=== PATIENT | female | born 1975 | race Caucasian/White ===

== ENCOUNTER 2017-04-15 20:09 | Emergency (ER) | payer BC, MEDICAID ==
--- NOTE | 2017-04-15 20:46 | ER Document Report ---
ED Medical Screen (RME) - General Chief Complaint: Leg Swelling Stated Complaint: POSSIBLE BLOOD CLOT Time Seen by Provider: 04/15/17 20:39 Mode of Arrival: Ambulatory Information source: Patient Notes: Pt is a 41 year old female who presents to the ER today for left lower leg pain and swelling. She has no hx of blood clots. Is on no blood thinners. TRAVEL OUTSIDE OF THE [place] IN LAST 30 DAYS: No - Related Data Allergies/Adverse Reactions: brompheniramine maleate [From Dimetapp] Allergy (Severe, Verified 01/12/12 11:23 ) Swelling of Throat dextromethorphan HBr [From Dimetapp] Allergy (Severe, Verified 01/12/12 11:23) Swelling of Throat phenylpropanolamine HCl [From Dimetapp] Allergy (Severe, Verified 01/12/12 11:23 ) Swelling of Throat pseudoephedrine HCl [From Dimetapp] Allergy (Severe, Verified 01/12/12 11:23) Swelling of Throat Past Medical History - General Information source: Patient - Past Medical History Cardiac Medical History: Reports: Hx Hypertension Neurological Medical History: Reports: Hx Migraine Renal/ Medical History: Denies: Hx Peritoneal Dialysis Past Surgical History: Reports: Hx Hysterectomy - Immunizations Hx Diphtheria, Pertussis, Tetanus Vaccination: Yes Review of Systems - Review of Systems Musculoskeletal: See HPI Skin: See HPI Physical Exam - Vital signs Vitals: Temp Pulse Resp BP Pulse Ox 98.2 F 111 H 16 131/69 H 98 04/15/17 20:37 04/15/17 20:37 04/15/17 20:37 04/15/17 20:37 04/15/17 20:37 - Notes Notes: PHYSICAL EXAMINATION: GENERAL: Well-appearing and in no acute distress. LUNGS: CTAB and equal. No wheezes rales or rhonchi. HEART: Regular rate and rhythm without murmurs EXTREMITIES: tender to left calf, Benito's sign positive, Normal range of motion , no pitting edema. No cyanosis. Course - Vital Signs Vital signs: Temp Pulse Resp BP Pulse Ox 98.2 F 111 H 16 131/69 H 98 04/15/17 20:37 04/15/17 20:37 04/15/17 20:37 04/15/17 20:37 04/15/17 20:37
[2017-04-15 21:26] LABS: HEMATOCRIT 41.5 % (36.0-47.0); HEMOGLOBIN 13.8 g/dL (12.0-15.5); HGB HCT DIFFERENCE -0.1; MEAN CORPUSCULAR HEMOGLOBIN 30.6 pg (27.0-33.4); MEAN CORPUSCULAR HGB CONC 33.3 g/dL (32.0-36.0); MEAN CORPUSCULAR VOLUME 92 fl (80-97); RED BLOOD COUNT 4.51 10^6/uL (3.72-5.28); RED CELL DISTRIBUTION WIDTH 14.4 % (11.5-14.0)
[2017-04-15 21:28] LABS: PARTIAL THROMBOPLASTIN TIME 27.2 SEC (23.5-35.8); PROTHROMBIN TIME 11.6 SEC (11.4-15.4)
[2017-04-15 21:31] LABS: APPEARANCE,URINE CLEAR; BILIRUBIN,URINE NEGATIVE (NEGATIVE); GLUCOSE, URINE NEGATIVE (NEGATIVE); KETONES,URINE NEGATIVE (NEGATIVE); LEUKOCYTE ESTERASE,URINE TRACE (NEGATIVE); NITRITE,URINE NEGATIVE (NEGATIVE); PROTEIN,URINE NEGATIVE (NEGATIVE); URINE SPECIFIC GRAVITY 1.006; UROBILINOGEN,URINE NEGATIVE mg/dL (<2.0)
[2017-04-15 21:40] LABS: ALANINE AMINOTRANSFERASE 109 U/L (9-52); ALBUMIN 4.1 g/dL (3.5-5.0); ALKALINE PHOSPHATASE 148 U/L (38-126); ANION GAP 11 (5-19); ASPARTATE AMINO TRANSFERASE 77 U/L (14-36); BILIRUBIN,DIRECT 0.5 mg/dL (0.0-0.4); BILIRUBIN,TOTAL 0.5 mg/dL (0.2-1.3); BLOOD UREA NITROGEN 14 mg/dL (7-20); CALCIUM 10.4 mg/dL (8.4-10.2); CARBON DIOXIDE 26 mmol/L (22-30); CHLORIDE 99 mmol/L (98-107); CREATININE RESULT 0.97 mg/dL (0.52-1.25); GLUCOSE 93 mg/dL (75-110); POTASSIUM 5.2 mmol/L (3.6-5.0); TOTAL PROTEIN 8.2 g/dL (6.3-8.2)
[2017-04-15 21:43] LABS: BASOPHILS % (MANUAL) 1 % (0-2); EOSINOPHILS % (MANUAL) 8 % (0-6); LYMPHOCYTES % (MANUAL) 43 % (13-45); TOTAL CELLS COUNTED 100
[2017-04-15 21:46] LABS: RBC MORPHOLOGY COMMENT NORMO-CYTIC/CHROMIC
[2017-04-15 21:50] LABS: WHITE BLOOD COUNT 35.3 10^3/uL (4.0-10.5)
--- NOTE | 2017-04-15 23:08 | ER Document Report ---
ED Extremity Problem, Lower - General Mode of Arrival: Ambulatory Information source: Patient TRAVEL OUTSIDE OF THE [place] IN LAST 30 DAYS: No - HPI Patient complains to provider of: Pain, Swelling Location: Leg Occurred: Other - Refer to HPI notes Onset/Duration: Gradual Quality of pain: Fullness, Pressure <ROSALIND ABURTO - Last Filed: 04/16/17 02:26> <DIRK MCCLURE - Last Filed: 04/16/17 02:42> - General Chief Complaint: Leg Swelling Stated Complaint: POSSIBLE BLOOD CLOT Time Seen by Provider: 04/15/17 20:39 Notes: Patient is a 41-year-old female presenting to the emergency department for left lower leg pain and swelling. Patient has had these symptoms for 3 days. Patient states that she is concerned for possible DVT. Patient has not been taking any steroids recently. Patient denies any known injury to this leg. Patient has history of rheumatoid arthritis and a splenectomy. Patient states she typically has an abnormally high white blood count due to her RA and splenectomy. Patient denies any fevers, vomiting, diarrhea, weakness, or tingling. (ROSALIND ABURTO) - Related Data Allergies/Adverse Reactions: brompheniramine maleate [From Dimetapp] Allergy (Severe, Verified 01/12/12 11:23 ) Swelling of Throat dextromethorphan HBr [From Dimetapp] Allergy (Severe, Verified 01/12/12 11:23) Swelling of Throat phenylpropanolamine HCl [From Dimetapp] Allergy (Severe, Verified 01/12/12 11:23 ) Swelling of Throat pseudoephedrine HCl [From Dimetapp] Allergy (Severe, Verified 01/12/12 11:23) Swelling of Throat Past Medical History - General Information source: Patient - Social History Smoking Status: Current Every Day Smoker Cigarette use (# per day): Yes Chew tobacco use (# tins/day): Yes Frequency of alcohol use: None Drug Abuse: None Family History: None Patient has suicidal ideation: No Patient has homicidal ideation: No - Past Medical History Cardiac Medical History: Reports: Hx Hypertension Neurological Medical History: Reports: Hx Migraine Musculoskeltal Medical History: Reports Hx Arthritis - RA Past Surgical History: Reports: Hx Abdominal Surgery - Splenectomy, Hx Hysterectomy - Immunizations Hx Diphtheria, Pertussis, Tetanus Vaccination: Yes <ROSALIND ABURTO - Last Filed: 04/16/17 02:26> Review of Systems - Review of Systems Constitutional: No symptoms reported EENT: No symptoms reported Cardiovascular: No symptoms reported Respiratory: No symptoms reported Gastrointestinal: No symptoms reported Genitourinary: No symptoms reported Female Genitourinary: No symptoms reported Musculoskeletal: See HPI Skin: See HPI Hematologic/Lymphatic: No symptoms reported Neurological/Psychological: No symptoms reported -: Yes All other systems reviewed and negative <LAVONNE ABURTOINE - Last Filed: 04/16/17 02:26> Physical Exam <LAVONNE ABURTOINE - Last Filed: 04/16/17 02:26> <DIRK MCCLURE - Last Filed: 04/16/17 02:42> - Vital signs Vitals: Temp Pulse Resp BP Pulse Ox 98.2 F 111 H 16 131/69 H 98 04/15/17 20:37 04/15/17 20:37 04/15/17 20:37 04/15/17 20:37 04/15/17 20:37 - Notes Notes: GENERAL: Alert, interacts well. No acute distress. HEAD: Normocephalic, atraumatic. EYES: Pupils equal, round, and reactive to light. Extraocular movements intact. ENT: Oral mucosa moist, tongue midline. NECK: Full range of motion. Supple. Trachea midline. LUNGS: Clear to auscultation bilaterally, no wheezes, rales, or rhonchi. No respiratory distress. HEART: Mild tachycardia. Regular rhythm. No murmurs, gallops, or rubs. ABDOMEN: Soft, non-tender. Non-distended. Bowel sounds present in all 4 quadrants. EXTREMITIES: Moves all 4 extremities spontaneously. 1+ pitting edema below the left knee, erythema circumferential around the mid calf. No cyanosis. NEUROLOGICAL: Alert and oriented x3. Normal speech. PSYCH: Normal affect, normal mood. SKIN: Warm, dry. (YODITLAVONNE BARBERINE) Course - Laboratory Result Diagrams: 04/15/17 21:03 04/15/17 21:03 <YODITLAVONNE BARBERINE - Last Filed: 04/16/17 02:26> - Laboratory Result Diagrams: 04/15/17 21:03 04/15/17 21:03 <DIRK MCCLURE - Last Filed: 04/16/17 02:42> - Re-evaluation Re-evalutation: 04/16/17 23:[address] Lin who states there is no sign of DVT but, there is a soft tissue mass posteriorly to the left leg in the popliteal fossa. This could be a hematoma and is not vascular throughout. Upon reexamination the calf is swollen and tender to palpation with no specific mass and no sign of compartment syndrome. (ROSALIND ABURTO) 04/16/17 02:40 04/16/17 02:41 35.3 WBC is consitent with patient's past numbers per patient. No evidence of sepsis. Appears consistent with cellulitis, treat with Keflex, no evidence of DVT on doppler US. Discussed mass with pt, who will have it reimaged in 1 week if no improvement. Patient also complains of increasing difficulty moving hands consistent with her usual rheumatoid arthritis flares, we'll start low- dose steroid taper. (DIRK MCCLURE) - Vital Signs Vital signs: Temp Pulse Resp BP Pulse Ox 97.9 F 108 H 18 136/70 H 96 04/15/17 23:36 04/15/17 23:36 04/15/17 23:36 04/15/17 23:36 04/15/17 23:36 - Laboratory Laboratory results interpreted by me: 04/15/17 04/15/17 04/15/17 21:03 21:03 21:03 WBC 35.3 H* RDW 14.4 H Plt Count 665 H Seg Neuts % (Manual) 39 L Monocytes % (Manual) 0 L Eosinophils % (Manual) 8 H Abs Neuts (Manual) 13.8 H Abs Lymphs (Manual) 18.4 H Abs Monocytes (Manual) 0.0 L Absolute Eos (Manual) 2.8 H Abs Basophils (Manual) 0.4 H Sodium 136.0 L Potassium 5.2 H Calcium 10.4 H Direct Bilirubin 0.5 H AST 77 H ALT 109 H Alkaline Phosphatase 148 H Ur Leukocyte Esterase TRACE H Discharge <ROSALIND ABURTO - Last Filed: 04/16/17 02:26> <DIRK MCCLURE - Last Filed: 04/16/17 02:42> - Discharge Clinical Impression: Cellulitis of left lower extremity without foot, Rheumatoid arthritis flare, leftpopliteal fossa mass, Left leg swelling Condition: Stable Disposition: HOME, SELF-CARE Additional Instructions: If the swelling has not decreased in one week she will need to have her ultrasound repeated. Today's ultrasound did not show any blood clot in her leg. It did show a mass in the back of her leg behind her knee. This could be a large bruise in the muscle. She will want to have this followed up because if it gets bigger or does not go away and may represent cancer and will need to be rechecked. Prescriptions: Cephalexin Monohydrate [Keflex 500 mg Capsule] 500 mg PO QID 7 Days Prednisone 1 mg PO ASDIR PRN #120 tablet PRN Reason: Scribe Attestation: 04/16/17 02:42 I personally performed the services described in the documentation, reviewed and edited the documentation which was dictated to the scribe in my presence, and it accurately records my words and actions. (DIRK MCCLURE) Scribe Documentation - Scribe Written by Kimberly:: Kimberly Howard, 04/16/17 1:35 acting as scribe for :: Forrest <ROSALIND ABURTO - Last Filed: 04/16/17 02:26>
--- NOTE | 2017-04-15 23:18 | XCELERA REPORT ---
[address] [address] Lower Extremity Venous Evaluation Name: KIRTI MANN Age: 41 yrs Gender: Female : 1975 Patient Status: Preadmit Patient Location: ER Study Date: 04/15/2017 09:20 PM Procedure: Color flow and duplex imaging of the veins of the left lower extremity as well as the right Common Femoral vein. Reason For Study: left lower leg with pain and swelling Ordering Physician: GLEN ARMSTRONG PA-C Performed By: Venessa Cueto Right Sided Venous Evaluation The right common femoral vein is fully compressible. Spontaneous and phasic flow is present in the right common femoral vein. Left Sided Venous Evaluation Non vascular, complex mass 4 x 3 x1.2 in the Popliteal fossa, also along the upper to mid calf. Normal vessel filling wall to wall, compression and augmentation as well as Colour flow down to the infrageniculate veins. Critical Findings Called in and discussed with Dr Tam at about 2230. and again at about 2310. Interpretation Summary No duplex evidence of DVT or obstruction in the left lower extremity nor in the right Common Femoral vein. Soft tissue masses as noted. : GLEN ARMSTRONG PA-C > Guicho Lin
[2017-04-15 23:39] VITALS: BP 136/70
[2017-04-16 20:00] LABS: PATH REVIEW PATHOLOGIST REVIEWED
== END 2017-04-15 23:36 | disposition home or self-care (01) ==
LOC: ER 20:09
DX: L03.116 Cellulitis of left lower limb (principal); R22.42 Localized swelling, mass and lump, left lower limb; M06.9 Rheumatoid arthritis, unspecified; F17.210 Nicotine dependence, cigarettes, uncomplicated; I10 Essential (primary) hypertension; Z90.710 Acquired absence of both cervix and uterus; Z90.81 Acquired absence of spleen
CPT/HCPCS: 36415; 80053; 81001; 85025; 85610; 85730; 93971; 99284

== ENCOUNTER 2017-05-20 11:30 | Emergency (ER) | payer MEDICAID ==
--- NOTE | 2017-05-20 14:05 | ER Document Report ---
HPI - HPI Patient complains to provider of: left knee pain Onset: Other - over a month Quality of pain: Achy Severity: Severe Pain Level: 4 Context: Patient presents to the emergency department with complaints of left knee pain. Reports that she has a mass behind her left knee was evaluated here in the emergency department in April. She reports she did not follow up with anybody. She just obtained her Medicaid. She also reports she had to go to her son's graduation. She reports that she is unable to bend the knee now. 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 Associated Symptoms: None Exacerbated by: Walking Relieved by: Denies Similar symptoms previously: Yes Recently seen / treated by doctor: Yes - REPRODUCTIVE Reproductive: DENIES: : - DERM Skin Color: Normal Past Medical History - General Information source: Patient Last Menstrual Period: hyst - Social History Smoking Status: Current Every Day Smoker Cigarette use (# per day): Yes Frequency of alcohol use: None Drug Abuse: None Family History: None Patient has suicidal ideation: No Patient has homicidal ideation: No - Past Medical History Cardiac Medical History: Reports: Hx Hypertension Neurological Medical History: Reports: Hx Migraine Renal/ Medical History: Denies: Hx Peritoneal Dialysis Musculoskeltal Medical History: Reports Hx Arthritis - RA Past Surgical History: Reports: Hx Abdominal Surgery - Splenectomy, Hx Hysterectomy - Immunizations Hx Diphtheria, Pertussis, Tetanus Vaccination: Yes Vertical Provider Document - CONSTITUTIONAL Agree With Documented VS: Yes Exam Limitations: No Limitations General Appearance: WD/WN, No Apparent Distress - INFECTION CONTROL TRAVEL OUTSIDE OF THE [place] IN LAST 30 DAYS: No - HEENT HEENT: Atraumatic, Normocephalic - NECK Neck: Supple - RESPIRATORY Respiratory: Breath Sounds Normal, No Respiratory Distress O2 Sat by Pulse Oximetry: 96 - MUSCULOSKELETAL/EXTREMETIES Musculoskeletal/Extremeties: Tender - left knee slightly swollen, no erythema no warmth, reports she is unable to flex the knee.brisk cap refill, +pedal pulse - NEURO Level of Consciousness: Awake, Alert, Appropriate - DERM Integumentary: Warm, Dry Adult Front & Back Diagram: 1 - reports swelling, unable to flex knee Course - Re-evaluation Re-evalutation: 05/20/17 14:04 Patient instructed on plan of CT. 05/20/17 15:10 Dr. garcia consulted per [facility] guidelines - Vital Signs Vital signs: Temp Pulse Resp BP Pulse Ox 97.9 F 102 H 16 135/71 H 96 05/20/17 11:34 05/20/17 11:34 05/20/17 11:34 05/20/17 11:34 05/20/17 11:34 - Diagnostic Test Radiology reviewed: Image reviewed, Reports reviewed - Joint effusion with popliteal cyst with fluid collection extending into the calf consistent with a rupture of the cyst Procedures - Immobilization Left Knee Pre-Proc Neuro Vasc Exam: Normal Immobilizer type: Rubin wrap Performed by: PCT Post-Proc Neuro Vasc Exam: Unchanged from pre-exam Alignment checked and good: Yes Notes: 05/20/17 pt declined crutches Discharge - Discharge Clinical Impression: Rupture of popliteal cyst Left knee pain Qualifiers: Chronicity: unspecified Qualified Code(s): M25.562 - Pain in left knee Condition: Stable Disposition: HOME, SELF-CARE Instructions: Use of Crutches ([facility]), Ice & Elevation ([facility]), Oral Narcotic Medication ([facility]) Additional Instructions: *You have been evaluated for left knee pain, ruptured popliteal cyst *Maintain the rubin wrap for comfort *Trigger for signs of infection such as redness increased swelling warmth increased pain *Rest/Ice/Elevate *Follow up with orthopedics within one week *Her primary care provider for referral and recheck *Take medication as prescribed *Return to ED for worsening condition, changes, needs Monitor your blood pressure. Your blood pressure was elevated today. This may be because you were anxious, in pain or because you need medication. It is important to follow up with your primary care provider for full evaluation. Prescriptions: Oxycodone HCl/Acetaminophen [Percocet 5-325 mg Tablet] 1 - 2 tab PO ASDIR PRN # 15 tablet PRN Reason: Forms: Elevated Blood Pressure Referrals: ASHLEE MENDES DO [Primary Care Provider] - Follow up in 3-5 days [facility] [Provider Group] - Follow up as needed [facility] [Provider Group] - Follow up as needed
--- NOTE | 2017-05-20 14:51 | RADIOLOGY REPORT (SQ) ---
EXAM DESCRIPTION: CT LT LOWER EXTREMITY WITHOUT COMPLETED DATE/TIME: 05/20/2017 2:40 pm REASON FOR STUDY: MASS behind knee, larger COMPARISON: None. TECHNIQUE: Axial imaging performed through the left knee with reformatted coronal and sagittal imagi ng windowed for bone and soft tissues. Images saved to PACS. All CT scanners at this facility use dose modulation, iterative reconstruction, and/or weight based d osing when appropriate to reduce radiation dose to as low as reasonably achievable (ALARA). [facility]: Dose Right [facility]: CareDose [facility]: Dose Right [facility]: Teradose 4D [facility]: [employer] LIMITATIONS: None. RADIATION DOSE: Up-to-date CT equipment and radiation dose reduction techniques were employed. CTDIv ol: 4.1 mGy. DLP: 152 mGy-cm. mGy. FINDINGS: SOFT TISSUES: Moderately large joint effusion. Popliteal cyst with transverse measurement s of 2 x 3 cm. Just inferior to the cyst and contiguous with the cyst is a large fluid collection ex tending adjacent to the medial gastrocnemius muscle into the calf. Maximum transverse measurements a re 2.5 x 7 cm and length measures 5.5. Overall length of involvement measures 13 cm. No solid soft tissue mass visualized. BONES: No acute fracture. No dislocation. MINERALIZATION: Normal. OTHER: No other significant finding. IMPRESSION: JOINT EFFUSION WITH POPLITEAL CYST. LARGE FLUID COLLECTION EXTENDING INFERIORLY INTO TH E CALF CONSISTENT WITH RUPTURE OF THE CYST AND DISSECTION OF FLUID INTO THE SOFT TISSUES. NO SOLID M ASS IDENTIFIED. TECHNICAL DOCUMENTATION: JOB ID: [id number] Quality ID # [id number]: Final reports with documentation of one or more dose reduction techniques (e.g., Au tomated exposure control, adjustment of the mA and/or kV according to patient size, use of iterative reconstruction technique) 2010 [employer]- All Rights Reserved
[2017-05-20 15:55] VITALS: BP 131/80
== END 2017-05-20 15:55 | disposition home or self-care (01) ==
LOC: ER 11:30
DX: M66.0 Rupture of popliteal cyst (principal); M25.562 Pain in left knee; F17.210 Nicotine dependence, cigarettes, uncomplicated; I10 Essential (primary) hypertension; Z90.710 Acquired absence of both cervix and uterus
CPT/HCPCS: 99283

== ENCOUNTER 2018-06-29 10:16 | Emergency (ER) | payer MEDICAID ==
--- NOTE | 2018-06-29 10:36 | ER Document Report ---
ED Medical Screen (RME) - General Chief Complaint: Abdominal Pain Stated Complaint: ABDOMINAL PAIN Time Seen by Provider: 06/29/18 10:23 Mode of Arrival: Ambulatory Information source: Patient Notes: This is a 42-year-old female with a history of hypertension, migraines, leukocytosis (~30K), rheumatoid arthritis (prednisone 5 mg twice daily) with a history of hysterectomy, splenectomy and abdominal mesh. The patient was usual state of health and awoke at 2:30 AM with nausea and vomiting. Patient started having upper abdominal pain (over the mesh) after the vomiting. Patient denies fever or dysuria. Patient denies vaginal discharge. TRAVEL OUTSIDE OF THE [place] IN LAST 30 DAYS: No - Related Data Allergies/Adverse Reactions: brompheniramine maleate [From Dimetapp] Allergy (Severe, Verified 06/29/18 10:18 ) Swelling of Throat dextromethorphan HBr [From Dimetapp] Allergy (Severe, Verified 06/29/18 10:18) Swelling of Throat phenylpropanolamine HCl [From Dimetapp] Allergy (Severe, Verified 06/29/18 10:18 ) Swelling of Throat pseudoephedrine HCl [From Dimetapp] Allergy (Severe, Verified 06/29/18 10:18) Swelling of Throat Past Medical History - Social History Chew tobacco use (# tins/day): No Frequency of alcohol use: None Drug Abuse: None - Past Medical History Cardiac Medical History: Reports: Hx Hypertension Neurological Medical History: Reports: Hx Migraine Renal/ Medical History: Denies: Hx Peritoneal Dialysis Musculoskeltal Medical History: Reports Hx Arthritis - RA Past Surgical History: Reports: Hx Abdominal Surgery - Splenectomy, Hx Hysterectomy - Immunizations Hx Diphtheria, Pertussis, Tetanus Vaccination: Yes Physical Exam - Vital signs Vitals: Temp Pulse Resp BP Pulse Ox 98.3 F 99 18 148/103 H 97 06/29/18 10:25 06/29/18 10:25 06/29/18 10:25 06/29/18 10:25 06/29/18 10:25 Course - Vital Signs Vital signs: Temp Pulse Resp BP Pulse Ox 98.3 F 99 18 148/103 H 97 06/29/18 10:25 06/29/18 10:25 06/29/18 10:25 06/29/18 10:25 06/29/18 10:25 Doctor's Discharge - Discharge Referrals: ASHLEE MENDES DO [Primary Care Provider] - Follow up as needed
[2018-06-29] MEDS ORDERED: ONDANSETRON 4 MG TAB.RAPDIS PO ONE (10:37)
[2018-06-29] MEDS ORDERED: NORMAL SALINE 1000 ML 1,000 ML IV ONE (10:37)
[2018-06-29 11:06] LABS: HEMATOCRIT 43.9 % (36.0-47.0); HEMOGLOBIN 14.8 g/dL (12.0-15.5); MEAN CORPUSCULAR HEMOGLOBIN 30.8 pg (27.0-33.4); MEAN CORPUSCULAR HGB CONC 33.7 g/dL (32.0-36.0); MEAN CORPUSCULAR VOLUME 91 fl (80-97); PLATELET COUNT 745 10^3/uL (150-450); RED BLOOD COUNT 4.81 10^6/uL (3.72-5.28); RED CELL DISTRIBUTION WIDTH 14.7 % (11.5-14.0); WHITE BLOOD COUNT 27.7 10^3/uL (4.0-10.5)
[2018-06-29 11:09] LABS: AMORPHOUS SEDIMENT,URINE TRACE /HPF; APPEARANCE,URINE SLIGHTLY-CLOUDY; BILIRUBIN,URINE NEGATIVE (NEGATIVE); COLOR,URINE AMBER; GLUCOSE, URINE NEGATIVE (NEGATIVE); KETONES,URINE NEGATIVE (NEGATIVE); LEUKOCYTE ESTERASE,URINE TRACE (NEGATIVE); NITRITE,URINE NEGATIVE (NEGATIVE); PROTEIN,URINE 30 mg/dL (NEGATIVE)
--- NOTE | 2018-06-29 11:18 | ER Document Report ---
ED General - General Chief Complaint: Abdominal Pain Stated Complaint: ABDOMINAL PAIN Time Seen by Provider: 06/29/18 10:23 Mode of Arrival: Ambulatory TRAVEL OUTSIDE OF THE [place] IN LAST 30 DAYS: No - HPI Notes: Patient is a 42-year-old female with a history of hypertension, migraines, leukocytosis (approx 30k), rheumatoid arthritis (on prednisone 5 mg twice daily) , surgical history of hysterectomy, splenectomy, hernia with abdominal mesh repair presents to the ED complaining of middle to upper abdominal bloating, cramping, pain, nausea/vomiting that began at 0230 this morning. Patient states that she did have a slight bowel movement this morning, but has not passed any gas since then. Patient states that the pain woke her from sleep and she has vomited about 15 times with the last episode of emesis about 1.5 hours ago. Patient states that the pain has subsided, but is still lingering. Patient states that she has not been ill recently. She is urinating normally. She has not had any vaginal discharge, odor, or bleeding. Denies any headache, fever, URI, sore throat, chest pain, palpitations, syncope, cough, shortness of breath, wheeze, dyspnea, diarrhea, urinary retention, dysuria, hematuria, back pain, loss of control of bowel or bladder, numbness/tingling, saddle anesthesia , muscle paralysis/weakness, or rash. - Related Data Allergies/Adverse Reactions: brompheniramine maleate [From Dimetapp] Allergy (Severe, Verified 06/29/18 10:18 ) Swelling of Throat dextromethorphan HBr [From Dimetapp] Allergy (Severe, Verified 06/29/18 10:18) Swelling of Throat phenylpropanolamine HCl [From Dimetapp] Allergy (Severe, Verified 06/29/18 10:18 ) Swelling of Throat pseudoephedrine HCl [From Dimetapp] Allergy (Severe, Verified 06/29/18 10:18) Swelling of Throat Past Medical History - General Information source: Patient - Social History Smoking Status: Current Every Day Smoker Chew tobacco use (# tins/day): No Frequency of alcohol use: None Drug Abuse: None Family History: None Patient has suicidal ideation: No Patient has homicidal ideation: No - Past Medical History Cardiac Medical History: Reports: Hx Hypertension Neurological Medical History: Reports: Hx Migraine Renal/ Medical History: Denies: Hx Peritoneal Dialysis Musculoskeletal Medical History: Reports Hx Arthritis - RA Past Surgical History: Reports: Hx Abdominal Surgery - Splenectomy, Hx Hysterectomy - Immunizations Hx Diphtheria, Pertussis, Tetanus Vaccination: Yes Review of Systems - Review of Systems -: Yes All other systems reviewed and negative Physical Exam - Vital signs Vitals: Temp Pulse Resp BP Pulse Ox 98.3 F 99 18 148/103 H 97 06/29/18 10:25 06/29/18 10:25 06/29/18 10:25 06/29/18 10:06/29/18 10:25 - Notes Notes: PHYSICAL EXAMINATION: GENERAL: Well-appearing, well-nourished and in no acute distress. HEAD: Atraumatic, normocephalic. EYES: Pupils equal round and reactive to light, extraocular movements intact, sclera anicteric, conjunctiva are normal. ENT: Nares patent and without discharge. oropharynx clear without exudates. No tonsilar hypertrophy or erythema. Moist mucous membranes. NECK: Normal range of motion, supple without lymphadenopathy LUNGS: Breath sounds clear to auscultation bilaterally and equal. No wheezes rales or rhonchi. HEART: Regular rate and rhythm without murmurs, rubs, gallops. ABDOMEN: Soft, + mild distention. No guarding, no rebound. No masses appreciated. bowel sounds present. No CVA tenderness bilaterally. + tenderness to the abd, generalized upper. Musculoskeletal: FROM to passive/active. Strength 5+/5. Extremities: No cyanosis, clubbing, or edema b/l. Peripheral pulses 2+. Capillary refill less than 3 seconds. NEUROLOGICAL: Normal speech, normal gait. PSYCH: Normal mood, normal affect. SKIN: Warm, Dry, normal turgor, no rashes or lesions noted. Course - Re-evaluation Re-evalutation: 06/29/18 14:15 Patient is an afebrile, well-hydrated, 42-year-old female who presents to the ED with nausea, vomiting, abdominal pain unspecified. Patient's symptoms have since completely resolved. Vitals are acceptable without any significant tachycardia, tachypnea, or hypoxia. PE is otherwise unremarkable. Patient's abdomen is now soft and nontender throughout. Patient states that when she started drinking the oral contrast that it made her want to have a bowel movement and states that she had "a ton of poop came out." Patient states that she no longer feels distended and no longer has any pain. She has not had any emesis since presenting to the emergency department. Patient states that she is hungry and has tolerated p.o. without difficulties. She is nontoxic- appearing. I did thoroughly reevaluate the patient and confirm that she is no longer tender in her abdomen. I did review with patient that she needs to monitor symptoms closely and return immediately if symptoms worsen or come back. Patient has an extensive surgical history to her abdomen and my initial concern was of a possible obstruction based on her history and presentation at that time. Patient is declining the CT scan which I am okay with at this time. With patient being asymptomatic with baseline CBC and unremarkable CMP/lipase/ urinalysis I have a low suspicion for acute appendicitis, acute bowel obstruction, acute cholecystitis, acute cholangitis, perforated diverticulitis, incarcerated hernia, pancreatitis, perforated ulcer, peritonitis, sepsis, pelvic inflammatory disease, ectopic , tubo-ovarian abscess, ovarian torsion, or other systemic emergent condition at this time. Patient is aware that her condition can change from initial presentation and she needs to monitor symptoms closely and seek medical attention if any acute changes. Rx for zofran. Conservative measures otherwise for symptoms. Recheck with your PCM in 1-2 days. Consider consult with a nurse licensed practical. Return to the ED with any worsening/concerning symptoms otherwise as reviewed in discharge. Patient is in agreement. - Vital Signs Vital signs: Temp Pulse Resp BP Pulse Ox 98.3 F 99 18 148/103 H 97 06/29/18 10:25 06/29/18 10:25 06/29/18 10:25 06/29/18 10:25 06/29/18 10:25 - Laboratory Result Diagrams: 06/29/18 10:52 06/29/18 10:52 Laboratory results interpreted by me: 06/29/18 06/29/18 06/29/18 10:52 10:52 10:52 WBC 27.7 H RDW 14.7 H Plt Count 745 H Seg Neuts % (Manual) 82 H Abs Neuts (Manual) 22.7 H Glucose 121 H Calcium 10.5 H Total Protein 8.3 H Urine Protein 30 H Urine Urobilinogen 4.0 H Ur Leukocyte Esterase TRACE H Discharge - Discharge Clinical Impression: Abdominal pain Qualifiers: Abdominal location: upper abdomen, unspecified Qualified Code(s): R10.10 - Upper abdominal pain, unspecified Nausea & vomiting Qualifiers: Vomiting type: unspecified Vomiting Intractability: non-intractable Qualified Code(s): R11.2 - Nausea with vomiting, unspecified Condition: Stable Disposition: HOME, SELF-CARE Instructions: Abdominal Pain ([facility]), Vomiting ([facility]), Antinausea Medication ([facility]) Additional Instructions: Maintain adequate fluid and food intake [place] diet ([employer] Bananas, rice, apples, toast, etc Zofran as needed tylenol if needed Monitor for any worsening symptoms Make sure you are staying hydrated enough to urinate and have normal BM's Recheck with your PCM in 1-2 days Consider consult with Gastroenterology for ongoing/worsening symptoms Return to the ED with any worsening symptoms and/or development of fever, headache, chest pain, palpitations, syncope, shortness of breath, trouble breathing, abdominal pain, n/v/d, blood in stool/urine, weakness, or other worsening symptoms that are concerning to you. Prescriptions: Ondansetron [Zofran Odt 4 mg Tablet] 1 - 2 tab PO Q4H PRN #15 tab.rapdis PRN Reason: For Nausea/Vomiting Polyethylene Glycol 3350 [Miralax] 1 cap PO DAILY #527 powder Forms: Elevated Blood Pressure, Smoking Cessation Education Referrals: ASHLEE MENDES DO [Primary Care Provider] - 07/01/18 CURTIS MCCORMICK MD [ACTIVE STAFF] - Follow up as needed
[2018-06-29 11:22] LABS: ALANINE AMINOTRANSFERASE 33 U/L (9-52); ALBUMIN 4.2 g/dL (3.5-5.0); ALKALINE PHOSPHATASE 126 U/L (38-126); ANION GAP 15 (5-19); ASPARTATE AMINO TRANSFERASE 32 U/L (14-36); BILIRUBIN,DIRECT 0.3 mg/dL (0.0-0.4); BILIRUBIN,TOTAL 0.4 mg/dL (0.2-1.3); BLOOD UREA NITROGEN 13 mg/dL (7-20); CALCIUM 10.5 mg/dL (8.4-10.2); CARBON DIOXIDE 27 mmol/L (22-30); CHLORIDE 102 mmol/L (98-107); GLUCOSE 121 mg/dL (75-110); LIPASE 67.6 U/L (23-300); POTASSIUM 4.6 mmol/L (3.6-5.0); TOTAL PROTEIN 8.3 g/dL (6.3-8.2)
[2018-06-29 11:33] LABS: ABSOLUTE LYMPHOCYTES# (MANUAL) 3.6 10^3/uL (0.5-4.7); ABSOLUTE MONOCYTES # (MANUAL) 1.4 10^3/uL (0.1-1.4); ABSOLUTE NEUTROPHILS# (MANUAL) 22.7 10^3/uL (1.7-8.2); BASOPHILS % (MANUAL) 0 % (0-2); EOSINOPHILS % (MANUAL) 0 % (0-6); LYMPHOCYTES % (MANUAL) 13 % (13-45); MONOCYTES % (MANUAL) 5 % (3-13); SEGMENTED NEUTROPHILS % (MAN) 82 % (42-78); TOTAL CELLS COUNTED 100
[2018-06-29 11:34] LABS: ANISOCYTOSIS SLIGHT; TOXIC GRANULATION 1+; TOXIC VACUOLATION PRESENT
[2018-06-29 11:35] LABS: PLATELET CLUMPS PRESENT; PLATELET COMMENT INCREASED
[2018-06-29 14:33] VITALS: BP 131/87
== END 2018-06-29 14:39 | disposition home or self-care (01) ==
LOC: ER 10:16
DX: R10.10 Upper abdominal pain, unspecified (principal); R11.2 Nausea with vomiting, unspecified; R14.0 Abdominal distension (gaseous); I10 Essential (primary) hypertension; F17.200 Nicotine dependence, unspecified, uncomplicated; M06.9 Rheumatoid arthritis, unspecified; Z79.52 Long term (current) use of systemic steroids; Z98.890 Other specified postprocedural states; Z90.710 Acquired absence of both cervix and uterus; Z90.81 Acquired absence of spleen; Z88.8 Allergy status to other drugs, medicaments and biological substances
CPT/HCPCS: 99284; 36415; 83690; 85025; 80053; 81001; S0119

== ENCOUNTER 2019-03-19 18:55 | Inpatient (IN) | payer MEDICAID ==
[2019-03-19] MEDS ORDERED: ONDANSETRON 4 MG TAB.RAPDIS PO ONE (19:48)
--- NOTE | 2019-03-19 19:51 | ER Document Report ---
ED Medical Screen (RME) - General Chief Complaint: Abdominal Pain Stated Complaint: ABDOMINAL PAIN Time Seen by Provider: 03/19/19 19:47 Primary Care Provider: ASHLEE MENDES DO [Primary Care Provider] - Follow up as needed Mode of Arrival: Ambulatory Information source: Patient Notes: 42-year-old female presented to ED for complaint of severe abdominal pain since noon to the right upper quadrant. She states she has been nauseated and had one emesis. She states she has not had any diarrhea. She denies any fever. She has very few hypoactive bowel sounds in the right upper quadrant otherwise I do not hear bowel sounds. Lungs are clear to auscultation. Patient does have a history of high blood pressure cholesterol. 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 I have greeted and performed a rapid initial assessment of this patient. A comprehensive ED assessment and evaluation of the patient, analysis of test results and completion of medical decision making process will be conducted by an additional ED providers. TRAVEL OUTSIDE OF THE [place] IN LAST 30 DAYS: No - Related Data Allergies/Adverse Reactions: brompheniramine maleate [From Dimetapp] Allergy (Severe, Verified 06/29/18 10:18) Swelling of Throat dextromethorphan HBr [From Dimetapp] Allergy (Severe, Verified 06/29/18 10:18) Swelling of Throat phenylpropanolamine HCl [From Dimetapp] Allergy (Severe, Verified 06/29/18 10:18) Swelling of Throat pseudoephedrine HCl [From Dimetapp] Allergy (Severe, Verified 06/29/18 10:18) Swelling of Throat Past Medical History - Social History Chew tobacco use (# tins/day): No Frequency of alcohol use: None Drug Abuse: None - Past Medical History Cardiac Medical History: Reports: Hx Hypertension Neurological Medical History: Reports: Hx Migraine Renal/ Medical History: Denies: Hx Peritoneal Dialysis Musculoskeltal Medical History: Reports Hx Arthritis - RA Past Surgical History: Reports: Hx Abdominal Surgery - Splenectomy, Hx Hysterectomy - Immunizations Hx Diphtheria, Pertussis, Tetanus Vaccination: Yes Physical Exam - Vital signs Vitals: Temp Pulse Resp BP Pulse Ox 97.3 F 75 22 H 196/107 H 95 03/19/19 19:33 03/19/19 19:33 03/19/19 19:33 03/19/19 19:33 03/19/19 19:33 Course - Vital Signs Vital signs: Temp Pulse Resp BP Pulse Ox 97.3 F 75 22 H 196/107 H 95 03/19/19 19:33 03/19/19 19:33 03/19/19 19:33 03/19/19 19:33 03/19/19 19:33 Doctor's Discharge - Discharge Referrals: ASHLEE MENDES DO [Primary Care Provider] - Follow up as needed
--- NOTE | 2019-03-19 21:00 | RADIOLOGY REPORT (SQ) ---
EXAM DESCRIPTION: XR ABDOMEN SUPINE AND ERECT WITH CHEST (ABD ACUTE SERIES) COMPLETED DATE/TME: 03/19/2019 19:48 CLINICAL HISTORY: 43 years, Female, Severe abdominal pain right upper quadrant EXAM DESCRIPTION: CLINICAL HISTORY: Severe abdominal pain right upper quadrant COMPARISON: None FINDINGS: Frontal view of the chest and supine and upright images of the abdomen were submitted. Numerous metallic rings are identified throughout the abdomen. Cardiac silhouette is within normal limits. There is no focal parenchymal or pleural disease. There is no free air in the abdomen. There is no evidence of bowel obstruction. IMPRESSION: No acute abnormalities.
[2019-03-19] MEDS ORDERED: METOCLOPRAMIDE HCL INJ/PF 10 MG/2 ML SDV IV ONE (21:08)
[2019-03-19 21:31] LABS: HEMATOCRIT 43.2 % (36.0-47.0); HEMOGLOBIN 14.5 g/dL (12.0-15.5); MEAN CORPUSCULAR HEMOGLOBIN 31.3 pg (27.0-33.4); MEAN CORPUSCULAR HGB CONC 33.5 g/dL (32.0-36.0); MEAN CORPUSCULAR VOLUME 94 fl (80-97); PLATELET COUNT 667 10^3/uL (150-450); RED BLOOD COUNT 4.63 10^6/uL (3.72-5.28); RED CELL DISTRIBUTION WIDTH 14.1 % (11.5-14.0)
--- NOTE | 2019-03-19 21:51 | RADIOLOGY REPORT (SQ) ---
EXAM DESCRIPTION: [facility]: US ABDOMEN LIMITED CLINICAL HISTORY: 43 years Female; Severe abdominal pain right upper quadrant TECHNIQUE: Right upper quadrant ultrasound was performed. COMPARISON: None. FINDINGS: Pancreas: Cannot be visualized Liver: 22.2 cm long. Mild ductal distention. Portal venous flow is hepatopedal, normal. Gallbladder: Multiple small shadowing calculi. Wall is 3 mm. Positive sonographic Hurt's sign. Common bile duct: Patient refused to complete the exam. Common bile duct could not be measured. Right kidney: 11.1 cm long. No hydronephrosis. IMPRESSION: 1. Cholelithiasis with mild wall thickening and positive Hurt's sign, suggesting acute cholecystitis. 2. Hepatomegaly 3. Common bile duct could not be measured, although there is at least mild intrahepatic ductal distention.
[2019-03-19 21:52] LABS: ALANINE AMINOTRANSFERASE 35 U/L (9-52); ALKALINE PHOSPHATASE 135 U/L (38-126); ANION GAP 10 (5-19); ASPARTATE AMINO TRANSFERASE 35 U/L (14-36); BILIRUBIN,DIRECT 0.4 mg/dL (0.0-0.4); BILIRUBIN,TOTAL 0.4 mg/dL (0.2-1.3); BLOOD UREA NITROGEN 21 mg/dL (7-20); CALCIUM 9.6 mg/dL (8.4-10.2); CARBON DIOXIDE 26 mmol/L (22-30); CHLORIDE 103 mmol/L (98-107); GLUCOSE 125 mg/dL (75-110); LIPASE 189.1 U/L (23-300); POTASSIUM 3.7 mmol/L (3.6-5.0); SODIUM 139.4 mmol/L (137-145); TOTAL PROTEIN 7.2 g/dL (6.3-8.2)
[2019-03-19 21:53] LABS: ABSOLUTE LYMPHOCYTES# (MANUAL) 11.3 10^3/uL (0.5-4.7); ABSOLUTE MONOCYTES # (MANUAL) 3.1 10^3/uL (0.1-1.4); ABSOLUTE NEUTROPHILS# (MANUAL) 18.8 10^3/uL (1.7-8.2); BASOPHILS % (MANUAL) 2 % (0-2); EOSINOPHILS % (MANUAL) 1 % (0-6); LYMPHOCYTES % (MANUAL) 29 % (13-45); MONOCYTES % (MANUAL) 9 % (3-13); SEGMENTED NEUTROPHILS % (MAN) 55 % (42-78); TOTAL CELLS COUNTED 100
[2019-03-19 21:54] LABS: ANISOCYTOSIS SLIGHT; PLATELET COMMENT INCREASED; TOXIC GRANULATION SLIGHT; TOXIC VACUOLATION PRESENT
[2019-03-19 21:55] LABS: WHITE BLOOD COUNT 34.2 10^3/uL (4.0-10.5)
[2019-03-19] MEDS ORDERED: HYDROMORPHONE HCL INJ/PF 2 MG/ML AMPULE IV PRN (22:23)
[2019-03-19] MEDS ORDERED: PIPERACILLIN/TAZOBACTAM 3.375 GM VIAL IV ONE (22:23)
[2019-03-19] MEDS ORDERED: NORMAL SALINE 1000 ML 1,000 ML IV ONE (23:24)
[2019-03-19] MEDS ORDERED: KETOROLAC TROMETHAMINE INJ/PF 30 MG/1 ML SDV IV ONE (23:26)
--- NOTE | 2019-03-19 23:27 | ER Document Report ---
ED General - General Chief Complaint: Abdominal Pain Stated Complaint: ABDOMINAL PAIN Time Seen by Provider: 03/19/19 19:47 Mode of Arrival: Ambulatory Notes: Patient is a 43-year-old female with a past medical history of hypertension, presents complaining of epigastric and right upper quadrant abdominal pain that started earlier today after eating barbecue pork in the morning. States that she had a relatively abrupt onset of severe, cramping, throbbing pain to the upper abdomen that has been constant since that time. She states that she is had associated nausea and vomiting. Nothing seems to improve or worsen the pain. Has not tried to eat or drink anything since that time for fear of making the pain worse. She states that she is intermittently had some mild similar pains over the last several weeks but nothing to this degree of severity. She has not had fever. Has not seen her primary care physician regarding today's concerns. TRAVEL OUTSIDE OF THE [place] IN LAST 30 DAYS: No - Related Data Allergies/Adverse Reactions: brompheniramine maleate [From Dimetapp] Allergy (Severe, Verified 06/29/18 10:18) Swelling of Throat dextromethorphan HBr [From Dimetapp] Allergy (Severe, Verified 06/29/18 10:18) Swelling of Throat phenylpropanolamine HCl [From Dimetapp] Allergy (Severe, Verified 06/29/18 10:18) Swelling of Throat pseudoephedrine HCl [From Dimetapp] Allergy (Severe, Verified 06/29/18 10:18) Swelling of Throat Past Medical History - General Information source: Patient - Social History Smoking Status: Current Every Day Smoker Chew tobacco use (# tins/day): No Frequency of alcohol use: None Drug Abuse: None Lives with: Family Family History: Reviewed & Not Pertinent Patient has suicidal ideation: No Patient has homicidal ideation: No - Past Medical History Cardiac Medical History: Reports: Hx Hypertension Neurological Medical History: Reports: Hx Migraine Renal/ Medical History: Denies: Hx Peritoneal Dialysis Musculoskeletal Medical History: Reports Hx Arthritis - RA Past Surgical History: Reports: Hx Abdominal Surgery - Splenectomy, Hx Hysterectomy - Immunizations Hx Diphtheria, Pertussis, Tetanus Vaccination: Yes Review of Systems - Review of Systems Notes: Constitutional: Negative for fever. HENT: Negative for sore throat. Eyes: Negative for visual changes. Cardiovascular: Negative for chest pain. Respiratory: Negative for shortness of breath. Gastrointestinal: Positive for upper abdominal pain and vomiting Genitourinary: Negative for dysuria. Musculoskeletal: Negative for back pain. Skin: Negative for rash. Neurological: Negative for headaches, weakness or numbness. 10 point ROS negative except as marked above and in HPI. Physical Exam - Vital signs Vitals: Temp Pulse Resp BP Pulse Ox 97.3 F 75 22 H 196/107 H 95 03/19/19 19:33 03/19/19 19:33 03/19/19 19:33 03/19/19 19:33 03/19/19 19:33 Interpretation: Hypertensive Notes: PHYSICAL EXAMINATION: GENERAL: Appears to be in pain, uncomfortable HEAD: Atraumatic, normocephalic. EYES: Pupils equal round and reactive to light, extraocular movements intact, sclera anicteric, conjunctiva are normal. ENT: nares patent, oropharynx clear without exudates. Moist mucous membranes. NECK: Normal range of motion, supple without lymphadenopathy LUNGS: Breath sounds clear to auscultation bilaterally and equal. No wheezes rales or rhonchi. HEART: Regular rate and rhythm without murmurs ABDOMEN: Soft, focal tenderness to the epigastrium in particular the right upper quadrant to palpation. Positive Hurt sign. Normoactive bowel sounds. No guarding, no rebound. No masses appreciated. EXTREMITIES: Normal range of motion, no pitting or edema. No cyanosis. NEUROLOGICAL: No focal neurological deficits. Moves all extremities spontaneously and on command. PSYCH: Normal mood, normal affect. SKIN: Warm, Dry, normal turgor, no rashes or lesions noted. Course - Re-evaluation Re-evalutation: 03/19/19 23:25 Patient presents with signs and symptoms and history most consistent with acute cholecystitis. Right upper quadrant ultrasound does confirm this diagnosis. Market leukocytosis at 34.2. Patient has been started on IV fluids, hydromorphone for pain. Has been given Zosyn. Last p.o. intake at 10 AM. Labs not suggest choledocholithiasis. I discussed this case with the surgeon on-call Dr. Kirkland who has agreed to admit the patient to the surgical floor for operative management in the morning. She will remain n.p.o. - Vital Signs Vital signs: Temp Pulse Resp BP Pulse Ox 98.1 F 83 18 183/92 H 97 04/19/19 02:21 03/20/19 02:21 03/20/19 02:21 03/20/19 02:21 03/20/19 02:21 - Laboratory Result Diagrams: 03/19/19 21:00 03/19/19 21:00 Laboratory results interpreted by me: 03/19/19 03/19/19 03/19/19 21:00 21:00 23:10 WBC 34.2 H* RDW 14.1 H Plt Count 667 H Abs Neuts (Manual) 18.8 H Abs Lymphs (Manual) 11.3 H Abs Monocytes (Manual) 3.1 H Abs Basophils (Manual) 0.7 H BUN 21 H Glucose 125 H Alkaline Phosphatase 135 H Urine Protein 30 H - Diagnostic Test Radiology reviewed: Reports reviewed Discharge - Discharge Clinical Impression: Acute cholecystitis Nausea and vomiting Qualifiers: Vomiting type: unspecified Vomiting Intractability: non-intractable Qualified Code(s): R11.2 - Nausea with vomiting, unspecified Condition: Fair Disposition: ADMITTED INPATIENT Admitting Provider: Surgicalist Unit Admitted: Surgical Floor
[2019-03-20] MEDS: HYDROMORPHONE HCL INJ/PF 2 MG/ML AMPULE IV PRN ×2 (00:38→02:39)
[2019-03-20 01:41] LABS: APPEARANCE,URINE CLEAR; BILIRUBIN,URINE NEGATIVE (NEGATIVE); COLOR,URINE YELLOW; GLUCOSE, URINE NEGATIVE (NEGATIVE); KETONES,URINE NEGATIVE (NEGATIVE); LEUKOCYTE ESTERASE,URINE NEGATIVE (NEGATIVE); NITRITE,URINE NEGATIVE (NEGATIVE); PROTEIN,URINE 30 mg/dL (NEGATIVE); URINE SPECIFIC GRAVITY 1.016; UROBILINOGEN,URINE NEGATIVE mg/dL (<2.0)
[2019-03-20] MEDS ORDERED: PIPERACILLIN/TAZOBACTAM 3.375 GM VIAL IV PRN (04:41)
[2019-03-20] MEDS ORDERED: HYDROMORPHONE HCL INJ/PF 2 MG/ML AMPULE IV PRN (05:07)
[2019-03-20] MEDS ORDERED: PIPERACILLIN SODIUM/TAZOBACTAM 3.375 GM in NORMAL SALINE 100 ML IV SCH (06:00)
--- NOTE | 2019-03-20 07:39 | HISTORY AND PHYSICAL E ---
History and Physical NAME: KIRTI MANN : 1975 AGE: 43Y ADMITTED: 03/19/2019 ROOM: CHIEF COMPLAINT: Abdominal pains. HISTORY OF PRESENT ILLNESS: This is a 43-year-old female with known history of rheumatoid arthritis and hypertension, complained of right upper quadrant pains after eating fatty meal around noontime on 03/19/2019. This was associated with nausea and vomiting. She then went to ED where an ultrasound of the gallbladder showed gallstones and acute cholecystitis findings. Her white count is markedly elevated to about 34,000. The patient denies fever, chills, diarrhea, constipation, chest pains, cough, headaches. PAST MEDICAL HISTORY: 1. History of hypertension, takes lisinopril. 2. Rheumatoid arthritis and has been taking prednisone 5-10 mg daily for at least the past 5 years. She is known to have rheumatoid arthritis for about 10 years. PAST SURGICAL HISTORY: History of exploratory laparotomy and splenectomy by Dr. Anderson about 18 years ago. The patient claims it was a spontaneous bleed of the spleen. Denies any trauma. FAMILY HISTORY: Mother had late onset diabetes mellitus. SOCIAL HISTORY: Smokes a pack a day. Denies alcohol intake. ALLERGIES: No known. REVIEW OF SYSTEMS: As in HPI. Admits to having some chronic mild pains along the right ankle area due to rheumatoid arthritis. PHYSICAL EXAMINATION: GENERAL: The patient is a 43-year-old female who is alert and oriented complaining of pains along the right upper quadrant. She is slightly obese. HEENT: Neck is supple. No thyromegaly. LUNGS: Clear. HEART: Regular sinus rhythm. ABDOMEN: Soft with marked tenderness in the right upper quadrant. EXTREMITIES: No edema. Has chronic swelling that is erythematous along the right lateral tibial bone ankle area, which is nontender. DIAGNOSTIC STUDIES: She had an ultrasound of the gallbladder, which showed gallstones with thickened gallbladder wall. The common bile duct was not well visualized and infrahepatic bile ducts may be slightly dilated. All her liver function tests are normal. IMPRESSION: 1. Acute cholecystitis. 2. Cholelithiasis. 3. Hypertension. 4. Rheumatoid arthritis, on steroids. PLAN: 1. The patient started on IV Zosyn antibiotic. 2. Keep n.p.o. 3. For laparoscopic cholecystectomy, possible open in view of upper midline incision for splenectomy in the past. The patient most likely will have considerable amount of adhesions and laparoscopic cholecystectomy may not be feasible. DICTATING PHYSICIAN: NENA MCHUGH M.D. [id number] PHY#: [id number] ID: [id number] JOB#: [id number] ACCT: [id number] cc: >
[2019-03-20] MEDS ORDERED: ACETAMINOPHEN 1,000 MG/100 ML RTUPB IV ONE ×2 (09:04→21:45)
[2019-03-20] MEDS ORDERED: PROPOFOL INJ 200 MG/20 ML VIAL IV ONE (09:04)
[2019-03-20] MEDS ORDERED: HYDROMORPHONE HCL INJ/PF 2 MG/ML AMPULE ONE ×2 (09:04→10:11)
[2019-03-20] MEDS ORDERED: MIDAZOLAM 2 MG/2 ML INJ ONE ×2 (09:04→10:11)
[2019-03-20] MEDS ORDERED: BUPIVACAINE HCL 0.5%-EPI 1:200000 INJ/PF 30 ML VIAL ONE (09:44)
[2019-03-20] MEDS ORDERED: PREDNISONE 5 MG TABLET PO SCH (10:00)
[2019-03-20] MEDS ORDERED: METHADONE HCL 10 MG TABLET PO SCH (10:00)
[2019-03-20] MEDS ORDERED: DEXMEDETOMIDINE INJ 80 MCG/20 ML VIAL IV ONE (10:11)
[2019-03-20] MEDS: PIPERACILLIN SODIUM/TAZOBACTAM 3.375 GM in NORMAL SALINE 100 ML IV SCH ×3 (10:15→21:15)
[2019-03-20] MEDS ORDERED: PROMETHAZINE HCL INJ 25 MG/1 ML VIAL IV PRN ×2 (10:39)
[2019-03-20] MEDS ORDERED: OXYCODONE-ACETAMINOPHEN 5-325 MG TABLET PO PRN ×2 (10:39)
[2019-03-20] MEDS ORDERED: MEPERIDINE HCL/PF INJ 25 MG/1 ML DISP.SYRIN IV PRN (10:39)
[2019-03-20] MEDS ORDERED: FENTANYL CITRATE INJ/PF 100 MCG/2 ML AMPUL IV PRN ×3 (10:39)
[2019-03-20] MEDS ORDERED: DIPHENHYDRAMINE HCL 50 MG/ML VIAL IV PRN (10:39)
[2019-03-20] MEDS ORDERED: ONDANSETRON HCL INJ/PF 4 MG/2 ML SDV IV PRN (10:39)
--- NOTE | 2019-03-20 11:27 | Operative Report ---
Nonrecallable Operative Report DATE OF SURGERY: 03/20/19 PREOPERATIVE DIAGNOSIS: acute cholecystitis POSTOPERATIVE DIAGNOSIS: acute cholcystitis OPERATION: laparoscoic converted to open cholecystectomy SURGEON: IZAIAH GARZA ANESTHESIA: GA TISSUE REMOVED OR ALTERED: gallbladder COMPLICATIONS: none ESTIMATED BLOOD LOSS: 200cc INTRAOPERATIVE FINDINGS: see dictation PROCEDURE: see dictation
--- NOTE | 2019-03-20 11:54 | OPERATIVE REPORT E ---
Operative Report NAME: KIRTI MANN : 1975 AGE: 43Y DATE OF SURGERY: 03/20/2019 ROOM: 205 PREOPERATIVE DIAGNOSIS: Acute cholecystitis. POSTOPERATIVE DIAGNOSIS: Gangrenous cholecystitis. OPERATIVE PROCEDURE: Attempt at laparoscopic converted to open cholecystectomy. SURGEON: IZAIAH GARZA M.D. INDICATIONS FOR OPERATION: This is a 43-year-old female with rheumatoid arthritis on chronic steroids, morbidly obese, who presented with acute right upper quadrant pain and went to the emergency room last p.m. She was noted to have a white count in the 30,000 range and ultrasound consistent with cholecystitis. She was therefore scheduled emergently for this operation. The patient has a history of a previous splenectomy open and then a previous ventral hernia repair done open with mesh. PROCEDURE: The patient was brought to the operating room in awake, alert, and stable condition, placed on the operating table in supine position, induced under general anesthesia, intubated. The abdomen was prepped and draped in the usual sterile manner for the procedure. She had an upper midline scar. I placed a Veress needle through an infraumbilical position and insufflated the abdominal cavity with 6 L of CO2 gas. Then, through an infraumbilical incision, I placed a 5 mm port. Intra-abdominal visualization revealed no evidence of a Veress needle or trocar injury; however, there were multiple omental adhesions to the anterior abdominal wall secondary to the mesh. There was no small bowel adhesed up, but she had a significant amount of omentum that I could not visualize the gallbladder through. I therefore found an open space in the right upper quadrant and the right lower quadrant and placed 2 more 5 mm ports under direct vision and those 2 clear spaces. The liver was significantly enlarged and fatty and she had an omental caking in the right upper quadrant secondary to the gangrenous cholecystitis. I really could not get good visualization laparoscopically to continue safely, and therefore, we elected to terminate this portion of the procedure and perform an open cholecystectomy. The ports were removed and a right upper quadrant was made with a 10 blade and we carried our dissection through subcutaneous tissue with Bovie cautery. The rectus sheaths and external oblique were open with Bovie cautery and then when the posterior sheath was opened it was noted that she had mesh fixated to the posterior rectus sheath and the peritoneum laterally. There were omental adhesions to that and this required blunt and sharp dissection to mobilize the omentum to gain access to the abdominal cavity. Once we did that and we had divided the mesh, we were able to gain access to the upper abdomen. We used a Bookwalter retractor in the right upper quadrant for body wall retractor and placed those. I then mobilized the caked omentum off the gallbladder with blunt dissection and identified the gallbladder was markedly distended and appeared to have areas of necrosis. I used a cholecystotomy needle to drain it to be able to grasp it. Once this was done, we identified the hepatis and hepatoduodenal ligament. I scored the hepatoduodenal ligament with Bovie cautery and then using blunt dissection dissected in the hepatoduodenal ligament to identify the cystic duct and cystic artery. Both of these structures were doubly ligated with Endoclips and divided. In a retrograde fashion, I then dissected the gallbladder off the liver bed with Bovie cautery and removed it. Hemostasis was obtained on the liver bed with Bovie cautery. Once this was done, we copiously irrigated the abdominal cavity with normal saline and suctioned dry. When we had good hemostasis, I elected to close the posterior rectus sheath with a running 0 Prolene suture because it had fixated mesh. Once this was closed, I used 0 Vicryl sutures to close the anterior rectus sheath and external oblique laterally. This was done with interrupted placed 0 Vicryl sutures. We copiously irrigated the wound with normal saline, suctioned dry, and closed the skin with standard skin clips, which completed the procedure. Estimated blood loss was 200 mL. Sponge and needle counts were correct x2. The patient was awakened in the operating room, extubated, and transferred to recovery in stable condition with no complications. DICTATING PHYSICIAN: IZAIAH GARZA M.D. [id number] PHY#: [id number] ID: [id number] JOB#: [id number] ACCT: [id number] cc:IZAIAH GARZA M.D. >
[2019-03-20] MEDS ORDERED: FENTANYL CITRATE INJ/PF 100 MCG/2 ML AMPUL ONE (12:02)
[2019-03-20] MEDS: MORPHINE SULFATE 10 MG/ML INJ IV PRN ×3 (13:17→22:23)
[2019-03-20] MEDS: DEXTROSE 5%-LACTATED RINGERS 1,000 ML IV PRN ×2 (13:28→22:25)
[2019-03-20] MEDS: GABAPENTIN 100 MG CAPSULE PO SCH ×2 (13:50→17:19)
[2019-03-20] MEDS: HYDROCHLOROTHIAZIDE 12.5 MG TABLET PO SCH ×2 (13:51→17:23)
[2019-03-20] MEDS: LISINOPRIL 10 MG TABLET PO SCH ×2 (13:52→17:22)
[2019-03-20] MEDS ORDERED: NEOSTIGMINE METHYLSULFATE 10 MG/10 ML VIAL ONE (14:17)
[2019-03-20] MEDS ORDERED: ONDANSETRON HCL INJ/PF 4 MG/2 ML SDV ONE (14:17)
[2019-03-20] MEDS ORDERED: GLYCOPYRROLATE 1 MG/5 ML SYRINGE ONE (14:17)
[2019-03-20] MEDS ORDERED: METOCLOPRAMIDE HCL INJ/PF 10 MG/2 ML SDV ONE (14:17)
[2019-03-20] MEDS ORDERED: DEXAMETHASONE SOD PHOSPHATE INJ 4 MG/1 ML VIAL ONE (14:17)
[2019-03-20] MEDS ORDERED: LIDOCAINE 2% INJ-PF (20 MG/ML) 2 ML AMPUL ONE (14:17)
[2019-03-20] MEDS ORDERED: ROCURONIUM BROMIDE INJ 50 MG/5 ML VIAL IV ONE (14:17)
[2019-03-20] MEDS ORDERED: SUCCINYLCHOLINE CHLORIDE INJ 200 MG/10 ML VIAL ONE (14:17)
[2019-03-20] MEDS ORDERED: KETOROLAC TROMETHAMINE 60 MG/2 ML SDV ONE (14:17)
[2019-03-20] MEDS ORDERED: ALBUTEROL SULFATE HFA (90 MCG/PUFF) 200 PUFF/8.5 GM MDI IH ONE (14:54)
[2019-03-20] MEDS ORDERED: METHYLPREDNISOLONE INJ 125 MG/2 ML SDV ONE (14:55)
[2019-03-20] MEDS: ONDANSETRON HCL INJ/PF 4 MG/2 ML SDV IV PRN ×2 (15:53→22:24)
[2019-03-21] MEDS: PIPERACILLIN SODIUM/TAZOBACTAM 3.375 GM in NORMAL SALINE 100 ML IV SCH ×4 (02:34→21:44)
[2019-03-21 07:35] LABS: ALANINE AMINOTRANSFERASE 41 U/L (9-52); ALBUMIN 2.9 g/dL (3.5-5.0); ALKALINE PHOSPHATASE 83 U/L (38-126); ANION GAP 9 (5-19); ASPARTATE AMINO TRANSFERASE 34 U/L (14-36); BILIRUBIN,DIRECT 0.4 mg/dL (0.0-0.4); BLOOD UREA NITROGEN 14 mg/dL (7-20); CARBON DIOXIDE 25 mmol/L (22-30); CHLORIDE 98 mmol/L (98-107); GLUCOSE 184 mg/dL (75-110); POTASSIUM 3.8 mmol/L (3.6-5.0); SODIUM 132.2 mmol/L (137-145); TOTAL PROTEIN 5.8 g/dL (6.3-8.2)
[2019-03-21 07:44] LABS: HEMATOCRIT 26.6 % (36.0-47.0); MEAN CORPUSCULAR HEMOGLOBIN 32.1 pg (27.0-33.4); MEAN CORPUSCULAR HGB CONC 34.6 g/dL (32.0-36.0); MEAN CORPUSCULAR VOLUME 93 fl (80-97); PLATELET COUNT 515 10^3/uL (150-450); RED BLOOD COUNT 2.86 10^6/uL (3.72-5.28)
[2019-03-21] MEDS: MORPHINE SULFATE 10 MG/ML INJ IV PRN (08:01)
[2019-03-21] MEDS: DEXTROSE 5%-LACTATED RINGERS 1,000 ML IV PRN ×2 (08:39→21:46)
[2019-03-21 08:45] LABS: HEMOGLOBIN 9.2 g/dL (12.0-15.5)
[2019-03-21 08:48] LABS: ABSOLUTE LYMPHOCYTES# (MANUAL) 3.7 10^3/uL (0.5-4.7); ABSOLUTE MONOCYTES # (MANUAL) 2.7 10^3/uL (0.1-1.4); ABSOLUTE NEUTROPHILS# (MANUAL) 27.5 10^3/uL (1.7-8.2); BASOPHILS % (MANUAL) 0 % (0-2); EOSINOPHILS % (MANUAL) 0 % (0-6); LYMPHOCYTES % (MANUAL) 11 % (13-45); MONOCYTES % (MANUAL) 8 % (3-13); SEGMENTED NEUTROPHILS % (MAN) 81 % (42-78); TOTAL CELLS COUNTED 100
[2019-03-21 08:49] LABS: ANISOCYTOSIS SLIGHT; PLATELET COMMENT ADEQUATE
[2019-03-21 08:52] LABS: WHITE BLOOD COUNT 33.9 10^3/uL (4.0-10.5)
[2019-03-21] MEDS ORDERED: KETOROLAC TROMETHAMINE INJ/PF 30 MG/1 ML SDV IV SCH ×2 (09:00)
[2019-03-21] MEDS: GABAPENTIN 100 MG CAPSULE PO SCH ×3 (09:19→20:21)
[2019-03-21] MEDS: LISINOPRIL 10 MG TABLET PO SCH ×2 (09:20→20:22)
[2019-03-21] MEDS: HYDROCHLOROTHIAZIDE 12.5 MG TABLET PO SCH ×2 (09:21→20:15)
[2019-03-21] MEDS: METHYLPREDNISOLONE INJ 125 MG/2 ML SDV IV SCH ×2 (09:58→18:15)
[2019-03-21] MEDS ORDERED: MORPHINE SULFATE 10 MG/ML INJ IV PRN (10:39)
--- NOTE | 2019-03-21 10:45 | PDOC PROGRESS REPORT ---
Subjective Progress Note for:: 03/21/19 Reason For Visit: ACUTE CHOLECYTITIS, N/V,LEUKOCYTOSIS Physical Exam Vital Signs: Temp Pulse Resp BP Pulse Ox 98.2 F 123 H 16 147/95 H 92 03/21/19 08:27 03/21/19 08:27 03/21/19 08:27 03/21/19 08:27 03/21/19 08:27 Intake & Output 03/20/19 03/21/19 03/22/19 06:59 06:59 06:59 Intake Total 1000 4240 100 Output Total 900 Balance 1000 3340 100 Weight 99.9 kg 99.9 kg Results Laboratory Results: 03/21/19 06:53 03/21/19 06:53 03/21/19 03/21/19 06:53 06:53 WBC 33.9 H* RBC 2.86 L Hgb 9.2 L D Hct 26.6 L MCV 93 MCH 32.1 MCHC 34.6 RDW 14.0 Plt Count 515 H Seg Neutrophils % Not Reportable Lymphocytes % Not Reportable Monocytes % Not Reportable Eosinophils % Not Reportable Basophils % Not Reportable Absolute Neutrophils Not Reportable Absolute Lymphocytes Not Reportable Absolute Monocytes Not Reportable Absolute Eosinophils Not Reportable Absolute Basophils Not Reportable Sodium 132.2 L Potassium 3.8 Chloride 98 Carbon Dioxide 25 Anion Gap 9 BUN 14 Creatinine 0.55 Est GFR ( Amer) > 60 Est GFR (Non-Af Amer) > 60 Glucose 184 H Calcium 9.0 Total Bilirubin 1.0 AST 34 ALT 41 Alkaline Phosphatase 83 Total Protein 5.8 L Albumin 2.9 L Impressions: Abdomen Ultrasound 03/19/19 19:48 IMPRESSION: 1. Cholelithiasis with mild wall thickening and positive Hurt's sign, suggesting acute cholecystitis. 2. Hepatomegaly 3. Common bile duct could not be measured, although there is at least mild intrahepatic ductal distention. Acute Abdomen Series 03/19/19 19:48 IMPRESSION: No acute abnormalities. Assessment & Plan - Diagnosis (1) Acute cholecystitis Is this a current diagnosis for this admission?: Yes - Plan Summary Plan Summary: This is a 43-year-old female status post open cholecystectomy for acute cholecystitis. The patient reports that she is feeling reasonably well this morning. She reaches 1500 cc on her incentive spirometer. She has been out of bed. She denies nausea or vomiting. She has been continued on her steroids for rheumatoid arthritis. Leukocytosis: Likely related to acute cholecystitis and steroids. We will continue to monitor closely. Patient with a history of methadone use. Patient is complaining of significant amounts of pain today. Will transition to oral pain medications. Continue IV Toradol and acetaminophen. Patient denies flatus. No nausea or vomiting. Continue with liquids for now. Continue antibiotics for acute cholecystitis.
[2019-03-21] MEDS: KETOROLAC TROMETHAMINE INJ/PF 30 MG/1 ML SDV IV SCH ×2 (14:58→21:45)
[2019-03-21] MEDS: OXYCODONE HCL IR 5 MG TABLET PO PRN (19:55)
[2019-03-22] MEDS: ONDANSETRON HCL INJ/PF 4 MG/2 ML SDV IV PRN (01:20)
[2019-03-22] MEDS: KETOROLAC TROMETHAMINE INJ/PF 30 MG/1 ML SDV IV SCH (05:12)
[2019-03-22] MEDS: PIPERACILLIN SODIUM/TAZOBACTAM 3.375 GM in NORMAL SALINE 100 ML IV SCH (05:20)
[2019-03-22] MEDS ORDERED: PIPERACILLIN SODIUM/TAZOBACTAM 3.375 GM in NORMAL SALINE 100 ML IV SCH (06:00)
[2019-03-22] MEDS: OXYCODONE HCL IR 5 MG TABLET PO PRN (06:18)
[2019-03-22 07:19] LABS: HEMATOCRIT 21.3 % (36.0-47.0); MEAN CORPUSCULAR HEMOGLOBIN 32.4 pg (27.0-33.4); MEAN CORPUSCULAR HGB CONC 34.7 g/dL (32.0-36.0); MEAN CORPUSCULAR VOLUME 93 fl (80-97); PLATELET COUNT 457 10^3/uL (150-450); RED BLOOD COUNT 2.28 10^6/uL (3.72-5.28)
[2019-03-22 07:35] VITALS: BP 143/66
[2019-03-22 07:36] LABS: ALANINE AMINOTRANSFERASE 39 U/L (9-52); ALKALINE PHOSPHATASE 72 U/L (38-126); ANION GAP 6 (5-19); ASPARTATE AMINO TRANSFERASE 30 U/L (14-36); BILIRUBIN,DIRECT 0.4 mg/dL (0.0-0.4); BILIRUBIN,TOTAL 0.5 mg/dL (0.2-1.3); BLOOD UREA NITROGEN 16 mg/dL (7-20); CALCIUM 9.4 mg/dL (8.4-10.2); CARBON DIOXIDE 28 mmol/L (22-30); CHLORIDE 102 mmol/L (98-107); GLUCOSE 118 mg/dL (75-110); POTASSIUM 4.4 mmol/L (3.6-5.0); SODIUM 136.2 mmol/L (137-145)
[2019-03-22 08:01] LABS: ABSOLUTE LYMPHOCYTES# (MANUAL) 6.2 10^3/uL (0.5-4.7); ABSOLUTE MONOCYTES # (MANUAL) 3.9 10^3/uL (0.1-1.4); ABSOLUTE NEUTROPHILS# (MANUAL) 28.6 10^3/uL (1.7-8.2); BASOPHILS % (MANUAL) 0 % (0-2); EOSINOPHILS % (MANUAL) 0 % (0-6); LYMPHOCYTES % (MANUAL) 16 % (13-45); MONOCYTES % (MANUAL) 10 % (3-13); SEGMENTED NEUTROPHILS % (MAN) 74 % (42-78); TOTAL CELLS COUNTED 100
[2019-03-22 08:02] LABS: ANISOCYTOSIS SLIGHT; PLATELET COMMENT ADEQUATE; POLYCHROMASIA SLIGHT
[2019-03-22 08:03] LABS: WHITE BLOOD COUNT 38.6 10^3/uL (4.0-10.5)
[2019-03-22 08:04] LABS: HEMOGLOBIN 7.4 g/dL (12.0-15.5)
[2019-03-22] MEDS: METHYLPREDNISOLONE INJ 125 MG/2 ML SDV IV SCH (09:28)
[2019-03-22] MEDS: HYDROCHLOROTHIAZIDE 12.5 MG TABLET PO SCH (09:28)
[2019-03-22] MEDS: LISINOPRIL 10 MG TABLET PO SCH (09:29)
[2019-03-22] MEDS: GABAPENTIN 100 MG CAPSULE PO SCH (09:29)
--- NOTE | 2019-03-22 10:34 | PDOC DISCHARGE SUMMARY ---
General - Admit/Disc Date/PCP Admission Date/Primary Care Provider: 03/19/19 23:42 ASHLEE MENDES, Discharge Date: 03/22/19 - Discharge Diagnosis (1) Acute cholecystitis Is this a current diagnosis for this admission?: Yes - Additional Information Resuscitation Status: Full Code Discharge Diet: As Tolerated, Regular Discharge Activity: Balance Activity w/Rest, No Lifting Over 10 Pounds, No tub bath, Walk Frequently Home Medications: Methadone HCl 140 mg PO DAILY 06/29/18 History of Present Illness History of Present Illness: KIRTI MANN is a 43 year old female admitted with acute cholecystitis. She was taken to the operating room for cholecystectomy. Laparoscopic, converted to open cholecystectomy was performed. The patient was taken to the floor in stable condition. Hospital Course Hospital Course: On postoperative day #1, the patient began ambulating, tolerating liquids, and taking oral pain medications. By postoperative day #2 the patient was passing flatus, having bowel movements, was ambulating well, and her pain was well controlled. At this point it was felt that she had reached maximal hospital benefit and was fit for discharge. Physical Exam Vital Signs: Temp Pulse Resp BP Pulse Ox 98.2 F 103 H 18 143/66 H 95 03/22/19 09:04 03/22/19 09:04 03/22/19 09:04 03/22/19 09:04 03/22/19 09:04 Intake & Output 03/21/19 03/22/19 03/23/19 06:59 06:59 06:59 Intake Total 4240 1300 Output Total 900 850 Balance 3340 450 Weight 99.9 kg 97.1 kg Results Laboratory Results: 03/22/19 06:19 03/22/19 06:19 03/22/19 03/22/19 06:19 06:19 WBC 38.6 H* RBC 2.28 L Hgb 7.4 L Hct 21.3 L MCV 93 MCH 32.4 MCHC 34.7 RDW 14.0 Plt Count 457 H Seg Neutrophils % Not Reportable Lymphocytes % Not Reportable Monocytes % Not Reportable Eosinophils % Not Reportable Basophils % Not Reportable Absolute Neutrophils Not Reportable Absolute Lymphocytes Not Reportable Absolute Monocytes Not Reportable Absolute Eosinophils Not Reportable Absolute Basophils Not Reportable Sodium 136.2 L Potassium 4.4 Chloride 102 Carbon Dioxide 28 Anion Gap 6 BUN 16 Creatinine 0.55 Est GFR ( Amer) > 60 Est GFR (Non-Af Amer) > 60 Glucose 118 H Calcium 9.4 Total Bilirubin 0.5 AST 30 ALT 39 Alkaline Phosphatase 72 Total Protein 6.0 L Albumin 3.0 L Impressions: Abdomen Ultrasound 03/19/19 19:48 IMPRESSION: 1. Cholelithiasis with mild wall thickening and positive Hurt's sign, suggesting acute cholecystitis. 2. Hepatomegaly 3. Common bile duct could not be measured, although there is at least mild intrahepatic ductal distention. Acute Abdomen Series 03/19/19 19:48 IMPRESSION: No acute abnormalities. Qualifiers - * PATIENT BEING DISCHARGED WITH ANY OF THE FOLLOWING DIAGNOSIS: No Plan Discharge Plan: Discharge home. Diet as tolerated. Activity: Nonstrenuous, no lifting greater than 10 pounds x 6 weeks after surgery. Follow-up with [facility] in 7-10 days. Resume home methadone dose. Tylenol and ibuprofen for breakthrough pain. Time Spent: Less than 30 Minutes
[2019-03-23] MEDS ORDERED: PREDNISONE 5 MG TABLET PO SCH (10:00)
[2019-03-23 13:34] LABS: PATH REVIEW PATHOLOGIST REVIEWED
== END 2019-03-22 10:49 | disposition home or self-care (01) | DRG 416 ==
LOC: ER 18:55 → EH 23:42 → 2N 03-20 03:30
PROVIDERS: ADMIT Surgery; ATTEND Surgery
PROC: 0FJ44ZZ Inspection of Gallbladder, Percutaneous Endoscopic Approach (ICD-10-PCS; 2019-03-20)
PROC: 0FT40ZZ Resection of Gallbladder, Open Approach (ICD-10-PCS; principal; 2019-03-20 09:00)
DX: K80.00 Calculus of gallbladder with acute cholecystitis without obstruction (principal); K82.A1 Gangrene of gallbladder in cholecystitis; I10 Essential (primary) hypertension; M06.9 Rheumatoid arthritis, unspecified; F17.210 Nicotine dependence, cigarettes, uncomplicated
CPT/HCPCS: 36415; 74022; 76705; 790; 80053; 81001; 83690; 84703; 85025; 88304; 96374; 96375; 99285; J0131; J0330; J1100; J1170; J1885; J2250; J2270; J2405; J2543; J2704; J2765; J2930; J3010; J3490; J7030; S0119

== ENCOUNTER 2019-03-25 08:42 | Inpatient (IN) | payer SELFPAY ==
[2019-03-25] MEDS ORDERED: MORPHINE SULFATE 10 MG/ML INJ IV ONE (08:58)
[2019-03-25] MEDS ORDERED: ONDANSETRON HCL INJ/PF 4 MG/2 ML SDV IV ONE (08:58)
[2019-03-25] MEDS ORDERED: NORMAL SALINE 1000 ML 1,000 ML IV ONE ×3 (08:59→11:16)
[2019-03-25 09:47] LABS: HEMATOCRIT 29.3 % (36.0-47.0); HEMOGLOBIN 9.7 g/dL (12.0-15.5); MEAN CORPUSCULAR HEMOGLOBIN 31.8 pg (27.0-33.4); MEAN CORPUSCULAR HGB CONC 33.3 g/dL (32.0-36.0); MEAN CORPUSCULAR VOLUME 96 fl (80-97); PLATELET COUNT 847 10^3/uL (150-450); RED BLOOD COUNT 3.06 10^6/uL (3.72-5.28); RED CELL DISTRIBUTION WIDTH 14.8 % (11.5-14.0)
[2019-03-25 09:52] LABS: VENOUS BLOOD BASE EXCESS 0.5 mmol/L; VENOUS BLOOD HCO3 25.1 mmol/L (20-32); VENOUS BLOOD PCO2 40.4 mmHg (35-63); VENOUS BLOOD PH 7.41 (7.30-7.42)
[2019-03-25 09:56] LABS: INTERNATIONAL RATION (INR) 1.02; PROTHROMBIN TIME 13.9 SEC (11.4-15.4)
[2019-03-25 10:21] LABS: ABSOLUTE LYMPHOCYTES# (MANUAL) 3.8 10^3/uL (0.5-4.7); ABSOLUTE MONOCYTES # (MANUAL) 1.6 10^3/uL (0.1-1.4); ABSOLUTE NEUTROPHILS# (MANUAL) 49.3 10^3/uL (1.7-8.2); BAND NEUTROPHILS % (MANUAL) 4 % (3-5); BASOPHILS % (MANUAL) 0 % (0-2); EOSINOPHILS % (MANUAL) 0 % (0-6); LYMPHOCYTES % (MANUAL) 4 % (13-45); METAMYELOCYTES % (MANUAL) 2 % (0); MONOCYTES % (MANUAL) 3 % (3-13); SEGMENTED NEUTROPHILS % (MAN) 84 % (42-78); TOTAL CELLS COUNTED 100
[2019-03-25 10:22] LABS: PLATELET CLUMPS PRESENT; PLATELET COMMENT ADEQUATE; RBC MORPHOLOGY COMMENT NORMO-CYTIC/CHROMIC
[2019-03-25 10:24] LABS: ALANINE AMINOTRANSFERASE 28 U/L (9-52); ALBUMIN 2.9 g/dL (3.5-5.0); ALKALINE PHOSPHATASE 97 U/L (38-126); ANION GAP 13 (5-19); ASPARTATE AMINO TRANSFERASE 24 U/L (14-36); BILIRUBIN,TOTAL 1.8 mg/dL (0.2-1.3); BLOOD UREA NITROGEN 16 mg/dL (7-20); CALCIUM 8.6 mg/dL (8.4-10.2); CARBON DIOXIDE 24 mmol/L (22-30); CHLORIDE 94 mmol/L (98-107); GLUCOSE 121 mg/dL (75-110); POTASSIUM 3.7 mmol/L (3.6-5.0); SODIUM 130.6 mmol/L (137-145); TOTAL PROTEIN 5.9 g/dL (6.3-8.2)
[2019-03-25 10:25] LABS: WHITE BLOOD COUNT 54.8 10^3/uL (4.0-10.5)
--- NOTE | 2019-03-25 10:36 | RADIOLOGY REPORT (SQ) ---
EXAM DESCRIPTION: CT ABD/PELVIS NO ORAL OR IV COMPLETED DATE/TIME: 03/25/2019 10:20 am REASON FOR STUDY: abd pain, vomiting, tachy, recent kiara COMPARISON: 01/12/2012 TECHNIQUE: CT scan of the abdomen and pelvis performed without intravenous or oral contrast. Images reviewed with lung, soft tissue, and bone windows. Reconstructed coronal and sagittal MPR images revi ewed. All images stored on PACS. All CT scanners at this facility use dose modulation, iterative reconstruction, and/or weight based d osing when appropriate to reduce radiation dose to as low as reasonably achievable (ALARA). [facility]: Dose Right [facility]: CareDose [facility]: Dose Right [facility]: Teradose 4D [facility]: Smart Viaziz Scam RADIATION DOSE: CT Rad equipment meets quality standard of care and radiation dose reduction techniq ues were employed. CTDIvol: 19.2 mGy. DLP: 1094 mGy-cm.mGy. LIMITATIONS: None. FINDINGS: LOWER CHEST: Ground-glass infiltrates in the lower lungs. NON-CONTRASTED LIVER, SPLEEN, ADRENALS: Hepatomegaly. The spleen is absent. Normal adrenals. PANCREAS: No masses. No peripancreatic inflammatory changes. GALLBLADDER: Surgically absent. RIGHT KIDNEY AND URETER: No suspicious masses. Assessment limited by lack of IV contrast. No signif icant calcifications. No hydronephrosis or hydroureter. LEFT KIDNEY AND URETER: No suspicious masses. Assessment limited by lack of IV contrast. No signifi cant calcifications. No hydronephrosis or hydroureter. AORTA AND RETROPERITONEUM: No aneurysm. No retroperitoneal masses or adenopathy. BOWEL AND PERITONEAL CAVITY: No obvious bowel mass. There is free air and a small amount of free flu id in the abdomen. Anteriorly is there is some intermediate density material that contains some air bubbles. This shows a maximum depth of 39 mm. APPENDIX: Not identified. PELVIS, BLADDER, AND ABDOMINAL WALL:No abnormal masses. No free fluid. Bladder normal. There is an a nterior mesh graft. BONES: No significant findings. OTHER: No other significant finding. IMPRESSION: 1. Free air in the abdomen. 2. There is some free fluid. This includes some intermediate density material anteriorly. Abscess versus biloma. 3. Ground-glass infiltrates in the lower lungs. Chronic interstitial changes versus interstitial ed richard. COMMENT: Quality ID # [id number]: Final reports with documentation of one or more dose reduction techniques (e.g., Automated exposure control, adjustment of the mA and/or kV according to patient size, use of iterative reconstruction technique) TECHNICAL DOCUMENTATION: JOB ID: [id number] [email or web address]- All Rights Reserved Reading location - IP/workstation name: [email or web address]
[2019-03-25] MEDS ORDERED: ROCURONIUM BROMIDE INJ 50 MG/5 ML VIAL IV ONE (10:46)
[2019-03-25] MEDS ORDERED: LIDOCAINE 2% INJ-PF (20 MG/ML) 2 ML AMPUL ONE (10:46)
[2019-03-25] MEDS ORDERED: PHENYLEPHRINE HCL INJ/PF 10 MG/1 ML SDV ONE (10:46)
[2019-03-25] MEDS ORDERED: SUCCINYLCHOLINE CHLORIDE INJ 200 MG/10 ML VIAL ONE (10:46)
[2019-03-25] MEDS ORDERED: PIPERACILLIN/TAZOBACTAM 3.375 GM VIAL IV ONE (10:50)
[2019-03-25] MEDS ORDERED: VANCOMYCIN HCL INJ 1000 MG VIAL IV ONE (11:08)
[2019-03-25] MEDS ORDERED: HYDROCORTISONE SOD SUCCINATE INJ/PF 100 MG/2 ML SDV IV ONE (11:15)
--- NOTE | 2019-03-25 11:46 | ER Document Report ---
ED General - General Chief Complaint: Post Surgical Pain Stated Complaint: NAUSEA/VOMITING Time Seen by Provider: 03/25/19 08:50 TRAVEL OUTSIDE OF THE [place] IN LAST 30 DAYS: No - HPI Notes: Patient is a 43-year-old female who presents to the emergency department for evaluation. She had a cholecystectomy performed on March [address] Burch. She was sent home on the . Yesterday she developed increased pain, nausea, vomiting. He states the vomiting has been bilious. She has not been able to ke ep down her medications. She denies any ashlyn fevers but states she has had some chills. Normal bowel movements. No blood in her stool or black or tarry stool. No urinary symptoms. - Related Data Allergies/Adverse Reactions: brompheniramine maleate [From Dimetapp] Allergy (Severe, Verified 06/29/18 10:18) Swelling of Throat dextromethorphan HBr [From Dimetapp] Allergy (Severe, Verified 06/29/18 10:18) Swelling of Throat phenylpropanolamine HCl [From Dimetapp] Allergy (Severe, Verified 06/29/18 10:18) Swelling of Throat pseudoephedrine HCl [From Dimetapp] Allergy (Severe, Verified 06/29/18 10:18) Swelling of Throat Home Medications: Prednisone, methadone, PPI unknown Past Medical History - General Information source: Patient - Social History Smoking Status: Current Every Day Smoker Chew tobacco use (# tins/day): No Frequency of alcohol use: None Drug Abuse: None Family History: Reviewed & Not Pertinent Patient has suicidal ideation: No Patient has homicidal ideation: No - Past Medical History Cardiac Medical History: Reports: Hx Hypertension Neurological Medical History: Reports: Hx Migraine Renal/ Medical History: Denies: Hx Peritoneal Dialysis GI Medical History: Reports: Other - GERD Musculoskeletal Medical History: Reports Hx Arthritis - Rheumatoid arthritis, chronically immunosuppressed Past Surgical History: Reports: Hx Abdominal Surgery - Splenectomy, Hx Hysterectomy - Immunizations Hx Diphtheria, Pertussis, Tetanus Vaccination: Yes Review of Systems - Review of Systems Constitutional: See HPI EENT: No symptoms reported Cardiovascular: No symptoms reported Respiratory: No symptoms reported Gastrointestinal: See HPI Genitourinary: No symptoms reported Musculoskeletal: No symptoms reported Skin: No symptoms reported Neurological/Psychological: No symptoms reported Physical Exam - Vital signs Vitals: Pulse Ox 92 03/25/19 08:47 - Notes Notes: 43-year-old female appears much older than her stated age in moderate amount of distress. She is tachypneic, uncomfortable, tachycardic. Head is normocephalic and atraumatic. Pupils are equal, round, reactive to light. Oral mucosa is moist. Heart is tachycardic with normal S1-S2. Lungs are rhonchorous. Abdomen is firm, diffusely tender with some guarding. No rebound. Abdominal wound b andaged from recent open cholecystectomy. Bandages clean and dry. Extremities without cyanosis or clubbing. No posterior calf tenderness. Course - Re-evaluation Re-evalutation: 03/25/19 11:50 Patient presents emergency department for evaluation. She has increased abdominal pain, nausea, vomiting after cholecystectomy. She arrives significantly tachycardic. My first concern is about sepsis versus bleeding. I did perform a bedside fast, did not appreciate a significant amount of fluid in Morison's pouch. She is given IV fluids. Sepsis labs are drawn. She is sent for CT scan. CT scan does reveal findings consistent with an abscess. She is given IV Zosyn. She is also given IV vancomycin. She is given further fluid resuscitation. Patient is currently immunosuppressed, on chronic steroid therapy. She is been taking prednisone, 10 mg, daily for 6 months to a year. She was on 5 mg prior to that. She had not kept down her doses yesterday or today. She was given a stress dose of Solu-Cortef. I contacted Dr. Burch. He came down to evaluate the patient. He initially saw the skin and asked if radiology would potentially be able to drain it. He then spoke to Dr. Lovelace, it was verified that she has mesh in place and that would not be possible. He decided to take the patient to the OR, but was hopeful that she would be more stable prior to taking her. She is given fluid resuscitation. IV antibiotics are in place. Patient will be taken to the OR. 03/25/19 13:18 Patient only had one 20-gauge IV peripherally. Multiple attempts were made to obtain a second line, they were unsuccessful. I did talk to nursing about starting a central line. At that time, the OR called to come get the patient. The patient is remained stable. She is only received about a liter and a half of her fluids but she is normotensive. Her heart rate has improved to 110-115. She is going to the OR, transferred to the care of Dr. Burch. - Vital Signs Vital signs: Temp Pulse Resp BP Pulse Ox 99.9 F 18 115/81 98 03/25/19 11:35 03/25/19 13:16 03/25/19 13:16 03/25/19 13:16 - Laboratory Result Diagrams: 03/25/19 08:05 03/25/19 09:36 Laboratory results interpreted by me: 03/25/19 03/25/19 03/25/19 08:05 09:36 09:36 WBC 54.8 H* RBC 3.06 L Hgb 9.7 L Hct 29.3 L RDW 14.8 H Plt Count 847 H Seg Neuts % (Manual) 84 H Lymphocytes % (Manual) 4 L Metamyelocytes % 2 H Abs Neuts (Manual) 49.3 H Abs Monocytes (Manual) 1.6 H Sodium 130.6 L Chloride 94 L Glucose 121 H POC Glucose Lactic Acid 4.2 H Total Bilirubin 1.8 H Direct Bilirubin 1.0 H Total Protein 5.9 L Albumin 2.9 L 03/25/19 10:44 WBC RBC Hgb Hct RDW Plt Count Seg Neuts % (Manual) Lymphocytes % (Manual) Metamyelocytes % Abs Neuts (Manual) Abs Monocytes (Manual) Sodium Chloride Glucose POC Glucose 151 H Lactic Acid Total Bilirubin Direct Bilirubin Total Protein Albumin - Diagnostic Test Radiology reviewed: Reports reviewed - Likely intra-abdominal abscess Critical Care Note - Critical Care Note Total time excluding time spent on procedures (mins): 40 Discharge - Discharge Clinical Impression: Severe sepsis, Intra-abdominal abscess post-procedure Condition: Stable Disposition: ADMITTED INPATIENT Admitting Provider: Surgicalist - Dr. Burch Unit Admitted: [facility]
--- NOTE | 2019-03-25 12:39 | EKG REPORT ---
SEVERITY:- OTHERWISE NORMAL ECG - SINUS TACHYCARDIA : Confirmed by: Tc Nunez MD 25-Mar-2019 12:38:52
[2019-03-25] MEDS ORDERED: BUPIVACAINE HCL 0.5%-EPI 1:200000 INJ/PF 30 ML VIAL ONE (12:40)
[2019-03-25] MEDS ORDERED: EPHEDRINE SULFATE INJ 50 MG/1 ML AMPULE ONE (13:26)
[2019-03-25] MEDS ORDERED: MIDAZOLAM 2 MG/2 ML INJ ONE (13:26)
[2019-03-25] MEDS ORDERED: SUGAMMADEX SODIUM 200 MG/2 ML SDV IV ONE (13:26)
[2019-03-25] MEDS ORDERED: FENTANYL CITRATE INJ/PF 100 MCG/2 ML AMPUL ONE (13:26)
[2019-03-25] MEDS ORDERED: HYDROMORPHONE HCL INJ/PF 2 MG/ML AMPULE ONE (13:26)
[2019-03-25] MEDS ORDERED: PROPOFOL INJ 200 MG/20 ML VIAL IV ONE (13:27)
[2019-03-25] MEDS ORDERED: ACETAMINOPHEN 1,000 MG/100 ML RTUPB IV ONE (13:27)
[2019-03-25] MEDS ORDERED: METHYLPREDNISOLONE INJ 125 MG/2 ML SDV ONE (14:07)
[2019-03-25] MEDS ORDERED: KETAMINE HCL INJ 500 MG/10 ML VIAL ONE (14:07)
--- NOTE | 2019-03-25 14:15 | PDOC H&P ---
History of Present Illness Admission Date/PCP: 03/25/19 13:25 History of Present Illness: KIRTI MANN is a 43 year old female who presents to the emergency department for evaluation. She had a cholecystectomy performed on March [address] Burch. She was sent home on the . Yesterday she developed increased pain, nausea, vomiting. He states the vomiting has been bilious. She has not been able to keep down her medications. She denies any ashlyn fevers but states she has had some chills. Normal bowel movements. No blood in her stool or black or tarry stool. No urinary symptoms Past Medical History Cardiac Medical History: Reports: Hypertension Neurological Medical History: Reports: Migraine GI Medical History: Reports: Other - GERD Musculoskeltal Medical History: Reports: Arthritis - Rheumatoid arthritis, chronically immunosuppressed Past Surgical History Past Surgical History: Reports: Cholecystectomy, Hysterectomy Social History Smoking Status: Current Every Day Smoker Hx Prescription Drug Abuse: No - Advance Directive Resuscitation Status: Full Code Family History Family History: Reviewed & Not Pertinent Parental Family History Reviewed: Yes Children Family History Reviewed: NA Sibling(s) Family History Reviewed.: NA Medication/Allergy Home Medications: Methadone HCl 140 mg PO DAILY 06/29/18 Allergies/Adverse Reactions: brompheniramine maleate [From Dimetapp] Allergy (Severe, Verified 06/29/18 10 :18) Swelling of Throat dextromethorphan HBr [From Dimetapp] Allergy (Severe, Verified 06/29/18 10:18) Swelling of Throat phenylpropanolamine HCl [From Dimetapp] Allergy (Severe, Verified 06/29/18 1 0:18) Swelling of Throat pseudoephedrine HCl [From Dimetapp] Allergy (Severe, Verified 06/29/18 10:18) Swelling of Throat Review of Systems Constitutional: PRESENT: anorexia, fatigue, weakness Eyes: ABSENT: visual disturbances Ears: ABSENT: hearing changes Nose, Mouth, and Throat: PRESENT: sore throat Breasts: PRESENT: other - no masses Cardiovascular: PRESENT: other - no chest pain Respiratory: PRESENT: other - no sob Gastrointestinal: PRESENT: abdominal pain, other - abd pain Musculoskeletal: PRESENT: muscle weakness Integumentary: ABSENT: rash, wounds Neurological: PRESENT: dizziness Psychiatric: ABSENT: anxiety, depression, homidical ideation, suicidal ideation Endocrine: PRESENT: flushing Hematologic/Lymphatic: ABSENT: easy bleeding, easy bruising Physical Exam Vital Signs: Temp Pulse Resp BP Pulse Ox 99.9 F 18 115/81 98 03/25/19 11:35 03/25/19 13:16 03/25/19 13:16 03/25/19 13:16 Intake & Output 03/24/19 03/25/19 03/26/19 06:59 06:59 06:59 Intake Total 1000 Balance 1000 Weight 91.626 kg General appearance: PRESENT: mild distress Head exam: PRESENT: atraumatic Eye exam: PRESENT: EOMI Ear exam: PRESENT: normal external ear exam Mouth exam: PRESENT: dry mucosa Neck exam: PRESENT: full ROM Respiratory exam: PRESENT: clear to auscultation jack Cardiovascular exam: PRESENT: RRR Pulses: PRESENT: normal radial pulses, normal femoral pulses Vascular exam: PRESENT: normal capillary refill GI/Abdominal exam: PRESENT: normal bowel sounds, other - ruq incision, clean dry. tender to palpation Rectal exam: PRESENT: deferred Extremities exam: PRESENT: full ROM Musculoskeletal exam: PRESENT: full ROM Neurological exam: PRESENT: alert, awake, oriented to person, oriented to place, oriented to time, oriented to situation Psychiatric exam: PRESENT: appropriate affect Skin exam: PRESENT: dry Results Laboratory Results: 03/25/19 08:05 03/25/19 09:36 03/25/19 03/25/19 03/25/19 08:05 08:05 09:36 WBC 54.8 H* RBC 3.06 L Hgb 9.7 L Hct 29.3 L MCV 96 MCH 31.8 MCHC 33.3 RDW 14.8 H Plt Count 847 H Seg Neutrophils % Not Reportable Lymphocytes % Not Reportable Monocytes % Not Reportable Eosinophils % Not Reportable Basophils % Not Reportable Absolute Neutrophils Not Reportable Absolute Lymphocytes Not Reportable Absolute Monocytes Not Reportable Absolute Eosinophils Not Reportable Absolute Basophils Not Reportable VBG pH VBG pCO2 VBG HCO3 VBG Base Excess Sodium Cancelled Potassium Cancelled Chloride Cancelled Carbon Dioxide Cancelled Anion Gap Cancelled BUN Cancelled Creatinine Cancelled Est GFR ( Amer) Cancelled Est GFR (Non-Af Amer) Cancelled Glucose Cancelled Lactic Acid 4.2 H Calcium Cancelled Total Bilirubin Cancelled AST Cancelled ALT Cancelled Alkaline Phosphatase Cancelled Total Protein Cancelled Albumin Cancelled Blood Type Antibody Screen 03/25/19 03/25/1903/25/19 09:36 09:36 09:36 WBC RBC Hgb Hct MCV MCH MCHC RDW Plt Count Seg Neutrophils % Lymphocytes % Monocytes % Eosinophils % Basophils % Absolute Neutrophils Absolute Lymphocytes Absolute Monocytes Absolute Eosinophils Absolute Basophils VBG pH 7.41 VBG pCO2 40.4 VBG HCO3 25.1 VBG Base Excess 0.5 Sodium 130.6 L Potassium 3.7 Chloride 94 L Carbon Dioxide 24 Anion Gap 13 BUN 16 Creatinine 1.00 Est GFR ( Amer) > 60 Est GFR (Non-Af Amer) > 60 Glucose 121 H Lactic Acid Calcium 8.6 Total Bilirubin 1.8 H AST 24 ALT 28 Alkaline Phosphatase 97 Total Protein 5.9 L Albumin 2.9 L Blood Type O POSITIVE Antibody Screen NEGATIVE Impressions: Abdomen/Pelvis CT 03/25/19 08:59 IMPRESSION: 1. Free air in the abdomen. 2. There is some free fluid. This includes some intermediate density material anteriorly. Abscess versus biloma. 3. Ground-glass infiltrates in the lower lungs. Chronic interstitial changes versus interstitial edema. Assessment & Plan - Plan Summary Plan Summary: pt present with question of intraabdominal abscess vs fluid collection 5 days post open cholecystectomy pt has hx of high steroid use due to rheumatoid arthritis pt did well untill yesterday ct show fluid collection under midline and ruq below diaphram spoke with Dr Chavez who stated it is not accessible with ir cath discussed with pt with hx of gangreneous cholecystitis and hx of steroid use I suspect this is early abscess vs infected hematoma will plan on exploratory laparotomy and abdominal washout Discussed risks and benifits with pt including loss of the mesh, abd hernia, injuryi to adjacent organs, mi, pulm embolli, cva. recurrent abscess, and need for additional surgery and possible . she understands and agrees to proceed.
[2019-03-25] MEDS ORDERED: CEFOXITIN INJ 1 GM VIAL ONE (16:55)
[2019-03-25] MEDS ORDERED: DIPHENHYDRAMINE HCL 50 MG/ML VIAL IV PRN (17:07)
[2019-03-25] MEDS ORDERED: MEPERIDINE HCL/PF INJ 25 MG/1 ML DISP.SYRIN IV PRN (17:07)
[2019-03-25] MEDS ORDERED: PROMETHAZINE HCL INJ 25 MG/1 ML VIAL IV PRN (17:07)
[2019-03-25] MEDS ORDERED: MORPHINE SULFATE 10 MG/ML INJ IV PRN (17:07)
[2019-03-25] MEDS ORDERED: FENTANYL CITRATE INJ/PF 100 MCG/2 ML AMPUL IV PRN ×3 (17:07)
[2019-03-25 18:01] LABS: HEMATOCRIT 26.1 % (36.0-47.0); HEMOGLOBIN 8.9 g/dL (12.0-15.5); MEAN CORPUSCULAR HEMOGLOBIN 31.8 pg (27.0-33.4); MEAN CORPUSCULAR VOLUME 94 fl (80-97); PLATELET COUNT 562 10^3/uL (150-450); RED BLOOD COUNT 2.78 10^6/uL (3.72-5.28); RED CELL DISTRIBUTION WIDTH 14.3 % (11.5-14.0)
[2019-03-25 18:08] LABS: WHITE BLOOD COUNT 32.1 10^3/uL (4.0-10.5)
[2019-03-25 18:18] LABS: ALANINE AMINOTRANSFERASE 38 U/L (9-52); ALBUMIN 1.7 g/dL (3.5-5.0); ALKALINE PHOSPHATASE 54 U/L (38-126); ANION GAP 8 (5-19); ASPARTATE AMINO TRANSFERASE 49 U/L (14-36); BILIRUBIN,TOTAL 1.4 mg/dL (0.2-1.3); BLOOD UREA NITROGEN 19 mg/dL (7-20); CARBON DIOXIDE 15 mmol/L (22-30); CHLORIDE 107 mmol/L (98-107); GLUCOSE 111 mg/dL (75-110); POTASSIUM 4.4 mmol/L (3.6-5.0); SODIUM 129.7 mmol/L (137-145); TOTAL PROTEIN 3.7 g/dL (6.3-8.2)
[2019-03-25] MEDS ORDERED: PROPOFOL 1,000 MG/100 ML INFUS..BTL IV ONE (18:25)
[2019-03-25] MEDS ORDERED: DEXTROSE 50%-WATER 25 GM/50 ML DISP.SYRIN IV PRN ×2 (18:30)
[2019-03-25] MEDS ORDERED: GLUCAGON,HUMAN RECOMB 1 MG INJ SUBCUT PRN (18:30)
[2019-03-25] MEDS ORDERED: DEXTROSE 40% GEL 15 GM TUBE PO PRN ×2 (18:30)
[2019-03-25] MEDS ORDERED: PHARMACY COMMUNICATION ORDER MC NR (18:30)
[2019-03-25 18:31] LABS: CALCIUM 6.3 mg/dL (8.4-10.2)
[2019-03-25] MEDS: PROPOFOL 1,000 MG/100 ML INFUS..BTL IV PRN (18:32)
--- NOTE | 2019-03-25 19:50 | RADIOLOGY REPORT (SQ) ---
EXAM DESCRIPTION: CHEST SINGLE VIEW COMPLETED DATE/TIME: 03/25/2019 6:49 pm REASON FOR STUDY: ET Tube Placement COMPARISON: None. EXAM PARAMETERS: NUMBER OF VIEWS: One view. TECHNIQUE: Single frontal radiographic view of the chest acquired. RADIATION DOSE: NA LIMITATIONS: None. FINDINGS: LUNGS AND PLEURA: No pneumothorax. Patchy airspace opacities are present throughout the right lung base as well as left medial lung base. No significant pleural effusion. MEDIASTINUM AND HILAR STRUCTURES: Left hilar fullness. HEART AND VASCULAR STRUCTURES: Heart normal in size. Normal vasculature. BONES: No acute findings. HARDWARE: Endotracheal tube tip overlies the lower trachea approximately 4.6 cm above the level of th e aliyah. Nasogastric catheter tube is present with tip overlying the body of the stomach. Right IJ central venous catheter is present with tip overlying the SVC below the aliyah level. OTHER: Surgical changes over the upper abdomen. IMPRESSION: No pneumothorax. Patchy airspace opacities are present throughout the right lung base a s well as left medial lung base. No significant pleural effusion.Left hilar fullness.Endotracheal tu be tip overlies the lower trachea approximately 4.6 cm above the level of the aliyah. Nasogastric ca theter tube is present with tip overlying the body of the stomach. Right IJ central venous catheter is present with tip overlying the SVC below the aliyah level. TECHNICAL DOCUMENTATION: JOB ID: [id number] [place]-72 2010 [employer]- All Rights Reserved Reading location - IP/workstation name: [employer]
[2019-03-25 20:03] LABS: ARTERIAL BLOOD BASE EXCESS -7.1 mmol/L; ARTERIAL BLOOD H2CO3 1.02 mmol/L (1.05-1.35); ARTERIAL BLOOD HCO3 17.8 mmol/L (20-24); ARTERIAL BLOOD O2 SATURATION 96.9 % (94-98); ARTERIAL BLOOD PCO2 33.9 mmHg (35-45); ARTERIAL BLOOD PH 7.34 (7.35-7.45); ARTERIAL BLOOD PO2 94.8 mmHg (80-100); ARTERIAL BLOOD TOTAL CO2 18.9 mmol/L (21-25)
[2019-03-25 20:05] LABS: ARTERIAL BLOOD FIO2 50%
[2019-03-25] MEDS: MORPHINE SULFATE 10 MG/ML INJ IV PRN ×2 (20:11→23:19)
[2019-03-25] MEDS: METRONIDAZOLE 500 MG/NS RTU 500 MG/100 ML RTUPB IV SCH (20:11)
[2019-03-25] MEDS: RINGERS SOLUTION,LACTATED 1,000 ML IV PRN (20:16)
[2019-03-25 20:25] LABS: HEMATOCRIT 29.3 % (36.0-47.0); HEMOGLOBIN 10.2 g/dL (12.0-15.5); MEAN CORPUSCULAR HEMOGLOBIN 32.1 pg (27.0-33.4); MEAN CORPUSCULAR HGB CONC 34.8 g/dL (32.0-36.0); MEAN CORPUSCULAR VOLUME 92 fl (80-97); RED BLOOD COUNT 3.17 10^6/uL (3.72-5.28); RED CELL DISTRIBUTION WIDTH 14.9 % (11.5-14.0)
[2019-03-25 20:32] LABS: WHITE BLOOD COUNT 36.7 10^3/uL (4.0-10.5)
[2019-03-25 20:34] LABS: ALANINE AMINOTRANSFERASE 48 U/L (9-52); ALKALINE PHOSPHATASE 62 U/L (38-126); ANION GAP 9 (5-19); ASPARTATE AMINO TRANSFERASE 58 U/L (14-36); BILIRUBIN,TOTAL 1.3 mg/dL (0.2-1.3); BLOOD UREA NITROGEN 17 mg/dL (7-20); CARBON DIOXIDE 19 mmol/L (22-30); CHLORIDE 104 mmol/L (98-107); GLUCOSE 132 mg/dL (75-110); PHOSPHORUS 5.4 mg/dL (2.5-4.5); POTASSIUM 4.2 mmol/L (3.6-5.0); SODIUM 131.7 mmol/L (137-145); TOTAL PROTEIN 4.3 g/dL (6.3-8.2)
[2019-03-25 20:44] LABS: CALCIUM 6.7 mg/dL (8.4-10.2)
[2019-03-25 20:45] LABS: PLATELET COUNT 640 10^3/uL (150-450)
[2019-03-25] MEDS ORDERED: CALCIUM GLUCONATE 2,222 MG in DEXTROSE 5%-WATER 100 ML IV ONE (21:30)
[2019-03-25 22:15] LABS: APPEARANCE,URINE CLEAR; BILIRUBIN,URINE NEGATIVE (NEGATIVE); COLOR,URINE YELLOW; GLUCOSE, URINE NEGATIVE (NEGATIVE); KETONES,URINE NEGATIVE (NEGATIVE); LEUKOCYTE ESTERASE,URINE NEGATIVE (NEGATIVE); NITRITE,URINE NEGATIVE (NEGATIVE); PROTEIN,URINE 30 mg/dL (NEGATIVE); URINE SPECIFIC GRAVITY 1.014; UROBILINOGEN,URINE NEGATIVE mg/dL (<2.0)
--- NOTE | 2019-03-25 22:44 | OPERATIVE REPORT E ---
Operative Report NAME: KIRTI MANN : 1975 AGE: 43Y DATE OF SURGERY: 03/25/2019 ROOM: ED08 PREOPERATIVE DIAGNOSIS: 1. ABDOMINAL ABSCESS. 2. PERITONITIS. POSTOPERATIVE DIAGNOSIS: PERFORATION OF THE TRANSVERSE COLON. OPERATIVE PROCEDURE: 1. Exploratory laparotomy with extended right hemicolectomy, ileocolostomy, and abdominal washout. 2. Central line placement. SURGEON: IZAIAH GARZA M.D. INDICATIONS FOR SURGERY: This is a 43-year-old female with a history of rheumatoid arthritis, who has been on tank terminal gauger steroids, underwent an emergency cholecystectomy on 03/20/2019 for gangrenous cholecystitis. She was sent home on 03/22/2019. She had done initially well and she developed increasing abdominal pain, nausea and vomiting today, and presented to the emergency room. A CT scan was obtained, which showed a large fluid collection in the anterior abdomen as well as a right subphrenic fluid collection. She was initially noted to be tachycardic, uncomfortable with a white count of 50,000. She does have a chronically elevated white count because of her rheumatoid arthritis and her steroid use but her white count usually ranges in the 30 range. On presentation today it was 54.8. Consultation was made with Dr. Chavez from interventional radiology for a possible drainage of the abscess or the fluid collections. It was felt by her that she would not able to access them because of the locations in the abdominal cavity and, therefore, she was brought to surgery. DETAILS OF PROCEDURE: The patient was brought to the operating room awake, alert, and placed on the operating room table in a supine, induced under general anesthesia and intubated. The right neck was prepped and draped in the usual sterile fashion for central line placement. Using a 16 gauge needle catheter the right internal jugular vein was accessed and the needle was removed and through the catheter a J-wire was placed into the superior vena cava. Over the J-wire the tract was dilated with a dilator and then using a Seldinger technique the triple-lumen was placed over wire and positioned in the superior vena cava above the right atrium. It was fixed to the skin with 2-0 Silks and then flushed appropriately and will be utilized by anesthesia during the operation. The abdomen was then prepped and draped. The patient had a previous right upper quadrant Jeri incision and the emi were removed. The wound was easily opened and the patient had 2 layer closure. The anterior layer was interrupted 0-Vicryl. These were all removed serially. The posterior layer was running 0-Vicryl and these were removed. Upon entering the abdominal cavity there was a large amount of bloody foul smelling fluid that emanated from the abdominal cavity and this was copiously irrigated. The right upper quadrant was irrigated. The right subphrenic space was irrigated, as well as the rest of the abdominal cavity, including the pelvis. A large amount of this foul smelling fluid extruded from the wound. There also appeared to a significant amount of omentum that was involved in this abscess cavity. This omentum that appeared to be inflamed and involved in this infection was removed with the LigaSure device from the transverse colon. In so doing this, we came upon a defect in the transverse colon and in that defect there was noted a piece of plastic that appeared to be emanating from the anterior abdominal wall. The patient had a previous mesh repair of a ventral hernia and it became obvious that the mesh repair utilized a Kugel type mesh with a perimeter ring that apparently now had broken and perforated a hole in the transverse colon that seems to be the origin of this abdominal abscess. The Kugel mesh was a very large piece of mesh covering the entire anterior abdominal wall from the right upper quadrant to below the umbilicus and into the left upper quadrant. The mesh was now stained with fecal material and it had this perimeter ring that had disrupted. I felt it necessary to remove the mesh because of the high probability of chronic mesh infection. Therefore, I peeled it away from the anterior abdominal. It was fixed there with multiple metal tacks and Prolene sutures that were interspersed around the perimeter. Once I freed up the metal tacks it was easy to peel the mesh away from the anterior abdominal wall. Once this was completed we copiously irrigated the abdominal cavity with normal saline to wash it out. I then had to mobilize a large amount of small bowel in the pelvis that was fixed there with numerous adhesions and also fixed to the mesh. There was an enterotomy made in the small bowel that upon peeling it away from the mesh and it appeared somewhat ischemic after mobilizing it away from the anterior abdominal mesh, therefore, I elected to resect it. I came across the proximal distal end of the enterotomy and using a JEISON stapler and then excised approximately a 10 cm segment of the small intestine with its mesentery. And, this would be dealt with later. In addition to this the transverse colon appeared quite soiled and quite incorporated in the inflammatory process. In addition to that it was quite fatty and difficult to really identify clear margins for repair. Therefore, I elected to perform an extended right hemicolectomy in order to obtain good clean margins for anastomosis. I mobilized the cecum laterally by taking down the peritoneal reflection with sharp dissection. Using Bovie cautery or Metzenbaum scissors we mobilized that cephalad and medially and then came across the terminal ileum with 1 firing of the Endo JEISON stapler with a blue load. I then mobilized the mesentery of the right colon with the LigaSure device all the way past the hepatic flexure to the transverse colon distal to the middle colic artery. The perforation was in the mid transverse colon. I also mobilized the splenic flexure with sharp dissection and noted a large amount of fluid in the left upper quadrant, which was also irrigated. Once the splenic flexure was mobilized we then divided the colon just distal the splenic flexure with 1 firing of the Endo JEISON stapler with a blue load. The patient had a redundant long segment of descending colon and that area seemed to be fairly protected from the inflammatory process in the abdomen. Once this was completed, then I again removed most of the soiled and inflamed omentum with the LigaSure device and removed that. We mobilized the small bowel with sharp dissection. She had a number of adhesed small bowel loops that were adhesed to each other and to the mesh. This required a meticulous dissection to completely free up the small bowel from the ligament of Treitz to the terminal ileum. Once this was completed I re-anastomosed the mid jejunum in a functional end-to-end anastomosis using a 60 mm Endo JEISON and then the staple holes were closed transversely with a JEISON stapler and the mesenteric defect was closed with interrupted 2-0 Silk. The anastomosis was reinforced with interrupted 2-0 Silk. Once this was completed we then cleared of the edge of the proximal descending colon and performed an ileocolostomy in 2 layers, the posterior layer being interrupted 2-0 Silk with the running interlayer was 3-0 Vicryl, and the anterior layer was 2-0 Silk. We closed that mesenteric defect with interrupted 2-0 Silk. Once this was completed we irrigated the abdominal cavity again until clear effluent. There was no evidence of any bleeding. Hemostasis was intact. Two Kobe-Pugh drains were placed, 1 in the pelvis and 1 next to the anastomosis brought through separate stab wounds in the left abdominal wall. The right upper quadrant incision was then closed in 2 layers. The posterior rectus sheath was closed with a running double looped 0-PDS suture. The anterior sheath was closed with interrupted [id number] placed #1 Vicryl sutures. The skin was closed loosely with emi and a sterile dressing was applied. Estimated blood loss for the procedure was 400 mL. Sponge and needle counts were correct x2. The patient was transferred to the recovery room remaining intubated in stable condition. She received 2 units of packed red cells during the procedure. DICTATING PHYSICIAN: IZAIAH GARZA M.D. [id number] PHY#: [id number] ID: [id number] JOB#: [id number] ACCT: [id number] cc:IZAIAH GARZA M.D. >
[2019-03-25] MEDS ORDERED: FAMOTIDINE 20 MG TABLET PO ONE (23:00)
[2019-03-25] MEDS: PIPERACILLIN SODIUM/TAZOBACTAM 3.375 GM in NORMAL SALINE 100 ML IV SCH (23:19)
[2019-03-25] MEDS ORDERED: FAMOTIDINE INJ/PF 20 MG/2 ML SDV IV ONE (23:45)
[2019-03-26] MEDS: METRONIDAZOLE 500 MG/NS RTU 500 MG/100 ML RTUPB IV SCH ×4 (02:11→21:24)
[2019-03-26] MEDS: PROPOFOL 1,000 MG/100 ML INFUS..BTL IV PRN ×3 (02:12→09:59)
[2019-03-26] MEDS: MORPHINE SULFATE 10 MG/ML INJ IV PRN ×4 (02:29→15:53)
[2019-03-26] MEDS: PIPERACILLIN SODIUM/TAZOBACTAM 3.375 GM in NORMAL SALINE 100 ML IV SCH ×4 (05:30→23:49)
[2019-03-26 06:59] LABS: HEMOGLOBIN 8.7 g/dL (12.0-15.5); MEAN CORPUSCULAR HEMOGLOBIN 31.6 pg (27.0-33.4); MEAN CORPUSCULAR HGB CONC 34.7 g/dL (32.0-36.0); MEAN CORPUSCULAR VOLUME 91 fl (80-97); RED BLOOD COUNT 2.75 10^6/uL (3.72-5.28)
[2019-03-26 07:12] LABS: ALANINE AMINOTRANSFERASE 47 U/L (9-52); ALBUMIN 1.8 g/dL (3.5-5.0); ALKALINE PHOSPHATASE 59 U/L (38-126); ANION GAP 7 (5-19); ASPARTATE AMINO TRANSFERASE 42 U/L (14-36); BILIRUBIN,TOTAL 1.2 mg/dL (0.2-1.3); BLOOD UREA NITROGEN 15 mg/dL (7-20); CALCIUM 7.5 mg/dL (8.4-10.2); CARBON DIOXIDE 22 mmol/L (22-30); CHLORIDE 105 mmol/L (98-107); GLUCOSE 166 mg/dL (75-110); POTASSIUM 3.6 mmol/L (3.6-5.0)
[2019-03-26 07:14] LABS: TOTAL PROTEIN 3.9 g/dL (6.3-8.2)
[2019-03-26 07:29] LABS: WHITE BLOOD COUNT 39.6 10^3/uL (4.0-10.5)
[2019-03-26 07:32] LABS: ABSOLUTE NEUTROPHILS# (MANUAL) 33.7 10^3/uL (1.7-8.2); BAND NEUTROPHILS % (MANUAL) 6 % (3-5); BASOPHILS % (MANUAL) 0 % (0-2); EOSINOPHILS % (MANUAL) 0 % (0-6); LYMPHOCYTES % (MANUAL) 10 % (13-45); MONOCYTES % (MANUAL) 5 % (3-13); SEGMENTED NEUTROPHILS % (MAN) 79 % (42-78); TOTAL CELLS COUNTED 100
[2019-03-26 07:33] LABS: PLATELET CLUMPS PRESENT; PLATELET COMMENT ADEQUATE
[2019-03-26 07:34] LABS: BURR CELLS SLIGHT; OVALOCYTES SLIGHT; POLYCHROMASIA SLIGHT
[2019-03-26 08:12] LABS: PLATELET COUNT 606 10^3/uL (150-450)
[2019-03-26] MEDS ORDERED: FAMOTIDINE 20 MG TABLET PO SCH (10:00)
[2019-03-26] MEDS: FAMOTIDINE INJ/PF 20 MG/2 ML SDV IV SCH ×2 (10:10→21:24)
[2019-03-26] MEDS ORDERED: MIDAZOLAM 2 MG/2 ML INJ ONE (12:28)
[2019-03-26] MEDS ORDERED: HYDROMORPHONE HCL INJ/PF 2 MG/ML AMPULE IV ONE (12:30)
[2019-03-26] MEDS ORDERED: PROMETHAZINE HCL INJ 25 MG/1 ML VIAL ONE (14:32)
[2019-03-26] MEDS ORDERED: HYDROMORPHONE HCL INJ/PF 2 MG/ML AMPULE ONE (14:42)
[2019-03-26] MEDS ORDERED: PROMETHAZINE HCL INJ 25 MG/1 ML VIAL IM ONE (15:00)
--- NOTE | 2019-03-26 15:35 | PDOC CONSULTATION ---
Consultation Consult Date: 03/26/19 Attending physician:: IZAIAH GARZA Consult reason:: Assistance with post op extubation and medical care History of Present Illness Admission Date/PCP: 03/25/19 13:25 Patient complains of: Abdominal pain and vomiting. History of Present Illness: KIRTI MANN is a 43 year old female with past medical history of rheumatoid arthritis on chronic steroid and essential hypertension; who [facility]/25/[facility], with complaints of nausea and vomiting unable to keep anything down. Patient had a cholecystectomy on 03/20/2019, by Dr. Garza. She was subsequently discharged home on 03/22/2019. She states she had been doing well up until yesterday when she began having increasing abdominal pain and vomiting. CT of the abdomen and pelvis showed free air and possible abscess. Taken to the OR by Dr. Garza for exploratory laparotomy and washout. He has asked the hospitalist service see the patient this morning and consult to assist with extubation from the ventilator and assistance with her medical problems. Patient presently is orally intubated and lightly sedated. She does respond appropriately to commands Past Medical History Cardiac Medical History: Reports: Hypertension Pulmonary Medical History: Reports: None EENT Medical History: Reports: None Neurological Medical History: Reports: Migraine Endocrine Medical History: Reports: None Renal/ Medical History: Reports: None Malignancy Medical History: Reports: None GI Medical History: Reports: Other - GERD Musculoskeltal Medical History: Reports: Arthritis - Rheumatoid arthritis, chronically immunosuppressed Skin Medical History: Reports: None Traumatic Medical History: Reports: None Hematology: Reports: None Infectious Medical History: Reports: None Past Surgical History Past Surgical History: Reports: Cholecystectomy, Hysterectomy Social History Information Source: [facility] Records Lives with: Family Smoking Status: Current Every Day Smoker Hx Recreational Drug Use: No Hx Prescription Drug Abuse: No - Advance Directive Resuscitation Status: Full Code Family History Family History: Reviewed & Not Pertinent Parental Family History Reviewed: Yes Children Family History Reviewed: Yes Sibling(s) Family History Reviewed.: Yes Medication/Allergy Home Medications: Lisinopril [Prinivil 40 mg Tablet] 40 mg PO BID 03/26/19 Methadone HCl [Methadone Oral Soln 1mg/Ml 30 Ml Bottle] 140 mg PO DAILY 03/26/19 Prednisone [Deltasone 20 mg Tablet] 20 mg PO DAILY 03/26/19 Allergies/Adverse Reactions: brompheniramine maleate [From Dimetapp] Allergy (Severe, Verified 06/29/18 10:18) Swelling of Throat dextromethorphan HBr [From Dimetapp] Allergy (Severe, Verified 06/29/18 10:18) Swelling of Throat phenylpropanolamine HCl [From Dimetapp] Allergy (Severe, Verified 06/29/18 10:18) Swelling of Throat pseudoephedrine HCl [From Dimetapp] Allergy (Severe, Verified 06/29/18 10:18) Swelling of Throat Review of Systems ROS unobtainable: Due to endotracheal tube Physical Exam Vital Signs: Temp Pulse Resp BP Pulse Ox 99.0 F 112 H 19 141/90 H 91 L 03/26/19 12:00 03/26/19 14:00 03/26/19 14:00 03/26/19 14:00 03/26/19 14:00 Intake & Output 03/25/19 03/26/19 03/27/19 06:59 06:59 06:59 Intake Total 1518 221 Output Total 1850 1255 Balance -332 -1034 Weight 101 kg General appearance: PRESENT: no acute distress, obese, well-developed, well- nourished, other - orally intubated and sedated Head exam: PRESENT: atraumatic, normocephalic Eye exam: PRESENT: conjunctiva pink, EOMI, PERRLA. ABSENT: scleral icterus Ear exam: PRESENT: normal external ear exam Mouth exam: PRESENT: moist, tongue midline Neck exam: ABSENT: carotid bruit, JVD, lymphadenopathy, thyromegaly Respiratory exam: PRESENT: clear to auscultation jack, decreased breath sounds, symmetrical, unlabored Cardiovascular exam: PRESENT: RRR. ABSENT: diastolic murmur, rubs, systolic murmur Pulses: PRESENT: normal dorsalis pedis pul GI/Abdominal exam: PRESENT: hypoactive bowel sounds, other - incisional midline incision Rectal exam: PRESENT: deferred Extremities exam: PRESENT: full ROM. ABSENT: calf tenderness, clubbing, pedal edema Musculoskeletal exam: PRESENT: full ROM Neurological exam: PRESENT: other - orally intubated and sedated Psychiatric exam: PRESENT: other - orally intubated and sedated Skin exam: PRESENT: dry, intact, warm. ABSENT: cyanosis, rash Results Laboratory Results: 03/26/19 06:40 03/26/19 06:40 03/25/19 03/25/19 03/25/19 09:36 17:45 17:45 WBC RBC Hgb Hct MCV MCH MCHC RDW Plt Count Seg Neutrophils % Lymphocytes % Monocytes % Eosinophils % Basophils % Absolute Neutrophils Absolute Lymphocytes Absolute Monocytes Absolute Eosinophils Absolute Basophils Carbonic Acid HCO3/H2CO3 Ratio ABG pH ABG pCO2 ABG pO2 ABG HCO3 ABG O2 Saturation ABG Base Excess FiO2 Sodium 129.7 L Potassium 4.4 Chloride 107 Carbon Dioxide 15 L Anion Gap 8 BUN 19 Creatinine 1.23 Est GFR ( Amer) 58 L Est GFR (Non-Af Amer) 48 L Glucose 111 H Lactic Acid 3.2 H Calcium 6.3 L* Phosphorus Magnesium Total Bilirubin 1.4 H AST 49 H ALT 38 Alkaline Phosphatase 54 Total Protein 3.7 L Albumin 1.7 L Lipase Urine Color Urine Appearance Urine pH Ur Specific [place] Urine Protein Urine Glucose (UA) Urine Ketones Urine Blood Urine Nitrite Ur Leukocyte Esterase Urine WBC (Auto) Blood Type O POSITIVE Antibody Screen NEGATIVE 03/25/19 03/25/19 03/25/19 17:45 19:45 20:00 WBC 32.1 H* 36.7 H* RBC 2.78 L 3.17 L Hgb 8.9 L 10.2 L Hct 26.1 L 29.3 L MCV 94 92 MCH 31.8 32.1 MCHC 34.0 34.8 RDW 14.3 H 14.9 H Plt Count 562 H 640 H Seg Neutrophils % Lymphocytes % Monocytes % Eosinophils % Basophils % Absolute Neutrophils Absolute Lymphocytes Absolute Monocytes Absolute Eosinophils Absolute Basophils Carbonic Acid 1.02 L HCO3/H2CO3 Ratio 17:1 ABG pH 7.34 L ABG pCO2 33.9 L ABG pO2 94.8 ABG HCO3 17.8 L ABG O2 Saturation 96.9 ABG Base Excess -7.1 FiO2 50% Sodium Potassium Chloride Carbon Dioxide Anion Gap BUN Creatinine Est GFR ( Amer) Est GFR (Non-Af Amer) Glucose Lactic Acid Calcium Phosphorus Magnesium Total Bilirubin AST ALT Alkaline Phosphatase Total Protein Albumin Lipase Urine Color Urine Appearance Urine pH Ur Specific [place] Urine Protein Urine Glucose (UA) Urine Ketones Urine Blood Urine Nitrite Ur Leukocyte Esterase Urine WBC (Auto) Blood Type Antibody Screen 04/24/19 04/24/19 04/24/19 20:00 20:00 21:35 WBC RBC Hgb Hct MCV MCH MCHC RDW Plt Count Seg Neutrophils % Lymphocytes % Monocytes % Eosinophils % Basophils % Absolute Neutrophils Absolute Lymphocytes Absolute Monocytes Absolute Eosinophils Absolute Basophils Carbonic Acid HCO3/H2CO3 Ratio ABG pH ABG pCO2 ABG pO2 ABG HCO3 ABG O2 Saturation ABG Base Excess FiO2 Sodium 131.7 L Potassium 4.2 Chloride 104 Carbon Dioxide 19 L Anion Gap 9 BUN 17 Creatinine 1.08 Cancelled Est GFR ( Amer) > 60 Cancelled Est GFR (Non-Af Amer) 55 L Cancelled Glucose 132 H Lactic Acid Calcium 6.7 L* Phosphorus 5.4 H Magnesium 1.3 L Total Bilirubin 1.3 AST 58 H ALT 48 Alkaline Phosphatase 62 Total Protein 4.3 L Albumin 2.0 L Lipase Urine Color YELLOW Urine Appearance CLEAR Urine pH 6.0 Ur Specific [place] 1.014 Urine Protein 30 H Urine Glucose (UA) NEGATIVE Urine Ketones NEGATIVE Urine Blood MODERATE H Urine Nitrite NEGATIVE Ur Leukocyte Esterase NEGATIVE Urine WBC (Auto) 3 Blood Type Antibody Screen 03/26/19 03/26/19 03/26/19 03:55 06:40 06:40 WBC 39.6 H* RBC 2.75 L Hgb 8.7 L Hct 25.0 L MCV 91 MCH 31.6 MCHC 34.7 RDW 15.0 H Plt Count 606 H Seg Neutrophils % Not Reportable Lymphocytes % Not Reportable Monocytes % Not Reportable Eosinophils % Not Reportable Basophils % Not Reportable Absolute Neutrophils Not Reportable Absolute Lymphocytes Not Reportable Absolute Monocytes Not Reportable Absolute Eosinophils Not Reportable Absolute Basophils Not Reportable Carbonic Acid HCO3/H2CO3 Ratio ABG pH ABG pCO2 ABG pO2 ABG HCO3 ABG O2 Saturation ABG Base Excess FiO2 Sodium 134.0 L Potassium 3.6 Chloride 105 Carbon Dioxide 22 Anion Gap 7 BUN 15 Creatinine 0.76 Est GFR ( Amer) > 60 Est GFR (Non-Af Amer) > 60 Glucose 166 H Lactic Acid Calcium 7.5 L Phosphorus Magnesium Total Bilirubin 1.2 AST 42 H ALT 47 Alkaline Phosphatase 59 Total Protein 3.9 L Albumin 1.8 L Lipase < 10.0 L Urine Color Urine Appearance Urine pH Ur Specific [place] Urine Protein Urine Glucose (UA) Urine Ketones Urine Blood Urine Nitrite Ur Leukocyte Esterase Urine WBC (Auto) Blood Type Antibody Screen Impressions: Abdomen/Pelvis CT 03/25/19 08:59 IMPRESSION: 1. Free air in the abdomen. 2. There is some free fluid. This includes some intermediate density material anteriorly. Abscess versus biloma. 3. Ground-glass infiltrates in the lower lungs. Chronic interstitial changes versus interstitial edema. Chest X-Ray 03/25/19 18:26 IMPRESSION: No pneumothorax. Patchy airspace opacities are present throughout the right lung base as well as left medial lung base. No significant pleural effusion.Left hilar fullness.Endotracheal tube tip overlies the lower trachea approximately 4.6 cm above the level of the aliyah. Nasogastric catheter tube is present with tip overlying the body of the stomach. Right IJ central venous catheter is present with tip overlying the SVC below the aliyah level. Assessment and Plan - Diagnosis (1) Sepsis Qualifiers: Sepsis type: sepsis due to unspecified organism Qualified Code(s): A41.9 - Sepsis, unspecified organism Is this a current diagnosis for this admission?: Yes Plan: She was tachycardic with white count of 59,000 presentation to the ER. CT of the abdomen showed possible abscess. She was adequatel fluid resuscitated, and on IV broad-spectrum antibiotic's after blood cultures x2 she was taken to the OR for washout. White count is improving today. She is no longer tachycardic. She is presently afebrile. She is high risk for infection due to chronic steroid use for rheumatoid arthritis. (2) Gram-negative bacteremia Is this a current diagnosis for this admission?: Yes Plan: Initial blood cultures x2 show gram-negative rods in 1 bottle. We will continue IV Zosyn and vancomycin pending all culture results. (3) Immunosuppression due to drug therapy Is this a current diagnosis for this admission?: Yes Plan: Continue on IV hydrocortisone 50 mg every 8 until she is able to take oral prednisone. (4) Essential hypertension Is this a current diagnosis for this admission?: Yes Plan: PRN metoprolol for blood pressure control until she is able to take p.o. (5) Intra-abdominal abscess post-procedure Is this a current diagnosis for this admission?: Yes Plan: Management per surgery. (6) Nausea and vomiting Qualifiers: Vomiting type: unspecified Vomiting Intractability: non-intractable Qualified Code(s): R11.2 - Nausea with vomiting, unspecified Is this a current diagnosis for this admission?: Yes Plan: PRN Zofran. (7) Rheumatoid arthritis Qualifiers: Laterality: unspecified laterality Is this a current diagnosis for this admission?: Yes (8) Chronic pain Qualifiers: Chronic pain type: chronic pain syndrome Qualified Code(s): G89.4 - Chronic pain syndrome Is this a current diagnosis for this admission?: Yes Plan: Patient apparently has been on oral methadone for years - Time Time Spent with patient: 35 or more minutes Total Critical Time (Minutes): 40 Medications reviewed and adjusted accordingly: Yes - Inpatient Certification Based on my medical assessment, after consideration of the patient's comorbidi ties, presenting symptoms, or acuity I expect that the services needed warrant INPATIENT care.: Yes I certify that my determination is in accordance with my understanding of [employer]'s requirements for reasonable and necessary INPATIENT services [42 CFR 412.3e].: Yes Medical Necessity: Significant Comorbidiites Make Outpatient Treatment Too Risky, Need for Pain Control, Need for IV Antibiotics, Need for Surgery
[2019-03-26] MEDS ORDERED: LISINOPRIL 10 MG TABLET PO SCH (16:00)
[2019-03-26] MEDS: RINGERS SOLUTION,LACTATED 1,000 ML IV PRN (18:08)
[2019-03-26 18:12] LABS: PATH REVIEW PATHOLOGIST REVIEWED
[2019-03-26] MEDS: HYDRALAZINE HCL INJ/PF 20 MG/1 ML SDV IV PRN (18:37)
[2019-03-26] MEDS: HYDROMORPHONE HCL INJ/PF 2 MG/ML AMPULE IV PRN ×2 (18:52→22:00)
[2019-03-26] MEDS: ACETAMINOPHEN 1,000 MG/100 ML RTUPB IV SCH ×2 (19:58→23:48)
[2019-03-26] MEDS: HYDROCORTISONE SOD SUCCINATE INJ/PF 100 MG/2 ML SDV IV SCH (21:24)
[2019-03-26] MEDS ORDERED: LISINOPRIL 10 MG TABLET NG SCH (22:00)
[2019-03-27] MEDS: HYDROMORPHONE HCL INJ/PF 2 MG/ML AMPULE IV PRN ×7 (00:18→23:17)
[2019-03-27] MEDS: METRONIDAZOLE 500 MG/NS RTU 500 MG/100 ML RTUPB IV SCH ×4 (03:53→21:18)
[2019-03-27] MEDS: RINGERS SOLUTION,LACTATED 1,000 ML IV PRN (03:53)
[2019-03-27] MEDS: HYDRALAZINE HCL INJ/PF 20 MG/1 ML SDV IV PRN ×3 (04:02→19:49)
[2019-03-27 04:34] LABS: HEMATOCRIT 21.9 % (36.0-47.0); MEAN CORPUSCULAR HGB CONC 34.1 g/dL (32.0-36.0); MEAN CORPUSCULAR VOLUME 91 fl (80-97); PLATELET COUNT 588 10^3/uL (150-450); RED BLOOD COUNT 2.41 10^6/uL (3.72-5.28); RED CELL DISTRIBUTION WIDTH 14.8 % (11.5-14.0)
[2019-03-27 04:45] LABS: ALANINE AMINOTRANSFERASE 42 U/L (9-52); ALBUMIN 1.9 g/dL (3.5-5.0); ALKALINE PHOSPHATASE 69 U/L (38-126); ANION GAP 9 (5-19); ASPARTATE AMINO TRANSFERASE 37 U/L (14-36); BILIRUBIN,DIRECT 0.6 mg/dL (0.0-0.4); BILIRUBIN,TOTAL 0.8 mg/dL (0.2-1.3); BLOOD UREA NITROGEN 13 mg/dL (7-20); CALCIUM 7.6 mg/dL (8.4-10.2); CARBON DIOXIDE 26 mmol/L (22-30); CHLORIDE 103 mmol/L (98-107); GLUCOSE 79 mg/dL (75-110); POTASSIUM 3.2 mmol/L (3.6-5.0); SODIUM 138.2 mmol/L (137-145); TOTAL PROTEIN 4.1 g/dL (6.3-8.2)
[2019-03-27 04:54] LABS: ABSOLUTE LYMPHOCYTES# (MANUAL) 6.3 10^3/uL (0.5-4.7); ABSOLUTE MONOCYTES # (MANUAL) 2.8 10^3/uL (0.1-1.4); ABSOLUTE NEUTROPHILS# (MANUAL) 30.3 10^3/uL (1.7-8.2); BAND NEUTROPHILS % (MANUAL) 3 % (3-5); BASOPHILS % (MANUAL) 0 % (0-2); EOSINOPHILS % (MANUAL) 0 % (0-6); LYMPHOCYTES % (MANUAL) 16 % (13-45); MONOCYTES % (MANUAL) 7 % (3-13); NUCLEATED RED BLOOD CELLS 2 /100 WBC (0); SEGMENTED NEUTROPHILS % (MAN) 74 % (42-78); TOTAL CELLS COUNTED 100
[2019-03-27 04:55] LABS: ANISOCYTOSIS SLIGHT; PLATELET COMMENT INCREASED; POLYCHROMASIA 1+; TOXIC GRANULATION 1+
[2019-03-27 04:57] LABS: HEMOGLOBIN 7.5 g/dL (12.0-15.5); WHITE BLOOD COUNT 39.4 10^3/uL (4.0-10.5)
[2019-03-27] MEDS: PIPERACILLIN SODIUM/TAZOBACTAM 3.375 GM in NORMAL SALINE 100 ML IV SCH ×4 (05:58→23:10)
[2019-03-27] MEDS: HYDROCORTISONE SOD SUCCINATE INJ/PF 100 MG/2 ML SDV IV SCH ×3 (05:59→21:18)
[2019-03-27] MEDS: ACETAMINOPHEN 1,000 MG/100 ML RTUPB IV SCH ×4 (05:59→23:10)
--- NOTE | 2019-03-27 07:37 | PDOC PROGRESS REPORT ---
Subjective Progress Note for:: 03/27/19 Subjective:: feels ok pain improved has not gotten out of bed as yet Reason For Visit: ABDOMINAL ABSCESS, PERFORATED VISCUS Physical Exam Vital Signs: Temp Pulse Resp BP Pulse Ox 97.9 F 100 20 146/80 H 94 03/27/19 03:48 03/27/19 06:00 03/27/19 06:00 03/27/19 05:20 03/27/19 06:00 Intake & Output 03/26/19 03/27/19 03/28/19 06:59 06:59 06:59 Intake Total 2518 1921 Output Total 5292 4210 Balance 348 -9827 Weight 101 kg 100.8 kg General appearance: PRESENT: no acute distress Head exam: PRESENT: normocephalic Eye exam: PRESENT: EOMI Mouth exam: PRESENT: dry mucosa Teeth exam: PRESENT: edentulous Neck exam: PRESENT: full ROM Respiratory exam: PRESENT: clear to auscultation jack Cardiovascular exam: PRESENT: RRR Pulses: PRESENT: +1 pedal pulses bilateral, +2 pedal pulses bilateral Vascular exam: PRESENT: normal capillary refill GI/Abdominal exam: PRESENT: other - wound clean dry, asad's serous Rectal exam: PRESENT: deferred Extremities exam: PRESENT: +1 edema Musculoskeletal exam: PRESENT: full ROM Neurological exam: PRESENT: alert, awake, oriented to person, oriented to place, oriented to time, oriented to situation Psychiatric exam: PRESENT: appropriate affect Skin exam: PRESENT: dry Results Laboratory Results: 03/27/19 03:55 03/27/19 03:55 03/25/19 03/26/19 03/27/19 09:36 06:40 03:55 WBC 39.6 H* 39.4 H* RBC 2.75 L 2.41 L Hgb 8.7 L 7.5 L Hct 25.0 L 21.9 L MCV 91 91 MCH 31.6 31.0 MCHC 34.7 34.1 RDW 15.0 H 14.8 H Plt Count 606 H 588 H Seg Neutrophils % Not Reportable Not Reportable Lymphocytes % Not Reportable Not Reportable Monocytes % Not Reportable Not Reportable Eosinophils % Not Reportable Not Reportable Basophils % Not Reportable Not Reportable Absolute Neutrophils Not Reportable Not Reportable Absolute Lymphocytes Not Reportable Not Reportable Absolute Monocytes Not Reportable Not Reportable Absolute Eosinophils Not Reportable Not Reportable Absolute Basophils Not Reportable Not Reportable Sodium Potassium Chloride Carbon Dioxide Anion Gap BUN Creatinine Est GFR ( Amer) Est GFR (Non-Af Amer) Glucose Calcium Total Bilirubin AST ALT Alkaline Phosphatase Total Protein Albumin Blood Type O POSITIVE Antibody Screen NEGATIVE 03/27/19 03:55 WBC RBC Hgb Hct MCV MCH MCHC RDW Plt Count Seg Neutrophils % Lymphocytes % Monocytes % Eosinophils % Basophils % Absolute Neutrophils Absolute Lymphocytes Absolute Monocytes Absolute Eosinophils Absolute Basophils Sodium 138.2 Potassium 3.2 L Chloride 103 Carbon Dioxide 26 Anion Gap 9 BUN 13 Creatinine 0.57 Est GFR ( Amer) > 60 Est GFR (Non-Af Amer) > 60 Glucose 79 Calcium 7.6 L Total Bilirubin 0.8 AST 37 H ALT 42 Alkaline Phosphatase 69 Total Protein 4.1 L Albumin 1.9 L Blood Type Antibody Screen Impressions: Abdomen/Pelvis CT 03/25/19 08:59 IMPRESSION: 1. Free air in the abdomen. 2. There is some free fluid. This includes some intermediate density material anteriorly. Abscess versus biloma. 3. Ground-glass infiltrates in the lower lungs. Chronic interstitial changes versus interstitial edema. Chest X-Ray 03/25/19 18:26 IMPRESSION: No pneumothorax. Patchy airspace opacities are present throughout the right lung base as well as left medial lung base. No significant pleural effusion.Left hilar fullness.Endotracheal tube tip overlies the lower trachea approximately 4.6 cm above the level of the aliyah. Nasogastric catheter tube is present with tip overlying the body of the stomach. Right IJ central venous catheter is present with tip overlying the SVC below the aliyah level. 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
[2019-03-27] MEDS: POTASSIUM CHLORIDE 20 MEQ/50 ML RTU IV SCH ×2 (09:01→10:28)
--- NOTE | 2019-03-27 09:28 | PDOC PROGRESS REPORT ---
Subjective Progress Note for:: 03/27/19 Subjective:: Patient is seen resting in bed. She is awake, alert, oriented x3. NG tube remains in the right nares draining moderate amount of dark brown drainage. She denies any nausea at the present time. She denies any chest pain, shortness of breath or dyspnea. She states she just coughed up a good amount of mucus. She continues to have moderate incisional discomfort. She states the pain medicine is helping. She denies any other arthralgias or myalgias. She has been out of bed already this morning. Remaining review of systems are negative. Reason For Visit: ABDOMINAL ABSCESS, PERFORATED VISCUS Physical Exam Vital Signs: Temp Pulse Resp BP Pulse Ox 97.7 F 101 H 19 152/93 H 95 03/27/19 08:00 03/27/19 08:00 03/27/19 08:00 03/27/19 08:00 03/27/19 08:00 Intake & Output 03/26/19 03/27/19 03/28/19 06:59 06:59 06:59 Intake Total 2518 2021 Output Total 1850 4210 400 Balance 668 -2189 -400 Weight 101 kg 100.8 kg General appearance: PRESENT: no acute distress, obese, well-developed, well- nourished Head exam: PRESENT: atraumatic, normocephalic Eye exam: PRESENT: conjunctiva pink, EOMI, PERRLA. ABSENT: scleral icterus Ear exam: PRESENT: normal external ear exam Mouth exam: PRESENT: moist, tongue midline Neck exam: ABSENT: carotid bruit, JVD, lymphadenopathy, thyromegaly Respiratory exam: PRESENT: clear to auscultation jack, symmetrical, unlabored. ABSENT: rales, rhonchi, wheezes Cardiovascular exam: PRESENT: RRR. ABSENT: diastolic murmur, rubs, systolic murmur Pulses: PRESENT: normal dorsalis pedis pul Vascular exam: PRESENT: normal capillary refill GI/Abdominal exam: PRESENT: distended - softly, soft, tenderness. ABSENT: guarding, mass, organolmegaly, rebound Rectal exam: PRESENT: deferred Extremities exam: PRESENT: full ROM. ABSENT: calf tenderness, clubbing, pedal edema Neurological exam: PRESENT: alert, awake, oriented to person, oriented to place, oriented to time, oriented to situation, CN II-XII grossly intact. ABSENT: motor sensory deficit Psychiatric exam: PRESENT: anxious Skin exam: PRESENT: dry, intact, warm. ABSENT: cyanosis, rash Results Laboratory Results: 03/27/19 03:55 03/27/19 03:55 03/25/19 03/27/19 03/27/19 09:36 03:55 03:55 WBC 39.4 H* RBC 2.41 L Hgb 7.5 L Hct 21.9 L MCV 91 MCH 31.0 MCHC 34.1 RDW 14.8 H Plt Count 588 H Seg Neutrophils % Not Reportable Lymphocytes % Not Reportable Monocytes % Not Reportable Eosinophils % Not Reportable Basophils % Not Reportable Absolute Neutrophils Not Reportable Absolute Lymphocytes Not Reportable Absolute Monocytes Not Reportable Absolute Eosinophils Not Reportable Absolute Basophils Not Reportable Sodium 138.2 Potassium 3.2 L Chloride 103 Carbon Dioxide 26 Anion Gap 9 BUN 13 Creatinine 0.57 Est GFR ( Amer) > 60 Est GFR (Non-Af Amer) > 60 Glucose 79 Calcium 7.6 L Total Bilirubin 0.8 AST 37 H ALT 42 Alkaline Phosphatase 69 Total Protein 4.1 L Albumin 1.9 L Blood Type O POSITIVE Antibody Screen NEGATIVE Impressions: Abdomen/Pelvis CT 03/25/19 08:59 IMPRESSION: 1. Free air in the abdomen. 2. There is some free fluid. This includes some intermediate density material anteriorly. Abscess versus biloma. 3. Ground-glass infiltrates in the lower lungs. Chronic interstitial changes versus interstitial edema. Chest X-Ray 03/25/19 18:26 IMPRESSION: No pneumothorax. Patchy airspace opacities are present throughout the right lung base as well as left medial lung base. No significant pleural effusion.Left hilar fullness.Endotracheal tube tip overlies the lower trachea approximately 4.6 cm above the level of the aliyah. Nasogastric catheter tube is present with tip overlying the body of the stomach. Right IJ central venous catheter is present with tip overlying the SVC below the aliyah level. Assessment and Plan - Diagnosis (1) Sepsis Qualifiers: Sepsis type: sepsis due to unspecified organism Qualified Code(s): A41.9 - Sepsis, unspecified organism Is this a current diagnosis for this admission?: Yes (2) Gram-negative bacteremia Is this a current diagnosis for this admission?: Yes Plan: Initial blood cultures x2 show gram-negative rods in 1 bottle. We will continue IV Zosyn, Flagyl and vancomycin pending all culture results. (3) Intra-abdominal abscess post-procedure Is this a current diagnosis for this admission?: Yes Plan: Management per surgery. (4) Immunosuppression due to drug therapy Is this a current diagnosis for this admission?: Yes Plan: Continue on IV hydrocortisone 50 mg every 8 until she is able to take oral pre dnisone. (5) Essential hypertension Is this a current diagnosis for this admission?: Yes Plan: PRN metoprolol for blood pressure control until she is able to take p.o. (6) Nausea and vomiting Qualifiers: Vomiting type: unspecified Vomiting Intractability: non-intractable Qualified Code(s): R11.2 - Nausea with vomiting, unspecified Is this a current diagnosis for this admission?: Yes Plan: PRN Zofran. (7) Rheumatoid arthritis Qualifiers: Laterality: unspecified laterality Is this a current diagnosis for this admission?: Yes (8) Chronic pain Qualifiers: Chronic pain type: chronic pain syndrome Qualified Code(s): G89.4 - Chronic pain syndrome Is this a current diagnosis for this admission?: Yes Plan: Patient apparently has been on oral methadone for years - Time Time Spent with patient: 25-34 minutes Total Critical Time (Minutes): 30 Medications reviewed and adjusted accordingly: Yes - Inpatient Certification Based on my medical assessment, after consideration of the patient's comorbidities, presenting symptoms, or acuity I expect that the services needed warrant INPATIENT care.: Yes I certify that my determination is in accordance with my understanding of Medicare's requirements for reasonable and necessary INPATIENT services [42 CFR 412.3e].: Yes Medical Necessity: Need for Pain Control, Need for IV Antibiotics, Need for Surgery, Risk of Complication if Not Cared For in Hospital
[2019-03-27] MEDS ORDERED: PREDNISONE 20 MG TABLET PO SCH (10:00)
[2019-03-27] MEDS ORDERED: POTASSIUM CHLORIDE 20 MEQ/50 ML RTU IV ONE (10:15)
[2019-03-27] MEDS: FAMOTIDINE INJ/PF 20 MG/2 ML SDV IV SCH ×2 (10:28→21:18)
[2019-03-27 17:24] LABS: MEAN CORPUSCULAR HGB CONC 34.3 g/dL (32.0-36.0); MEAN CORPUSCULAR VOLUME 91 fl (80-97); PLATELET COUNT 631 10^3/uL (150-450); RED BLOOD COUNT 2.54 10^6/uL (3.72-5.28); RED CELL DISTRIBUTION WIDTH 14.7 % (11.5-14.0)
[2019-03-27 17:36] LABS: HEMOGLOBIN 7.9 g/dL (12.0-15.5)
[2019-03-27 18:14] LABS: ABSOLUTE LYMPHOCYTES# (MANUAL) 1.8 10^3/uL (0.5-4.7); ABSOLUTE MONOCYTES # (MANUAL) 0.5 10^3/uL (0.1-1.4); ABSOLUTE NEUTROPHILS# (MANUAL) 42.8 10^3/uL (1.7-8.2); BAND NEUTROPHILS % (MANUAL) 2 % (3-5); BASOPHILS % (MANUAL) 0 % (0-2); EOSINOPHILS % (MANUAL) 0 % (0-6); LYMPHOCYTES % (MANUAL) 4 % (13-45); MONOCYTES % (MANUAL) 1 % (3-13); NUCLEATED RED BLOOD CELLS 3 /100 WBC (0); SEGMENTED NEUTROPHILS % (MAN) 93 % (42-78); TOTAL CELLS COUNTED 100
[2019-03-27 18:15] LABS: TOXIC GRANULATION SLIGHT; TOXIC VACUOLATION PRESENT
[2019-03-27 18:17] LABS: ANISOCYTOSIS 1+; PLATELET COMMENT INCREASED; POIKILOCYTOSIS SLIGHT; POLYCHROMASIA SLIGHT; TARGET CELLS SLIGHT
[2019-03-27] MEDS: ONDANSETRON HCL INJ/PF 4 MG/2 ML SDV IV PRN ×2 (18:29→22:03)
[2019-03-28] MEDS: HYDROMORPHONE HCL INJ/PF 2 MG/ML AMPULE IV PRN ×8 (01:55→23:43)
[2019-03-28] MEDS: ONDANSETRON HCL INJ/PF 4 MG/2 ML SDV IV PRN ×4 (01:55→21:07)
[2019-03-28] MEDS: METRONIDAZOLE 500 MG/NS RTU 500 MG/100 ML RTUPB IV SCH ×4 (03:32→21:07)
[2019-03-28 05:15] LABS: ALANINE AMINOTRANSFERASE 31 U/L (9-52); ALBUMIN 2.1 g/dL (3.5-5.0); ALKALINE PHOSPHATASE 87 U/L (38-126); ANION GAP 10 (5-19); ASPARTATE AMINO TRANSFERASE 37 U/L (14-36); BILIRUBIN,DIRECT 0.6 mg/dL (0.0-0.4); BILIRUBIN,TOTAL 0.8 mg/dL (0.2-1.3); BLOOD UREA NITROGEN 13 mg/dL (7-20); CALCIUM 7.6 mg/dL (8.4-10.2); CARBON DIOXIDE 29 mmol/L (22-30); CHLORIDE 99 mmol/L (98-107); POTASSIUM 3.2 mmol/L (3.6-5.0); SODIUM 138.1 mmol/L (137-145); TOTAL PROTEIN 4.4 g/dL (6.3-8.2)
[2019-03-28 05:18] LABS: HEMATOCRIT 21.9 % (36.0-47.0); MEAN CORPUSCULAR HEMOGLOBIN 31.5 pg (27.0-33.4); MEAN CORPUSCULAR VOLUME 90 fl (80-97); PLATELET COUNT 642 10^3/uL (150-450); RED BLOOD COUNT 2.44 10^6/uL (3.72-5.28); RED CELL DISTRIBUTION WIDTH 14.4 % (11.5-14.0)
[2019-03-28 05:20] LABS: GLUCOSE 60 mg/dL (75-110)
[2019-03-28] MEDS: PIPERACILLIN SODIUM/TAZOBACTAM 3.375 GM in NORMAL SALINE 100 ML IV SCH ×4 (05:31→23:42)
[2019-03-28] MEDS: ACETAMINOPHEN 1,000 MG/100 ML RTUPB IV SCH ×4 (05:31→23:42)
[2019-03-28 05:56] LABS: ABSOLUTE LYMPHOCYTES# (MANUAL) 4.7 10^3/uL (0.5-4.7); ABSOLUTE MONOCYTES # (MANUAL) 0.9 10^3/uL (0.1-1.4); ABSOLUTE NEUTROPHILS# (MANUAL) 40.9 10^3/uL (1.7-8.2); BASOPHILS % (MANUAL) 0 % (0-2); EOSINOPHILS % (MANUAL) 0 % (0-6); LYMPHOCYTES % (MANUAL) 10 % (13-45); MONOCYTES % (MANUAL) 2 % (3-13); SEGMENTED NEUTROPHILS % (MAN) 88 % (42-78); TOTAL CELLS COUNTED 100
[2019-03-28 05:59] LABS: ANISOCYTOSIS SLIGHT; BURR CELLS SLIGHT; OVALOCYTES 1+; POIKILOCYTOSIS 1+; SCHISTOCYTES 1+; TOXIC GRANULATION 1+; TOXIC VACUOLATION PRESENT
[2019-03-28 06:01] LABS: PLATELET COMMENT ADEQUATE
[2019-03-28 06:03] LABS: HEMOGLOBIN 7.7 g/dL (12.0-15.5); WHITE BLOOD COUNT 46.5 10^3/uL (4.0-10.5)
[2019-03-28] MEDS: HYDRALAZINE HCL INJ/PF 20 MG/1 ML SDV IV PRN ×3 (08:18→23:43)
[2019-03-28] MEDS: HYDROCORTISONE SOD SUCCINATE INJ/PF 100 MG/2 ML SDV IV SCH ×2 (09:39→21:07)
[2019-03-28] MEDS: FAMOTIDINE INJ/PF 20 MG/2 ML SDV IV SCH ×2 (09:39→21:07)
[2019-03-28] MEDS ORDERED: PHENOL/SODIUM PHENOLATE 100 SPRAY/177 ML BOTTLE PO PRN (09:42)
--- NOTE | 2019-03-28 09:42 | PDOC PROGRESS REPORT ---
Subjective Progress Note for:: 03/28/19 Subjective:: c/o discomfort with ng and diallo wants both out Reason For Visit: ABDOMINAL ABSCESS, PERFORATED VISCUS Physical Exam Vital Signs: Temp Pulse Resp BP Pulse Ox 97.9 F 90 16 180/93 H 99 03/28/19 08:20 03/28/19 08:20 03/28/19 08:20 03/28/19 08:20 03/28/19 08:20 Intake & Output 03/27/19 03/28/19 03/29/19 06:59 06:59 06:59 Intake Total 2020 3385 Output Total 4212 1559 Balance -1540 -5852 Weight 100.8 kg 103.1 kg General appearance: PRESENT: no acute distress Head exam: PRESENT: normocephalic Eye exam: PRESENT: EOMI Teeth exam: PRESENT: poor dentation Neck exam: PRESENT: full ROM Respiratory exam: PRESENT: clear to auscultation jack Cardiovascular exam: PRESENT: RRR Pulses: PRESENT: +2 pedal pulses bilateral Vascular exam: PRESENT: normal capillary refill GI/Abdominal exam: PRESENT: diminished bowel sounds, hypoactive bowel sounds - wound clean, soft Rectal exam: PRESENT: deferred Gentrourinary exam: PRESENT: indwelling catheter Extremities exam: PRESENT: full ROM Neurological exam: PRESENT: alert, awake, oriented to person Psychiatric exam: PRESENT: anxious Skin exam: PRESENT: dry Results Laboratory Results: 03/28/19 04:11 03/28/19 04:11 03/27/19 03/28/19 03/28/19 16:20 04:11 04:11 WBC 45.0 H* 46.5 H* RBC 2.54 L 2.44 L Hgb 7.9 L 7.7 L Hct 23.0 L 21.9 L MCV 91 90 MCH 31.0 31.5 MCHC 34.3 35.0 RDW 14.7 H 14.4 H Plt Count 631 H 642 H Seg Neutrophils % Not Reportable Not Reportable Lymphocytes % Not Reportable Not Reportable Monocytes % Not Reportable Not Reportable Eosinophils % Not Reportable Not Reportable Basophils % Not Reportable Not Reportable Absolute Neutrophils Not Reportable Not Reportable Absolute Lymphocytes Not Reportable Not Reportable Absolute Monocytes Not Reportable Not Reportable Absolute Eosinophils Not Reportable Not Reportable Absolute Basophils Not Reportable Not Reportable Sodium 138.1 Potassium 3.2 L Chloride 99 Carbon Dioxide 29 Anion Gap 10 BUN 13 Creatinine 0.41 L Est GFR ( Amer) > 60 Est GFR (Non-Af Amer) > 60 Glucose 60 L Calcium 7.6 L Total Bilirubin 0.8 AST 37 H ALT 31 Alkaline Phosphatase 87 Total Protein 4.4 L Albumin 2.1 L 03/25/19 09:36 Blood Blood Culture - Final Bacteroides Fragilis Group 03/25/19 14:59 Peritoneal Gram Stain - Final 03/25/19 14:59 Peritoneal Body Fluid Culture - Final Prevotella Species Bacteroides Fragilis Group Peptostreptococcus Species Clostridium Sp.not Perfringens Yeast, Not Corinne Albicans 03/25/19 14:57 Peritoneal Gram Stain - Final 03/25/19 14:57 Peritoneal Body Fluid Culture - Final Prevotella Species Clostridium Sp.not Perfringens Bacteroides Fragilis Group Peptostreptococcus Species Yeast, Not Corinne Albicans 03/25/19 21:35 Diallo Catheter Urine Culture - Final NO GROWTH 2 DAYS Impressions: Abdomen/Pelvis CT 03/25/19 08:59 IMPRESSION: 1. Free air in the abdomen. 2. There is some free fluid. This includes some intermediate density material anteriorly. Abscess versus biloma. 3. Ground-glass infiltrates in the lower lungs. Chronic interstitial changes versus interstitial edema. Chest X-Ray 03/25/19 18:26 IMPRESSION: No pneumothorax. Patchy airspace opacities are present throughout the right lung base as well as left medial lung base. No significant pleural effusion.Left hilar fullness.Endotracheal tube tip overlies the lower trachea approximately 4.6 cm above the level of the aliyah. Nasogastric catheter tube is present with tip overlying the body of the stomach. Right IJ central venous catheter is present with tip overlying the SVC below the aliyah level. 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 cont solucortef cont iv abx. await return of bowel function.
[2019-03-28] MEDS: BENZOCAINE/MENTHOL SORE THROAT LOZENGE BUCCAL PRN ×5 (11:12→23:42)
--- NOTE | 2019-03-28 13:12 | PDOC PROGRESS REPORT ---
Subjective Progress Note for:: 03/28/19 Subjective:: Patient is seen resting in bed. She is awake, alert, oriented x3. NG tube remains in the right nares draining moderate amount of dark brown drainage. She denies any nausea at the present time. She denies any chest pain, shortness of breath or dyspnea. She continues to have moderate incisional discomfort. Dr. Burch, surgeon, just saw her and increased her pain medicine. She states the pain medicine is helping. She denies any other arthralgias or myalgias. Remaining review of systems are negative. Reason For Visit: ABDOMINAL ABSCESS, PERFORATED VISCUS Physical Exam Vital Signs: Temp Pulse Resp BP Pulse Ox 97.9 F 90 16 180/93 H 99 03/28/19 08:20 03/28/19 08:20 03/28/19 08:20 03/28/19 08:20 03/28/19 08:20 Intake & Output 03/27/19 03/28/19 03/29/19 06:59 06:59 06:59 Intake Total 2020 3386 Output Total 4210 5780 Balance -2189 -2394 Weight 100.8 kg 103.1 kg General appearance: PRESENT: no acute distress, obese, well-developed, well- nourished Head exam: PRESENT: atraumatic, normocephalic Eye exam: PRESENT: conjunctiva pink, EOMI, PERRLA. ABSENT: scleral icterus Ear exam: PRESENT: normal external ear exam Mouth exam: PRESENT: moist, tongue midline Neck exam: ABSENT: carotid bruit, JVD, lymphadenopathy, thyromegaly Respiratory exam: PRESENT: clear to auscultation jack. ABSENT: rales, rhonchi, wheezes Cardiovascular exam: PRESENT: RRR. ABSENT: diastolic murmur, rubs, systolic murmur Pulses: PRESENT: normal carotid pulses, normal radial pulses Vascular exam: PRESENT: normal capillary refill GI/Abdominal exam: PRESENT: hypoactive bowel sounds, soft, tenderness, other - midline incision Rectal exam: PRESENT: deferred Extremities exam: PRESENT: full ROM. ABSENT: calf tenderness, clubbing, pedal edema Musculoskeletal exam: PRESENT: ambulatory, full ROM, normal inspection Neurological exam: PRESENT: alert, awake, oriented to person, oriented to place, oriented to time, oriented to situation, CN II-XII grossly intact. ABSENT: motor sensory deficit Psychiatric exam: PRESENT: appropriate affect, normal mood. ABSENT: homicidal ideation, suicidal ideation Skin exam: PRESENT: dry, intact, warm. ABSENT: cyanosis, rash Results Laboratory Results: 03/28/19 04:11 03/28/19 04:11 03/27/19 03/28/19 03/28/19 16:20 04:11 04:11 WBC 45.0 H* 46.5 H* RBC 2.54 L 2.44 L Hgb 7.9 L 7.7 L Hct 23.0 L 21.9 L MCV 91 90 MCH 31.0 31.5 MCHC 34.3 35.0 RDW 14.7 H 14.4 H Plt Count 631 H 642 H Seg Neutrophils % Not Reportable Not Reportable Lymphocytes % Not Reportable Not Reportable Monocytes % Not Reportable Not Reportable Eosinophils % Not Reportable Not Reportable Basophils % Not Reportable Not Reportable Absolute Neutrophils Not Reportable Not Reportable Absolute Lymphocytes Not Reportable Not Reportable Absolute Monocytes Not Reportable Not Reportable Absolute Eosinophils Not Reportable Not Reportable Absolute Basophils Not Reportable Not Reportable Sodium 138.1 Potassium 3.2 L Chloride 99 Carbon Dioxide 29 Anion Gap 10 BUN 13 Creatinine 0.41 L Est GFR ( Amer) > 60 Est GFR (Non-Af Amer) > 60 Glucose 60 L Calcium 7.6 L Total Bilirubin 0.8 AST 37 H ALT 31 Alkaline Phosphatase 87 Total Protein 4.4 L Albumin 2.1 L 03/25/19 09:36 Blood Blood Culture - Final Bacteroides Fragilis Group 03/25/19 14:59 Peritoneal Gram Stain - Final 03/25/19 14:59 Peritoneal Body Fluid Culture - Final Prevotella Species Bacteroides Fragilis Group Peptostreptococcus Species Clostridium Sp.not Perfringens Yeast, Not Corinne Albicans 03/25/19 14:57 Peritoneal Gram Stain - Final 03/25/19 14:57 Peritoneal Body Fluid Culture - Final Prevotella Species Clostridium Sp.not Perfringens Bacteroides Fragilis Group Peptostreptococcus Species Yeast, Not Corinne Albicans 03/25/19 21:35 Gonzales Catheter Urine Culture - Final NO GROWTH 2 DAYS Impressions: Abdomen/Pelvis CT 03/25/19 08:59 IMPRESSION: 1. Free air in the abdomen. 2. There is some free fluid. This includes some intermediate density material anteriorly. Abscess versus biloma. 3. Ground-glass infiltrates in the lower lungs. Chronic interstitial changes versus interstitial edema. Chest X-Ray 03/25/19 18:26 IMPRESSION: No pneumothorax. Patchy airspace opacities are present throughout the right lung base as well as left medial lung base. No significant pleural effusion.Left hilar fullness.Endotracheal tube tip overlies the lower trachea approximately 4.6 cm above the level of the aliyah. Nasogastric catheter tube is present with tip overlying the body of the stomach. Right IJ central venous catheter is present with tip overlying the SVC below the aliyah level. Assessment and Plan - Diagnosis (1) Gram-negative bacteremia Is this a current diagnosis for this admission?: Yes Plan: One blood culture positive for bacteroides species. Continue IV zosyn. Repeat blood cultures tomorrow (2) Sepsis Qualifiers: Sepsis type: sepsis due to unspecified organism Qualified Code(s): A41.9 - Sepsis, unspecified organism Is this a current diagnosis for this admission?: Yes Plan: She was tachycardic with white count of 59,000 presentation to the ER. CT of the abdomen showed possible abscess. She was adequately fluid resuscitated, and on IV broad-spectrum antibiotic's after blood cultures x2 she was taken to the OR for washout. White count is improving today. She is no longer tachycardic. She is presently afebrile. She is high risk for infection due to chronic steroid use for rheumatoid arthritis. Peritoneal fluid positive for bacteroides species, prevotella, peptostreptococcus and clostridium. (3) Intra-abdominal abscess post-procedure Is this a current diagnosis for this admission?: Yes (4) Immunosuppression due to drug therapy Is this a current diagnosis for this admission?: Yes Plan: Continue on IV hydrocortisone 25mg q12h until she is able to take oral prednisone. (5) Essential hypertension Is this a current diagnosis for this admission?: Yes Plan: PRN metoprolol for blood pressure control until she is able to take p.o. (6) Nausea and vomiting Qualifiers: Vomiting type: unspecified Vomiting Intractability: non-intractable Qualified Code(s): R11.2 - Nausea with vomiting, unspecified Is this a current diagnosis for this admission?: Yes Plan: PRN Zofran. (7) Rheumatoid arthritis Qualifiers: Laterality: unspecified laterality Is this a current diagnosis for this admission?: Yes Plan: Continue hydrocortisone 25 mg q12h for now (8) Chronic pain Qualifiers: Chronic pain type: chronic pain syndrome Qualified Code(s): G89.4 - Chronic pain syndrome Is this a current diagnosis for this admission?: Yes Plan: Patient apparently has been on oral methadone for years - Time Time Spent with patient: 25-34 minutes Total Critical Time (Minutes): 25 Medications reviewed and adjusted accordingly: Yes - Inpatient Certification Based on my medical assessment, after consideration of the patient's comorbiditi es, presenting symptoms, or acuity I expect that the services needed warrant INPATIENT care.: Yes I certify that my determination is in accordance with my understanding of [facility]'s requirements for reasonable and necessary INPATIENT services [42 CFR 412.3e].: Yes Medical Necessity: Need for Pain Control, Need for IV Antibiotics, Need for Surgery, Risk of Complication if Not Cared For in Hospital
[2019-03-28] MEDS: RINGERS SOLUTION,LACTATED 1,000 ML IV PRN (15:48)
[2019-03-29] MEDS: METRONIDAZOLE 500 MG/NS RTU 500 MG/100 ML RTUPB IV SCH ×4 (02:15→21:03)
[2019-03-29] MEDS: HYDROMORPHONE HCL INJ/PF 2 MG/ML AMPULE IV PRN ×10 (02:15→23:08)
[2019-03-29] MEDS: RINGERS SOLUTION,LACTATED 1,000 ML IV PRN ×2 (05:23→21:12)
[2019-03-29] MEDS: PIPERACILLIN SODIUM/TAZOBACTAM 3.375 GM in NORMAL SALINE 100 ML IV SCH ×4 (05:24→23:08)
[2019-03-29] MEDS: ACETAMINOPHEN 1,000 MG/100 ML RTUPB IV SCH ×3 (05:24→17:52)
[2019-03-29 06:09] LABS: HEMATOCRIT 23.4 % (36.0-47.0); MEAN CORPUSCULAR HEMOGLOBIN 30.8 pg (27.0-33.4); MEAN CORPUSCULAR HGB CONC 34.3 g/dL (32.0-36.0); MEAN CORPUSCULAR VOLUME 90 fl (80-97); PLATELET COUNT 717 10^3/uL (150-450); RED BLOOD COUNT 2.61 10^6/uL (3.72-5.28); RED CELL DISTRIBUTION WIDTH 14.7 % (11.5-14.0)
[2019-03-29 06:27] LABS: ALANINE AMINOTRANSFERASE 33 U/L (9-52); ALBUMIN 2.2 g/dL (3.5-5.0); ALKALINE PHOSPHATASE 119 U/L (38-126); ANION GAP 12 (5-19); ASPARTATE AMINO TRANSFERASE 30 U/L (14-36); BILIRUBIN,DIRECT 0.5 mg/dL (0.0-0.4); BILIRUBIN,TOTAL 0.7 mg/dL (0.2-1.3); BLOOD UREA NITROGEN 11 mg/dL (7-20); CALCIUM 7.5 mg/dL (8.4-10.2); CARBON DIOXIDE 32 mmol/L (22-30); CHLORIDE 94 mmol/L (98-107); GLUCOSE 71 mg/dL (75-110); SODIUM 137.9 mmol/L (137-145); TOTAL PROTEIN 4.7 g/dL (6.3-8.2)
[2019-03-29 06:29] LABS: POTASSIUM 2.8 mmol/L (3.6-5.0)
[2019-03-29 06:39] LABS: WHITE BLOOD COUNT 45.6 10^3/uL (4.0-10.5)
[2019-03-29 07:09] LABS: ABSOLUTE MONOCYTES # (MANUAL) 2.3 10^3/uL (0.1-1.4); ABSOLUTE NEUTROPHILS# (MANUAL) 33.3 10^3/uL (1.7-8.2); BASOPHILS % (MANUAL) 0 % (0-2); EOSINOPHILS % (MANUAL) 0 % (0-6); LYMPHOCYTES % (MANUAL) 22 % (13-45); MONOCYTES % (MANUAL) 5 % (3-13); NUCLEATED RED BLOOD CELLS 4 /100 WBC (0); SEGMENTED NEUTROPHILS % (MAN) 73 % (42-78); TOTAL CELLS COUNTED 100
[2019-03-29 07:11] LABS: PLATELET CLUMPS PRESENT
[2019-03-29 07:12] LABS: POLYCHROMASIA SLIGHT
[2019-03-29] MEDS: ONDANSETRON HCL INJ/PF 4 MG/2 ML SDV IV PRN ×2 (07:27→21:02)
[2019-03-29] MEDS: POTASSI CL 20 MEQ/50 ML RIDER 20 MEQ/50 ML RTUPB IV SCH ×3 (08:09→11:53)
[2019-03-29] MEDS: HYDRALAZINE HCL INJ/PF 20 MG/1 ML SDV IV PRN (08:50)
[2019-03-29] MEDS: HYDROCORTISONE SOD SUCCINATE INJ/PF 100 MG/2 ML SDV IV SCH ×2 (09:59→13:58)
[2019-03-29] MEDS: FAMOTIDINE INJ/PF 20 MG/2 ML SDV IV SCH ×2 (09:59→21:02)
--- NOTE | 2019-03-29 12:26 | PDOC PROGRESS REPORT ---
Subjective Progress Note for:: 03/29/19 Subjective:: passed flatus wants ng out. Reason For Visit: ABDOMINAL ABSCESS, PERFORATED VISCUS Physical Exam Vital Signs: Temp Pulse Resp BP Pulse Ox 98.4 F 100 18 152/76 H 96 03/29/19 12:16 03/29/19 12:16 03/29/19 12:16 03/29/19 12:16 03/29/19 12:16 Intake & Output 03/28/19 03/29/19 03/30/19 06:59 06:59 06:59 Intake Total 3383 3550 294 Output Total 5746 8277 Balance -8311 -2613 294 Weight 103.1 kg General appearance: PRESENT: no acute distress Head exam: PRESENT: normocephalic Eye exam: PRESENT: conjunctiva pink, EOMI Ear exam: PRESENT: normal external ear exam Mouth exam: PRESENT: dry mucosa Teeth exam: PRESENT: edentulous Neck exam: PRESENT: full ROM Respiratory exam: PRESENT: clear to auscultation jack Cardiovascular exam: PRESENT: RRR Pulses: PRESENT: normal femoral pulses, +2 pedal pulses bilateral GI/Abdominal exam: PRESENT: soft - few + bowel sounds non tender asad's serous Rectal exam: PRESENT: deferred Extremities exam: PRESENT: full ROM Neurological exam: PRESENT: alert, awake, oriented to person, oriented to place, oriented to time, oriented to situation Psychiatric exam: PRESENT: appropriate affect Skin exam: PRESENT: dry Results Laboratory Results: 03/29/19 05:37 03/29/19 05:37 03/29/19 03/29/19 05:37 05:37 WBC 45.6 H* RBC 2.61 L Hgb 8.0 L Hct 23.4 L MCV 90 MCH 30.8 MCHC 34.3 RDW 14.7 H Plt Count 717 H Seg Neutrophils % Not Reportable Lymphocytes % Not Reportable Monocytes % Not Reportable Eosinophils % Not Reportable Basophils % Not Reportable Absolute Neutrophils Not Reportable Absolute Lymphocytes Not Reportable Absolute Monocytes Not Reportable Absolute Eosinophils Not Reportable Absolute Basophils Not Reportable Sodium 137.9 Potassium 2.8 L* Chloride 94 L Carbon Dioxide 32 H Anion Gap 12 BUN 11 Creatinine 0.42 L Est GFR ( Amer) > 60 Est GFR (Non-Af Amer) > 60 Glucose 71 L Calcium 7.5 L Total Bilirubin 0.7 AST 30 ALT 33 Alkaline Phosphatase 119 Total Protein 4.7 L Albumin 2.2 L Impressions: Abdomen/Pelvis CT 03/25/19 08:59 IMPRESSION: 1. Free air in the abdomen. 2. There is some free fluid. This includes some intermediate density material anteriorly. Abscess versus biloma. 3. Ground-glass infiltrates in the lower lungs. Chronic interstitial changes versus interstitial edema. Chest X-Ray 03/25/19 18:26 IMPRESSION: No pneumothorax. Patchy airspace opacities are present throughout the right lung base as well as left medial lung base. No significant pleural effusion.Left hilar fullness.Endotracheal tube tip overlies the lower trachea approximately 4.6 cm above the level of the aliyah. Nasogastric catheter tube is present with tip overlying the body of the stomach. Right IJ central venous catheter is present with tip overlying the SVC below the aliyah level. Assessment & Plan - Diagnosis (1) Intra-abdominal abscess post-procedure Is this a current diagnosis for this admission?: Yes - Plan Summary Plan Summary: conts to do well wbc 45k, sl decreased pt is asplenic and on steroids now passing flatus asad's remain serous wound ok some return of bowel function with passage of flatus will clamp ng cont only ice chips cont iv abx start decreasing solucortef.
--- NOTE | 2019-03-29 13:47 | PDOC PROGRESS REPORT ---
Subjective Progress Note for:: 03/29/19 Subjective:: Patient is seen resting in bed. She is awake, alert, oriented x3. NG tube remains in the right nares draining moderate amount of dark brown drainage. She has been sucking on ice chips. She denies any nausea at the present time. She states she has passed some flatus. He has been out of bed in the chair. She denies any chest pain, shortness of breath or dyspnea. She continues to have moderate incisional discomfort. She states the pain medicine is helping. She denies any other arthralgias or myalgias. Remaining review of systems are negative. Reason For Visit: ABDOMINAL ABSCESS, PERFORATED VISCUS Physical Exam Vital Signs: Temp Pulse Resp BP Pulse Ox 98.4 F 100 18 152/76 H 96 03/29/19 12:16 03/29/19 12:16 03/29/19 12:16 03/29/19 12:16 03/29/19 12:16 Intake & Output 03/28/19 03/29/19 03/30/19 06:59 06:59 06:59 Intake Total 3386 3550 394 Output Total 5780 8225 Balance -2066 -0355 394 Weight 103.1 kg General appearance: PRESENT: no acute distress, obese, well-developed, well-nourished Head exam: PRESENT: atraumatic, normocephalic Eye exam: PRESENT: conjunctiva pink, EOMI, PERRLA. ABSENT: scleral icterus Ear exam: PRESENT: normal external ear exam Mouth exam: PRESENT: moist, tongue midline Respiratory exam: PRESENT: decreased breath sounds - bilateral bases, symmetrical, unlabored Cardiovascular exam: PRESENT: RRR. ABSENT: diastolic murmur, rubs, systolic murmur Pulses: PRESENT: normal carotid pulses, normal radial pulses Vascular exam: PRESENT: normal capillary refill GI/Abdominal exam: PRESENT: diminished bowel sounds - along abdominal incision, soft, tenderness Rectal exam: PRESENT: deferred Extremities exam: PRESENT: full ROM, +1 edema - bilateral pedal. ABSENT: calf tenderness, clubbing, pedal edema Musculoskeletal exam: PRESENT: ambulatory, full ROM, normal inspection Neurological exam: PRESENT: alert, awake, oriented to person, oriented to place, oriented to time, oriented to situation, CN II-XII grossly intact. ABSENT: motor sensory deficit Psychiatric exam: PRESENT: appropriate affect, normal mood. ABSENT: homicidal ideation, suicidal ideation Skin exam: PRESENT: dry, intact, warm. ABSENT: cyanosis, rash Results Laboratory Results: 03/29/19 05:37 03/29/19 05:37 03/29/19 03/29/19 05:37 05:37 WBC 45.6 H* RBC 2.61 L Hgb 8.0 L Hct 23.4 L MCV 90 MCH 30.8 MCHC 34.3 RDW 14.7 H Plt Count 717 H Seg Neutrophils % Not Reportable Lymphocytes % Not Reportable Monocytes % Not Reportable Eosinophils % Not Reportable Basophils % Not Reportable Absolute Neutrophils Not Reportable Absolute Lymphocytes Not Reportable Absolute Monocytes Not Reportable Absolute Eosinophils Not Reportable Absolute Basophils Not Reportable Sodium 137.9 Potassium 2.8 L* Chloride 94 L Carbon Dioxide 32 H Anion Gap 12 BUN 11 Creatinine 0.42 L Est GFR ( Amer) > 60 Est GFR (Non-Af Amer) > 60 Glucose 71 L Calcium 7.5 L Total Bilirubin 0.7 AST 30 ALT 33 Alkaline Phosphatase 119 Total Protein 4.7 L Albumin 2.2 L Impressions: Abdomen/Pelvis CT 03/25/19 08:59 IMPRESSION: 1. Free air in the abdomen. 2. There is some free fluid. This includes some intermediate density material anteriorly. Abscess versus biloma. 3. Ground-glass infiltrates in the lower lungs. Chronic interstitial changes versus interstitial edema. Chest X-Ray 03/25/19 18:26 IMPRESSION: No pneumothorax. Patchy airspace opacities are present throughout the right lung base as well as left medial lung base. No significant pleural effusion.Left hilar fullness.Endotracheal tube tip overlies the lower trachea approximately 4.6 cm above the level of the aliyah. Nasogastric catheter tube is present with tip overlying the body of the stomach. Right IJ central venous catheter is present with tip overlying the SVC below the aliyah level. Assessment and Plan - Diagnosis (1) Gram-negative bacteremia Is this a current diagnosis for this admission?: Yes Plan: One blood culture positive for bacteroides species. Continue IV zosyn. Repeat blood cultures are pending (2) Sepsis Qualifiers: Sepsis type: sepsis due to unspecified organism Qualified Code(s): A41.9 - Sepsis, unspecified organism Is this a current diagnosis for this admission?: Yes Plan: She was tachycardic with white count of 59,000 presentation to the ER. CT of the abdomen showed possible abscess. She was adequately fluid resuscitated, and started on IV broad-spectrum antibiotic's after blood cultures x2 were obtained. She was taken to the OR for washout. White count is improving. She is no longer tachycardic. She is presently afebrile. She is high risk for post op infection due to chronic steroid use for rheumatoid arthritis. Peritoneal fluid positive for bacteroides species, prevotella, peptostreptococcus and clostridium. (3) Intra-abdominal abscess post-procedure Is this a current diagnosis for this admission?: Yes Plan: Management per surgery. (4) Immunosuppression due to drug therapy Is this a current diagnosis for this admission?: Yes Plan: Continue on IV hydrocortisone 25mg q12h until she is able to take oral prednisone. (5) Essential hypertension Is this a current diagnosis for this admission?: Yes Plan: PRN metoprolol for blood pressure control until she is able to take p.o. (6) Nausea and vomiting Qualifiers: Vomiting type: unspecified Vomiting Intractability: non-intractable Qualified Code(s): R11.2 - Nausea with vomiting, unspecified Is this a current diagnosis for this admission?: Yes Plan: Resolved (7) Rheumatoid arthritis Qualifiers: Laterality: unspecified laterality Is this a current diagnosis for this admission?: Yes Plan: Continue IV hydrocortisone 25 mg daily until she can take po prednisone (8) Chronic pain Qualifiers: Chronic pain type: chronic pain syndrome Qualified Code(s): G89.4 - Chronic pain syndrome Is this a current diagnosis for this admission?: Yes - Time Time Spent with patient: 25-34 minutes Total Critical Time (Minutes): 20 Medications reviewed and adjusted accordingly: Yes - Inpatient Certification Based on my medical assessment, after consideration of the patient's comorbidities, presenting symptoms, or acuity I expect that the services needed warrant INPATIENT care.: Yes I certify that my determination is in accordance with my understanding of Medicare's requirements for reasonable and necessary INPATIENT services [42 CFR 412.3e].: Yes Medical Necessity: Need For IV Fluids, Need for Pain Control, Need for IV Ant ibiotics, Need for Surgery
[2019-03-30] MEDS: HYDROMORPHONE HCL INJ/PF 2 MG/ML AMPULE IV PRN ×9 (01:33→20:54)
[2019-03-30] MEDS: METRONIDAZOLE 500 MG/NS RTU 500 MG/100 ML RTUPB IV SCH ×4 (03:33→20:55)
[2019-03-30] MEDS: ONDANSETRON HCL INJ/PF 4 MG/2 ML SDV IV PRN (03:35)
[2019-03-30] MEDS: PIPERACILLIN SODIUM/TAZOBACTAM 3.375 GM in NORMAL SALINE 100 ML IV SCH ×3 (06:02→17:52)
[2019-03-30 06:33] LABS: HEMATOCRIT 22.2 % (36.0-47.0); MEAN CORPUSCULAR HEMOGLOBIN 30.9 pg (27.0-33.4); MEAN CORPUSCULAR HGB CONC 33.8 g/dL (32.0-36.0); MEAN CORPUSCULAR VOLUME 91 fl (80-97); PLATELET COUNT 717 10^3/uL (150-450); RED BLOOD COUNT 2.43 10^6/uL (3.72-5.28); RED CELL DISTRIBUTION WIDTH 14.7 % (11.5-14.0)
[2019-03-30 06:36] LABS: HEMOGLOBIN 7.5 g/dL (12.0-15.5)
[2019-03-30 06:47] LABS: ALANINE AMINOTRANSFERASE 38 U/L (9-52); ALBUMIN 2.2 g/dL (3.5-5.0); ALKALINE PHOSPHATASE 184 U/L (38-126); ANION GAP 12 (5-19); ASPARTATE AMINO TRANSFERASE 27 U/L (14-36); BILIRUBIN,DIRECT 0.4 mg/dL (0.0-0.4); BILIRUBIN,TOTAL 0.5 mg/dL (0.2-1.3); BLOOD UREA NITROGEN 11 mg/dL (7-20); CALCIUM 7.6 mg/dL (8.4-10.2); CARBON DIOXIDE 34 mmol/L (22-30); CHLORIDE 92 mmol/L (98-107); GLUCOSE 76 mg/dL (75-110); SODIUM 137.7 mmol/L (137-145); TOTAL PROTEIN 4.7 g/dL (6.3-8.2)
[2019-03-30 06:49] LABS: POTASSIUM 2.9 mmol/L (3.6-5.0)
[2019-03-30 07:05] LABS: ABSOLUTE MONOCYTES # (MANUAL) 2.3 10^3/uL (0.1-1.4); ABSOLUTE NEUTROPHILS# (MANUAL) 37.5 10^3/uL (1.7-8.2); BAND NEUTROPHILS % (MANUAL) 1 % (3-5); BASOPHILS % (MANUAL) 0 % (0-2); EOSINOPHILS % (MANUAL) 0 % (0-6); LYMPHOCYTES % (MANUAL) 15 % (13-45); MONOCYTES % (MANUAL) 5 % (3-13); NUCLEATED RED BLOOD CELLS 3 /100 WBC (0); SEGMENTED NEUTROPHILS % (MAN) 79 % (42-78); TOTAL CELLS COUNTED 100
[2019-03-30 07:06] LABS: PLATELET CLUMPS PRESENT
[2019-03-30 07:10] LABS: ANISOCYTOSIS 1+; HYPOCHROMASIA 2+; POLYCHROMASIA 2+
[2019-03-30 07:14] LABS: WHITE BLOOD COUNT 46.9 10^3/uL (4.0-10.5)
--- NOTE | 2019-03-30 07:23 | PDOC PROGRESS REPORT ---
Subjective Progress Note for:: 03/30/19 Subjective:: c/o thirsty drinking large amts of ice water with ng on suction Reason For Visit: ABDOMINAL ABSCESS, PERFORATED VISCUS Physical Exam Vital Signs: Temp Pulse Resp BP Pulse Ox 97.6 F 101 H 15 157/90 H 98 03/30/19 03:49 03/30/19 03:49 03/30/19 03:49 03/30/19 03:49 03/30/19 03:49 Intake & Output 03/29/19 03/30/19 03/31/19 06:59 06:59 06:59 Intake Total 3550 80283 Output Total 8225 71939 55 Balance -4675 -7471 -55 General appearance: PRESENT: no acute distress Head exam: PRESENT: normocephalic Eye exam: PRESENT: EOMI Mouth exam: PRESENT: dry mucosa Teeth exam: PRESENT: poor dentation Neck exam: PRESENT: full ROM Respiratory exam: PRESENT: clear to auscultation jack Cardiovascular exam: PRESENT: RRR Pulses: PRESENT: +1 pedal pulses bilateral, +2 pedal pulses bilateral GI/Abdominal exam: PRESENT: soft Rectal exam: PRESENT: deferred Extremities exam: PRESENT: full ROM Musculoskeletal exam: PRESENT: full ROM Neurological exam: PRESENT: awake, oriented to person, oriented to time, oriented to situation Psychiatric exam: PRESENT: agitated Skin exam: PRESENT: dry Results Laboratory Results: 03/30/19 05:39 03/30/19 05:39 03/29/19 03/30/19 03/30/19 15:25 05:39 05:39 WBC 46.9 H* RBC 2.43 L Hgb 7.5 L Hct 22.2 L MCV 91 MCH 30.9 MCHC 33.8 RDW 14.7 H Plt Count 717 H Seg Neutrophils % Not Reportable Lymphocytes % Not Reportable Monocytes % Not Reportable Eosinophils % Not Reportable Basophils % Not Reportable Absolute Neutrophils Not Reportable Absolute Lymphocytes Not Reportable Absolute Monocytes Not Reportable Absolute Eosinophils Not Reportable Absolute Basophils Not Reportable Sodium 137.7 Potassium 3.1 L 2.9 L* Chloride 92 L Carbon Dioxide 34 H Anion Gap 12 BUN 11 Creatinine 0.41 L Est GFR ( Amer) > 60 Est GFR (Non-Af Amer) > 60 Glucose 76 Calcium 7.6 L Total Bilirubin 0.5 AST 27 ALT 38 Alkaline Phosphatase 184 H Total Protein 4.7 L Albumin 2.2 L Impressions: Abdomen/Pelvis CT 03/25/19 08:59 IMPRESSION: 1. Free air in the abdomen. 2. There is some free fluid. This includes some intermediate density material anteriorly. Abscess versus biloma. 3. Ground-glass infiltrates in the lower lungs. Chronic interstitial changes versus interstitial edema. Chest X-Ray 03/25/19 18:26 IMPRESSION: No pneumothorax. Patchy airspace opacities are present throughout the right lung base as well as left medial lung base. No significant pleural effusion.Left hilar fullness.Endotracheal tube tip overlies the lower trachea approximately 4.6 cm above the level of the aliyah. Nasogastric catheter tube is present with tip overlying the body of the stomach. Right IJ central venous catheter is present with tip overlying the SVC below the aliyah level. Assessment & Plan - Diagnosis (1) Intra-abdominal abscess post-procedure Is this a current diagnosis for this admission?: Yes - Plan Summary Plan Summary: pt did not allow nurse to clamp ng tube yesterdy taking large amts of ice water k this am 2.9 abd soft, non tender asad's serous passing small amts of flatus labs revewed wbc unchanged hb 7.5 k= 2.9 plan replace electrolytes dulcolax suppository start ng clamping trial ambulate
[2019-03-30] MEDS ORDERED: BISACODYL 10 MG SUPP.RECT PR ONE (10:00)
[2019-03-30] MEDS: POTASSI CL 20 MEQ/50 ML RIDER 20 MEQ/50 ML RTUPB IV SCH ×4 (10:17→16:51)
[2019-03-30] MEDS: FAMOTIDINE INJ/PF 20 MG/2 ML SDV IV SCH ×2 (10:18→21:16)
[2019-03-30] MEDS: KETOROLAC TROMETHAMINE INJ/PF 30 MG/1 ML SDV IV PRN ×2 (12:04→18:04)
[2019-03-30] MEDS: HYDROCORTISONE SOD SUCCINATE INJ/PF 100 MG/2 ML SDV IV SCH (14:33)
[2019-03-30] MEDS ORDERED: NORMAL SALINE 250 ML IV PRN ×2 (17:03)
--- NOTE | 2019-03-30 17:04 | PDOC PROGRESS REPORT ---
Subjective Progress Note for:: 03/30/19 Subjective:: The patient was seen on afternoon rounds. She was found resting in bed comfortably on room air. She is ANO x3. NG tube remains in place; nursing reports that is been clamped for the past several hours. She is noted to have copious amounts of dark brown fluid in the suction canister. Patient reports slight abdominal discomfort, although overall improved. She has passed flatus but without bowel movement. She reports that she has been ambulatory in the room. She otherwise denies fever, chills, chest pain, palpitations, dyspnea, orthopnea, nausea and vomiting. She has no questions or concerns at this time. No concerns per nursing. Reason For Visit: ABDOMINAL ABSCESS, PERFORATED VISCUS Physical Exam Vital Signs: Temp Pulse Resp BP Pulse Ox 98.3 F 106 H 18 168/90 H 95 03/30/19 11:30 03/30/19 14:00 03/30/19 11:30 03/30/19 11:30 03/30/19 11:30 Intake & Output 03/29/19 03/30/19 03/31/19 06:59 06:59 06:59 Intake Total 3550 54597 1393 Output Total 8225 [id number] 55 [facility] [phone] General appearance: PRESENT: no acute distress, cooperative, obese, well- developed, well-nourished Head exam: PRESENT: atraumatic, normocephalic Eye exam: PRESENT: conjunctiva pink, EOMI, PERRLA. ABSENT: scleral icterus Mouth exam: PRESENT: moist, tongue midline Teeth exam: PRESENT: poor dentation Neck exam: ABSENT: carotid bruit, JVD, lymphadenopathy, thyromegaly Respiratory exam: PRESENT: clear to auscultation jack, symmetrical, unlabored. ABSENT: rales, rhonchi, wheezes Cardiovascular exam: PRESENT: RRR. ABSENT: diastolic murmur, rubs, systolic murmur Pulses: PRESENT: normal dorsalis pedis pul Vascular exam: PRESENT: normal capillary refill GI/Abdominal exam: PRESENT: diminished bowel sounds, soft, other - NG tube to suction, RODO drain present.. ABSENT: distended, guarding, mass, organolmegaly, rebound, tenderness Rectal exam: PRESENT: deferred Extremities exam: PRESENT: full ROM. ABSENT: calf tenderness, clubbing, pedal edema Neurological exam: PRESENT: alert, awake, oriented to person, oriented to place, oriented to time, oriented to situation, CN II-XII grossly intact. ABSENT: motor sensory deficit Psychiatric exam: PRESENT: appropriate affect, normal mood. ABSENT: homicidal ideation, suicidal ideation Skin exam: PRESENT: dry, intact, warm. ABSENT: cyanosis, rash Results Laboratory Results: 03/30/19 05:39 03/30/19 05:39 03/30/19 03/30/19 05:39 05:39 WBC 46.9 H* RBC 2.43 L Hgb 7.5 L Hct 22.2 L MCV 91 MCH 30.9 MCHC 33.8 RDW 14.7 H Plt Count 717 H Seg Neutrophils % Not Reportable Lymphocytes % Not Reportable Monocytes % Not Reportable Eosinophils % Not Reportable Basophils % Not Reportable Absolute Neutrophils Not Reportable Absolute Lymphocytes Not Reportable Absolute Monocytes Not Reportable Absolute Eosinophils Not Reportable Absolute Basophils Not Reportable Sodium 137.7 Potassium 2.9 L* Chloride 92 L Carbon Dioxide 34 H Anion Gap 12 BUN 11 Creatinine 0.41 L Est GFR ( Amer) > 60 Est GFR (Non-Af Amer) > 60 Glucose 76 Calcium 7.6 L Total Bilirubin 0.5 AST 27 ALT 38 Alkaline Phosphatase 184 H Total Protein 4.7 L Albumin 2.2 L 03/25/19 09:26 Blood Blood Culture - Final NO GROWTH IN 5 DAYS Impressions: Abdomen/Pelvis CT 03/25/19 08:59 IMPRESSION: 1. Free air in the abdomen. 2. There is some free fluid. This includes some intermediate density material anteriorly. Abscess versus biloma. 3. Ground-glass infiltrates in the lower lungs. Chronic interstitial changes versus interstitial edema. Chest X-Ray 03/25/19 18:26 IMPRESSION: No pneumothorax. Patchy airspace opacities are present throughout the right lung base as well as left medial lung base. No significant pleural effusion.Left hilar fullness.Endotracheal tube tip overlies the lower trachea approximately 4.6 cm above the level of the aliyah. Nasogastric catheter tube is present with tip overlying the body of the stomach. Right IJ central venous catheter is present with tip overlying the SVC below the aliyah level. Assessment and Plan - Diagnosis (1) Gram-negative bacteremia Is this a current diagnosis for this admission?: Yes Plan: One blood culture positive for bacteroides species. Second set of blood cultures positive for gram-positive cocci. Third set of blood cultures obtained today. Continue IV zosyn. (2) Essential hypertension Is this a current diagnosis for this admission?: Yes Plan: Blood pressures remain elevated; 168/90. PRN metoprolol for blood pressure control until she is able to take p.o. (3) Immunosuppression due to drug therapy Is this a current diagnosis for this admission?: Yes Plan: Continue on IV hydrocortisone 25mg q12h until she is able to take oral prednisone for management of her rheumatoid arthritis. (4) Intra-abdominal abscess post-procedure Is this a current diagnosis for this admission?: Yes Plan: Management per surgery. (5) Rheumatoid arthritis Qualifiers: Laterality: unspecified laterality Is this a current diagnosis for this admission?: Yes Plan: Continue IV hydrocortisone 25 mg daily until she can take po prednisone (6) Sepsis Qualifiers: Sepsis type: sepsis due to unspecified organism Qualified Code(s): A41.9 - Sepsis, unspecified organism Is this a current diagnosis for this admission?: Yes Plan: Improved; patient has been afebrile for >48 hours, She has continued to have intermittent tachycardia, though no longer hypotensive. Leukocytosis is overall unchanged 54-> 32-> 46.9; possibly a combination of infectious process and IV hydrocortisone. She was tachycardic with white count of 59,000 presentation to the ER. CT of the abdomen showed possible abscess. She was adequately fluid resuscitated, and started on IV broad-spectrum antibiotic's after blood cultures x2 were obtained. She was taken to the OR for washout. She is high risk for post op infection due to chronic steroid use for rheumatoid arthritis. Peritoneal fluid positive for bacteroides species, prevotella, peptost reptococcus and clostridium. Blood cultures demonstrated bacteroids group. Urine cultures negative for 2 days. Continue IV Zosyn. Consider infectious disease consultation. (7) Nausea and vomiting Qualifiers: Vomiting type: unspecified Vomiting Intractability: non-intractable Qualified Code(s): R11.2 - Nausea with vomiting, unspecified Is this a current diagnosis for this admission?: Yes Plan: Resolved. (8) Chronic pain Qualifiers: Chronic pain type: chronic pain syndrome Qualified Code(s): G89.4 - Chronic pain syndrome Is this a current diagnosis for this admission?: Yes Plan: Patient apparently has been on oral methadone for years (9) Anemia Is this a current diagnosis for this admission?: Yes Plan: Patient was admitted with a hemoglobin of 9.7; he has received 2 units PRBCs with slight improvement to 8.0, but now trending down 7.5. As the patient is again tachycardic today (HR 108), will provide an additional 1 unit PRBCs. (10) Hypokalemia Is this a current diagnosis for this admission?: Yes Plan: Secondary to poor p.o. intake and GI losses; still with NG tube intermittently to suction. Replace per surgery today. We will continue to monitor daily chemistries and replace as necessary. We will repeat magnesium with a.m. labs as well. - Time Time Spent with patient: 15-24 minutes Medications reviewed and adjusted accordingly: Yes Anticipated discharge: Home with Homehealth
[2019-03-31] MEDS: KETOROLAC TROMETHAMINE INJ/PF 30 MG/1 ML SDV IV PRN ×4 (00:28→18:48)
[2019-03-31] MEDS: HYDROMORPHONE HCL INJ/PF 2 MG/ML AMPULE IV PRN ×10 (01:10→22:49)
[2019-03-31] MEDS: METRONIDAZOLE 500 MG/NS RTU 500 MG/100 ML RTUPB IV SCH ×4 (03:17→20:04)
[2019-03-31] MEDS: PIPERACILLIN SODIUM/TAZOBACTAM 3.375 GM in NORMAL SALINE 100 ML IV SCH ×6 (05:43→23:21)
[2019-03-31 07:19] LABS: HEMATOCRIT 25.6 % (36.0-47.0); HEMOGLOBIN 8.3 g/dL (12.0-15.5); MEAN CORPUSCULAR HEMOGLOBIN 29.5 pg (27.0-33.4); MEAN CORPUSCULAR HGB CONC 32.3 g/dL (32.0-36.0); MEAN CORPUSCULAR VOLUME 91 fl (80-97); RED BLOOD COUNT 2.81 10^6/uL (3.72-5.28); RED CELL DISTRIBUTION WIDTH 15.3 % (11.5-14.0)
--- NOTE | 2019-03-31 07:19 | PDOC PROGRESS REPORT ---
Subjective Progress Note for:: 03/31/19 Subjective:: pt states she passed stool and flatus, nurses have not documented Reason For Visit: ABDOMINAL ABSCESS, PERFORATED VISCUS Physical Exam Vital Signs: Temp Pulse Resp BP Pulse Ox 98.2 F 95 16 158/92 H 95 03/31/19 02:57 03/31/19 02:57 03/31/19 02:57 03/31/19 02:57 03/31/19 02:57 Intake & Output 03/30/19 03/31/19 04/01/19 06:59 06:59 06:59 Intake Total 79294 2793 Output Total 23007 840 Balance -7471 1953 General appearance: PRESENT: no acute distress Head exam: PRESENT: normocephalic Eye exam: PRESENT: EOMI Mouth exam: PRESENT: moist Neck exam: PRESENT: full ROM Respiratory exam: PRESENT: clear to auscultation jack Cardiovascular exam: PRESENT: RRR Pulses: PRESENT: +2 pedal pulses bilateral GI/Abdominal exam: PRESENT: hypoactive bowel sounds, soft Rectal exam: PRESENT: deferred Extremities exam: PRESENT: full ROM Musculoskeletal exam: PRESENT: full ROM Neurological exam: PRESENT: alert, awake, oriented to person Skin exam: PRESENT: dry Results Laboratory Results: 03/30/19 03/30/19 05:39 17:52 WBC 46.9 H* Blood Type O POSITIVE Antibody Screen NEGATIVE 03/25/19 09:26 Blood Blood Culture - Final NO GROWTH IN 5 DAYS Impressions: Abdomen/Pelvis CT 03/25/19 08:59 IMPRESSION: 1. Free air in the abdomen. 2. There is some free fluid. This includes some intermediate density material anteriorly. Abscess versus biloma. 3. Ground-glass infiltrates in the lower lungs. Chronic interstitial changes versus interstitial edema. Chest X-Ray 03/25/19 18:26 IMPRESSION: No pneumothorax. Patchy airspace opacities are present throughout the right lung base as well as left medial lung base. No significant pleural effusion.Left hilar fullness.Endotracheal tube tip overlies the lower trachea approximately 4.6 cm above the level of the aliyah. Nasogastric catheter tube is present with tip overlying the body of the stomach. Right IJ central venous catheter is present with tip overlying the SVC below the aliyah level. Assessment & Plan - Diagnosis (1) Intra-abdominal abscess post-procedure Is this a current diagnosis for this admission?: Yes - Plan Summary Plan Summary: pt states she passed stool and flatus nurses did not document that physical therapy states pt need max assist. nurses state pt is able to get up by ;herself and ambulate currently labs pending did receive 1 unit of prbc yesterday this am pt is comfortable ng in place last residual at 4am approx 400cc. plan cont to increase activity clamp ng tube check labs
[2019-03-31 07:41] LABS: ALANINE AMINOTRANSFERASE 30 U/L (9-52); ALBUMIN 2.3 g/dL (3.5-5.0); ALKALINE PHOSPHATASE 219 U/L (38-126); ANION GAP 15 (5-19); ASPARTATE AMINO TRANSFERASE 31 U/L (14-36); BILIRUBIN,DIRECT 0.4 mg/dL (0.0-0.4); BILIRUBIN,TOTAL 0.6 mg/dL (0.2-1.3); BLOOD UREA NITROGEN 9 mg/dL (7-20); CALCIUM 7.5 mg/dL (8.4-10.2); CARBON DIOXIDE 29 mmol/L (22-30); CHLORIDE 94 mmol/L (98-107); GLUCOSE 70 mg/dL (75-110); POTASSIUM 3.2 mmol/L (3.6-5.0); SODIUM 137.6 mmol/L (137-145); TOTAL PROTEIN 4.8 g/dL (6.3-8.2)
[2019-03-31 07:54] LABS: ABSOLUTE MONOCYTES # (MANUAL) 0.4 10^3/uL (0.1-1.4); ABSOLUTE NEUTROPHILS# (MANUAL) 31.1 10^3/uL (1.7-8.2); BAND NEUTROPHILS % (MANUAL) 1 % (3-5); BASOPHILS % (MANUAL) 0 % (0-2); EOSINOPHILS % (MANUAL) 0 % (0-6); LYMPHOCYTES % (MANUAL) 14 % (13-45); MONOCYTES % (MANUAL) 1 % (3-13); NUCLEATED RED BLOOD CELLS 3 /100 WBC (0); SEGMENTED NEUTROPHILS % (MAN) 82 % (42-78); TOTAL CELLS COUNTED 100
[2019-03-31 08:02] LABS: ANISOCYTOSIS SLIGHT; PLATELET LARGE PRESENT; POIKILOCYTOSIS SLIGHT; POLYCHROMASIA 2+; SCHISTOCYTES SLIGHT; TOXIC GRANULATION 1+; TOXIC VACUOLATION PRESENT
[2019-03-31 08:03] LABS: PLATELET CLUMPS PRESENT; PLATELET COMMENT INCREASED; PLATELET COUNT 742 10^3/uL (150-450); WHITE BLOOD COUNT 37.5 10^3/uL (4.0-10.5)
[2019-03-31 08:06] LABS: HYPERSEGMENTED NEUTROPHILS PRESENT
[2019-03-31] MEDS: HYDRALAZINE HCL INJ/PF 20 MG/1 ML SDV IV PRN (08:43)
[2019-03-31] MEDS: POTASSI CL 20 MEQ/50 ML RIDER 20 MEQ/50 ML RTUPB IV SCH ×2 (10:50→12:33)
[2019-03-31] MEDS: FAMOTIDINE INJ/PF 20 MG/2 ML SDV IV SCH ×2 (10:50→22:49)
[2019-03-31] MEDS: ENALAPRILAT DIHYDRATE INJ/PF 1.25 MG/1 ML SDV IV SCH ×3 (12:34→23:25)
[2019-03-31] MEDS: HYDROCORTISONE SOD SUCCINATE INJ/PF 100 MG/2 ML SDV IV SCH (13:55)
[2019-03-31] MEDS: RINGERS SOLUTION,LACTATED 1,000 ML IV PRN (17:46)
[2019-03-31] MEDS: ONDANSETRON HCL INJ/PF 4 MG/2 ML SDV IV PRN (20:00)
[2019-04-01] MEDS: ONDANSETRON HCL INJ/PF 4 MG/2 ML SDV IV PRN
[2019-04-01] MEDS: METRONIDAZOLE 500 MG/NS RTU 500 MG/100 ML RTUPB IV SCH ×3 (02:19→14:06)
[2019-04-01] MEDS: HYDROMORPHONE HCL INJ/PF 2 MG/ML AMPULE IV PRN ×10 (02:19→23:42)
[2019-04-01] MEDS: KETOROLAC TROMETHAMINE INJ/PF 30 MG/1 ML SDV IV PRN ×4 (02:19→23:42)
[2019-04-01 06:33] LABS: HEMATOCRIT 23.6 % (36.0-47.0); MEAN CORPUSCULAR HEMOGLOBIN 30.2 pg (27.0-33.4); MEAN CORPUSCULAR HGB CONC 33.6 g/dL (32.0-36.0); MEAN CORPUSCULAR VOLUME 90 fl (80-97); RED BLOOD COUNT 2.63 10^6/uL (3.72-5.28); RED CELL DISTRIBUTION WIDTH 15.6 % (11.5-14.0)
[2019-04-01 06:40] LABS: HEMOGLOBIN 7.9 g/dL (12.0-15.5)
[2019-04-01 06:52] LABS: ALANINE AMINOTRANSFERASE 40 U/L (9-52); ALBUMIN 2.3 g/dL (3.5-5.0); ALKALINE PHOSPHATASE 183 U/L (38-126); ANION GAP 12 (5-19); ASPARTATE AMINO TRANSFERASE 38 U/L (14-36); BILIRUBIN,DIRECT 0.4 mg/dL (0.0-0.4); BILIRUBIN,TOTAL 0.4 mg/dL (0.2-1.3); BLOOD UREA NITROGEN 7 mg/dL (7-20); CALCIUM 7.7 mg/dL (8.4-10.2); CARBON DIOXIDE 29 mmol/L (22-30); CHLORIDE 98 mmol/L (98-107); GLUCOSE 76 mg/dL (75-110); SODIUM 138.6 mmol/L (137-145)
[2019-04-01] MEDS: PIPERACILLIN SODIUM/TAZOBACTAM 3.375 GM in NORMAL SALINE 100 ML IV SCH ×4 (06:56→23:30)
[2019-04-01] MEDS: ENALAPRILAT DIHYDRATE INJ/PF 1.25 MG/1 ML SDV IV SCH ×4 (06:56→23:31)
[2019-04-01 07:10] LABS: ABSOLUTE LYMPHOCYTES# (MANUAL) 4.2 10^3/uL (0.5-4.7); ABSOLUTE MONOCYTES # (MANUAL) 1.1 10^3/uL (0.1-1.4); ABSOLUTE NEUTROPHILS# (MANUAL) 22.8 10^3/uL (1.7-8.2); BASOPHILS % (MANUAL) 0 % (0-2); EOSINOPHILS % (MANUAL) 0 % (0-6); LYMPHOCYTES % (MANUAL) 15 % (13-45); MONOCYTES % (MANUAL) 4 % (3-13); NUCLEATED RED BLOOD CELLS 4 /100 WBC (0); PLATELET CLUMPS PRESENT; PLATELET COMMENT ADEQUATE; SEGMENTED NEUTROPHILS % (MAN) 81 % (42-78); TOTAL CELLS COUNTED 100
[2019-04-01 07:12] LABS: ANISOCYTOSIS SLIGHT; POLYCHROMASIA 1+; STOMATOCYTES 1+
[2019-04-01 07:13] LABS: WHITE BLOOD COUNT 28.2 10^3/uL (4.0-10.5)
[2019-04-01 07:14] LABS: PLATELET COUNT 797 10^3/uL (150-450)
--- NOTE | 2019-04-01 08:16 | PDOC PROGRESS REPORT ---
Subjective Progress Note for:: 04/01/19 Subjective:: vomited last pm green bilious fluid feels better having diarrhea bm's Reason For Visit: ABDOMINAL ABSCESS, PERFORATED VISCUS Physical Exam Vital Signs: Temp Pulse Resp BP Pulse Ox 98.2 F 101 H 18 152/87 H 98 03/31/19 20:00 04/01/19 07:00 03/31/19 20:00 04/01/19 06:56 03/31/19 20:00 Intake & Output 03/31/19 04/01/19 04/02/19 06:59 06:59 06:59 Intake Total 2793 1373 Output Total 840 465 Balance 1953 908 Weight 99.3 kg General appearance: PRESENT: no acute distress Head exam: PRESENT: normocephalic Eye exam: PRESENT: EOMI Neck exam: PRESENT: full ROM Respiratory exam: PRESENT: clear to auscultation jack Cardiovascular exam: PRESENT: RRR Pulses: PRESENT: normal radial pulses, normal femoral pulses Vascular exam: PRESENT: normal capillary refill GI/Abdominal exam: PRESENT: normal bowel sounds, soft - j'ps clear serous Rectal exam: PRESENT: deferred Extremities exam: PRESENT: full ROM Musculoskeletal exam: PRESENT: full ROM Neurological exam: PRESENT: alert, awake, oriented to person, oriented to place Psychiatric exam: PRESENT: appropriate affect Results Laboratory Results: 04/01/19 06:00 04/01/19 06:00 04/01/19 04/01/19 06:00 06:00 WBC 28.2 H RBC 2.63 L Hgb 7.9 L Hct 23.6 L MCV 90 MCH 30.2 MCHC 33.6 RDW 15.6 H Plt Count 797 H Seg Neutrophils % Not Reportable Lymphocytes % Not Reportable Monocytes % Not Reportable Eosinophils % Not Reportable Basophils % Not Reportable Absolute Neutrophils Not Reportable Absolute Lymphocytes Not Reportable Absolute Monocytes Not Reportable Absolute Eosinophils Not Reportable Absolute Basophils Not Reportable Sodium 138.6 Potassium 3.0 L* Chloride 98 Carbon Dioxide 29 Anion Gap 12 BUN 7 Creatinine 0.39 L Est GFR ( Amer) > 60 Est GFR (Non-Af Amer) > 60 Glucose 76 Calcium 7.7 L Total Bilirubin 0.4 AST 38 H ALT 40 Alkaline Phosphatase 183 H Total Protein 5.0 L Albumin 2.3 L 03/29/19 05:37 Blood Blood Culture - Final Staphylococcus Epidermidis Impressions: Abdomen/Pelvis CT 03/25/19 08:59 IMPRESSION: 1. Free air in the abdomen. 2. There is some free fluid. This includes some intermediate density material anteriorly. Abscess versus biloma. 3. Ground-glass infiltrates in the lower lungs. Chronic interstitial changes versus interstitial edema. Chest X-Ray 03/25/19 18:26 IMPRESSION: No pneumothorax. Patchy airspace opacities are present throughout the right lung base as well as left medial lung base. No significant pleural effusion.Left hilar fullness.Endotracheal tube tip overlies the lower trachea approximately 4.6 cm above the level of the aliyah. Nasogastric catheter tube is present with tip overlying the body of the stomach. Right IJ central venous catheter is present with tip overlying the SVC below the aliyah level. Assessment & Plan - Diagnosis (1) Intra-abdominal abscess post-procedure Is this a current diagnosis for this admission?: Yes - Plan Summary Plan Summary: doing better passing stool/flatus wbc decreasing still with ileus vomited last pm ng was clamped plan cont clamping trail cont iv abx awaing return of bowel function
[2019-04-01] MEDS: POTASSIUM CHLORIDE 20 MEQ/50 ML RTU IV SCH ×2 (08:55→11:30)
[2019-04-01] MEDS: FAMOTIDINE INJ/PF 20 MG/2 ML SDV IV SCH ×2 (09:04→21:23)
[2019-04-01] MEDS: METOCLOPRAMIDE HCL INJ/PF 10 MG/2 ML SDV IV SCH ×3 (11:30→23:40)
[2019-04-01] MEDS: HYDROCORTISONE SOD SUCCINATE INJ/PF 100 MG/2 ML SDV IV SCH (14:05)
[2019-04-02] MEDS: RINGERS SOLUTION,LACTATED 1,000 ML IV PRN ×2 (02:06→16:09)
[2019-04-02] MEDS: HYDROMORPHONE HCL INJ/PF 2 MG/ML AMPULE IV PRN ×10 (02:06→23:16)
[2019-04-02] MEDS: METOCLOPRAMIDE HCL INJ/PF 10 MG/2 ML SDV IV SCH ×4 (06:38→23:15)
[2019-04-02] MEDS: KETOROLAC TROMETHAMINE INJ/PF 30 MG/1 ML SDV IV PRN ×2 (06:38→13:34)
[2019-04-02] MEDS: PIPERACILLIN SODIUM/TAZOBACTAM 3.375 GM in NORMAL SALINE 100 ML IV SCH ×4 (06:38→23:16)
[2019-04-02] MEDS: ENALAPRILAT DIHYDRATE INJ/PF 1.25 MG/1 ML SDV IV SCH ×4 (06:39→23:15)
--- NOTE | 2019-04-02 07:57 | PDOC PROGRESS REPORT ---
Subjective Progress Note for:: 04/02/19 Reason For Visit: ABDOMINAL ABSCESS, PERFORATED VISCUS Physical Exam Vital Signs: Temp Pulse Resp BP Pulse Ox 98.2 F 105 H 16 152/79 H 99 04/01/19 15:23 04/02/19 06:39 04/01/19 15:23 04/02/19 06:39 04/01/19 15:23 Intake & Output 04/01/19 04/02/19 04/03/19 06:59 06:59 06:59 Intake Total 1373 0 Output Total 465 Balance 908 0 Weight 99.3 kg 99.3 kg General appearance: PRESENT: no acute distress Eye exam: PRESENT: EOMI Mouth exam: PRESENT: moist Neck exam: PRESENT: full ROM Respiratory exam: PRESENT: clear to auscultation jack Cardiovascular exam: PRESENT: RRR Pulses: PRESENT: normal radial pulses, normal femoral pulses Vascular exam: PRESENT: normal capillary refill GI/Abdominal exam: PRESENT: soft, other - some drainage lat aspect of ruq wound, no cellulitis Extremities exam: PRESENT: full ROM Neurological exam: PRESENT: alert, awake, oriented to person, oriented to place Skin exam: PRESENT: dry Results Laboratory Results: 04/01/19 06:00 04/01/19 06:00 03/29/19 05:37 Blood Blood Culture - Final Staphylococcus Epidermidis Impressions: Abdomen/Pelvis CT 03/25/19 08:59 IMPRESSION: 1. Free air in the abdomen. 2. There is some free fluid. This includes some intermediate density material anteriorly. Abscess versus biloma. 3. Ground-glass infiltrates in the lower lungs. Chronic interstitial changes versus interstitial edema. Chest X-Ray 03/25/19 18:26 IMPRESSION: No pneumothorax. Patchy airspace opacities are present throughout the right lung base as well as left medial lung base. No significant pleural effusion.Left hilar fullness.Endotracheal tube tip overlies the lower trachea approximately 4.6 cm above the level of the aliyah. Nasogastric catheter tube is present with tip overlying the body of the stomach. Right IJ central venous catheter is present with tip overlying the SVC below the aliyah level. Assessment & Plan - Diagnosis (1) Intra-abdominal abscess post-procedure Is this a current diagnosis for this admission?: Yes - Plan Summary Plan Summary: doing ok now having bm's and flatus asad's without drainage ng residuals min will dc ng cont sips check labs today--still pending.
[2019-04-02] MEDS: FAMOTIDINE INJ/PF 20 MG/2 ML SDV IV SCH ×2 (09:13→23:15)
[2019-04-02 09:32] LABS: HEMATOCRIT 23.3 % (36.0-47.0); MEAN CORPUSCULAR HEMOGLOBIN 29.9 pg (27.0-33.4); MEAN CORPUSCULAR HGB CONC 32.8 g/dL (32.0-36.0); MEAN CORPUSCULAR VOLUME 91 fl (80-97); PLATELET COUNT 902 10^3/uL (150-450); RED BLOOD COUNT 2.56 10^6/uL (3.72-5.28); RED CELL DISTRIBUTION WIDTH 15.6 % (11.5-14.0); WHITE BLOOD COUNT 27.3 10^3/uL (4.0-10.5)
[2019-04-02 09:49] LABS: ANION GAP 12 (5-19); BLOOD UREA NITROGEN 5 mg/dL (7-20); CALCIUM 7.8 mg/dL (8.4-10.2); CARBON DIOXIDE 28 mmol/L (22-30); CHLORIDE 99 mmol/L (98-107); GLUCOSE 82 mg/dL (75-110); SODIUM 138.9 mmol/L (137-145)
[2019-04-02 10:12] LABS: ABSOLUTE LYMPHOCYTES# (MANUAL) 2.2 10^3/uL (0.5-4.7); ABSOLUTE MONOCYTES # (MANUAL) 0.3 10^3/uL (0.1-1.4); ABSOLUTE NEUTROPHILS# (MANUAL) 24.6 10^3/uL (1.7-8.2); BASOPHILS % (MANUAL) 0 % (0-2); EOSINOPHILS % (MANUAL) 1 % (0-6); LYMPHOCYTES % (MANUAL) 8 % (13-45); MONOCYTES % (MANUAL) 1 % (3-13); SEGMENTED NEUTROPHILS % (MAN) 90 % (42-78); TOTAL CELLS COUNTED 100
[2019-04-02 10:23] LABS: ANISOCYTOSIS SLIGHT; POLYCHROMASIA 1+
[2019-04-02 10:31] LABS: HEMOGLOBIN 7.6 g/dL (12.0-15.5)
[2019-04-02] MEDS: POTASSI CL 20 MEQ/50 ML RIDER 20 MEQ/50 ML RTUPB IV SCH ×2 (10:55→12:14)
[2019-04-02 11:22] LABS: PLATELET COMMENT INCREASED
[2019-04-02] MEDS: HYDROCORTISONE SOD SUCCINATE INJ/PF 100 MG/2 ML SDV IV SCH (13:26)
[2019-04-03] MEDS: HYDROMORPHONE HCL INJ/PF 2 MG/ML AMPULE IV PRN ×9 (01:37→22:12)
[2019-04-03] MEDS: PIPERACILLIN SODIUM/TAZOBACTAM 3.375 GM in NORMAL SALINE 100 ML IV SCH ×3 (06:27→17:34)
[2019-04-03] MEDS: ENALAPRILAT DIHYDRATE INJ/PF 1.25 MG/1 ML SDV IV SCH ×3 (06:32→17:34)
[2019-04-03] MEDS: METOCLOPRAMIDE HCL INJ/PF 10 MG/2 ML SDV IV SCH ×3 (06:32→17:34)
[2019-04-03] MEDS: RINGERS SOLUTION,LACTATED 1,000 ML IV PRN (06:37)
[2019-04-03 06:57] LABS: HEMATOCRIT 26.2 % (36.0-47.0); HEMOGLOBIN 8.6 g/dL (12.0-15.5); MEAN CORPUSCULAR HEMOGLOBIN 29.9 pg (27.0-33.4); MEAN CORPUSCULAR HGB CONC 32.9 g/dL (32.0-36.0); MEAN CORPUSCULAR VOLUME 91 fl (80-97); RED BLOOD COUNT 2.88 10^6/uL (3.72-5.28); RED CELL DISTRIBUTION WIDTH 15.6 % (11.5-14.0); WHITE BLOOD COUNT 27.6 10^3/uL (4.0-10.5)
[2019-04-03 07:14] LABS: ANION GAP 13 (5-19); BLOOD UREA NITROGEN 3 mg/dL (7-20); CALCIUM 8.6 mg/dL (8.4-10.2); CARBON DIOXIDE 25 mmol/L (22-30); CHLORIDE 101 mmol/L (98-107); GLUCOSE 79 mg/dL (75-110); POTASSIUM 3.4 mmol/L (3.6-5.0); SODIUM 139.3 mmol/L (137-145)
--- NOTE | 2019-04-03 07:38 | PDOC PROGRESS REPORT ---
Subjective Progress Note for:: 04/03/19 Subjective:: feels better passing stool and flatus no nausea or vomiting after ng removed yesterday Reason For Visit: ABDOMINAL ABSCESS, PERFORATED VISCUS Physical Exam Vital Signs: Temp Pulse Resp BP Pulse Ox 98.3 F 91 16 157/59 H 97 04/03/19 03:54 04/03/19 06:32 04/03/19 03:54 04/03/19 06:32 04/03/19 03:54 Intake & Output 04/02/19 04/03/19 04/04/19 06:59 06:59 06:59 Intake Total 2059 3211 Output Total 60 Balance 2059 3151 Weight 99.3 kg 99 kg General appearance: PRESENT: no acute distress Head exam: PRESENT: normocephalic Eye exam: PRESENT: EOMI Mouth exam: PRESENT: dry mucosa, moist Teeth exam: PRESENT: poor dentation Neck exam: PRESENT: full ROM Respiratory exam: PRESENT: clear to auscultation jack Cardiovascular exam: PRESENT: RRR Pulses: PRESENT: normal radial pulses, normal femoral pulses GI/Abdominal exam: PRESENT: other - abd soft + bs lat aspect of ruq wound with some min purulent draiange, no cellulitis asad's serous Rectal exam: PRESENT: deferred Extremities exam: PRESENT: full ROM Musculoskeletal exam: PRESENT: full ROM Neurological exam: PRESENT: alert, awake, oriented to person, oriented to place Psychiatric exam: PRESENT: appropriate affect Results Laboratory Results: 04/03/19 06:25 04/02/19 04/02/19 04/03/19 09:05 09:05 06:25 WBC 27.3 H RBC 2.56 L Hgb 7.6 L Hct 23.3 L MCV 91 MCH 29.9 MCHC 32.8 RDW 15.6 H Plt Count 902 H Seg Neutrophils % Not Reportable Lymphocytes % Not Reportable Monocytes % Not Reportable Eosinophils % Not Reportable Basophils % Not Reportable Absolute Neutrophils Not Reportable Absolute Lymphocytes Not Reportable Absolute Monocytes Not Reportable Absolute Eosinophils Not Reportable Absolute Basophils Not Reportable Sodium 138.9 139.3 Potassium 3.0 L* 3.4 L Chloride 99 101 Carbon Dioxide 28 25 Anion Gap 12 13 BUN 5 L 3 L Creatinine 0.37 L 0.36 L Est GFR ( Amer) > 60 > 60 Est GFR (Non-Af Amer) > 60 > 60 Glucose 82 79 Calcium 7.8 L 8.6 Impressions: Abdomen/Pelvis CT 03/25/19 08:59 IMPRESSION: 1. Free air in the abdomen. 2. There is some free fluid. This includes some intermediate density material anteriorly. Abscess versus biloma. 3. Ground-glass infiltrates in the lower lungs. Chronic interstitial changes versus interstitial edema. Chest X-Ray 03/25/19 18:26 IMPRESSION: No pneumothorax. Patchy airspace opacities are present throughout the right lung base as well as left medial lung base. No significant pleural effusion.Left hilar fullness.Endotracheal tube tip overlies the lower trachea approximately 4.6 cm above the level of the aliyah. Nasogastric catheter tube is present with tip overlying the body of the stomach. Right IJ central venous catheter is present with tip overlying the SVC below the aliyah level. Assessment & Plan - Diagnosis (1) Intra-abdominal abscess post-procedure Is this a current diagnosis for this admission?: Yes - Plan Summary Plan Summary: continues to improve ]passing stool and flatus wound some sl purulent drainage daniel ng out, taking ice chips wants to eat will start clears awaiting am labs k=3.4
[2019-04-03 07:43] LABS: PLATELET COUNT 1134 10^3/uL (150-450)
[2019-04-03 07:46] LABS: ABSOLUTE LYMPHOCYTES# (MANUAL) 4.4 10^3/uL (0.5-4.7); ABSOLUTE MONOCYTES # (MANUAL) 1.4 10^3/uL (0.1-1.4); ABSOLUTE NEUTROPHILS# (MANUAL) 21.3 10^3/uL (1.7-8.2); BAND NEUTROPHILS % (MANUAL) 1 % (3-5); BASOPHILS % (MANUAL) 1 % (0-2); EOSINOPHILS % (MANUAL) 1 % (0-6); LYMPHOCYTES % (MANUAL) 16 % (13-45); MONOCYTES % (MANUAL) 5 % (3-13); NUCLEATED RED BLOOD CELLS 1 /100 WBC (0); SEGMENTED NEUTROPHILS % (MAN) 76 % (42-78); TOTAL CELLS COUNTED 100
[2019-04-03 07:50] LABS: ANISOCYTOSIS SLIGHT; HOWELL-JOLLY BODIES PRESENT; HYPERSEGMENTED NEUTROPHILS PRESENT; POIKILOCYTOSIS SLIGHT; POLYCHROMASIA 1+; SCHISTOCYTES SLIGHT; TEAR DROP CELLS SLIGHT; TOXIC GRANULATION SLIGHT
[2019-04-03 07:51] LABS: PLATELET COMMENT INCREASED
--- NOTE | 2019-04-03 07:52 | PDOC PROGRESS REPORT ---
Subjective Progress Note for:: 03/31/19 Reason For Visit: ABDOMINAL ABSCESS, PERFORATED VISCUS Physical Exam Vital Signs: Temp Pulse Resp BP Pulse Ox 98.2 F 107 H 20 165/87 H 96 03/31/19 08:17 03/31/19 08:17 03/31/19 08:17 03/31/19 08:17 03/31/19 08:17 Intake & Output 03/30/19 03/31/19 04/01/19 06:59 06:59 06:59 Intake Total 33527 2793 500 Output Total 17758 840 Balance -7471 1953 500 General appearance: PRESENT: mild distress, morbidly obese Mouth exam: PRESENT: other - NG tube in place Respiratory exam: PRESENT: clear to auscultation jack, symmetrical, unlabored. ABSENT: rales, rhonchi, tachypnea, wheezes Cardiovascular exam: PRESENT: RRR, +S1, +S2 GI/Abdominal exam: PRESENT: diminished bowel sounds - Slightly diminished but clearly present, distended, soft, tenderness - Especially hanna-incisional Rectal exam: PRESENT: deferred Extremities exam: ABSENT: pedal edema Neurological exam: PRESENT: alert, awake, oriented to person, oriented to place, oriented to time, oriented to situation, CN II-XII grossly intact. ABSENT: motor sensory deficit Psychiatric exam: PRESENT: flat affect. ABSENT: agitated, anxious Focused psych exam: ABSENT: delusional, restlessness Results Laboratory Results: 03/31/19 05:40 03/31/19 05:40 03/30/19 03/31/19 03/31/19 17:52 05:40 05:40 WBC 37.5 H* RBC 2.81 L Hgb 8.3 L Hct 25.6 L MCV 91 MCH 29.5 MCHC 32.3 RDW 15.3 H Plt Count 742 H Seg Neutrophils % Not Reportable Lymphocytes % Not Reportable Monocytes % Not Reportable Eosinophils % Not Reportable Basophils % Not Reportable Absolute Neutrophils Not Reportable Absolute Lymphocytes Not Reportable Absolute Monocytes Not Reportable Absolute Eosinophils Not Reportable Absolute Basophils Not Reportable Sodium 137.6 Potassium 3.2 L Chloride 94 L Carbon Dioxide 29 Anion Gap 15 BUN 9 Creatinine 0.40 L Est GFR ( Amer) > 60 Est GFR (Non-Af Amer) > 60 Glucose 70 L Calcium 7.5 L Magnesium 2.0 Total Bilirubin 0.6 AST 31 ALT 30 Alkaline Phosphatase 219 H Total Protein 4.8 L Albumin 2.3 L Blood Type O POSITIVE Antibody Screen NEGATIVE 03/25/19 09:26 Blood Blood Culture - Final NO GROWTH IN 5 DAYS Impressions: Abdomen/Pelvis CT 03/25/19 08:59 IMPRESSION: 1. Free air in the abdomen. 2. There is some free fluid. This includes some intermediate density material anteriorly. Abscess versus biloma. 3. Ground-glass infiltrates in the lower lungs. Chronic interstitial changes versus interstitial edema. Chest X-Ray 03/25/19 18:26 IMPRESSION: No pneumothorax. Patchy airspace opacities are present throughout the right lung base as well as left medial lung base. No significant pleural effusion.Left hilar fullness.Endotracheal tube tip overlies the lower trachea approximately 4.6 cm above the level of the aliyah. Nasogastric catheter tube is present with tip overlying the body of the stomach. Right IJ central venous catheter is present with tip overlying the SVC below the aliyah level. Assessment and Plan - Diagnosis (1) Gram-negative bacteremia Is this a current diagnosis for this admission?: Yes Plan: Likely secondary from intra-abdominal abscess. Bacteroides identified. Continue Zosyn. (2) Sepsis Qualifiers: Sepsis type: sepsis due to unspecified organism Qualified Code(s): A41.9 - Sepsis, unspecified organism Is this a current diagnosis for this admission?: Yes Plan: Polymicrobial due to intra-abdominal abscess. Continue IV fluids and antibiotic therapy. (3) Intra-abdominal abscess post-procedure Is this a current diagnosis for this admission?: Yes Plan: Please see surgical list note. Post procedure she is still n.p.o. with nasogastric tube revealing lots of fluid in the canister. Still with nausea. (4) Nausea and vomiting Qualifiers: Vomiting type: unspecified Vomiting Intractability: non-intractable Qualified Code(s): R11.2 - Nausea with vomiting, unspecified Is this a current diagnosis for this admission?: Yes Plan: Nasogastric tube is in place. Despite this she does occasionally have emesis. Continue nasogastric tube. (5) Hypokalemia Is this a current diagnosis for this admission?: Yes Plan: Monitor serum potassium daily. High potassium losses from GI source. Replete with IV potassium as the patient is n.p.o. (6) Chronic pain Qualifiers: Chronic pain type: chronic pain syndrome Qualified Code(s): G89.4 - Chronic pain syndrome Is this a current diagnosis for this admission?: Yes Plan: Normally on oral methadone. IV analgesia as needed. (7) Essential hypertension Is this a current diagnosis for this admission?: Yes Plan: We will start IV enalapril. Adjust medications as needed. (8) Anemia Qualifiers: Anemia type: unspecified type Qualified Code(s): D64.9 - Anemia, unspecified Is this a current diagnosis for this admission?: Yes Plan: Difficult to assess the exact etiology. It could be due to her acute illness. She is also on immunosuppressant therapy which may have an adverse effect long- term. She did receive 3 units of packed red blood cells this far. We will continue to monitor hemoglobin. Transfuse as indicated. (9) Immunosuppression due to drug therapy Is this a current diagnosis for this admission?: Yes Plan: Continue systemic steroids until she is able to return to p.o. dosing. Her whit e count is very high. Is likely combination of the acute infection and her steroid therapy. Continue to monitor. (10) Rheumatoid arthritis Qualifiers: Laterality: unspecified laterality Is this a current diagnosis for this admission?: Yes Plan: Continue steroid therapy.
--- NOTE | 2019-04-03 08:02 | PDOC PROGRESS REPORT ---
Subjective Progress Note for:: 04/01/19 Subjective:: Patient is actually up ambulating in the [place]ino[place]. Still requiring NG tube suction intermittently. Reason For Visit: ABDOMINAL ABSCESS, PERFORATED VISCUS Physical Exam Vital Signs: Temp Pulse Resp BP Pulse Ox 98.2 F 103 H 16 141/80 H 99 04/01/19 15:23 04/01/19 19:00 04/01/19 15:23 04/01/19 15:23 04/01/19 15:23 Intake & Output 03/31/19 04/01/19 04/02/19 06:59 06:59 06:59 Intake Total 2793 1373 1960 Output Total 840 465 Balance 7432 191 6449 Weight 99.3 kg General appearance: PRESENT: cooperative, mild distress, obese Head exam: PRESENT: normocephalic, other - Nasogastric tube in place Respiratory exam: PRESENT: clear to auscultation jack, symmetrical, unlabored. ABSENT: rales, rhonchi, tachypnea, wheezes Cardiovascular exam: PRESENT: RRR, +S1, +S2 GI/Abdominal exam: PRESENT: hypoactive bowel sounds, soft, tenderness Musculoskeletal exam: PRESENT: ambulatory - Currently walking in the [place] with physical therapy Neurological exam: PRESENT: alert, awake, oriented to person, oriented to place, oriented to time, oriented to situation, CN II-XII grossly intact. ABSENT: motor sensory deficit Psychiatric exam: PRESENT: flat affect. ABSENT: agitated, anxious Focused psych exam: ABSENT: delusional, restlessness Results Laboratory Results: 04/01/19 06:00 04/01/19 06:00 04/01/19 04/01/19 06:00 06:00 WBC 28.2 H RBC 2.63 L Hgb 7.9 L Hct 23.6 L MCV 90 MCH 30.2 MCHC 33.6 RDW 15.6 H Plt Count 797 H Seg Neutrophils % Not Reportable Lymphocytes % Not Reportable Monocytes % Not Reportable Eosinophils % Not Reportable Basophils % Not Reportable Absolute Neutrophils Not Reportable Absolute Lymphocytes Not Reportable Absolute Monocytes Not Reportable Absolute Eosinophils Not Reportable Absolute Basophils Not Reportable Sodium 138.6 Potassium 3.0 L* Chloride 98 Carbon Dioxide 29 Anion Gap 12 BUN 7 Creatinine 0.39 L Est GFR ( Amer) > 60 Est GFR (Non-Af Amer) > 60 Glucose 76 Calcium 7.7 L Total Bilirubin 0.4 AST 38 H ALT 40 Alkaline Phosphatase 183 H Total Protein 5.0 L Albumin 2.3 L 03/29/19 05:37 Blood Blood Culture - Final Staphylococcus Epidermidis Impressions: Abdomen/Pelvis CT 03/25/19 08:59 IMPRESSION: 1. Free air in the abdomen. 2. There is some free fluid. This includes some intermediate density material anteriorly. Abscess versus biloma. 3. Ground-glass infiltrates in the lower lungs. Chronic interstitial changes versus interstitial edema. Chest X-Ray 03/25/19 18:26 IMPRESSION: No pneumothorax. Patchy airspace opacities are present throughout the right lung base as well as left medial lung base. No significant pleural effusion.Left hilar fullness.Endotracheal tube tip overlies the lower trachea approximately 4.6 cm above the level of the aliyah. Nasogastric catheter tube is present with tip overlying the body of the stomach. Right IJ central venous catheter is present with tip overlying the SVC below the aliyah level. Assessment and Plan - Diagnosis (1) Gram-negative bacteremia Is this a current diagnosis for this admission?: Yes Plan: Called by the lab for a positive blood culture with gram-positive cocci in clusters. Only one bottle is positive. She has had 2 other sets that are negative. This will likely be a contaminant. Continue antibiotics. (2) Sepsis Qualifiers: Sepsis type: sepsis due to unspecified organism Qualified Code(s): A41.9 - Sepsis, unspecified organism Is this a current diagnosis for this admission?: Yes Plan: Sepsis is resolved. Ongoing treatment for the intra-abdominal abscess that was surgically treated. Continue with IV fluids as the patient is n.p.o. (3) Intra-abdominal abscess post-procedure Is this a current diagnosis for this admission?: Yes Plan: Please see surgical note. The patient still has an NG tube in. The pain from surgery is improved. (4) Nausea and vomiting Qualifiers: Vomiting type: unspecified Vomiting Intractability: non-intractable Qualified Code(s): R11.2 - Nausea with vomiting, unspecified Is this a current diagnosis for this admission?: Yes Plan: Despite the NG tube she still had emesis today. Continue the NG tube and n.p.o. status for now. Antiemetics available as needed. (5) Hypokalemia Is this a current diagnosis for this admission?: Yes Plan: Once again her potassium was low. Continue to replete by IV. (6) Chronic pain Qualifiers: Chronic pain type: chronic pain syndrome Qualified Code(s): G89.4 - Chronic pain syndrome Is this a current diagnosis for this admission?: Yes Plan: IV analgesia is available. (7) Essential hypertension Is this a current diagnosis for this admission?: Yes Plan: Blood pressure slightly improved with IV enalapril. Continue to monitor and adjust dosage as needed. (8) Anemia Qualifiers: Anemia type: unspecified type Qualified Code(s): D64.9 - Anemia, unspecified Is this a current diagnosis for this admission?: Yes Plan: Hemoglobin continues to trend down. This is likely a combination of her critical illness as well as her surgical intervention. Continue to monitor. (9) Immunosuppression due to drug therapy Is this a current diagnosis for this admission?: Yes Plan: Continue IV steroids at this time. She is still on antibiotic therapy. (10) Rheumatoid arthritis Qualifiers: Laterality: unspecified laterality Is this a current diagnosis for this admission?: Yes Plan: She is working with physical therapy. She was walking in the hallway today. Continue steroids for rheumatoid arthritis. - Time Time Spent with patient: 15-24 minutes Medications reviewed and adjusted accordingly: Yes
--- NOTE | 2019-04-03 08:08 | PDOC PROGRESS REPORT ---
Subjective Progress Note for:: 04/02/19 Subjective:: Patient is walking in the hallways again. Her nasogastric tube is been discontinued. She is still n.p.o. Reason For Visit: ABDOMINAL ABSCESS, PERFORATED VISCUS Physical Exam Vital Signs: Temp Pulse Resp BP Pulse Ox 98.3 F 91 16 157/59 H 97 04/03/19 03:54 04/03/19 06:32 04/03/19 03:54 04/03/19 06:32 04/03/19 03:54 Intake & Output 04/01/19 04/02/19 04/03/19 06:59 06:59 06:59 Intake Total 1373 2060 3211 Output Total 465 60 Balance 908 2060 3151 Weight 99.3 kg 99.3 kg 99 kg General appearance: PRESENT: mild distress, obese, well-developed Head exam: PRESENT: atraumatic, normocephalic Ear exam: PRESENT: normal external ear exam Mouth exam: PRESENT: other - Nasogastric tube in place Respiratory exam: PRESENT: clear to auscultation jack, symmetrical, unlabored. ABSENT: rales, rhonchi, tachypnea, wheezes Cardiovascular exam: PRESENT: RRR, +S1, +S2 GI/Abdominal exam: PRESENT: distended, normal bowel sounds, soft, tenderness Rectal exam: PRESENT: deferred Extremities exam: ABSENT: pedal edema Neurological exam: PRESENT: alert, awake, oriented to person, oriented to place, oriented to time, oriented to situation, CN II-XII grossly intact. ABSENT: motor sensory deficit Psychiatric exam: PRESENT: flat affect. ABSENT: agitated, anxious Focused psych exam: ABSENT: delusional, restlessness Results Laboratory Results: 04/02/19 09:05 04/02/19 09:05 04/02/19 04/02/19 09:05 09:05 WBC 27.3 H RBC 2.56 L Hgb 7.6 L Hct 23.3 L MCV 91 MCH 29.9 MCHC 32.8 RDW 15.6 H Plt Count 902 H Seg Neutrophils % Not Reportable Lymphocytes % Not Reportable Monocytes % Not Reportable Eosinophils % Not Reportable Basophils % Not Reportable Absolute Neutrophils Not Reportable Absolute Lymphocytes Not Reportable Absolute Monocytes Not Reportable Absolute Eosinophils Not Reportable Absolute Basophils Not Reportable Sodium 138.9 Potassium 3.0 L* Chloride 99 Carbon Dioxide 28 Anion Gap 12 BUN 5 L Creatinine 0.37 L Est GFR ( Amer) > 60 Est GFR (Non-Af Amer) > 60 Glucose 82 Calcium 7.8 L Impressions: Abdomen/Pelvis CT 03/25/19 08:59 IMPRESSION: 1. Free air in the abdomen. 2. There is some free fluid. This includes some intermediate density material anteriorly. Abscess versus biloma. 3. Ground-glass infiltrates in the lower lungs. Chronic interstitial changes versus interstitial edema. Chest X-Ray 03/25/19 18:26 IMPRESSION: No pneumothorax. Patchy airspace opacities are present throughout the right lung base as well as left medial lung base. No significant pleural effusion.Left hilar fullness.Endotracheal tube tip overlies the lower trachea approximately 4.6 cm above the level of the aliyah. Nasogastric catheter tube is present with tip overlying the body of the stomach. Right IJ central venous catheter is present with tip overlying the SVC below the aliyah level. Assessment and Plan - Diagnosis (1) Gram-negative bacteremia Is this a current diagnosis for this admission?: Yes Plan: Resolved. Most recent blood cultures were negative. (2) Sepsis Qualifiers: Sepsis type: sepsis due to unspecified organism Qualified Code(s): A41.9 - Sepsis, unspecified organism Is this a current diagnosis for this admission?: Yes Plan: Polymicrobial due to intra-abdominal abscess. Continue IV fluids and antibiotic therapy. She remains on Zosyn at this time. (3) Intra-abdominal abscess post-procedure Is this a current diagnosis for this admission?: Yes Plan: Please see surgical list note. Post procedure she is still n.p.o.. Surgery has removed her nasogastric tube. (4) Nausea and vomiting Qualifiers: Vomiting type: unspecified Vomiting Intractability: non-intractable Qualified Code(s): R11.2 - Nausea with vomiting, unspecified Is this a current diagnosis for this admission?: Yes Plan: Nasogastric tube is been removed. She is still nauseated on occasion. Continue as needed medication. (5) Hypokalemia Is this a current diagnosis for this admission?: Yes Plan: Continue to monitor. IV potassium required again today. (6) Anemia Qualifiers: Anemia type: unspecified type Qualified Code(s): D64.9 - Anemia, unspecified Is this a current diagnosis for this admission?: Yes Plan: Hemoglobin is slightly lower again today. Will recheck tomorrow. As it is under 8.0 she may need transfusion unless it starts to rebound on its own. (7) Rheumatoid arthritis Qualifiers: Laterality: unspecified laterality Is this a current diagnosis for this admission?: Yes Plan: Continue working with physical therapy. Continue steroids. Change to oral dosing when the patient can take p.o. (8) Immunosuppression due to drug therapy Is this a current diagnosis for this admission?: Yes Plan: Chronic steroid use. Used to treat her rheumatoid arthritis. (9) Essential hypertension Is this a current diagnosis for this admission?: Yes Plan: Blood pressure is still slightly elevated. If this continues I will add a second medication. (10) Chronic pain Qualifiers: Chronic pain type: chronic pain syndrome Qualified Code(s): G89.4 - Chronic pain syndrome Is this a current diagnosis for this admission?: Yes Plan: IV analgesia is available. (11) Obesity (BMI 30-39.9) Is this a current diagnosis for this admission?: Yes Plan: Her obesity will likely affect her healing and recovery. Obese patients tend to have trouble with midline incisions. Continue to monitor.
[2019-04-03] MEDS: FAMOTIDINE INJ/PF 20 MG/2 ML SDV IV SCH ×2 (10:48→22:13)
[2019-04-03] MEDS: ASPIRIN 325 MG TABLET PO SCH (10:48)
[2019-04-03 13:27] LABS: PATH REVIEW PATHOLOGIST REVIEWED
[2019-04-03] MEDS: HYDROCORTISONE SOD SUCCINATE INJ/PF 100 MG/2 ML SDV IV SCH (13:39)
[2019-04-04] MEDS: PIPERACILLIN SODIUM/TAZOBACTAM 3.375 GM in NORMAL SALINE 100 ML IV SCH ×5 (00:13→23:39)
[2019-04-04] MEDS: RINGERS SOLUTION,LACTATED 1,000 ML IV PRN ×2 (00:14→18:14)
[2019-04-04] MEDS: HYDROMORPHONE HCL INJ/PF 2 MG/ML AMPULE IV PRN ×11 (00:14→22:17)
[2019-04-04] MEDS: ENALAPRILAT DIHYDRATE INJ/PF 1.25 MG/1 ML SDV IV SCH ×5 (00:15→23:48)
[2019-04-04] MEDS: METOCLOPRAMIDE HCL INJ/PF 10 MG/2 ML SDV IV SCH ×5 (00:15→23:46)
[2019-04-04 07:57] LABS: ANION GAP 10 (5-19); CALCIUM 8.2 mg/dL (8.4-10.2); CARBON DIOXIDE 26 mmol/L (22-30); CHLORIDE 106 mmol/L (98-107); GLUCOSE 105 mg/dL (75-110); POTASSIUM 3.3 mmol/L (3.6-5.0); SODIUM 142.4 mmol/L (137-145)
[2019-04-04 07:59] LABS: HEMATOCRIT 24.7 % (36.0-47.0); HEMOGLOBIN 8.2 g/dL (12.0-15.5); MEAN CORPUSCULAR HEMOGLOBIN 30.2 pg (27.0-33.4); MEAN CORPUSCULAR HGB CONC 33.3 g/dL (32.0-36.0); MEAN CORPUSCULAR VOLUME 91 fl (80-97); RED BLOOD COUNT 2.71 10^6/uL (3.72-5.28); RED CELL DISTRIBUTION WIDTH 15.6 % (11.5-14.0); WHITE BLOOD COUNT 21.1 10^3/uL (4.0-10.5)
--- NOTE | 2019-04-04 08:00 | PDOC PROGRESS REPORT ---
Subjective Progress Note for:: 04/03/19 Subjective:: The patient is resting in bed today. She appears quite comfortable. Her nasogastric tube has been removed and she is starting on an oral diet. She still has some abdominal comfort but it is reasonable as she just had abdominal surgery. Reason For Visit: ABDOMINAL ABSCESS, PERFORATED VISCUS Physical Exam Vital Signs: Temp Pulse Resp BP Pulse Ox 98.6 F 102 H 20 147/83 H 99 04/04/19 04:20 04/04/19 04:20 04/04/19 04:20 04/04/19 04:20 04/04/19 04:20 Intake & Output 04/03/19 04/04/19 04/05/19 06:59 06:59 06:59 Intake Total 3211 3333 Output Total 60 80 Balance 3151 3253 Weight 99 kg 91.4 kg General appearance: PRESENT: no acute distress, cooperative, obese, well- developed Head exam: PRESENT: atraumatic, normocephalic Eye exam: PRESENT: conjunctiva pale. ABSENT: scleral icterus Ear exam: PRESENT: normal external ear exam Respiratory exam: PRESENT: clear to auscultation jack, symmetrical, unlabored. ABSENT: rales, rhonchi, tachypnea, wheezes Cardiovascular exam: PRESENT: RRR, +S1, +S2, systolic murmur - 2/6 GI/Abdominal exam: PRESENT: normal bowel sounds, soft. ABSENT: distended, guarding, tenderness - No significant tenderness other than expected slight tenderness at the incision Rectal exam: PRESENT: deferred Extremities exam: PRESENT: other - As she was sitting at the edge of the bed starting to eat was able to observe her hand she has marked ulnar deviation of her fingers with MTP joint swelling consistent with her rheumatoid arthritis.. ABSENT: calf tenderness, pedal edema Musculoskeletal exam: PRESENT: ambulatory Neurological exam: PRESENT: alert, awake, oriented to person, oriented to place, oriented to time, oriented to situation, CN II-XII grossly intact. ABSENT: motor sensory deficit Psychiatric exam: PRESENT: appropriate affect, normal mood. ABSENT: agitated, anxious Focused psych exam: ABSENT: delusional, restlessness Results Laboratory Results: 04/03/19 06:25 WBC 27.6 H RBC 2.88 L Hgb 8.6 L Hct 26.2 L MCV 91 MCH 29.9 MCHC 32.9 RDW 15.6 H Plt Count 1134 H* 03/29/19 04:10 Blood Blood Culture - Final NO GROWTH IN 5 DAYS Impressions: Abdomen/Pelvis CT 03/25/19 08:59 IMPRESSION: 1. Free air in the abdomen. 2. There is some free fluid. This includes some intermediate density material anteriorly. Abscess versus biloma. 3. Ground-glass infiltrates in the lower lungs. Chronic interstitial changes versus interstitial edema. Chest X-Ray 03/25/19 18:26 IMPRESSION: No pneumothorax. Patchy airspace opacities are present throughout the right lung base as well as left medial lung base. No significant pleural effusion.Left hilar fullness.Endotracheal tube tip overlies the lower trachea approximately 4.6 cm above the level of the aliyah. Nasogastric catheter tube is present with tip overlying the body of the stomach. Right IJ central venous catheter is present with tip overlying the SVC below the aliyah level. Assessment and Plan - Diagnosis (1) Gram-negative bacteremia Is this a current diagnosis for this admission?: Yes Plan: Resolved. She has several more days of Zosyn therapy for the intra-abdominal infection. (2) Sepsis Qualifiers: Sepsis type: sepsis due to unspecified organism Qualified Code(s): A41.9 - Sepsis, unspecified organism Is this a current diagnosis for this admission?: Yes Plan: Resolved (3) Intra-abdominal abscess post-procedure Is this a current diagnosis for this admission?: Yes Plan: Surgically addressed. Several more days of Zosyn therapy. White blood cell count is still elevated but slowly trending down. (4) Nausea and vomiting Qualifiers: Vomiting type: unspecified Vomiting Intractability: non-intractable Qualified Code(s): R11.2 - Nausea with vomiting, unspecified Is this a current diagnosis for this admission?: Yes Plan: Continues to slowly improve. She is doing well with the nasogastric tube out. (5) Hypokalemia Is this a current diagnosis for this admission?: Yes Plan: The potassium is up to 3.4 today. If she tolerates her diet I will add potassium orally for several days. When she resumes her regular diet her potassium should correct easily. (6) Anemia Qualifiers: Anemia type: unspecified type Qualified Code(s): D64.9 - Anemia, unspecified Is this a current diagnosis for this admission?: Yes Plan: Her anemia is finally trending upwards and was 8.6 today. (7) Rheumatoid arthritis Qualifiers: Laterality: unspecified laterality Is this a current diagnosis for this admission?: Yes Plan: Continue systemic steroids return to prednisone when she is tolerating oral diet. (8) Immunosuppression due to drug therapy Is this a current diagnosis for this admission?: Yes Plan: Always a consideration for infection. Her white blood cell count is still elevated. Clinically she is much better and this might be due to steroids. (9) Essential hypertension Is this a current diagnosis for this admission?: Yes Plan: Diastolic pressures are normal. She is tolerating an oral diet I will resume her lisinopril. (10) Chronic pain Qualifiers: Chronic pain type: chronic pain syndrome Qualified Code(s): G89.4 - Chronic pain syndrome Is this a current diagnosis for this admission?: Yes Plan: When she is back on her oral diet we will resume pain medications. I will probably start at a much lower dose of methadone. (11) Obesity (BMI 30-39.9) Is this a current diagnosis for this admission?: Yes Plan: Some of her obesity is likely due to chronic steroid therapy. She is likely lost weight from this hospitalization. Encourage healthy diet as well as initiating an exercise program. Her rheumatoid arthritis will certainly be a limiting factor. (12) Leukocytosis Qualifiers: Leukocytosis type: other Qualified Code(s): D72.828 - Other elevated white blood cell count Is this a current diagnosis for this admission?: Yes Plan: The patient could still be having a leukemoid reaction but she is also on chronic steroid therapy. Her white cell count is improved but we will continue to monitor. (13) Thrombocytosis Is this a current diagnosis for this admission?: Yes Plan: Her platelet count has continued to rise. We will continue to monitor. As it can be an acute inflammatory indicator we will look for other possible causes. If the platelet count continues to increase we will consult hematology. - Time Time Spent with patient: 15-24 minutes Medications reviewed and adjusted accordingly: Yes
[2019-04-04 08:02] LABS: BLOOD UREA NITROGEN < 2 mg/dL (7-20)
[2019-04-04 08:28] LABS: ABSOLUTE LYMPHOCYTES# (MANUAL) 4.2 10^3/uL (0.5-4.7); ABSOLUTE MONOCYTES # (MANUAL) 1.3 10^3/uL (0.1-1.4); ABSOLUTE NEUTROPHILS# (MANUAL) 15.4 10^3/uL (1.7-8.2); BASOPHILS % (MANUAL) 0 % (0-2); EOSINOPHILS % (MANUAL) 1 % (0-6); LYMPHOCYTES % (MANUAL) 20 % (13-45); MONOCYTES % (MANUAL) 6 % (3-13); SEGMENTED NEUTROPHILS % (MAN) 73 % (42-78); TOTAL CELLS COUNTED 100
[2019-04-04 08:29] LABS: ANISOCYTOSIS SLIGHT; PLATELET COMMENT INCREASED; POIKILOCYTOSIS SLIGHT; POLYCHROMASIA SLIGHT; STOMATOCYTES SLIGHT
[2019-04-04 08:31] LABS: PLATELET COUNT 1222 10^3/uL (150-450)
--- NOTE | 2019-04-04 08:33 | PDOC PROGRESS REPORT ---
Subjective Progress Note for:: 04/04/19 Reason For Visit: ABDOMINAL ABSCESS, PERFORATED VISCUS Physical Exam Vital Signs: Temp Pulse Resp BP Pulse Ox 98.6 F 103 H 20 147/83 H 99 04/04/19 04:20 04/04/19 07:00 04/04/19 04:20 04/04/19 04:20 04/04/19 04:20 Intake & Output 04/03/19 04/04/19 04/05/19 06:59 06:59 06:59 Intake Total 3211 3333 Output Total 60 80 Balance 3151 3253 Weight 99 kg 91.4 kg General appearance: PRESENT: no acute distress Head exam: PRESENT: normocephalic Eye exam: PRESENT: EOMI Mouth exam: PRESENT: moist Neck exam: PRESENT: full ROM Respiratory exam: PRESENT: clear to auscultation jack Cardiovascular exam: PRESENT: RRR Pulses: PRESENT: normal radial pulses, normal femoral pulses Vascular exam: PRESENT: pallor GI/Abdominal exam: PRESENT: soft, other - bilious op via #2 drain started last pm Rectal exam: PRESENT: deferred Extremities exam: PRESENT: full ROM Musculoskeletal exam: PRESENT: full ROM Neurological exam: PRESENT: alert, awake, oriented to person, oriented to place Skin exam: PRESENT: dry Results Laboratory Results: 04/04/19 06:37 04/04/19 04/04/19 06:37 06:37 Seg Neutrophils % Not Reportable Lymphocytes % Not Reportable Monocytes % Not Reportable Eosinophils % Not Reportable Basophils % Not Reportable Absolute Neutrophils Not Reportable Absolute Lymphocytes Not Reportable Absolute Monocytes Not Reportable Absolute Eosinophils Not Reportable Absolute Basophils Not Reportable Sodium 142.4 Potassium 3.3 L Chloride 106 Carbon Dioxide 26 Anion Gap 10 BUN < 2 L Creatinine 0.34 L Est GFR ( Amer) > 60 Est GFR (Non-Af Amer) > 60 Glucose 105 Calcium 8.2 L 03/29/19 04:10 Blood Blood Culture - Final NO GROWTH IN 5 DAYS Impressions: Abdomen/Pelvis CT 03/25/19 08:59 IMPRESSION: 1. Free air in the abdomen. 2. There is some free fluid. This includes some intermediate density material anteriorly. Abscess versus biloma. 3. Ground-glass infiltrates in the lower lungs. Chronic interstitial changes versus interstitial edema. Chest X-Ray 03/25/19 18:26 IMPRESSION: No pneumothorax. Patchy airspace opacities are present throughout the right lung base as well as left medial lung base. No significant pleural effusion.Left hilar fullness.Endotracheal tube tip overlies the lower trachea approximately 4.6 cm above the level of the aliyah. Nasogastric catheter tube is present with tip overlying the body of the stomach. Right IJ central venous catheter is present with tip overlying the SVC below the aliyah level. Assessment & Plan - Diagnosis (1) Intra-abdominal abscess post-procedure Is this a current diagnosis for this admission?: Yes - Plan Summary Plan Summary: pt is post op exploratory lap with extensive lysis of adhesions and small bowel and colon resection has had return of bowel function howver today started having some bilous drain op via #2 drain pt is having bm's and passing flatus suspect leak from small bowel anatomois where the #2 drain is placed plan npo sandostatin ct scan
[2019-04-04] MEDS: ASPIRIN 325 MG TABLET PO SCH (09:44)
[2019-04-04] MEDS: FAMOTIDINE INJ/PF 20 MG/2 ML SDV IV SCH ×2 (10:36→22:17)
--- NOTE | 2019-04-04 12:22 | PDOC CONSULTATION ---
Consultation Consult Date: 04/04/19 Attending physician:: JOSIE PAGE Consult reason:: Leukocytosis, thrombocytosis History of Present Illness Admission Date/PCP: 03/25/19 13:25 Patient complains of: Leukocytosis, thrombocytosis History of Present Illness: KIRTI MANN is a 43 year old female who has persistent leukocytosis and thrombocytosis. She presented with a complicated admission, she had a cholecystectomy for cholecystitis, post procedure it looks like she developed an intra-abdominal abscess and colonic perforation, required right hemicolectomy and abdominal washout for an abscess. She has been on broad-spectrum antibiotics. She also had evidence of sepsis with bacteremia/septicemia. She is doing a little bit better now but still having some bilious drainage and recently had repeat CT of the abdomen pelvis today, results are pending. She solorzano s had a persistent leukocytosis and thrombocytosis, upon presentation her white count was 40-50,000, dropped down to the 20,000 range but has been persistently in that range. Of note she also presented with an elevated platelet count in the 800,000 range dropped out of the 600,000 range but went back up and now is over 1 million. In further discussion with the patient and review of lab work she has had a persistent leukocytosis as well as thrombocytosis going back to 2012. And she has been told about this ever since she had splenectomy for ruptured spleen back in 2002. So this is been a persistent issue for her. Of note she has known rheumatoid arthritis and has been persistently on steroids. Past Medical History Cardiac Medical History: Reports: Hypertension Pulmonary Medical History: Reports: None EENT Medical History: Reports: None Neurological Medical History: Reports: Migraine Endocrine Medical History: Reports: None Renal/ Medical History: Reports: None Malignancy Medical History: Reports: None GI Medical History: Reports: Other - GERD Musculoskeltal Medical History: Reports: Arthritis - Rheumatoid arthritis, chronically immunosuppressed Skin Medical History: Reports: None Traumatic Medical History: Reports: None Hematology: Reports: Other - Leukocytosis, thrombocytosis Infectious Medical History: Reports: None Past Surgical History Past Surgical History: Reports: Cholecystectomy, Hysterectomy Social History Information Source: Patient Lives with: Family Smoking Status: Current Every Day Smoker Hx Recreational Drug Use: No Hx Prescription Drug Abuse: No - Advance Directive Resuscitation Status: Full Code Family History Family History: Reviewed & Not Pertinent Parental Family History Reviewed: Yes Children Family History Reviewed: Yes Sibling(s) Family History Reviewed.: Yes Medication/Allergy Home Medications: Lisinopril [Prinivil 40 mg Tablet] 40 mg PO BID 03/26/19 Methadone HCl [Methadone Oral Soln 1mg/Ml 30 Ml Bottle] 140 mg PO DAILY 03/26/19 Prednisone [Deltasone 20 mg Tablet] 20 mg PO DAILY 03/26/19 Allergies/Adverse Reactions: brompheniramine maleate [From Dimetapp] Allergy (Severe, Verified 06/29/18 10:18) Swelling of Throat dextromethorphan HBr [From Dimetapp] Allergy (Severe, Verified 06/29/18 10:18) Swelling of Throat phenylpropanolamine HCl [From Dimetapp] Allergy (Severe, Verified 06/29/18 10:18) Swelling of Throat pseudoephedrine HCl [From Dimetapp] Allergy (Severe, Verified 06/29/18 10:18) Swelling of Throat Review of Systems Constitutional: ABSENT: chills, fever(s), headache(s), weight gain, weight loss Eyes: ABSENT: visual disturbances Ears: ABSENT: hearing changes Cardiovascular: ABSENT: chest pain, dyspnea on exertion, edema, orthropnea, palpitations Respiratory: ABSENT: cough, hemoptysis Gastrointestinal: ABSENT: abdominal pain, constipation, diarrhea, hematemesis, hematochezia, nausea, vomiting Genitourinary: ABSENT: dysuria, hematuria Musculoskeletal: ABSENT: joint swelling Integumentary: ABSENT: rash, wounds Neurological: ABSENT: abnormal gait, abnormal speech, confusion, dizziness, foca l weakness, syncope Psychiatric: ABSENT: anxiety, depression, homidical ideation, suicidal ideation Endocrine: ABSENT: cold intolerance, heat intolerance, polydipsia, polyuria Hematologic/Lymphatic: ABSENT: easy bleeding, easy bruising Physical Exam Vital Signs: Temp Pulse Resp BP Pulse Ox 98.6 F 81 20 156/73 H 99 04/04/19 04:20 04/04/19 11:55 04/04/19 04:20 04/04/19 11:55 04/04/19 04:20 Intake & Output 04/03/19 04/04/19 04/05/19 06:59 06:59 06:59 Intake Total 3211 3333 100 Output Total 60 80 Balance 3151 3253 100 Weight 99 kg 91.4 kg General appearance: PRESENT: no acute distress, well-developed, well-nourished Head exam: PRESENT: atraumatic, normocephalic Eye exam: PRESENT: conjunctiva pink, EOMI, PERRLA. ABSENT: scleral icterus Ear exam: PRESENT: normal external ear exam Mouth exam: PRESENT: moist, tongue midline Neck exam: ABSENT: carotid bruit, JVD, lymphadenopathy, thyromegaly Respiratory exam: PRESENT: clear to auscultation jack. ABSENT: rales, rhonchi, wheezes Cardiovascular exam: PRESENT: RRR. ABSENT: diastolic murmur, rubs, systolic murmur Pulses: PRESENT: normal dorsalis pedis pul Vascular exam: PRESENT: normal capillary refill GI/Abdominal exam: PRESENT: normal bowel sounds, soft. ABSENT: distended, guard ing, mass, organolmegaly, rebound, tenderness Rectal exam: PRESENT: deferred Extremities exam: PRESENT: full ROM. ABSENT: calf tenderness, clubbing, pedal edema Neurological exam: PRESENT: alert, awake, oriented to person, oriented to place, oriented to time, oriented to situation, CN II-XII grossly intact. ABSENT: motor sensory deficit Psychiatric exam: PRESENT: appropriate affect, normal mood. ABSENT: homicidal ideation, suicidal ideation Skin exam: PRESENT: dry, intact, warm. ABSENT: cyanosis, rash Results Laboratory Results: 04/04/19 06:37 04/04/19 06:37 04/04/19 04/04/19 06:37 06:37 WBC 21.1 H RBC 2.71 L Hgb 8.2 L Hct 24.7 L MCV 91 MCH 30.2 MCHC 33.3 RDW 15.6 H Plt Count 1222 H* Seg Neutrophils % Not Reportable Lymphocytes % Not Reportable Monocytes % Not Reportable Eosinophils % Not Reportable Basophils % Not Reportable Absolute Neutrophils Not Reportable Absolute Lymphocytes Not Reportable Absolute Monocytes Not Reportable Absolute Eosinophils Not Reportable Absolute Basophils Not Reportable Sodium 142.4 Potassium 3.3 L Chloride 106 Carbon Dioxide 26 Anion Gap 10 BUN < 2 L Creatinine 0.34 L Est GFR ( Amer) > 60 Est GFR (Non-Af Amer) > 60 Glucose 105 Calcium 8.2 L 03/29/19 04:10 Blood Blood Culture - Final NO GROWTH IN 5 DAYS Impressions: Chest X-Ray 03/25/19 18:26 IMPRESSION: No pneumothorax. Patchy airspace opacities are present throughout the right lung base as well as left medial lung base. No significant pleural effusion.Left hilar fullness.Endotracheal tube tip overlies the lower trachea approximately 4.6 cm above the level of the aliyah. Nasogastric catheter tube is present with tip overlying the body of the stomach. Right IJ central venous catheter is present with tip overlying the SVC below the aliyah level. Assessment & Plan - Diagnosis (1) Leukocytosis Qualifiers: Leukocytosis type: leukemoid reaction Qualified Code(s): D72.823 - Leukemoid reaction Is this a current diagnosis for this admission?: Yes Plan: Leukemoid reaction from recent events along with steroid effect and inflammation from known rheumatoid arthritis. This will be a persistent issue for her. I believe her baseline white count may be in the 15-20,000 range most likely. We would only know if we see her about 2 to 3 months post discharge and when her body has had a steady state. Otherwise no further diagnostics needed inpatient I do not believe this is any malignancy causing this. (2) Thrombocytosis Is this a current diagnosis for this admission?: Yes Plan: Chronic, unlikely related to myeloproliferative process. This is also reactive process secondary to her presentation but also postsplenectomy patients will have a higher platelet count. So she probably will remain in the 6-700,000 range chronically when she has had a steady state. She would not be at risk for any thrombotic events. So no other diagnostics or intervention needed right now. - Time Time Spent: Greater than 70 Minutes - Inpatient Certification Based on my medical assessment, after consideration of the patient's comorbidities, presenting symptoms, or acuity I expect that the services needed warrant INPATIENT care.: Yes I certify that my determination is in accordance with my understanding of Medicare's requirements for reasonable and necessary INPATIENT services [42 CFR 412.3e].: Yes
--- NOTE | 2019-04-04 12:45 | RADIOLOGY REPORT (SQ) ---
EXAM DESCRIPTION: CT ABD/PELVIS ORAL ONLY COMPLETED DATE/TIME: 04/04/2019 11:29 am REASON FOR STUDY: r/o small bowel leak, please use gatrografin. COMPARISON: 03/25/2019 TECHNIQUE: CT scan of the abdomen and pelvis performed using helical scanning technique with only or al contrast. Images reviewed with lung, soft tissue, and bone windows. Reconstructed coronal and sagi ttal MPR images reviewed. Delayed images were not acquired. All images stored on PACS. All CT scanners at this facility use dose modulation, iterative reconstruction, and/or weight based d osing when appropriate to reduce radiation dose to as low as reasonably achievable (ALARA). [facility]: Dose Right [facility]: CareDose [facility]: Dose Right [facility]: Teradose 4D [facility]: 2CODE Online CONTRAST TYPE AND DOSE: Oral only RENAL FUNCTION: Not required RADIATION DOSE: CT Rad equipment meets quality standard of care and radiation dose reduction techniq ues were employed. CTDIvol: 17.5 mGy. DLP: 942 mGy-cm.. LIMITATIONS: None. FINDINGS: LOWER CHEST: Trace right pleural effusion. LIVER: Normal size. No enhancing masses. No dilated ducts. SPLEEN: Normal size. No focal lesions. PANCREAS: No masses identified. No significant calcifications.Pancreatic duct not dilated. GALLBLADDER: Surgically absent. ADRENAL GLANDS: No significant masses. RIGHT KIDNEY AND URETER: No cysts identified. No solid masses identified. No calcified stones. No hyd ronephrosis or hydroureter. LEFT KIDNEY AND URETER: No cysts identified. No solid masses identified. No calcified stones. No hydr onephrosis or hydroureter. AORTA AND VESSELS: No aneurysm. RETROPERITONEUM: No bulky retroperitoneal adenopathy. BOWEL AND PERITONEAL CAVITY: No obstruction or evidence for contrast leak from the bowel lumen. Scat tered postsurgical- inflammatory changes - free fluid. 2 drainage catheters are present in the left upper and left lower quadrants. APPENDIX: Not visualized. PELVIS: Prior hysterectomy. Scattered areas of Free fluid. Unremarkable bladder. ABDOMINAL WALL: Postsurgical changes in the upper abdomen. . No hernias. BONES: No acute findings. OTHER: No other significant finding. IMPRESSION: No obstruction or evidence for contrast leak from the bowel lumen. Scattered postsurgic al- inflammatory changes - free fluid. 2 drainage catheters are present in the left upper and left l ower quadrants. TECHNICAL DOCUMENTATION: JOB ID: [id number] [id number] Quality ID # [id number]: Final reports with documentation of one or more dose reduction techniques (e.g., Au tomated exposure control, adjustment of the mA and/or kV according to patient size, use of iterative reconstruction technique) 2010 [employer]- All Rights Reserved Reading location - IP/workstation name: [email or web address]
[2019-04-04] MEDS: HYDROCORTISONE SOD SUCCINATE INJ/PF 100 MG/2 ML SDV IV SCH (13:26)
[2019-04-04] MEDS: OCTREOTIDE ACETATE INJ/PF 100 MCG/1 ML SDV IV SCH ×2 (15:57→22:17)
[2019-04-04] MEDS: LORAZEPAM INJ 2 MG/1 ML VIAL IV PRN (22:17)
--- NOTE | 2019-04-04 23:04 | PDOC PROGRESS REPORT ---
Subjective Progress Note for:: 04/04/19 Subjective:: The patient is disconcerted. She has been made n.p.o. due to bile drainage from 1 of her Kobe-Pugh drains. There is concern for a leak. Reason For Visit: ABDOMINAL ABSCESS, PERFORATED VISCUS Physical Exam Vital Signs: Temp Pulse Resp BP Pulse Ox 98.7 F 74 16 147/89 H 95 04/04/19 16:00 04/04/19 18:01 04/04/19 16:00 04/04/19 18:01 04/04/19 16:00 Intake & Output 04/03/19 04/04/19 04/05/19 06:59 06:59 06:59 Intake Total 3211 3333 1630 Output Total 60 80 Balance 3151 3253 1630 Weight 99 kg 91.4 kg General appearance: PRESENT: cooperative, mild distress, well-developed Head exam: PRESENT: atraumatic, normocephalic Ear exam: PRESENT: normal external ear exam Mouth exam: PRESENT: moist, tongue midline Teeth exam: PRESENT: poor dentation Respiratory exam: PRESENT: clear to auscultation jack, symmetrical, unlabored. ABSENT: rales, rhonchi, tachypnea, wheezes Cardiovascular exam: PRESENT: RRR, +S1, +S2 GI/Abdominal exam: PRESENT: distended - Slightly distended, normal bowel sounds, soft, other - Bile tinged liquid in 1 of the RODO drain collections.. ABSENT: tenderness Rectal exam: PRESENT: deferred Extremities exam: ABSENT: calf tenderness, joint swelling, pedal edema Musculoskeletal exam: PRESENT: ambulatory, normal inspection Neurological exam: PRESENT: alert, awake, oriented to person, oriented to place, oriented to time, oriented to situation, CN II-XII grossly intact, motor sensory deficit Psychiatric exam: PRESENT: flat affect. ABSENT: agitated, anxious Focused psych exam: ABSENT: delusional, restlessness Results Laboratory Results: 04/04/19 06:37 04/04/19 06:37 04/04/19 04/04/19 06:37 06:37 WBC 21.1 H RBC 2.71 L Hgb 8.2 L Hct 24.7 L MCV 91 MCH 30.2 MCHC 33.3 RDW 15.6 H Plt Count 1222 H* Seg Neutrophils % Not Reportable Lymphocytes % Not Reportable Monocytes % Not Reportable Eosinophils % Not Reportable Basophils % Not Reportable Absolute Neutrophils Not Reportable Absolute Lymphocytes Not Reportable Absolute Monocytes Not Reportable Absolute Eosinophils Not Reportable Absolute Basophils Not Reportable Sodium 142.4 Potassium 3.3 L Chloride 106 Carbon Dioxide 26 Anion Gap 10 BUN < 2 L Creatinine 0.34 L Est GFR ( Amer) > 60 Est GFR (Non-Af Amer) > 60 Glucose 105 Calcium 8.2 L 03/30/19 14:20 Blood Blood Culture - Final NO GROWTH IN 5 DAYS 03/30/19 15:35 Blood Blood Culture - Final NO GROWTH IN 5 DAYS Impressions: Chest X-Ray 03/25/19 18:26 IMPRESSION: No pneumothorax. Patchy airspace opacities are present throughout the right lung base as well as left medial lung base. No significant pleural effusion.Left hilar fullness.Endotracheal tube tip overlies the lower trachea approximately 4.6 cm above the level of the aliyah. Nasogastric catheter tube is present with tip overlying the body of the stomach. Right IJ central venous catheter is present with tip overlying the SVC below the aliyah level. Abdomen/Pelvis CT 04/04/19 00:00 IMPRESSION: No obstruction or evidence for contrast leak from the bowel lumen. Scattered postsurgical- inflammatory changes - free fluid. 2 drainage catheters are present in the left upper and left lower quadrants. Assessment and Plan - Diagnosis (1) Gram-negative bacteremia Is this a current diagnosis for this admission?: Yes Plan: Resolved. She has several more days of Zosyn therapy for the intra-abdominal infection. (2) Sepsis Qualifiers: Sepsis type: sepsis due to unspecified organism Qualified Code(s): A41.9 - Sepsis, unspecified organism Is this a current diagnosis for this admission?: Yes Plan: Resolved (3) Intra-abdominal abscess post-procedure Is this a current diagnosis for this admission?: Yes Plan: As noted above the concern by surgery was the bile tinged fluid in [address]O dra[address] scan was ordered. There is no evidence of contrast leak noted on CT scan. Please see the note from Dr. Burch for greater detail. (4) Nausea and vomiting Qualifiers: Vomiting type: unspecified Vomiting Intractability: non-intractable Qualified Code(s): R11.2 - Nausea with vomiting, unspecified Is this a current diagnosis for this admission?: Yes Plan: Frustrated that she is unable to eat. She does not report any increased nausea or vomiting. Nasogastric tube remains out. (5) Hypokalemia Is this a current diagnosis for this admission?: Yes Plan: I was hoping that her oral diet would be adequate to replace her potassium. She was still slightly low today. IV potassium ordered. Continue to monitor electrolytes. (6) Anemia Qualifiers: Anemia type: unspecified type Qualified Code(s): D64.9 - Anemia, unspecified Is this a current diagnosis for this admission?: Yes Plan: Hemoglobin is slightly lower today but remains above 8.0. I did ask hematology to see the patient. Continue to monitor hemoglobin at this time. (7) Rheumatoid arthritis Qualifiers: Rheumatoid arthritis location: hand Laterality: bilateral Is this a current diagnosis for this admission?: Yes Plan: We will continue current steroid dosing. If it is felt that the steroid dose needs to be decreased to either improve healing or decrease the effect on bone marrow we will do so. The patient does have chronic pain issues because of her rheumatoid arthritis. We will need to adjust her medications if that is the case. (8) Immunosuppression due to drug therapy Is this a current diagnosis for this admission?: Yes Plan: This creates high risk for infection. Continue to monitor closely. (9) Essential hypertension Is this a current diagnosis for this admission?: Yes Plan: If patient resumes oral diet tomorrow we will get her back on her oral med ications. If not I will need to increase her IV enalapril. (10) Chronic pain Qualifiers: Chronic pain type: chronic pain syndrome Qualified Code(s): G89.4 - Chronic pain syndrome Is this a current diagnosis for this admission?: Yes Plan: Patient is tolerating her pain with her current regimen. Adjust as clinically required. (11) Obesity (BMI 30-39.9) Is this a current diagnosis for this admission?: Yes Plan: Some of her obesity is likely due to chronic steroid therapy. She is likely lost weight from this hospitalization. Encourage healthy diet as well as initiating an exercise program. Her rheumatoid arthritis will certainly be a limiting factor. (12) Leukocytosis Qualifiers: Leukocytosis type: leukemoid reaction Qualified Code(s): D72.823 - Leukemoid reaction Is this a current diagnosis for this admission?: Yes Plan: White blood cell count still greater than 20,000. Please see hematology note as well. (13) Thrombocytosis Is this a current diagnosis for this admission?: Yes Plan: The count is now 1200. During the discussion today the patient said that she has had problems with high platelet counts in the past. Hematology has seen the patient as well. - Time Time Spent with patient: 15-24 minutes Medications reviewed and adjusted accordingly: Yes
[2019-04-04] MEDS ORDERED: POTASSI CL 20 MEQ/50 ML RIDER 20 MEQ/50 ML RTUPB IV ONE (23:30)
[2019-04-05] MEDS: HYDROMORPHONE HCL INJ/PF 2 MG/ML AMPULE IV PRN ×10 (02:38→22:33)
[2019-04-05] MEDS: ENALAPRILAT DIHYDRATE INJ/PF 1.25 MG/1 ML SDV IV SCH ×3 (05:08→17:20)
[2019-04-05] MEDS: OCTREOTIDE ACETATE INJ/PF 100 MCG/1 ML SDV IV SCH ×3 (05:09→22:33)
[2019-04-05] MEDS: RINGERS SOLUTION,LACTATED 1,000 ML IV PRN ×2 (05:09→18:44)
[2019-04-05] MEDS: PIPERACILLIN SODIUM/TAZOBACTAM 3.375 GM in NORMAL SALINE 100 ML IV SCH ×3 (05:09→17:19)
[2019-04-05] MEDS: METOCLOPRAMIDE HCL INJ/PF 10 MG/2 ML SDV IV SCH ×3 (05:09→17:20)
--- NOTE | 2019-04-05 08:14 | PDOC PROGRESS REPORT ---
Subjective Progress Note for:: 04/05/19 Reason For Visit: ABDOMINAL ABSCESS, PERFORATED VISCUS Physical Exam Vital Signs: Temp Pulse Resp BP Pulse Ox 98.2 F 99 16 166/85 H 96 04/05/19 05:07 04/05/19 05:07 04/05/19 05:07 04/05/19 05:08 04/05/19 05:07 Intake & Output 04/04/19 04/05/19 04/06/19 06:59 06:59 06:59 Intake Total 3333 2913 Output Total 80 90 Balance 3253 2823 Weight 91.4 kg 93.9 kg General appearance: PRESENT: no acute distress Head exam: PRESENT: normocephalic Eye exam: PRESENT: EOMI Mouth exam: PRESENT: moist Neck exam: PRESENT: full ROM Respiratory exam: PRESENT: clear to auscultation jack Cardiovascular exam: PRESENT: RRR Vascular exam: PRESENT: normal capillary refill GI/Abdominal exam: PRESENT: soft, other - asad's with min op Rectal exam: PRESENT: deferred Extremities exam: PRESENT: full ROM Musculoskeletal exam: PRESENT: full ROM Neurological exam: PRESENT: alert, awake, oriented to person, oriented to place Psychiatric exam: PRESENT: appropriate affect Skin exam: PRESENT: dry Results Laboratory Results: 04/04/19 06:37 04/04/19 06:37 04/04/19 06:37 WBC 21.1 H RBC 2.71 L Hgb 8.2 L Hct 24.7 L MCV 91 MCH 30.2 MCHC 33.3 RDW 15.6 H Plt Count 1222 H* Seg Neutrophils % Not Reportable Lymphocytes % Not Reportable Monocytes % Not Reportable Eosinophils % Not Reportable Basophils % Not Reportable Absolute Neutrophils Not Reportable Absolute Lymphocytes Not Reportable Absolute Monocytes Not Reportable Absolute Eosinophils Not Reportable Absolute Basophils Not Reportable 03/30/19 14:20 Blood Blood Culture - Final NO GROWTH IN 5 DAYS 03/30/19 15:35 Blood Blood Culture - Final NO GROWTH IN 5 DAYS Impressions: Chest X-Ray 03/25/19 18:26 IMPRESSION: No pneumothorax. Patchy airspace opacities are present throughout the right lung base as well as left medial lung base. No significant pleural effusion.Left hilar fullness.Endotracheal tube tip overlies the lower trachea approximately 4.6 cm above the level of the aliyah. Nasogastric catheter tube is present with tip overlying the body of the stomach. Right IJ central venous catheter is present with tip overlying the SVC below the aliyah level. Abdomen/Pelvis CT 04/04/19 00:00 IMPRESSION: No obstruction or evidence for contrast leak from the bowel lumen. Scattered postsurgical- inflammatory changes - free fluid. 2 drainage catheters are present in the left upper and left lower quadrants. Assessment & Plan - Diagnosis (1) Intra-abdominal abscess post-procedure Is this a current diagnosis for this admission?: Yes - Plan Summary Plan Summary: ct yesterday with gastrografin did not show a leak or fluid collection pt started on ocetreotide and made npo yesterday when bilious output from upper drain noted today min if any drainage pt afeb vss passing stool and flatus plan will restart po clears.
[2019-04-05] MEDS: FAMOTIDINE INJ/PF 20 MG/2 ML SDV IV SCH ×2 (09:16→22:33)
[2019-04-05] MEDS: ASPIRIN 325 MG TABLET PO SCH (09:16)
--- NOTE | 2019-04-05 11:01 | PDOC PROGRESS REPORT ---
Subjective Progress Note for:: 04/05/19 Subjective:: No acute events overnight Reason For Visit: ABDOMINAL ABSCESS, PERFORATED VISCUS Physical Exam Vital Signs: Temp Pulse Resp BP Pulse Ox 98.3 F 100 16 143/81 H 97 04/05/19 08:06 04/05/19 08:06 04/05/19 08:06 04/05/19 08:06 04/05/19 08:06 Intake & Output 04/04/19 04/05/19 04/06/19 06:59 06:59 06:59 Intake Total 3333 2913 Output Total 80 90 Balance 3253 2823 Weight 91.4 kg 93.9 kg General appearance: PRESENT: no acute distress, well-developed, well-nourished Head exam: PRESENT: atraumatic, normocephalic Eye exam: PRESENT: conjunctiva pink, EOMI, PERRLA. ABSENT: scleral icterus Ear exam: PRESENT: normal external ear exam Mouth exam: PRESENT: moist, tongue midline Neck exam: ABSENT: carotid bruit, JVD, lymphadenopathy, thyromegaly Respiratory exam: PRESENT: clear to auscultation jack. ABSENT: rales, rhonchi, wheezes Cardiovascular exam: PRESENT: RRR. ABSENT: diastolic murmur, rubs, systolic murmur Pulses: PRESENT: normal dorsalis pedis pul Vascular exam: PRESENT: normal capillary refill GI/Abdominal exam: PRESENT: normal bowel sounds, soft. ABSENT: distended, guarding, mass, organolmegaly, rebound, tenderness Rectal exam: PRESENT: deferred Extremities exam: PRESENT: full ROM. ABSENT: calf tenderness, clubbing, pedal edema Neurological exam: PRESENT: alert, awake, oriented to person, oriented to place, oriented to time, oriented to situation, CN II-XII grossly intact. ABSENT: motor sensory deficit Psychiatric exam: PRESENT: appropriate affect, normal mood. ABSENT: homicidal ideation, suicidal ideation Skin exam: PRESENT: dry, intact, warm. ABSENT: cyanosis, rash Results Laboratory Results: 04/04/19 06:37 04/04/19 06:37 03/30/19 14:20 Blood Blood Culture - Final NO GROWTH IN 5 DAYS 03/30/19 15:35 Blood Blood Culture - Final NO GROWTH IN 5 DAYS Impressions: Chest X-Ray 03/25/19 18:26 IMPRESSION: No pneumothorax. Patchy airspace opacities are present throughout the right lung base as well as left medial lung base. No significant pleural effusion.Left hilar fullness.Endotracheal tube tip overlies the lower trachea approximately 4.6 cm above the level of the aliyah. Nasogastric catheter tube is present with tip overlying the body of the stomach. Right IJ central venous catheter is present with tip overlying the SVC below the aliyah level. Abdomen/Pelvis CT 04/04/19 00:00 IMPRESSION: No obstruction or evidence for contrast leak from the bowel lumen. Scattered postsurgical- inflammatory changes - free fluid. 2 drainage catheters are present in the left upper and left lower quadrants. 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
[2019-04-05] MEDS: HYDROCORTISONE SOD SUCCINATE INJ/PF 100 MG/2 ML SDV IV SCH (13:04)
[2019-04-05 13:58] LABS: ANION GAP 9 (5-19); BLOOD UREA NITROGEN 2 mg/dL (7-20); CALCIUM 8.6 mg/dL (8.4-10.2); CARBON DIOXIDE 26 mmol/L (22-30); CHLORIDE 105 mmol/L (98-107); GLUCOSE 134 mg/dL (75-110); POTASSIUM 3.4 mmol/L (3.6-5.0); SODIUM 139.9 mmol/L (137-145)
--- NOTE | 2019-04-05 20:02 | PDOC PROGRESS REPORT ---
Subjective Progress Note for:: 04/05/19 Subjective:: Was n.p.o. for CT scan yesterday. No bowel leak noted. The patient will be back on clear liquids. Consider resuming some of her oral medications. Reason For Visit: ABDOMINAL ABSCESS, PERFORATED VISCUS Physical Exam Vital Signs: Temp Pulse Resp BP Pulse Ox 98.3 F 100 16 143/81 H 97 04/05/19 08:06 04/05/19 08:06 04/05/19 08:06 04/05/19 08:06 04/05/19 08:06 Intake & Output 04/04/19 04/05/19 04/06/19 06:59 06:59 06:59 Intake Total 3333 2913 100 Output Total 80 90 Balance 3253 2823 100 Weight 91.4 kg 93.9 kg General appearance: PRESENT: cooperative, mild distress, well-developed Head exam: PRESENT: atraumatic, normocephalic Mouth exam: PRESENT: moist, tongue midline Teeth exam: PRESENT: poor dentation Respiratory exam: PRESENT: clear to auscultation jack, symmetrical, unlabored. ABSENT: rales, rhonchi, tachypnea, wheezes Cardiovascular exam: PRESENT: RRR, +S1, +S2 GI/Abdominal exam: PRESENT: normal bowel sounds, soft, tenderness, other - [address] ABSENT: distended Rectal exam: PRESENT: deferred Extremities exam: ABSENT: pedal edema Neurological exam: PRESENT: alert, awake, oriented to person, oriented to place, oriented to time, oriented to situation, CN II-XII grossly intact. ABSENT: motor sensory deficit Psychiatric exam: PRESENT: flat affect. ABSENT: agitated, anxious Focused psych exam: ABSENT: delusional, restlessness Results Laboratory Results: 04/04/19 06:37 04/04/19 06:37 03/30/19 14:20 Blood Blood Culture - Final NO GROWTH IN 5 DAYS 03/30/19 15:35 Blood Blood Culture - Final NO GROWTH IN 5 DAYS Impressions: Chest X-Ray 03/25/19 18:26 IMPRESSION: No pneumothorax. Patchy airspace opacities are present throughout the right lung base as well as left medial lung base. No significant pleural effusion.Left hilar fullness.Endotracheal tube tip overlies the lower trachea approximately 4.6 cm above the level of the aliyah. Nasogastric catheter tube is present with tip overlying the body of the stomach. Right IJ central venous catheter is present with tip overlying the SVC below the aliyah level. Abdomen/Pelvis CT 04/04/19 00:00 IMPRESSION: No obstruction or evidence for contrast leak from the bowel lumen. Scattered postsurgical- inflammatory changes - free fluid. 2 drainage catheters are present in the left upper and left lower quadrants. Assessment and Plan - Diagnosis (1) Gram-negative bacteremia Is this a current diagnosis for this admission?: Yes Plan: Resolved. She has several more days of Zosyn therapy for the intra-abdominal infection. (2) Sepsis Qualifiers: Sepsis type: sepsis due to unspecified organism Qualified Code(s): A41.9 - Sepsis, unspecified organism Is this a current diagnosis for this admission?: Yes Plan: Resolved (3) Intra-abdominal abscess post-procedure Is this a current diagnosis for this admission?: Yes Plan: 1 of the surgical drains had bilious drainage. There is concern for anastomotic leak. CT scan showed no leak of oral contrast. The patient will return to clear liquid diet. (4) Nausea and vomiting Qualifiers: Vomiting type: unspecified Vomiting Intractability: non-intractable Qualified Code(s): R11.2 - Nausea with vomiting, unspecified Is this a current diagnosis for this admission?: Yes Plan: Resolved (5) Hypokalemia Is this a current diagnosis for this admission?: Yes Plan: Still with marginal potassium. I have added oral potassium now that she is back on oral diet (6) Anemia Qualifiers: Anemia type: unspecified type Qualified Code(s): D64.9 - Anemia, unspecified Is this a current diagnosis for this admission?: Yes Plan: Please also see hematology note. The hemoglobin is trickling down again. Defer to hematology for treatment specifics. (7) Rheumatoid arthritis Qualifiers: Rheumatoid arthritis location: hand Laterality: bilateral Is this a current diagnosis for this admission?: Yes Plan: Continue steroids. They do impair healing however she has severe rheumatoid arthritis. Eventually change IV to oral steroids. (8) Immunosuppression due to drug therapy Is this a current diagnosis for this admission?: Yes Plan: Monitor for infection (9) Essential hypertension Is this a current diagnosis for this admission?: Yes Plan: We will resume her enalapril. I will dose her at 20 mg twice daily and discontinue the IV enalapril. (10) Chronic pain Qualifiers: Chronic pain type: chronic pain syndrome Qualified Code(s): G89.4 - Chronic pain syndrome Is this a current diagnosis for this admission?: Yes Plan: Continue current pain management regimen. Consider resuming her methadone at a smaller dose. (11) Obesity (BMI 30-39.9) Is this a current diagnosis for this admission?: Yes Plan: Some of her obesity is likely due to chronic steroid therapy. She is likely lost weight from this hospitalization. Encourage healthy diet as well as initiating an exercise program. Her rheumatoid arthritis will certainly be a limiting factor. (12) Leukocytosis Qualifiers: Leukocytosis type: leukemoid reaction Qualified Code(s): D72.823 - Leukemoid reaction Is this a current diagnosis for this admission?: Yes Plan: Hematology has been consulted. Continue to monitor. (13) Thrombocytosis Is this a current diagnosis for this admission?: Yes Plan: Please see hematology consult. The patient reports that she has had thromb ocytosis in the past. She has never had any clotting issues because of it. Continue to monitor. - Time Time Spent with patient: 25-34 minutes Medications reviewed and adjusted accordingly: Yes
[2019-04-05] MEDS: HYDRALAZINE HCL INJ/PF 20 MG/1 ML SDV IV PRN (20:42)
[2019-04-05] MEDS: ENALAPRIL MALEATE 10 MG TABLET PO SCH (22:34)
[2019-04-05] MEDS: POTASSIUM CHLORIDE 10 MEQ CAPSULE.ER PO SCH (22:34)
[2019-04-05] MEDS: LORAZEPAM INJ 2 MG/1 ML VIAL IV PRN (22:36)
[2019-04-06] MEDS: METOCLOPRAMIDE HCL INJ/PF 10 MG/2 ML SDV IV SCH ×4 (00:40→17:18)
[2019-04-06] MEDS: PIPERACILLIN SODIUM/TAZOBACTAM 3.375 GM in NORMAL SALINE 100 ML IV SCH ×4 (00:40→17:18)
[2019-04-06] MEDS: HYDROMORPHONE HCL INJ/PF 2 MG/ML AMPULE IV PRN ×5 (00:40→17:53)
[2019-04-06] MEDS: OCTREOTIDE ACETATE INJ/PF 100 MCG/1 ML SDV IV SCH ×3 (05:17→22:24)
--- NOTE | 2019-04-06 07:47 | PDOC PROGRESS REPORT ---
Subjective Progress Note for:: 04/06/19 Subjective:: feels better passing stool Reason For Visit: ABDOMINAL ABSCESS, PERFORATED VISCUS Physical Exam Vital Signs: Temp Pulse Resp BP Pulse Ox 98.3 F 103 H 17 149/87 H 96 04/06/19 04:00 04/06/19 04:00 04/06/19 04:00 04/06/19 04:00 04/06/19 04:00 Intake & Output 04/05/19 04/06/19 04/07/19 06:59 06:59 06:59 Intake Total 2913 2200 Output Total 90 15 Balance 2823 2185 Weight 93.9 kg 93.9 kg General appearance: PRESENT: no acute distress Head exam: PRESENT: normocephalic Mouth exam: PRESENT: moist Neck exam: PRESENT: full ROM Respiratory exam: PRESENT: clear to auscultation jack Cardiovascular exam: PRESENT: RRR Pulses: PRESENT: normal radial pulses, normal femoral pulses GI/Abdominal exam: PRESENT: soft - asad's with min op Rectal exam: PRESENT: deferred Extremities exam: PRESENT: full ROM Musculoskeletal exam: PRESENT: full ROM Neurological exam: PRESENT: alert, awake, oriented to person, oriented to place Psychiatric exam: PRESENT: appropriate affect Skin exam: PRESENT: dry Results Laboratory Results: 04/04/19 06:37 04/05/19 13:50 04/05/19 04/05/19 12:58 13:50 Sodium Cancelled 139.9 Potassium Cancelled 3.4 L Chloride Cancelled 105 Carbon Dioxide Cancelled 26 Anion Gap Cancelled 9 BUN Cancelled 2 L Creatinine Cancelled 0.40 L Est GFR ( Amer) Cancelled > 60 Est GFR (Non-Af Amer) Cancelled > 60 Glucose Cancelled 134 H Calcium Cancelled 8.6 03/29/19 04:10 Blood Blood Culture - Final NO GROWTH IN 5 DAYS Impressions: Chest X-Ray 03/25/19 18:26 IMPRESSION: No pneumothorax. Patchy airspace opacities are present throughout the right lung base as well as left medial lung base. No significant pleural effusion.Left hilar fullness.Endotracheal tube tip overlies the lower trachea approximately 4.6 cm above the level of the aliyah. Nasogastric catheter tube is present with tip overlying the body of the stomach. Right IJ central venous catheter is present with tip overlying the SVC below the aliyah level. Abdomen/Pelvis CT 04/04/19 00:00 IMPRESSION: No obstruction or evidence for contrast leak from the bowel lumen. Scattered postsurgical- inflammatory changes - free fluid. 2 drainage catheters are present in the left upper and left lower quadrants. Assessment & Plan - Diagnosis (1) Intra-abdominal abscess post-procedure Is this a current diagnosis for this admission?: Yes - Plan Summary Plan Summary: doing well on po clears passsing stool asad's with min op will advance diet
[2019-04-06 08:30] LABS: ABSOLUTE BASOPHILS # (AUTO) 0.1 10^3/uL (0.0-0.2); ABSOLUTE EOSINOPHILS # (AUTO) 0.2 10^3/uL (0.0-0.6); ABSOLUTE LYMPHOCYTES (AUTO) 5.5 10^3/uL (0.5-4.7); ABSOLUTE MONOCYTES (AUTO) 1.4 10^3/uL (0.1-1.4); ABSOLUTE NEUT (AUTO) 12.4 10^3/uL (1.7-8.2); BASOPHILS % (AUTO) 0.3 % (0-2); HEMATOCRIT 25.9 % (36.0-47.0); HEMOGLOBIN 8.4 g/dL (12.0-15.5); LYMPHOCYTES % (AUTO) 28.1 % (13-45); MEAN CORPUSCULAR HEMOGLOBIN 29.5 pg (27.0-33.4); MEAN CORPUSCULAR HGB CONC 32.4 g/dL (32.0-36.0); MEAN CORPUSCULAR VOLUME 91 fl (80-97); RED BLOOD COUNT 2.85 10^6/uL (3.72-5.28); RED CELL DISTRIBUTION WIDTH 15.5 % (11.5-14.0); SEGMENTED NEUTROPHILS % (AUTO) 63.6 % (42-78); TOTAL CELLS COUNTED % (AUTO) 100 %; WHITE BLOOD COUNT 19.6 10^3/uL (4.0-10.5)
[2019-04-06] MEDS: RINGERS SOLUTION,LACTATED 1,000 ML IV PRN ×2 (08:40→22:21)
[2019-04-06 08:42] LABS: ANION GAP 11 (5-19); CALCIUM 8.7 mg/dL (8.4-10.2); CARBON DIOXIDE 24 mmol/L (22-30); CHLORIDE 106 mmol/L (98-107); GLUCOSE 141 mg/dL (75-110); POTASSIUM 3.7 mmol/L (3.6-5.0); SODIUM 141.1 mmol/L (137-145)
[2019-04-06 08:43] LABS: BLOOD UREA NITROGEN < 2 mg/dL (7-20)
[2019-04-06 08:53] LABS: PLATELET COUNT 1398 10^3/uL (150-450)
[2019-04-06] MEDS: ENALAPRIL MALEATE 10 MG TABLET PO SCH ×2 (10:08→22:22)
[2019-04-06] MEDS: ASPIRIN 325 MG TABLET PO SCH (10:08)
[2019-04-06] MEDS: POTASSIUM CHLORIDE 10 MEQ CAPSULE.ER PO SCH ×2 (10:08→22:21)
[2019-04-06] MEDS: FAMOTIDINE INJ/PF 20 MG/2 ML SDV IV SCH ×2 (10:09→22:20)
[2019-04-06] MEDS ORDERED: METHADONE HCL 1 MG/ML 30 ML BOTTLE PO SCH (10:15)
[2019-04-06] MEDS ORDERED: METHADONE HCL 10 MG TABLET PO SCH (11:00)
[2019-04-06] MEDS: METHADONE HCL 10 MG TABLET PO SCH ×2 (12:02→22:21)
[2019-04-06] MEDS: HYDROCORTISONE SOD SUCCINATE INJ/PF 100 MG/2 ML SDV IV SCH (14:26)
--- NOTE | 2019-04-06 19:14 | PDOC PROGRESS REPORT ---
Subjective Progress Note for:: 04/06/19 Subjective:: This is 43 years old female patient with past medical history of rheumatoid arthritis, hypertension and steroid-dependent presented with chief complaint of abdominal pain. Of note patient had had cholecystectomy on March 20. CT of the abdomen is positive for free intraperitoneal air and and abscess. Patient taken to the OR by Dr. Lima who performed emergent laparotomy, extended right hemicolectomy and ileostomy. Reason For Visit: ABDOMINAL ABSCESS, PERFORATED VISCUS Physical Exam Vital Signs: Temp Pulse Resp BP Pulse Ox 98.6 F 89 16 147/87 H 98 04/06/19 16:25 04/06/19 16:25 04/06/19 16:25 04/06/19 16:25 04/06/19 16:25 Intake & Output 04/05/19 04/06/19 04/07/19 06:59 06:59 06:59 Intake Total 2913 2200 1720 Output Total 90 15 Balance 2823 2185 1720 Weight 93.9 kg 93.9 kg General appearance: PRESENT: no acute distress Head exam: PRESENT: atraumatic Mouth exam: PRESENT: dry mucosa Teeth exam: PRESENT: dental caries Neck exam: ABSENT: carotid bruit, JVD, lymphadenopathy, thyromegaly Respiratory exam: PRESENT: clear to auscultation jack. ABSENT: rales, rhonchi, wheezes Cardiovascular exam: PRESENT: RRR. ABSENT: diastolic murmur, rubs, systolic murmur GI/Abdominal exam: PRESENT: normal bowel sounds, soft. ABSENT: distended, guarding, mass, organolmegaly, rebound, tenderness Neurological exam: PRESENT: alert, awake, oriented to time, oriented to situation Results Laboratory Results: 04/06/19 07:57 04/06/19 07:57 04/06/19 04/06/19 07:57 07:57 WBC 19.6 H RBC 2.85 L Hgb 8.4 L Hct 25.9 L MCV 91 MCH 29.5 MCHC 32.4 RDW 15.5 H Plt Count 1398 H* Seg Neutrophils % 63.6 Lymphocytes % 28.1 Monocytes % 7.0 Eosinophils % 1.0 Basophils % 0.3 Absolute Neutrophils 12.4 H Absolute Lymphocytes 5.5 H Absolute Monocytes 1.4 Absolute Eosinophils 0.2 Absolute Basophils 0.1 Sodium 141.1 Potassium 3.7 Chloride 106 Carbon Dioxide 24 Anion Gap 11 BUN < 2 L Creatinine 0.40 L Est GFR ( Amer) > 60 Est GFR (Non-Af Amer) > 60 Glucose 141 H Calcium 8.7 03/30/19 15:35 Blood Blood Culture - Final NO GROWTH IN 5 DAYS Impressions: Chest X-Ray 03/25/19 18:26 IMPRESSION: No pneumothorax. Patchy airspace opacities are present throughout the right lung base as well as left medial lung base. No significant pleural effusion.Left hilar fullness.Endotracheal tube tip overlies the lower trachea approximately 4.6 cm above the level of the aliyah. Nasogastric catheter tube is present with tip overlying the body of the stomach. Right IJ central venous catheter is present with tip overlying the SVC below the aliyah level. Abdomen/Pelvis CT 04/04/19 00:00 IMPRESSION: No obstruction or evidence for contrast leak from the bowel lumen. Scattered postsurgical- inflammatory changes - free fluid. 2 drainage catheters are present in the left upper and left lower quadrants. Assessment and Plan - Diagnosis (1) Sepsis Is this a current diagnosis for this admission?: Yes Plan: Evidence of by leukocytosis and tachycardia and wound culture positive for multiple organisms. Patient has been on Zosyn. (2) Peritonitis and intra-abdominal abscess Is this a current diagnosis for this admission?: Yes Plan: Patient is status post extended right hemicolectomy and ileostomy. She has also abdominal lotion with use of normal saline. (3) Perforation of the transverse colon Is this a current diagnosis for this admission?: Yes Plan: Status post colectomy and ileostomy. (4) Steroid dependent Is this a current diagnosis for this admission?: Yes Plan: Patient has been on Solu-Cortef. (5) Rheumatoid arthritis Is this a current diagnosis for this admission?: Yes Plan: Continue steroid (6) Hypertension Qualifiers: Hypertension type: essential hypertension Qualified Code(s): I10 - Essential (primary) hypertension Is this a current diagnosis for this admission?: Yes Plan: Continue current regimen
[2019-04-06] MEDS: LORAZEPAM INJ 2 MG/1 ML VIAL IV PRN (22:20)
[2019-04-07] MEDS: PIPERACILLIN SODIUM/TAZOBACTAM 3.375 GM in NORMAL SALINE 100 ML IV SCH (00:19)
[2019-04-07] MEDS: METOCLOPRAMIDE HCL INJ/PF 10 MG/2 ML SDV IV SCH ×5 (00:19→23:22)
[2019-04-07] MEDS: HYDROMORPHONE HCL INJ/PF 2 MG/ML AMPULE IV PRN (05:43)
[2019-04-07] MEDS: OCTREOTIDE ACETATE INJ/PF 100 MCG/1 ML SDV IV SCH ×3 (05:48→21:27)
--- NOTE | 2019-04-07 07:40 | PDOC PROGRESS REPORT ---
Subjective Progress Note for:: 04/07/19 Subjective:: No acute events overnight Reason For Visit: ABDOMINAL ABSCESS, PERFORATED VISCUS Physical Exam Vital Signs: Temp Pulse Resp BP Pulse Ox 98.8 F 99 16 127/77 H 95 04/07/19 00:00 04/07/19 02:00 04/07/19 00:00 04/07/19 00:00 04/07/19 00:00 Intake & Output 04/06/19 04/07/19 04/08/19 06:59 06:59 06:59 Intake Total 2200 2920 Output Total 15 31 Balance 2185 2889 Weight 93.9 kg 93.1 kg General appearance: PRESENT: no acute distress, well-developed, well-nourished Head exam: PRESENT: atraumatic, normocephalic Eye exam: PRESENT: conjunctiva pink, EOMI, PERRLA. ABSENT: scleral icterus Ear exam: PRESENT: normal external ear exam Mouth exam: PRESENT: moist, tongue midline Neck exam: ABSENT: carotid bruit, JVD, lymphadenopathy, thyromegaly Respiratory exam: PRESENT: clear to auscultation jack. ABSENT: rales, rhonchi, wheezes Cardiovascular exam: PRESENT: RRR. ABSENT: diastolic murmur, rubs, systolic murmur Pulses: PRESENT: normal dorsalis pedis pul Vascular exam: PRESENT: normal capillary refill GI/Abdominal exam: PRESENT: normal bowel sounds, soft. ABSENT: distended, guarding, mass, organolmegaly, rebound, tenderness Rectal exam: PRESENT: deferred Extremities exam: PRESENT: full ROM. ABSENT: calf tenderness, clubbing, pedal edema Neurological exam: PRESENT: alert, awake, oriented to person, oriented to place, oriented to time, oriented to situation, CN II-XII grossly intact. ABSENT: motor sensory deficit Psychiatric exam: PRESENT: appropriate affect, normal mood. ABSENT: homicidal ideation, suicidal ideation Skin exam: PRESENT: dry, intact, warm. ABSENT: cyanosis, rash Results Laboratory Results: 04/06/19 07:57 04/06/19 07:57 04/06/19 04/06/19 07:57 07:57 WBC 19.6 H RBC 2.85 L Hgb 8.4 L Hct 25.9 L MCV 91 MCH 29.5 MCHC 32.4 RDW 15.5 H Plt Count 1398 H* Seg Neutrophils % 63.6 Lymphocytes % 28.1 Monocytes % 7.0 Eosinophils % 1.0 Basophils % 0.3 Absolute Neutrophils 12.4 H Absolute Lymphocytes 5.5 H Absolute Monocytes 1.4 Absolute Eosinophils 0.2 Absolute Basophils 0.1 Sodium 141.1 Potassium 3.7 Chloride 106 Carbon Dioxide 24 Anion Gap 11 BUN < 2 L Creatinine 0.40 L Est GFR ( Amer) > 60 Est GFR (Non-Af Amer) > 60 Glucose 141 H Calcium 8.7 03/30/19 15:35 Blood Blood Culture - Final NO GROWTH IN 5 DAYS Impressions: Chest X-Ray 03/25/19 18:26 IMPRESSION: No pneumothorax. Patchy airspace opacities are present throughout the right lung base as well as left medial lung base. No significant pleural effusion.Left hilar fullness.Endotracheal tube tip overlies the lower trachea approximately 4.6 cm above the level of the aliyah. Nasogastric catheter tube is present with tip overlying the body of the stomach. Right IJ central venous catheter is present with tip overlying the SVC below the aliyah level. Abdomen/Pelvis CT 04/04/19 00:00 IMPRESSION: No obstruction or evidence for contrast leak from the bowel lumen. Scattered postsurgical- inflammatory changes - free fluid. 2 drainage catheters are present in the left upper and left lower quadrants. Assessment & Plan - Diagnosis (1) Leukocytosis Qualifiers: Leukocytosis type: leukemoid reaction Qualified Code(s): D72.823 - Leukemoi d reaction Is this a current diagnosis for this admission?: Yes Plan: Improved now. But even at baseline will probably be 11-20K 2nd to constant inflammatory state w/ RA dx and chronic steroid use. No further heme w/u needed. (2) Thrombocytosis Is this a current diagnosis for this admission?: Yes Plan: Still reactive, but at present no further w/u needed, 2nd to splenectomy and current presentation. But at baseline will likely be 600-700K. Will sign off, please call w/ questions.
[2019-04-07] MEDS: POTASSIUM CHLORIDE 10 MEQ CAPSULE.ER PO SCH ×2 (09:15→21:28)
[2019-04-07] MEDS: ASPIRIN 325 MG TABLET PO SCH (09:15)
[2019-04-07] MEDS: FAMOTIDINE INJ/PF 20 MG/2 ML SDV IV SCH ×2 (09:16→21:28)
[2019-04-07] MEDS: METHADONE HCL 10 MG TABLET PO SCH ×2 (09:16→21:27)
[2019-04-07] MEDS: ENALAPRIL MALEATE 10 MG TABLET PO SCH ×2 (09:16→21:28)
[2019-04-07] MEDS: RINGERS SOLUTION,LACTATED 1,000 ML IV PRN ×2 (09:21→23:23)
[2019-04-07 09:31] LABS: HEMOGLOBIN 8.4 g/dL (12.0-15.5); MEAN CORPUSCULAR HEMOGLOBIN 29.5 pg (27.0-33.4); MEAN CORPUSCULAR HGB CONC 32.4 g/dL (32.0-36.0); MEAN CORPUSCULAR VOLUME 91 fl (80-97); RED BLOOD COUNT 2.85 10^6/uL (3.72-5.28); RED CELL DISTRIBUTION WIDTH 15.6 % (11.5-14.0); WHITE BLOOD COUNT 24.2 10^3/uL (4.0-10.5)
[2019-04-07 09:58] LABS: ANION GAP 10 (5-19); CARBON DIOXIDE 25 mmol/L (22-30); CHLORIDE 104 mmol/L (98-107); GLUCOSE 110 mg/dL (75-110); POTASSIUM 3.9 mmol/L (3.6-5.0); SODIUM 139.2 mmol/L (137-145)
[2019-04-07 10:00] LABS: PLATELET COUNT 1497 10^3/uL (150-450)
[2019-04-07 10:02] LABS: ABSOLUTE LYMPHOCYTES# (MANUAL) 5.1 10^3/uL (0.5-4.7); ABSOLUTE MONOCYTES # (MANUAL) 1.9 10^3/uL (0.1-1.4); ABSOLUTE NEUTROPHILS# (MANUAL) 17.2 10^3/uL (1.7-8.2); BASOPHILS % (MANUAL) 0 % (0-2); BLOOD UREA NITROGEN < 2 mg/dL (7-20); EOSINOPHILS % (MANUAL) 0 % (0-6); LYMPHOCYTES % (MANUAL) 20 % (13-45); MONOCYTES % (MANUAL) 8 % (3-13); NUCLEATED RED BLOOD CELLS 1 /100 WBC (0); SEGMENTED NEUTROPHILS % (MAN) 71 % (42-78); TOTAL CELLS COUNTED 100
[2019-04-07 10:03] LABS: ANISOCYTOSIS SLIGHT; PLATELET COMMENT INCREASED; POLYCHROMASIA SLIGHT; TARGET CELLS SLIGHT
--- NOTE | 2019-04-07 11:53 | PDOC PROGRESS REPORT ---
Subjective Progress Note for:: 04/07/19 Reason For Visit: ABDOMINAL ABSCESS, PERFORATED VISCUS Physical Exam Vital Signs: Temp Pulse Resp BP Pulse Ox 98.1 F 103 H 18 146/85 H 97 04/07/19 08:00 04/07/19 08:00 04/07/19 08:00 04/07/19 08:00 04/07/19 08:00 Intake & Output 04/06/19 04/07/19 04/08/19 06:59 06:59 06:59 Intake Total 2200 2920 880 Output Total 15 31 Balance 2185 2889 880 Weight 93.9 kg 93.1 kg General appearance: PRESENT: no acute distress Head exam: PRESENT: normocephalic Eye exam: PRESENT: EOMI Mouth exam: PRESENT: moist Neck exam: PRESENT: full ROM Respiratory exam: PRESENT: clear to auscultation jack Cardiovascular exam: PRESENT: RRR Pulses: PRESENT: normal radial pulses, normal femoral pulses GI/Abdominal exam: PRESENT: soft, other - asad's with min op Rectal exam: PRESENT: deferred Extremities exam: PRESENT: full ROM Musculoskeletal exam: PRESENT: full ROM Neurological exam: PRESENT: alert, awake, oriented to person, oriented to place Psychiatric exam: PRESENT: appropriate affect Skin exam: PRESENT: dry Results Laboratory Results: 04/07/19 09:06 04/07/19 09:06 04/07/19 04/07/19 09:06 09:06 WBC 24.2 H RBC 2.85 L Hgb 8.4 L Hct 26.0 L MCV 91 MCH 29.5 MCHC 32.4 RDW 15.6 H Plt Count 1497 H* Seg Neutrophils % Not Reportable Lymphocytes % Not Reportable Monocytes % Not Reportable Eosinophils % Not Reportable Basophils % Not Reportable Absolute Neutrophils Not Reportable Absolute Lymphocytes Not Reportable Absolute Monocytes Not Reportable Absolute Eosinophils Not Reportable Absolute Basophils Not Reportable Sodium 139.2 Potassium 3.9 Chloride 104 Carbon Dioxide 25 Anion Gap 10 BUN < 2 L Creatinine 0.32 L Est GFR ( Amer) > 60 Est GFR (Non-Af Amer) > 60 Glucose 110 Calcium 9.0 03/30/19 15:35 Blood Blood Culture - Final NO GROWTH IN 5 DAYS Impressions: Chest X-Ray 03/25/19 18:26 IMPRESSION: No pneumothorax. Patchy airspace opacities are present throughout the right lung base as well as left medial lung base. No significant pleural effusion.Left hilar fullness.Endotracheal tube tip overlies the lower trachea approximately 4.6 cm above the level of the aliyah. Nasogastric catheter tube is present with tip overlying the body of the stomach. Right IJ central venous catheter is present with tip overlying the SVC below the aliyah level. Abdomen/Pelvis CT 04/04/19 00:00 IMPRESSION: No obstruction or evidence for contrast leak from the bowel lumen. Scattered postsurgical- inflammatory changes - free fluid. 2 drainage catheters are present in the left upper and left lower quadrants. Assessment & Plan - Diagnosis (1) Intra-abdominal abscess post-procedure Is this a current diagnosis for this admission?: Yes - Plan Summary Plan Summary: doing better passing more formed stool min op via asad's daniel full liquds will advance to soft home tomorrow or saturday.
[2019-04-07] MEDS: HYDROCORTISONE SOD SUCCINATE INJ/PF 100 MG/2 ML SDV IV SCH (13:49)
--- NOTE | 2019-04-07 16:02 | PDOC PROGRESS REPORT ---
Subjective Progress Note for:: 04/07/19 Subjective:: I seen patient sitting by the bedside. She is awake alert oriented. She does not have new complaint. According to Dr. Burch patient is a potential discharge tomorrow or Saturday. Reason For Visit: ABDOMINAL ABSCESS, PERFORATED VISCUS Physical Exam Vital Signs: Temp Pulse Resp BP Pulse Ox 98.4 F 101 H 18 128/74 H 99 04/07/19 12:20 04/07/19 13:59 04/07/19 12:20 04/07/19 12:20 04/07/19 12:20 Intake & Output 04/06/19 04/07/19 04/08/19 06:59 06:59 06:59 Intake Total 2200 2920 880 Output Total 15 31 5 Balance 2185 2889 875 Weight 93.9 kg 93.1 kg General appearance: PRESENT: no acute distress Head exam: PRESENT: atraumatic Neck exam: ABSENT: carotid bruit, JVD, lymphadenopathy, thyromegaly Respiratory exam: PRESENT: clear to auscultation jack. ABSENT: rales, rhonchi, wheezes Cardiovascular exam: PRESENT: RRR. ABSENT: diastolic murmur, rubs, systolic murmur GI/Abdominal exam: PRESENT: normal bowel sounds, soft, tenderness. ABSENT: distended, guarding, mass, organolmegaly, rebound Neurological exam: PRESENT: alert, awake, oriented to time, oriented to situation Results Laboratory Results: 04/07/19 09:06 04/07/19 09:06 04/07/19 04/07/19 09:06 09:06 WBC 24.2 H RBC 2.85 L Hgb 8.4 L Hct 26.0 L MCV 91 MCH 29.5 MCHC 32.4 RDW 15.6 H Plt Count 1497 H* Seg Neutrophils % Not Reportable Lymphocytes % Not Reportable Monocytes % Not Reportable Eosinophils % Not Reportable Basophils % Not Reportable Absolute Neutrophils Not Reportable Absolute Lymphocytes Not Reportable Absolute Monocytes Not Reportable Absolute Eosinophils Not Reportable Absolute Basophils Not Reportable Sodium 139.2 Potassium 3.9 Chloride 104 Carbon Dioxide 25 Anion Gap 10 BUN < 2 L Creatinine 0.32 L Est GFR ( Amer) > 60 Est GFR (Non-Af Amer) > 60 Glucose 110 Calcium 9.0 03/30/19 15:35 Blood Blood Culture - Final NO GROWTH IN 5 DAYS Impressions: Chest X-Ray 03/25/19 18:26 IMPRESSION: No pneumothorax. Patchy airspace opacities are present throughout the right lung base as well as left medial lung base. No significant pleural effusion.Left hilar fullness.Endotracheal tube tip overlies the lower trachea ap proximately 4.6 cm above the level of the aliyah. Nasogastric catheter tube is present with tip overlying the body of the stomach. Right IJ central venous catheter is present with tip overlying the SVC below the aliyah level. Abdomen/Pelvis CT 04/04/19 00:00 IMPRESSION: No obstruction or evidence for contrast leak from the bowel lumen. Scattered postsurgical- inflammatory changes - free fluid. 2 drainage catheters are present in the left upper and left lower quadrants. Assessment and Plan - Diagnosis (1) Sepsis Is this a current diagnosis for this admission?: Yes Plan: Evidence of by leukocytosis and tachycardia and wound culture positive for m ultiple organisms. Patient has been on Zosyn. (2) Peritonitis and intra-abdominal abscess Is this a current diagnosis for this admission?: Yes Plan: Patient is status post extended right hemicolectomy and ileostomy. She has also abdominal lotion with use of normal saline. (3) Perforation of the transverse colon Is this a current diagnosis for this admission?: Yes Plan: Status post colectomy and ileostomy. (4) Steroid dependent Is this a current diagnosis for this admission?: Yes Plan: Patient has been on Solu-Cortef. (5) Rheumatoid arthritis Is this a current diagnosis for this admission?: Yes Plan: Continue steroid (6) Hypertension Qualifiers: Hypertension type: essential hypertension Qualified Code(s): I10 - Essential (primary) hypertension Is this a current diagnosis for this admission?: Yes Plan: Continue current regimen
[2019-04-08] MEDS: OCTREOTIDE ACETATE INJ/PF 100 MCG/1 ML SDV IV SCH ×3 (06:08→21:44)
[2019-04-08] MEDS: METOCLOPRAMIDE HCL INJ/PF 10 MG/2 ML SDV IV SCH ×4 (06:15→23:07)
--- NOTE | 2019-04-08 07:29 | PDOC PROGRESS REPORT ---
Subjective Progress Note for:: 04/08/19 Reason For Visit: ABDOMINAL ABSCESS, PERFORATED VISCUS Physical Exam Vital Signs: Temp Pulse Resp BP Pulse Ox 98.8 F 99 17 127/73 H 99 04/08/19 05:06 04/08/19 05:06 04/08/19 05:06 04/08/19 05:06 04/08/19 05:06 Intake & Output 04/07/19 04/08/19 04/09/19 06:59 06:59 06:59 Intake Total 2920 2330 Output Total 31 5 Balance 2889 2325 Weight 93.1 kg 94.2 kg General appearance: PRESENT: no acute distress Eye exam: PRESENT: EOMI, PERRLA Mouth exam: PRESENT: moist Neck exam: PRESENT: full ROM Respiratory exam: PRESENT: clear to auscultation jack Cardiovascular exam: PRESENT: RRR Pulses: PRESENT: normal radial pulses, normal femoral pulses GI/Abdominal exam: PRESENT: soft Rectal exam: PRESENT: deferred Extremities exam: PRESENT: full ROM Musculoskeletal exam: PRESENT: full ROM Neurological exam: PRESENT: alert, awake, oriented to person, oriented to place Psychiatric exam: PRESENT: appropriate affect Skin exam: PRESENT: dry Results Laboratory Results: 04/07/19 09:06 04/07/19 09:06 04/07/19 04/07/19 09:06 09:06 WBC 24.2 H RBC 2.85 L Hgb 8.4 L Hct 26.0 L MCV 91 MCH 29.5 MCHC 32.4 RDW 15.6 H Plt Count 1497 H* Seg Neutrophils % Not Reportable Lymphocytes % Not Reportable Monocytes % Not Reportable Eosinophils % Not Reportable Basophils % Not Reportable Absolute Neutrophils Not Reportable Absolute Lymphocytes Not Reportable Absolute Monocytes Not Reportable Absolute Eosinophils Not Reportable Absolute Basophils Not Reportable Sodium 139.2 Potassium 3.9 Chloride 104 Carbon Dioxide 25 Anion Gap 10 BUN < 2 L Creatinine 0.32 L Est GFR ( Amer) > 60 Est GFR (Non-Af Amer) > 60 Glucose 110 Calcium 9.0 Impressions: Chest X-Ray 03/25/19 18:26 IMPRESSION: No pneumothorax. Patchy airspace opacities are present throughout the right lung base as well as left medial lung base. No significant pleural effusion.Left hilar fullness.Endotracheal tube tip overlies the lower trachea approximately 4.6 cm above the level of the aliyah. Nasogastric catheter tube is present with tip overlying the body of the stomach. Right IJ central venous catheter is present with tip overlying the SVC below the aliyah level. Abdomen/Pelvis CT 04/04/19 00:00 IMPRESSION: No obstruction or evidence for contrast leak from the bowel lumen. Scattered postsurgical- inflammatory changes - free fluid. 2 drainage catheters are present in the left upper and left lower quadrants. Assessment & Plan - Diagnosis (1) Intra-abdominal abscess post-procedure Is this a current diagnosis for this admission?: Yes - Plan Summary Plan Summary: doing better labs this am pending daniel soft diet yesterdy passing stool will cont wit diet today dc abx after labs results poss home in am
[2019-04-08] MEDS: POTASSIUM CHLORIDE 10 MEQ CAPSULE.ER PO SCH ×2 (10:03→21:52)
[2019-04-08] MEDS: PREDNISONE 20 MG TABLET PO SCH ×2 (10:03→17:05)
[2019-04-08] MEDS: METHADONE HCL 10 MG TABLET PO SCH ×2 (10:03→21:52)
[2019-04-08] MEDS: ASPIRIN 325 MG TABLET PO SCH (10:03)
[2019-04-08] MEDS: FAMOTIDINE INJ/PF 20 MG/2 ML SDV IV SCH ×2 (10:04→21:52)
[2019-04-08] MEDS: ENALAPRIL MALEATE 10 MG TABLET PO SCH ×2 (10:05→21:53)
[2019-04-08 10:47] LABS: ANION GAP 10 (5-19); BLOOD UREA NITROGEN 5 mg/dL (7-20); CARBON DIOXIDE 25 mmol/L (22-30); CHLORIDE 104 mmol/L (98-107); GLUCOSE 97 mg/dL (75-110); SODIUM 138.6 mmol/L (137-145)
[2019-04-08 10:53] LABS: HEMATOCRIT 25.3 % (36.0-47.0); HEMOGLOBIN 8.1 g/dL (12.0-15.5); MEAN CORPUSCULAR HEMOGLOBIN 29.3 pg (27.0-33.4); MEAN CORPUSCULAR HGB CONC 32.1 g/dL (32.0-36.0); MEAN CORPUSCULAR VOLUME 91 fl (80-97); RED BLOOD COUNT 2.78 10^6/uL (3.72-5.28); RED CELL DISTRIBUTION WIDTH 15.2 % (11.5-14.0); WHITE BLOOD COUNT 24.1 10^3/uL (4.0-10.5)
[2019-04-08 10:59] LABS: ABSOLUTE LYMPHOCYTES# (MANUAL) 5.1 10^3/uL (0.5-4.7); ABSOLUTE MONOCYTES # (MANUAL) 2.4 10^3/uL (0.1-1.4); ABSOLUTE NEUTROPHILS# (MANUAL) 16.4 10^3/uL (1.7-8.2); BASOPHILS % (MANUAL) 0 % (0-2); EOSINOPHILS % (MANUAL) 1 % (0-6); LYMPHOCYTES % (MANUAL) 21 % (13-45); MONOCYTES % (MANUAL) 10 % (3-13); SEGMENTED NEUTROPHILS % (MAN) 68 % (42-78); TOTAL CELLS COUNTED 100
[2019-04-08 11:06] LABS: ANISOCYTOSIS SLIGHT; PLATELET COMMENT INCREASED; POLYCHROMASIA 1+
[2019-04-08 11:08] LABS: PLATELET GIANT PRESENT; PLATELET LARGE PRESENT
[2019-04-08 11:13] LABS: PLATELET COUNT 1366 10^3/uL (150-450)
[2019-04-08] MEDS: RINGERS SOLUTION,LACTATED 1,000 ML IV PRN ×2 (14:20→23:08)
--- NOTE | 2019-04-08 15:11 | PDOC PROGRESS REPORT ---
Subjective Progress Note for:: 04/08/19 Subjective:: I seen patient sitting up by the bedside. She is awake alert oriented. She is not in pain or distress. She is able to tolerate oral feeding. No nausea or vomiting. Early in the morning patient also seen while she is walking in the hallway and participating with physical therapy. I switched her Solu-Cortef to prednisone 20 mg p.o. daily. Reason For Visit: ABDOMINAL ABSCESS, PERFORATED VISCUS Physical Exam Vital Signs: Temp Pulse Resp BP Pulse Ox 98.9 F 90 20 120/78 96 04/08/19 11:34 04/08/19 14:00 04/08/19 11:34 04/08/19 11:34 04/08/19 11:34 Intake & Output 04/07/19 04/08/19 04/09/19 06:59 06:59 06:59 Intake Total 2920 2330 1780 Output Total 31 5 Balance 2889 2325 1780 Weight 93.1 kg 94.2 kg General appearance: PRESENT: no acute distress Neck exam: ABSENT: carotid bruit, JVD, lymphadenopathy, thyromegaly Respiratory exam: PRESENT: clear to auscultation jack. ABSENT: rales, rhonchi, wheezes Cardiovascular exam: PRESENT: RRR. ABSENT: diastolic murmur, rubs, systolic murmur GI/Abdominal exam: PRESENT: normal bowel sounds, soft. ABSENT: distended, guarding, mass, organolmegaly, rebound, tenderness Extremities exam: PRESENT: full ROM. ABSENT: calf tenderness, clubbing, pedal edema Neurological exam: PRESENT: alert, awake, oriented to time, oriented to situation Results Laboratory Results: 04/08/19 09:39 04/08/19 09:39 04/08/19 04/08/19 09:39 09:39 WBC 24.1 H RBC 2.78 L Hgb 8.1 L Hct 25.3 L MCV 91 MCH 29.3 MCHC 32.1 RDW 15.2 H Plt Count 1366 H* Seg Neutrophils % Not Reportable Lymphocytes % Not Reportable Monocytes % Not Reportable Eosinophils % Not Reportable Basophils % Not Reportable Absolute Neutrophils Not Reportable Absolute Lymphocytes Not Reportable Absolute Monocytes Not Reportable Absolute Eosinophils Not Reportable Absolute Basophils Not Reportable Sodium 138.6 Potassium 4.0 Chloride 104 Carbon Dioxide 25 Anion Gap 10 BUN 5 L Creatinine 0.36 L Est GFR ( Amer) > 60 Est GFR (Non-Af Amer) > 60 Glucose 97 Calcium 9.0 Impressions: Chest X-Ray 03/25/19 18:26 IMPRESSION: No pneumothorax. Patchy airspace opacities are present throughout the right lung base as well as left medial lung base. No significant pleural effusion.Left hilar fullness.Endotracheal tube tip overlies the lower trachea approximately 4.6 cm above the level of the aliyah. Nasogastric catheter tube is present with tip overlying the body of the stomach. Right IJ central venous catheter is present with tip overlying the SVC below the aliyah level. Abdomen/Pelvis CT 04/04/19 00:00 IMPRESSION: No obstruction or evidence for contrast leak from the bowel lumen. Scattered postsurgical- inflammatory changes - free fluid. 2 drainage catheters are present in the left upper and left lower quadrants. Assessment and Plan - Diagnosis (1) Sepsis Is this a current diagnosis for this admission?: Yes Plan: Evidence of by leukocytosis and tachycardia and wound culture positive for multiple organisms. Patient has been on Zosyn. (2) Peritonitis and intra-abdominal abscess Is this a current diagnosis for this admission?: Yes Plan: Patient is status post extended right hemicolectomy and ileostomy. She has also abdominal lotion with use of normal saline. (3) Perforation of the transverse colon Is this a current diagnosis for this admission?: Yes Plan: Status post colectomy and ileostomy. (4) Steroid dependent Is this a current diagnosis for this admission?: Yes Plan: Patient has been on Solu-Cortef. (5) Rheumatoid arthritis Is this a current diagnosis for this admission?: Yes Plan: Continue steroid (6) Hypertension Qualifiers: Hypertension type: essential hypertension Qualified Code(s): I10 - Essential (primary) hypertension Is this a current diagnosis for this admission?: Yes Plan: Continue current regimen
[2019-04-08] MEDS: HYDROMORPHONE HCL INJ/PF 2 MG/ML AMPULE IV PRN ×2 (18:57→23:06)
[2019-04-08] MEDS: ONDANSETRON HCL INJ/PF 4 MG/2 ML SDV IV PRN (21:53)
[2019-04-08] MEDS: LORAZEPAM INJ 2 MG/1 ML VIAL IV PRN (23:56)
[2019-04-09] MEDS: ENALAPRIL MALEATE 10 MG TABLET PO SCH ×3 (00:04→21:28)
[2019-04-09] MEDS: POTASSIUM CHLORIDE 10 MEQ CAPSULE.ER PO SCH ×3 (00:04→21:27)
[2019-04-09] MEDS: METHADONE HCL 10 MG TABLET PO SCH ×3 (00:04→21:26)
[2019-04-09] MEDS ORDERED: METOPROLOL TARTRATE PF/INJ 5 MG/5 ML SDV IV ONE (00:15)
[2019-04-09] MEDS: HYDROMORPHONE HCL INJ/PF 2 MG/ML AMPULE IV PRN ×5 (02:13→21:28)
[2019-04-09] MEDS ORDERED: KETOROLAC TROMETHAMINE INJ/PF 30 MG/1 ML SDV IV ONE (04:00)
[2019-04-09] MEDS: ONDANSETRON HCL INJ/PF 4 MG/2 ML SDV IV PRN (04:05)
[2019-04-09] MEDS ORDERED: PROMETHAZINE HCL INJ 25 MG/1 ML VIAL IV ONE (04:30)
--- NOTE | 2019-04-09 05:10 | RADIOLOGY REPORT (SQ) ---
EXAM DESCRIPTION: XR ABDOMEN 2 VIEWS SUPINE ERECT COMPLETED DATE/TME: 04/09/2019 03:47 CLINICAL HISTORY: 43 years Female, increased pain COMPARISON: None. NUMBER OF VIEWS/TECHNIQUE: 3 FINDINGS: Intestinal gas pattern is within normal limits. Paucity of bowel gas. Postsurgical hardware includes surgical clips, and two likely drainage catheters including left paracentral abdomen and left paracentral pelvis. No suspicious calcification. Grossly intact skeletal structures. IMPRESSION: No acute findings.
[2019-04-09] MEDS: OCTREOTIDE ACETATE INJ/PF 100 MCG/1 ML SDV IV SCH ×3 (05:49→21:23)
[2019-04-09] MEDS: METOCLOPRAMIDE HCL INJ/PF 10 MG/2 ML SDV IV SCH ×3 (05:55→17:58)
--- NOTE | 2019-04-09 07:25 | PDOC PROGRESS REPORT ---
Subjective Progress Note for:: 04/09/19 Subjective:: feels nauseated, vomited, now with green drainage from asad Reason For Visit: ABDOMINAL ABSCESS, PERFORATED VISCUS Physical Exam Vital Signs: Temp Pulse Resp BP Pulse Ox 101.1 F H 118 H 18 109/66 96 04/09/19 03:33 04/09/19 03:33 04/09/19 00:00 04/09/19 03:33 04/09/19 03:33 Intake & Output 04/08/19 04/09/19 04/10/19 06:59 06:59 06:59 Intake Total 2330 2620 Output Total 45 665 Balance 2285 1955 Weight 94.2 kg General appearance: PRESENT: mild distress Eye exam: PRESENT: EOMI Mouth exam: PRESENT: dry mucosa Neck exam: PRESENT: full ROM Respiratory exam: PRESENT: clear to auscultation jack Cardiovascular exam: PRESENT: RRR, tachycardia Pulses: PRESENT: normal radial pulses, normal femoral pulses GI/Abdominal exam: PRESENT: soft, other - bilous drainage from asad #1 Rectal exam: PRESENT: deferred Extremities exam: PRESENT: full ROM Musculoskeletal exam: PRESENT: full ROM Neurological exam: PRESENT: alert, awake, oriented to person, oriented to place Psychiatric exam: PRESENT: appropriate affect Results Laboratory Results: 04/08/19 09:39 04/08/19 09:39 04/08/19 04/08/19 09:39 09:39 WBC 24.1 H RBC 2.78 L Hgb 8.1 L Hct 25.3 L MCV 91 MCH 29.3 MCHC 32.1 RDW 15.2 H Plt Count 1366 H* Seg Neutrophils % Not Reportable Lymphocytes % Not Reportable Monocytes % Not Reportable Eosinophils % Not Reportable Basophils % Not Reportable Absolute Neutrophils Not Reportable Absolute Lymphocytes Not Reportable Absolute Monocytes Not Reportable Absolute Eosinophils Not Reportable Absolute Basophils Not Reportable Sodium 138.6 Potassium 4.0 Chloride 104 Carbon Dioxide 25 Anion Gap 10 BUN 5 L Creatinine 0.36 L Est GFR ( Amer) > 60 Est GFR (Non-Af Amer) > 60 Glucose 97 Calcium 9.0 Impressions: Chest X-Ray 03/25/19 18:26 IMPRESSION: No pneumothorax. Patchy airspace opacities are present throughout the right lung base as well as left medial lung base. No significant pleural ef fusion.Left hilar fullness.Endotracheal tube tip overlies the lower trachea approximately 4.6 cm above the level of the aliyah. Nasogastric catheter tube is present with tip overlying the body of the stomach. Right IJ central venous catheter is present with tip overlying the SVC below the aliyah level. Abdomen/Pelvis CT 04/04/19 00:00 IMPRESSION: No obstruction or evidence for contrast leak from the bowel lumen. Scattered postsurgical- inflammatory changes - free fluid. 2 drainage catheters are present in the left upper and left lower quadrants. Abdomen X-Ray 04/09/19 03:47 IMPRESSION: No acute findings. Assessment & Plan - Diagnosis (1) Intra-abdominal abscess post-procedure Is this a current diagnosis for this admission?: Yes - Plan Summary Plan Summary: developed nausea and vomiting last pm now with bilous drainage from asad temp 101 kub without acute findings plan npo except sips ct abd with oral contrast restart zosyn/flagyl iv bolus
[2019-04-09] MEDS ORDERED: NORMAL SALINE 1000 ML 1,000 ML IV ONE (07:26)
[2019-04-09 08:27] LABS: HEMATOCRIT 30.3 % (36.0-47.0); HEMOGLOBIN 9.6 g/dL (12.0-15.5); MEAN CORPUSCULAR HEMOGLOBIN 28.8 pg (27.0-33.4); MEAN CORPUSCULAR HGB CONC 31.7 g/dL (32.0-36.0); MEAN CORPUSCULAR VOLUME 91 fl (80-97); RED BLOOD COUNT 3.34 10^6/uL (3.72-5.28); RED CELL DISTRIBUTION WIDTH 15.3 % (11.5-14.0)
[2019-04-09 08:54] LABS: ANION GAP 13 (5-19); BLOOD UREA NITROGEN 11 mg/dL (7-20); CALCIUM 9.2 mg/dL (8.4-10.2); CARBON DIOXIDE 26 mmol/L (22-30); CHLORIDE 102 mmol/L (98-107); GLUCOSE 158 mg/dL (75-110); POTASSIUM 4.6 mmol/L (3.6-5.0); SODIUM 140.8 mmol/L (137-145)
[2019-04-09 09:51] LABS: PLATELET COUNT 1509 10^3/uL (150-450); WHITE BLOOD COUNT 44.7 10^3/uL (4.0-10.5)
[2019-04-09 09:53] LABS: ABSOLUTE LYMPHOCYTES# (MANUAL) 8.9 10^3/uL (0.5-4.7); ABSOLUTE MONOCYTES # (MANUAL) 4.9 10^3/uL (0.1-1.4); ABSOLUTE NEUTROPHILS# (MANUAL) 30.8 10^3/uL (1.7-8.2); ANISOCYTOSIS SLIGHT; BASOPHILS % (MANUAL) 0 % (0-2); BURR CELLS SLIGHT; EOSINOPHILS % (MANUAL) 0 % (0-6); LYMPHOCYTES % (MANUAL) 20 % (13-45); MONOCYTES % (MANUAL) 11 % (3-13); PLATELET COMMENT INCREASED; PLATELET LARGE PRESENT; POLYCHROMASIA SLIGHT; SEGMENTED NEUTROPHILS % (MAN) 69 % (42-78); TARGET CELLS SLIGHT; TOTAL CELLS COUNTED 100; TOXIC GRANULATION SLIGHT; TOXIC VACUOLATION PRESENT
[2019-04-09] MEDS: FAMOTIDINE INJ/PF 20 MG/2 ML SDV IV SCH ×2 (09:57→21:27)
[2019-04-09] MEDS: ASPIRIN 325 MG TABLET PO SCH (09:57)
[2019-04-09] MEDS: PREDNISONE 20 MG TABLET PO SCH (09:57)
[2019-04-09] MEDS: METRONIDAZOLE 500 MG/NS RTU 500 MG/100 ML RTUPB IV SCH ×3 (10:30→21:27)
--- NOTE | 2019-04-09 11:11 | RADIOLOGY REPORT (SQ) ---
EXAM DESCRIPTION: CT ABD/PELVIS ORAL ONLY COMPLETED DATE/TIME: 04/09/2019 10:48 am REASON FOR STUDY: r/o abscess. please use oral gastrografin. COMPARISON: CT abdomen pelvis 04/04/2019, 03/25/2019 TECHNIQUE: CT scan of the abdomen and pelvis performed without intravenous contrast. Oral contrast was administered. Oral Gastrografin was used Images reviewed with lung, soft tissue, and bone windows. Reconstructed coronal and sagittal MPR imag es reviewed. All images stored on PACS. All CT scanners at this facility use dose modulation, iterative reconstruction, and/or weight based d osing when appropriate to reduce radiation dose to as low as reasonably achievable (ALARA). [facility]: Dose Right [facility]: CareDose [facility]: Dose Right [facility]: Teradose 4D [facility]: Quantifeed RADIATION DOSE: CT Rad equipment meets quality standard of care and radiation dose reduction techniq ues were employed. CTDIvol: 23.1 mGy. DLP: 1243 mGy-cm.mGy. LIMITATIONS: None. FINDINGS: Patient drank oral Gastrografin. Stomach duodenum and proximal and mid small bowel loops are filled with oral contrast. No extravasation. Reflux into the distal esophagus. There are thick walled small bowel loops in the midline mid epigastrium and periumbilical region with out evidence of obstruction. Between the thick walled small bowel loops and the anterior abdominal w all, there is a thin rim pocket of fluid with few extraluminal air bubbles. This measures about 1 cm AP x 8 cm transverse by 5 cm craniocaudad, best shown on axial image 25-45, coronal image 26, and sa gittal images 31-52. The more superior of the Kobe-Pugh drains likely communicates with this flu id pocket. Trace fluid between bowel loops and in the pelvic cul-de-sac. LOWER CHEST: Chronic increased interstitial markings at both lung bases NON-CONTRASTED LIVER, SPLEEN, ADRENALS: Post splenectomy. Non contrasted images of the liver and adr enal glands are unremarkable. PANCREAS: No masses. No peripancreatic inflammatory changes. GALLBLADDER: Surgically absent RIGHT KIDNEY AND URETER: No suspicious masses. Assessment limited by lack of IV contrast. No signif icant calcifications. No hydronephrosis or hydroureter. LEFT KIDNEY AND URETER: No suspicious masses. Assessment limited by lack of IV contrast. No signifi cant calcifications. No hydronephrosis or hydroureter. AORTA AND RETROPERITONEUM: No aneurysm. No retroperitoneal masses or adenopathy. BOWEL AND PERITONEAL CAVITY: As above APPENDIX: Not identified PELVIS, BLADDER, AND ABDOMINAL WALL:No abnormal masses. No free fluid. Bladder normal. Post hysterec eren. Ovaries not seen. BONES: No significant findings. OTHER: No other significant finding. IMPRESSION: No CT evidence of extravasation of oral contrast from the stomach or small bowel. Thin rim of fluid with few air bubbles between the anterior abdominal wall and small bowel loops in t he mid epigastrium. This likely communicates with the superior Kobe-Pugh drain. COMMENT: Quality ID # [id number]: Final reports with documentation of one or more dose reduction techniques (e.g., Automated exposure control, adjustment of the mA and/or kV according to patient size, use of iterative reconstruction technique) TECHNICAL DOCUMENTATION: JOB ID: [id number] [employer]- All Rights Reserved Reading location - IP/workstation name: [email or web address]
[2019-04-09] MEDS: PROMETHAZINE HCL INJ 25 MG/1 ML VIAL IV PRN ×2 (11:24→19:51)
[2019-04-09] MEDS: KETOROLAC TROMETHAMINE INJ/PF 30 MG/1 ML SDV IV PRN ×2 (11:24→19:51)
[2019-04-09] MEDS: PIPERACILLIN SODIUM/TAZOBACTAM 3.375 GM in NORMAL SALINE 100 ML IV SCH ×2 (12:34→17:59)
[2019-04-09] MEDS: RINGERS SOLUTION,LACTATED 1,000 ML IV PRN (12:35)
--- NOTE | 2019-04-09 13:57 | PDOC PROGRESS REPORT ---
Subjective Reason For Visit: ABDOMINAL ABSCESS, PERFORATED VISCUS Physical Exam Vital Signs: Temp Pulse Resp BP Pulse Ox 98.0 F 42 L 20 132/63 H 96 04/09/19 11:17 04/09/19 11:17 04/09/19 11:17 04/09/19 11:17 04/09/19 11:17 Intake & Output 04/08/19 04/09/19 04/10/19 06:59 06:59 06:59 Intake Total 2330 2620 1980 Output Total 45 665 Balance 2285 1954 1980 Weight 94.2 kg Results Laboratory Results: 04/09/19 07:55 04/09/19 07:55 04/09/19 04/09/19 07:55 07:55 WBC 44.7 H* RBC 3.34 L Hgb 9.6 L Hct 30.3 L MCV 91 MCH 28.8 MCHC 31.7 L RDW 15.3 H Plt Count 1509 H* Seg Neutrophils % Not Reportable Lymphocytes % Not Reportable Monocytes % Not Reportable Eosinophils % Not Reportable Basophils % Not Reportable Absolute Neutrophils Not Reportable Absolute Lymphocytes Not Reportable Absolute Monocytes Not Reportable Absolute Eosinophils Not Reportable Absolute Basophils Not Reportable Sodium 140.8 Potassium 4.6 Chloride 102 Carbon Dioxide 26 Anion Gap 13 BUN 11 Creatinine 0.73 Est GFR ( Amer) > 60 Est GFR (Non-Af Amer) > 60 Glucose 158 H Calcium 9.2 Impressions: Chest X-Ray 03/25/19 18:26 IMPRESSION: No pneumothorax. Patchy airspace opacities are present throughout the right lung base as well as left medial lung base. No significant pleural effusion.Left hilar fullness.Endotracheal tube tip overlies the lower trachea approximately 4.6 cm above the level of the aliyah. Nasogastric catheter tube is present with tip overlying the body of the stomach. Right IJ central venous catheter is present with tip overlying the SVC below the aliyah level. Abdomen/Pelvis CT 04/09/19 00:00 IMPRESSION: No CT evidence of extravasation of oral contrast from the stomach or small bowel. Thin rim of fluid with few air bubbles between the anterior abdominal wall and small bowel loops in the mid epigastrium. This likely communicates with the superior Kobe-Pugh drain. Abdomen X-Ray 04/09/19 03:47 IMPRESSION: No acute findings. Assessment & Plan - Diagnosis (1) Intra-abdominal abscess post-procedure Is this a current diagnosis for this admission?: Yes - Plan Summary Plan Summary: i reviewed ct with Dr Villegas, there is no evidece of a leak there is a thin fluid collection under ant abd wall that is being drained by the upper asad. nothing for ir drain or need for operative drain will cont with abx for now npo except sips of ice chips
--- NOTE | 2019-04-09 14:39 | PDOC PROGRESS REPORT ---
Subjective Progress Note for:: 04/09/19 Subjective:: I seen patient resting in bed. Patient states that she had a rough night. She has episode of nausea and vomiting. Per Dr. Burch the CT scan does not show any leak. Now patient is n.p.o. except for ice chips. Reason For Visit: ABDOMINAL ABSCESS, PERFORATED VISCUS Physical Exam Vital Signs: Temp Pulse Resp BP Pulse Ox 98.0 F 96 20 132/63 H 96 04/09/19 11:17 04/09/19 14:00 04/09/19 11:17 04/09/19 11:17 04/09/19 11:17 Intake & Output 04/08/19 04/09/19 04/10/19 06:59 06:59 06:59 Intake Total 2330 2620 1980 Output Total 45 665 Balance 2285 1955 1980 Weight 94.2 kg General appearance: PRESENT: no acute distress Head exam: PRESENT: atraumatic Teeth exam: PRESENT: dental caries Neck exam: ABSENT: carotid bruit, JVD, lymphadenopathy, thyromegaly Respiratory exam: PRESENT: clear to auscultation jack. ABSENT: rales, rhonchi, wheezes GI/Abdominal exam: PRESENT: diminished bowel sounds Neurological exam: PRESENT: alert, awake, oriented to time, oriented to situation Results Laboratory Results: 04/09/19 07:55 04/09/19 07:55 04/09/19 04/09/19 07:55 07:55 WBC 44.7 H* RBC 3.34 L Hgb 9.6 L Hct 30.3 L MCV 91 MCH 28.8 MCHC 31.7 L RDW 15.3 H Plt Count 1509 H* Seg Neutrophils % Not Reportable Lymphocytes % Not Reportable Monocytes % Not Reportable Eosinophils % Not Reportable Basophils % Not Reportable Absolute Neutrophils Not Reportable Absolute Lymphocytes Not Reportable Absolute Monocytes Not Reportable Absolute Eosinophils Not Reportable Absolute Basophils Not Reportable Sodium 140.8 Potassium 4.6 Chloride 102 Carbon Dioxide 26 Anion Gap 13 BUN 11 Creatinine 0.73 Est GFR ( Amer) > 60 Est GFR (Non-Af Amer) > 60 Glucose 158 H Calcium 9.2 Impressions: Chest X-Ray 03/25/19 18:26 IMPRESSION: No pneumothorax. Patchy airspace opacities are present throughout the right lung base as well as left medial lung base. No significant pleural effusion.Left hilar fullness.Endotracheal tube tip overlies the lower trachea approximately 4.6 cm above the level of the aliyah. Nasogastric catheter tube is present with tip overlying the body of the stomach. Right IJ central venous catheter is present with tip overlying the SVC below the aliyah level. Abdomen/Pelvis CT 04/09/19 00:00 IMPRESSION: No CT evidence of extravasation of oral contrast from the stomach or small bowel. Thin rim of fluid with few air bubbles between the anterior abdominal wall and small bowel loops in the mid epigastrium. This likely communicates with the superior Kobe-Pugh drain. Abdomen X-Ray 04/09/19 03:47 IMPRESSION: No acute findings. Assessment and Plan - Diagnosis (1) Sepsis Is this a current diagnosis for this admission?: Yes Plan: Evidence of by leukocytosis and tachycardia and wound culture positive for multiple organisms. Patient has been on Zosyn. (2) Peritonitis and intra-abdominal abscess Is this a current diagnosis for this admission?: Yes Plan: Patient is status post extended right hemicolectomy and ileostomy. She has also abdominal lotion with use of normal saline. (3) Perforation of the transverse colon Is this a current diagnosis for this admission?: Yes Plan: Status post colectomy and ileostomy. (4) Steroid dependent Is this a current diagnosis for this admission?: Yes Plan: Patient has been on Solu-Cortef. (5) Rheumatoid arthritis Is this a current diagnosis for this admission?: Yes Plan: Continue steroid (6) Hypertension Qualifiers: Hypertension type: essential hypertension Qualified Code(s): I10 - Essential (primary) hypertension Is this a current diagnosis for this admission?: Yes
[2019-04-10] MEDS: PIPERACILLIN SODIUM/TAZOBACTAM 3.375 GM in NORMAL SALINE 100 ML IV SCH ×4 (00:28→17:00)
[2019-04-10] MEDS: METOCLOPRAMIDE HCL INJ/PF 10 MG/2 ML SDV IV SCH ×4 (00:28→17:00)
[2019-04-10] MEDS: RINGERS SOLUTION,LACTATED 1,000 ML IV PRN (03:23)
[2019-04-10] MEDS: METRONIDAZOLE 500 MG/NS RTU 500 MG/100 ML RTUPB IV SCH ×4 (03:24→20:08)
[2019-04-10] MEDS: HYDROMORPHONE HCL INJ/PF 2 MG/ML AMPULE IV PRN ×2 (03:27→21:15)
[2019-04-10] MEDS: KETOROLAC TROMETHAMINE INJ/PF 30 MG/1 ML SDV IV PRN ×2 (05:29→16:53)
[2019-04-10] MEDS: OCTREOTIDE ACETATE INJ/PF 100 MCG/1 ML SDV IV SCH ×3 (06:01→21:14)
--- NOTE | 2019-04-10 07:20 | PDOC PROGRESS REPORT ---
Subjective Progress Note for:: 04/10/19 Reason For Visit: ABDOMINAL ABSCESS, PERFORATED VISCUS feels better this am having bm's Physical Exam Vital Signs: Temp Pulse Resp BP Pulse Ox 99.2 F 101 H 18 105/55 L 92 04/10/19 05:07 04/10/19 05:07 04/10/19 05:07 04/10/19 05:07 04/10/19 05:07 Intake & Output 04/09/19 04/10/19 04/11/19 06:59 06:59 06:59 Intake Total 2620 4489 Output Total 665 220 Balance 1955 4269 Weight 95.3 kg General appearance: PRESENT: no acute distress Head exam: PRESENT: normocephalic Eye exam: PRESENT: EOMI Ear exam: PRESENT: normal external ear exam Mouth exam: PRESENT: moist Neck exam: PRESENT: full ROM Respiratory exam: PRESENT: clear to auscultation jack Cardiovascular exam: PRESENT: RRR Pulses: PRESENT: normal radial pulses, normal femoral pulses Vascular exam: PRESENT: normal capillary refill GI/Abdominal exam: PRESENT: other - abd soft, asad draining about 100cc yesterday of bilous fluid Rectal exam: PRESENT: deferred Extremities exam: PRESENT: full ROM Musculoskeletal exam: PRESENT: full ROM Neurological exam: PRESENT: alert, awake, oriented to person, oriented to place Psychiatric exam: PRESENT: appropriate affect Skin exam: PRESENT: dry Results Laboratory Results: 04/09/19 07:55 04/09/19 07:55 04/09/19 04/09/19 07:55 07:55 WBC 44.7 H* RBC 3.34 L Hgb 9.6 L Hct 30.3 L MCV 91 MCH 28.8 MCHC 31.7 L RDW 15.3 H Plt Count 1509 H* Seg Neutrophils % Not Reportable Lymphocytes % Not Reportable Monocytes % Not Reportable Eosinophils % Not Reportable Basophils % Not Reportable Absolute Neutrophils Not Reportable Absolute Lymphocytes Not Reportable Absolute Monocytes Not Reportable Absolute Eosinophils Not Reportable Absolute Basophils Not Reportable Sodium 140.8 Potassium 4.6 Chloride 102 Carbon Dioxide 26 Anion Gap 13 BUN 11 Creatinine 0.73 Est GFR ( Amer) > 60 Est GFR (Non-Af Amer) > 60 Glucose 158 H Calcium 9.2 Impressions: Chest X-Ray 03/25/19 18:26 IMPRESSION: No pneumothorax. Patchy airspace opacities are present throughout the right lung base as well as left medial lung base. No significant pleural effusion.Left hilar fullness.Endotracheal tube tip overlies the lower trachea approximately 4.6 cm above the level of the aliyah. Nasogastric catheter tube is present with tip overlying the body of the stomach. Right IJ central venous catheter is present with tip overlying the SVC below the aliyah level. Abdomen/Pelvis CT 04/09/19 00:00 IMPRESSION: No CT evidence of extravasation of oral contrast from the stomach or small bowel. Thin rim of fluid with few air bubbles between the anterior abdominal wall and small bowel loops in the mid epigastrium. This likely communicates with the superior Kobe-Pugh drain. Abdomen X-Ray 04/09/19 03:47 IMPRESSION: No acute findings. Assessment & Plan - Diagnosis (1) Intra-abdominal abscess post-procedure Is this a current diagnosis for this admission?: Yes - Plan Summary Plan Summary: ct reviewed yesterday with radiologist again no contrast extravasation. pt restarted on iv abx yesterday she feels better today passing formed stools asad #1 (adjacent to the small bowel anatomosis) draining bilous output plan pt is stable without peritionitis will cont with iv abx and npo reoperation at this pt would be high risk. with no obstruction and ct showing contrast traversing both anastomosis into distal colon there is good chance fistula will close
[2019-04-10] MEDS: ASPIRIN 325 MG TABLET PO SCH (09:12)
[2019-04-10] MEDS: POTASSIUM CHLORIDE 10 MEQ CAPSULE.ER PO SCH ×2 (09:12→21:13)
[2019-04-10] MEDS: FAMOTIDINE INJ/PF 20 MG/2 ML SDV IV SCH ×2 (09:12→21:14)
[2019-04-10] MEDS: ENALAPRIL MALEATE 10 MG TABLET PO SCH ×2 (09:12→21:14)
[2019-04-10] MEDS: ENOXAPARIN SODIUM INJ 30 MG/0.3 ML DISP.SYRIN SUBCUT SCH (09:13)
[2019-04-10] MEDS: PREDNISONE 20 MG TABLET PO SCH (09:13)
[2019-04-10] MEDS: METHADONE HCL 10 MG TABLET PO SCH ×2 (09:13→21:12)
[2019-04-10] MEDS: PROMETHAZINE HCL INJ 25 MG/1 ML VIAL IV PRN ×2 (09:19→14:21)
[2019-04-10 10:56] LABS: ANION GAP 10 (5-19); BLOOD UREA NITROGEN 11 mg/dL (7-20); CALCIUM 8.2 mg/dL (8.4-10.2); CARBON DIOXIDE 26 mmol/L (22-30); CHLORIDE 101 mmol/L (98-107); GLUCOSE 104 mg/dL (75-110); POTASSIUM 4.5 mmol/L (3.6-5.0); SODIUM 136.5 mmol/L (137-145)
[2019-04-10 11:49] LABS: PATH REVIEW PATHOLOGIST REVIEWED
[2019-04-10 13:27] LABS: HEMATOCRIT 23.3 % (36.0-47.0); MEAN CORPUSCULAR HEMOGLOBIN 29.2 pg (27.0-33.4); MEAN CORPUSCULAR HGB CONC 31.7 g/dL (32.0-36.0); MEAN CORPUSCULAR VOLUME 92 fl (80-97); RED BLOOD COUNT 2.53 10^6/uL (3.72-5.28); RED CELL DISTRIBUTION WIDTH 15.1 % (11.5-14.0); WHITE BLOOD COUNT 23.3 10^3/uL (4.0-10.5)
[2019-04-10 13:58] LABS: HEMOGLOBIN 7.4 g/dL (12.0-15.5); PLATELET COUNT 1238 10^3/uL (150-450)
[2019-04-10 14:01] LABS: ABSOLUTE LYMPHOCYTES# (MANUAL) 2.1 10^3/uL (0.5-4.7); ABSOLUTE MONOCYTES # (MANUAL) 2.1 10^3/uL (0.1-1.4); ABSOLUTE NEUTROPHILS# (MANUAL) 19.1 10^3/uL (1.7-8.2); BASOPHILS % (MANUAL) 0 % (0-2); EOSINOPHILS % (MANUAL) 0 % (0-6); LYMPHOCYTES % (MANUAL) 9 % (13-45); MONOCYTES % (MANUAL) 9 % (3-13); SEGMENTED NEUTROPHILS % (MAN) 82 % (42-78); TOTAL CELLS COUNTED 100
[2019-04-10 14:03] LABS: ANISOCYTOSIS SLIGHT; HOWELL-JOLLY BODIES PRESENT; HYPOCHROMASIA SLIGHT; POIKILOCYTOSIS SLIGHT; POLYCHROMASIA 1+; TEAR DROP CELLS SLIGHT; TOXIC VACUOLATION PRESENT
[2019-04-10 14:04] LABS: PLATELET COMMENT INCREASED
--- NOTE | 2019-04-10 14:43 | PDOC PROGRESS REPORT ---
Subjective Progress Note for:: 04/10/19 Subjective:: Patient seen resting in bed comfortably. She is put back on clear liquid diet. And she tolerates well. She is able to move her bowel. Reason For Visit: ABDOMINAL ABSCESS, PERFORATED VISCUS Physical Exam Vital Signs: Temp Pulse Resp BP Pulse Ox 98.7 F 103 H 16 129/68 H 94 04/10/19 07:38 04/10/19 07:38 04/10/19 07:38 04/10/19 07:38 04/10/19 07:38 Intake & Output 04/09/19 04/10/19 04/11/19 06:59 06:59 06:59 Intake Total 2620 4589 100 Output Total 665 220 Balance 1955 4369 100 Weight 95.3 kg Eye exam: PRESENT: conjunctiva pink Mouth exam: PRESENT: moist Neck exam: ABSENT: carotid bruit, JVD, lymphadenopathy, thyromegaly Respiratory exam: PRESENT: clear to auscultation jack. ABSENT: rales, rhonchi, wheezes Cardiovascular exam: PRESENT: RRR. ABSENT: diastolic murmur, rubs, systolic murmur Neurological exam: PRESENT: alert, awake, oriented to time, oriented to situation Results Laboratory Results: 04/10/19 11:55 04/10/19 09:46 04/10/19 04/10/19 04/10/19 09:46 09:46 11:55 WBC Cancelled 23.3 H RBC Cancelled 2.53 L Hgb Cancelled 7.4 L D Hct Cancelled 23.3 L MCV Cancelled 92 MCH Cancelled 29.2 MCHC Cancelled 31.7 L RDW Cancelled 15.1 H Plt Count Cancelled 1238 H* Seg Neutrophils % Cancelled Not Reportable Lymphocytes % Cancelled Not Reportable Monocytes % Cancelled Not Reportable Eosinophils % Cancelled Not Reportable Basophils % Cancelled Not Reportable Absolute Neutrophils Cancelled Not Reportable Absolute Lymphocytes Cancelled Not Reportable Absolute Monocytes Cancelled Not Reportable Absolute Eosinophils Cancelled Not Reportable Absolute Basophils Cancelled Not Reportable Sodium 136.5 L Potassium 4.5 Chloride 101 Carbon Dioxide 26 Anion Gap 10 BUN 11 Creatinine 0.54 Est GFR ( Amer) > 60 Est GFR (Non-Af Amer) > 60 Glucose 104 Calcium 8.2 L Impressions: Chest X-Ray 03/25/19 18:26 IMPRESSION: No pneumothorax. Patchy airspace opacities are present throughout the right lung base as well as left medial lung base. No significant pleural effusion.Left hilar fullness.Endotracheal tube tip overlies the lower trachea approximately 4.6 cm above the level of the aliyah. Nasogastric catheter tube is present with tip overlying the body of the stomach. Right IJ central venous catheter is present with tip overlying the SVC below the aliyah level. Abdomen/Pelvis CT 04/09/19 00:00 IMPRESSION: No CT evidence of extravasation of oral contrast from the stomach or small bowel. Thin rim of fluid with few air bubbles between the anterior abdominal wall and small bowel loops in the mid epigastrium. This likely communicates with the superior Kobe-Pugh drain. Abdomen X-Ray 04/09/19 03:47 IMPRESSION: No acute findings. Assessment and Plan - Diagnosis (1) Sepsis Is this a current diagnosis for this admission?: Yes Plan: Evidence of by leukocytosis and tachycardia and wound culture positive for multiple organisms. Patient has been on Zosyn. (2) Peritonitis and intra-abdominal abscess Is this a current diagnosis for this admission?: Yes Plan: Patient is status post extended right hemicolectomy and ileostomy. She has also abdominal lotion with use of normal saline. (3) Perforation of the transverse colon Is this a current diagnosis for this admission?: Yes Plan: Status post colectomy and ileostomy. (4) Steroid dependent Is this a current diagnosis for this admission?: Yes Plan: Patient has been on Solu-Cortef. (5) Rheumatoid arthritis Is this a current diagnosis for this admission?: Yes Plan: Continue steroid (6) Hypertension Qualifiers: Hypertension type: essential hypertension Qualified Code(s): I10 - Essential (primary) hypertension Is this a current diagnosis for this admission?: Yes Plan: Continue current regimen
[2019-04-10 15:31] LABS: APPEARANCE,URINE CLEAR; BILIRUBIN,URINE NEGATIVE (NEGATIVE); COLOR,URINE YELLOW; GLUCOSE, URINE NEGATIVE (NEGATIVE); KETONES,URINE NEGATIVE (NEGATIVE); LEUKOCYTE ESTERASE,URINE SMALL (NEGATIVE); NITRITE,URINE NEGATIVE (NEGATIVE); PROTEIN,URINE NEGATIVE (NEGATIVE); UROBILINOGEN,URINE NEGATIVE mg/dL (<2.0)
[2019-04-10] MEDS: LORAZEPAM INJ 2 MG/1 ML VIAL IV PRN (22:20)
[2019-04-11] MEDS: METOCLOPRAMIDE HCL INJ/PF 10 MG/2 ML SDV IV SCH ×5 (01:33→23:20)
[2019-04-11] MEDS: PIPERACILLIN SODIUM/TAZOBACTAM 3.375 GM in NORMAL SALINE 100 ML IV SCH ×5 (01:33→23:18)
[2019-04-11] MEDS: HYDROMORPHONE HCL INJ/PF 2 MG/ML AMPULE IV PRN ×4 (03:06→23:19)
[2019-04-11] MEDS: METRONIDAZOLE 500 MG/NS RTU 500 MG/100 ML RTUPB IV SCH ×4 (03:08→21:27)
[2019-04-11] MEDS: OCTREOTIDE ACETATE INJ/PF 100 MCG/1 ML SDV IV SCH ×3 (06:25→21:29)
[2019-04-11 08:41] LABS: HEMATOCRIT 31.9 % (36.0-47.0); MEAN CORPUSCULAR HEMOGLOBIN 29.1 pg (27.0-33.4); MEAN CORPUSCULAR HGB CONC 32.6 g/dL (32.0-36.0); MEAN CORPUSCULAR VOLUME 89 fl (80-97); RED BLOOD COUNT 3.58 10^6/uL (3.72-5.28); WHITE BLOOD COUNT 22.5 10^3/uL (4.0-10.5)
[2019-04-11 08:51] LABS: ANION GAP 10 (5-19); BLOOD UREA NITROGEN 4 mg/dL (7-20); CALCIUM 8.8 mg/dL (8.4-10.2); CARBON DIOXIDE 28 mmol/L (22-30); CHLORIDE 102 mmol/L (98-107); GLUCOSE 86 mg/dL (75-110); POTASSIUM 4.5 mmol/L (3.6-5.0); SODIUM 139.8 mmol/L (137-145)
[2019-04-11] MEDS: PREDNISONE 20 MG TABLET PO SCH (09:08)
[2019-04-11] MEDS: FAMOTIDINE INJ/PF 20 MG/2 ML SDV IV SCH ×2 (09:08→21:28)
[2019-04-11] MEDS: METHADONE HCL 10 MG TABLET PO SCH ×2 (09:09→21:28)
[2019-04-11] MEDS: POTASSIUM CHLORIDE 10 MEQ CAPSULE.ER PO SCH ×2 (09:09→21:27)
[2019-04-11] MEDS: ASPIRIN 325 MG TABLET PO SCH (09:09)
[2019-04-11] MEDS: ENALAPRIL MALEATE 10 MG TABLET PO SCH ×2 (09:09→21:29)
[2019-04-11 09:11] LABS: HEMOGLOBIN 10.4 g/dL (12.0-15.5)
[2019-04-11 09:15] LABS: PLATELET COUNT 1159 10^3/uL (150-450)
[2019-04-11 09:16] LABS: ABSOLUTE LYMPHOCYTES# (MANUAL) 5.6 10^3/uL (0.5-4.7); ABSOLUTE MONOCYTES # (MANUAL) 1.6 10^3/uL (0.1-1.4); ABSOLUTE NEUTROPHILS# (MANUAL) 15.3 10^3/uL (1.7-8.2); ANISOCYTOSIS 1+; BASOPHILS % (MANUAL) 0 % (0-2); EOSINOPHILS % (MANUAL) 0 % (0-6); LYMPHOCYTES % (MANUAL) 24 % (13-45); MONOCYTES % (MANUAL) 7 % (3-13); PLATELET COMMENT INCREASED; POLYCHROMASIA 1+; SEGMENTED NEUTROPHILS % (MAN) 68 % (42-78); TOTAL CELLS COUNTED 100; TOXIC GRANULATION 1+
[2019-04-11] MEDS: ENOXAPARIN SODIUM INJ 30 MG/0.3 ML DISP.SYRIN SUBCUT SCH (09:26)
--- NOTE | 2019-04-11 10:14 | PDOC PROGRESS REPORT ---
Subjective Progress Note for:: 04/11/19 Subjective:: feels better today passing stool no blood. daniel clears, no nausea no abd pain Reason For Visit: ABDOMINAL ABSCESS, PERFORATED VISCUS Physical Exam Vital Signs: Temp Pulse Resp BP Pulse Ox 98.1 F 102 H 18 148/84 H 93 04/11/19 06:22 04/11/19 09:09 04/11/19 06:22 04/11/19 09:09 04/11/19 06:22 Intake & Output 04/10/19 04/11/19 04/12/19 06:59 06:59 06:59 Intake Total 4589 4488 Output Total 220 520 Balance 4369 3968 Weight 95.3 kg 96.4 kg General appearance: PRESENT: no acute distress Eye exam: PRESENT: EOMI Mouth exam: PRESENT: moist Neck exam: PRESENT: full ROM Respiratory exam: PRESENT: clear to auscultation jack Cardiovascular exam: PRESENT: RRR Pulses: PRESENT: normal radial pulses, normal femoral pulses GI/Abdominal exam: PRESENT: soft, other - asad drain still bilous, less op 50cc last 12hrs. Rectal exam: PRESENT: deferred Extremities exam: PRESENT: full ROM Musculoskeletal exam: PRESENT: full ROM Neurological exam: PRESENT: alert, awake, oriented to person, oriented to place Psychiatric exam: PRESENT: appropriate affect Skin exam: PRESENT: dry Results Laboratory Results: 04/11/19 08:14 04/11/19 08:14 04/10/19 04/10/19 04/10/19 09:46 09:46 11:55 WBC Cancelled 23.3 H RBC Cancelled 2.53 L Hgb Cancelled 7.4 L D Hct Cancelled 23.3 L MCV Cancelled 92 MCH Cancelled 29.2 MCHC Cancelled 31.7 L RDW Cancelled 15.1 H Plt Count Cancelled 1238 H* Seg Neutrophils % Cancelled Not Reportable Lymphocytes % Cancelled Not Reportable Monocytes % Cancelled Not Reportable Eosinophils % Cancelled Not Reportable Basophils % Cancelled Not Reportable Absolute Neutrophils Cancelled Not Reportable Absolute Lymphocytes Cancelled Not Reportable Absolute Monocytes Cancelled Not Reportable Absolute Eosinophils Cancelled Not Reportable Absolute Basophils Cancelled Not Reportable Sodium 136.5 L Potassium 4.5 Chloride 101 Carbon Dioxide 26 Anion Gap 10 BUN 11 Creatinine 0.54 Est GFR ( Amer) > 60 Est GFR (Non-Af Amer) > 60 Glucose 104 Calcium 8.2 L Urine Color Urine Appearance Urine pH Ur Specific Shell Urine Protein Urine Glucose (UA) Urine Ketones Urine Blood Urine Nitrite Ur Leukocyte Esterase Urine WBC (Auto) Urine RBC (Auto) Blood Type Antibody Screen 04/10/19 04/10/19 04/11/19 15:10 19:25 08:14 WBC 22.5 H RBC 3.58 L Hgb 10.4 L D Hct 31.9 L MCV 89 MCH 29.1 MCHC 32.6 RDW 16.0 H Plt Count 1159 H* Seg Neutrophils % Not Reportable Lymphocytes % Not Reportable Monocytes % Not Reportable Eosinophils % Not Reportable Basophils % Not Reportable Absolute Neutrophils Not Reportable Absolute Lymphocytes Not Reportable Absolute Monocytes Not Reportable Absolute Eosinophils Not Reportable Absolute Basophils Not Reportable Sodium Potassium Chloride Carbon Dioxide Anion Gap BUN Creatinine Est GFR ( Amer) Est GFR (Non-Af Amer) Glucose Calcium Urine Color YELLOW Urine Appearance CLEAR Urine pH 6.0 Ur Specific Shell 1.010 Urine Protein NEGATIVE Urine Glucose (UA) NEGATIVE Urine Ketones NEGATIVE Urine Blood NEGATIVE Urine Nitrite NEGATIVE Ur Leukocyte Esterase SMALL H Urine WBC (Auto) 4 Urine RBC (Auto) 1 Blood Type O POSITIVE Antibody Screen NEGATIVE 04/11/19 08:14 WBC RBC Hgb Hct MCV MCH MCHC RDW Plt Count Seg Neutrophils % Lymphocytes % Monocytes % Eosinophils % Basophils % Absolute Neutrophils Absolute Lymphocytes Absolute Monocytes Absolute Eosinophils Absolute Basophils Sodium 139.8 Potassium 4.5 Chloride 102 Carbon Dioxide 28 Anion Gap 10 BUN 4 L Creatinine 0.52 Est GFR ( Amer) > 60 Est GFR (Non-Af Amer) > 60 Glucose 86 Calcium 8.8 Urine Color Urine Appearance Urine pH Ur Specific Shell Urine Protein Urine Glucose (UA) Urine Ketones Urine Blood Urine Nitrite Ur Leukocyte Esterase Urine WBC (Auto) Urine RBC (Auto) Blood Type Antibody Screen Impressions: Chest X-Ray 03/25/19 18:26 IMPRESSION: No pneumothorax. Patchy airspace opacities are present throughout the right lung base as well as left medial lung base. No significant pleural ef fusion.Left hilar fullness.Endotracheal tube tip overlies the lower trachea approximately 4.6 cm above the level of the aliyah. Nasogastric catheter tube is present with tip overlying the body of the stomach. Right IJ central venous catheter is present with tip overlying the SVC below the aliyah level. Abdomen/Pelvis CT 04/09/19 00:00 IMPRESSION: No CT evidence of extravasation of oral contrast from the stomach or small bowel. Thin rim of fluid with few air bubbles between the anterior abdominal wall and small bowel loops in the mid epigastrium. This likely communicates with the superior Kobe-Pugh drain. Abdomen X-Ray 04/09/19 03:47 IMPRESSION: No acute findings. Assessment & Plan - Diagnosis (1) Intra-abdominal abscess post-procedure Is this a current diagnosis for this admission?: Yes - Plan Summary Plan Summary: recieved 2 units prbc last pm for hb of 7 no obvious source passing brown stool plt ct down today 1100 will cont to monitor cont lovonox for now, we discussed risk of bleed vs pe she wants to cont with lovonox encourage ambulation ok to have clear liquids cont iv abx will repeat ct on mon to reeval for fluid collection or leak overall wbc better
[2019-04-11] MEDS: KETOROLAC TROMETHAMINE INJ/PF 30 MG/1 ML SDV IV PRN (11:46)
--- NOTE | 2019-04-11 14:35 | PDOC PROGRESS REPORT ---
Subjective Progress Note for:: 04/11/19 Subjective:: Patient seen resting in bed comfortably. Patient tolerates clear liquid diet. I tapered her prednisone to 10 mg daily which is her home dose. Reason For Visit: ABDOMINAL ABSCESS, PERFORATED VISCUS Physical Exam Vital Signs: Temp Pulse Resp BP Pulse Ox 98.5 F 102 H 16 148/84 H 90 L 04/11/19 08:05 04/11/19 09:09 04/11/19 08:05 04/11/19 09:09 04/11/19 08:05 Intake & Output 04/10/19 04/11/19 04/12/19 06:59 06:59 06:59 Intake Total 4589 4588 200 Output Total 220 520 Balance 4369 4068 200 Weight 95.3 kg 96.4 kg General appearance: PRESENT: no acute distress Neck exam: ABSENT: carotid bruit, JVD, lymphadenopathy, thyromegaly Respiratory exam: PRESENT: clear to auscultation jack. ABSENT: rales, rhonchi, wheezes Cardiovascular exam: PRESENT: RRR. ABSENT: diastolic murmur, rubs, systolic murmur Neurological exam: PRESENT: alert, awake, oriented to time, oriented to situation Results Laboratory Results: 04/11/19 08:14 04/11/19 08:14 04/10/19 04/10/19 04/11/19 15:10 19:25 08:14 WBC 22.5 H RBC 3.58 L Hgb 10.4 L D Hct 31.9 L MCV 89 MCH 29.1 MCHC 32.6 RDW 16.0 H Plt Count 1159 H* Seg Neutrophils % Not Reportable Lymphocytes % Not Reportable Monocytes % Not Reportable Eosinophils % Not Reportable Basophils % Not Reportable Absolute Neutrophils Not Reportable Absolute Lymphocytes Not Reportable Absolute Monocytes Not Reportable Absolute Eosinophils Not Reportable Absolute Basophils Not Reportable Sodium Potassium Chloride Carbon Dioxide Anion Gap BUN Creatinine Est GFR ( Amer) Est GFR (Non-Af Amer) Glucose Calcium Urine Color YELLOW Urine Appearance CLEAR Urine pH 6.0 Ur Specific [place] 1.010 Urine Protein NEGATIVE Urine Glucose (UA) NEGATIVE Urine Ketones NEGATIVE Urine Blood NEGATIVE Urine Nitrite NEGATIVE Ur Leukocyte Esterase SMALL H Urine WBC (Auto) 4 Urine RBC (Auto) 1 Blood Type O POSITIVE Antibody Screen NEGATIVE 04/11/19 08:14 WBC RBC Hgb Hct MCV MCH MCHC RDW Plt Count Seg Neutrophils % Lymphocytes % Monocytes % Eosinophils % Basophils % Absolute Neutrophils Absolute Lymphocytes Absolute Monocytes Absolute Eosinophils Absolute Basophils Sodium 139.8 Potassium 4.5 Chloride 102 Carbon Dioxide 28 Anion Gap 10 BUN 4 L Creatinine 0.52 Est GFR ( Amer) > 60 Est GFR (Non-Af Amer) > 60 Glucose 86 Calcium 8.8 Urine Color Urine Appearance Urine pH Ur Specific [place] Urine Protein Urine Glucose (UA) Urine Ketones Urine Blood Urine Nitrite Ur Leukocyte Esterase Urine WBC (Auto) Urine RBC (Auto) Blood Type Antibody Screen Impressions: Chest X-Ray 03/25/19 18:26 IMPRESSION: No pneumothorax. Patchy airspace opacities are present throughout the right lung base as well as left medial lung base. No significant pleural effusion.Left hilar fullness.Endotracheal tube tip overlies the lower trachea approximately 4.6 cm above the level of the aliyah. Nasogastric catheter tube is present with tip overlying the body of the stomach. Right IJ central venous catheter is present with tip overlying the SVC below the aliyah level. Abdomen/Pelvis CT 04/09/19 00:00 IMPRESSION: No CT evidence of extravasation of oral contrast from the stomach or small bowel. Thin rim of fluid with few air bubbles between the anterior abdominal wall and small bowel loops in the mid epigastrium. This likely communicates with the superior Kobe-Pugh drain. Abdomen X-Ray 04/09/19 03:47 IMPRESSION: No acute findings. Assessment and Plan - Diagnosis (1) Sepsis Is this a current diagnosis for this admission?: Yes Plan: Evidence of by leukocytosis and tachycardia and wound culture positive for multiple organisms. Patient has been on Zosyn. (2) Peritonitis and intra-abdominal abscess Is this a current diagnosis for this admission?: Yes Plan: Patient is status post extended right hemicolectomy and ileostomy. She has also abdominal lotion with use of normal saline. (3) Perforation of the transverse colon Is this a current diagnosis for this admission?: Yes Plan: Status post colectomy and ileostomy. (4) Steroid dependent Is this a current diagnosis for this admission?: Yes Plan: Patient has been on Solu-Cortef. (5) Rheumatoid arthritis Is this a current diagnosis for this admission?: Yes Plan: Continue steroid (6) Hypertension Qualifiers: Hypertension type: essential hypertension Qualified Code(s): I10 - Essential (primary) hypertension Is this a current diagnosis for this admission?: Yes Plan: Continue current regimen
[2019-04-11] MEDS: LORAZEPAM INJ 2 MG/1 ML VIAL IV PRN (21:28)
[2019-04-11] MEDS: PROMETHAZINE HCL INJ 25 MG/1 ML VIAL IV PRN (21:41)
[2019-04-11] MEDS: RINGERS SOLUTION,LACTATED 1,000 ML IV PRN (23:21)
[2019-04-12] MEDS: KETOROLAC TROMETHAMINE INJ/PF 30 MG/1 ML SDV IV PRN ×2 (02:38→13:18)
[2019-04-12] MEDS: METRONIDAZOLE 500 MG/NS RTU 500 MG/100 ML RTUPB IV SCH ×4 (04:03→21:18)
[2019-04-12] MEDS: HYDROMORPHONE HCL INJ/PF 2 MG/ML AMPULE IV PRN ×3 (04:03→16:43)
[2019-04-12] MEDS: OCTREOTIDE ACETATE INJ/PF 100 MCG/1 ML SDV IV SCH ×3 (06:53→21:24)
[2019-04-12] MEDS: METOCLOPRAMIDE HCL INJ/PF 10 MG/2 ML SDV IV SCH ×3 (06:53→18:14)
[2019-04-12] MEDS: PIPERACILLIN SODIUM/TAZOBACTAM 3.375 GM in NORMAL SALINE 100 ML IV SCH ×3 (06:53→18:14)
[2019-04-12 07:54] LABS: HEMATOCRIT 32.7 % (36.0-47.0); HEMOGLOBIN 10.4 g/dL (12.0-15.5); MEAN CORPUSCULAR HEMOGLOBIN 28.1 pg (27.0-33.4); MEAN CORPUSCULAR HGB CONC 31.9 g/dL (32.0-36.0); MEAN CORPUSCULAR VOLUME 88 fl (80-97); WHITE BLOOD COUNT 23.5 10^3/uL (4.0-10.5)
[2019-04-12 08:08] LABS: ANION GAP 10 (5-19); CALCIUM 8.9 mg/dL (8.4-10.2); CARBON DIOXIDE 29 mmol/L (22-30); CHLORIDE 102 mmol/L (98-107); GLUCOSE 71 mg/dL (75-110); POTASSIUM 4.5 mmol/L (3.6-5.0); SODIUM 141.2 mmol/L (137-145)
[2019-04-12 08:10] LABS: BLOOD UREA NITROGEN < 2 mg/dL (7-20)
[2019-04-12 08:28] LABS: PLATELET COUNT 1179 10^3/uL (150-450)
[2019-04-12 08:31] LABS: ABSOLUTE LYMPHOCYTES# (MANUAL) 8.9 10^3/uL (0.5-4.7); ABSOLUTE MONOCYTES # (MANUAL) 1.6 10^3/uL (0.1-1.4); ABSOLUTE NEUTROPHILS# (MANUAL) 12.7 10^3/uL (1.7-8.2); BASOPHILS % (MANUAL) 0 % (0-2); EOSINOPHILS % (MANUAL) 1 % (0-6); LYMPHOCYTES % (MANUAL) 38 % (13-45); MONOCYTES % (MANUAL) 7 % (3-13); NUCLEATED RED BLOOD CELLS 2 /100 WBC (0); SEGMENTED NEUTROPHILS % (MAN) 54 % (42-78); TOTAL CELLS COUNTED 100
[2019-04-12 08:32] LABS: ANISOCYTOSIS 1+; HYPOCHROMASIA SLIGHT; PLATELET CLUMPS PRESENT; PLATELET COMMENT INCREASED; PLATELET GIANT PRESENT; PLATELET LARGE PRESENT; TARGET CELLS SLIGHT
--- NOTE | 2019-04-12 09:14 | PDOC PROGRESS REPORT ---
Subjective Progress Note for:: 04/12/19 Subjective:: feels ok no pain no fever passing stool Reason For Visit: ABDOMINAL ABSCESS, PERFORATED VISCUS Physical Exam Vital Signs: Temp Pulse Resp BP Pulse Ox 98.2 F 88 15 148/87 H 94 04/12/19 07:45 04/12/19 07:45 04/12/19 07:45 04/12/19 07:45 04/12/19 07:45 Intake & Output 04/11/19 04/12/19 04/13/19 06:59 06:59 06:59 Intake Total 4588 2264 100 Output Total 520 80 Balance 4068 2184 100 Weight 96.4 kg 96.2 kg General appearance: PRESENT: no acute distress Head exam: PRESENT: normocephalic Eye exam: PRESENT: EOMI Mouth exam: PRESENT: moist Neck exam: PRESENT: full ROM Respiratory exam: PRESENT: clear to auscultation jack Cardiovascular exam: PRESENT: RRR Pulses: PRESENT: normal radial pulses, normal femoral pulses GI/Abdominal exam: PRESENT: soft, other - bilious fluid from asad #2 approx 50- 80cc/day Rectal exam: PRESENT: deferred Extremities exam: PRESENT: full ROM Musculoskeletal exam: PRESENT: full ROM Neurological exam: PRESENT: alert, awake, oriented to person, oriented to place Psychiatric exam: PRESENT: appropriate affect Skin exam: PRESENT: dry Results Laboratory Results: 04/12/19 07:34 04/12/19 07:34 04/11/19 04/12/19 04/12/19 08:14 07:34 07:34 WBC 22.5 H 23.5 H RBC 3.58 L 3.70 L Hgb 10.4 L D 10.4 L Hct 31.9 L 32.7 L MCV 89 88 MCH 29.1 28.1 MCHC 32.6 31.9 L RDW 16.0 H 16.0 H Plt Count 1159 H* 1179 H* Seg Neutrophils % Not Reportable Not Reportable Lymphocytes % Not Reportable Not Reportable Monocytes % Not Reportable Not Reportable Eosinophils % Not Reportable Not Reportable Basophils % Not Reportable Not Reportable Absolute Neutrophils Not Reportable Not Reportable Absolute Lymphocytes Not Reportable Not Reportable Absolute Monocytes Not Reportable Not Reportable Absolute Eosinophils Not Reportable Not Reportable Absolute Basophils Not Reportable Not Reportable Sodium 141.2 Potassium 4.5 Chloride 102 Carbon Dioxide 29 Anion Gap 10 BUN < 2 L Creatinine 0.42 L Est GFR ( Amer) > 60 Est GFR (Non-Af Amer) > 60 Glucose 71 L Calcium 8.9 Impressions: Chest X-Ray 03/25/19 18:26 IMPRESSION: No pneumothorax. Patchy airspace opacities are present throughout the right lung base as well as left medial lung base. No significant pleural effusion.Left hilar fullness.Endotracheal tube tip overlies the lower trachea approximately 4.6 cm above the level of the aliyah. Nasogastric catheter tube is present with tip overlying the body of the stomach. Right IJ central venous catheter is present with tip overlying the SVC below the aliyah level. Abdomen/Pelvis CT 04/09/19 00:00 IMPRESSION: No CT evidence of extravasation of oral contrast from the stomach or small bowel. Thin rim of fluid with few air bubbles between the anterior abdominal wall and small bowel loops in the mid epigastrium. This likely communicates with the superior Kobe-Pugh drain. Abdomen X-Ray 04/09/19 03:47 IMPRESSION: No acute findings. 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
[2019-04-12] MEDS: FAMOTIDINE INJ/PF 20 MG/2 ML SDV IV SCH ×2 (09:21→21:15)
[2019-04-12] MEDS: PREDNISONE 10 MG TABLET PO SCH (09:23)
[2019-04-12] MEDS: ENOXAPARIN SODIUM INJ 30 MG/0.3 ML DISP.SYRIN SUBCUT SCH (09:23)
[2019-04-12] MEDS: METHADONE HCL 10 MG TABLET PO SCH ×2 (09:23→21:15)
[2019-04-12] MEDS: POTASSIUM CHLORIDE 10 MEQ CAPSULE.ER PO SCH ×2 (09:23→21:16)
[2019-04-12] MEDS: ASPIRIN 325 MG TABLET PO SCH (09:23)
[2019-04-12] MEDS: ENALAPRIL MALEATE 10 MG TABLET PO SCH ×2 (09:24→21:17)
[2019-04-12] MEDS ORDERED: PREDNISONE 20 MG TABLET PO SCH (10:00)
[2019-04-12] MEDS: RINGERS SOLUTION,LACTATED 1,000 ML IV PRN (15:15)
[2019-04-12] MEDS ORDERED: OCTREOTIDE ACETATE INJ/PF 100 MCG/1 ML SDV ONE (21:20)
[2019-04-12] MEDS: LORAZEPAM INJ 2 MG/1 ML VIAL IV PRN (21:24)
[2019-04-12] MEDS: ONDANSETRON HCL INJ/PF 4 MG/2 ML SDV IV PRN (21:30)
[2019-04-13] MEDS: PIPERACILLIN SODIUM/TAZOBACTAM 3.375 GM in NORMAL SALINE 100 ML IV SCH ×4 (00:20→17:51)
[2019-04-13] MEDS: METOCLOPRAMIDE HCL INJ/PF 10 MG/2 ML SDV IV SCH ×4 (00:20→17:51)
[2019-04-13] MEDS: KETOROLAC TROMETHAMINE INJ/PF 30 MG/1 ML SDV IV PRN ×2 (00:26→13:26)
[2019-04-13] MEDS: METRONIDAZOLE 500 MG/NS RTU 500 MG/100 ML RTUPB IV SCH ×4 (04:02→21:15)
[2019-04-13] MEDS: OCTREOTIDE ACETATE INJ/PF 100 MCG/1 ML SDV IV SCH ×3 (05:44→21:16)
[2019-04-13] MEDS: HYDROMORPHONE HCL INJ/PF 2 MG/ML AMPULE IV PRN ×2 (06:00→17:52)
[2019-04-13 06:19] LABS: HEMATOCRIT 32.5 % (36.0-47.0); HEMOGLOBIN 10.7 g/dL (12.0-15.5); MEAN CORPUSCULAR VOLUME 88 fl (80-97); RED BLOOD COUNT 3.69 10^6/uL (3.72-5.28); RED CELL DISTRIBUTION WIDTH 15.4 % (11.5-14.0); WHITE BLOOD COUNT 21.6 10^3/uL (4.0-10.5)
[2019-04-13 06:32] LABS: ANION GAP 8 (5-19); CALCIUM 8.7 mg/dL (8.4-10.2); CARBON DIOXIDE 32 mmol/L (22-30); CHLORIDE 99 mmol/L (98-107); GLUCOSE 76 mg/dL (75-110); POTASSIUM 4.2 mmol/L (3.6-5.0); SODIUM 139.3 mmol/L (137-145)
[2019-04-13 06:33] LABS: BLOOD UREA NITROGEN < 2 mg/dL (7-20)
[2019-04-13 07:13] LABS: PLATELET COUNT 1115 10^3/uL (150-450)
[2019-04-13 07:18] LABS: ABSOLUTE LYMPHOCYTES# (MANUAL) 6.7 10^3/uL (0.5-4.7); ABSOLUTE MONOCYTES # (MANUAL) 1.7 10^3/uL (0.1-1.4); BASOPHILS % (MANUAL) 0 % (0-2); EOSINOPHILS % (MANUAL) 1 % (0-6); LYMPHOCYTES % (MANUAL) 31 % (13-45); MONOCYTES % (MANUAL) 8 % (3-13); SEGMENTED NEUTROPHILS % (MAN) 60 % (42-78); TOTAL CELLS COUNTED 100
[2019-04-13 07:19] LABS: PLATELET COMMENT INCREASED
[2019-04-13 07:21] LABS: ANISOCYTOSIS 1+; HYPOCHROMASIA 1+; POIKILOCYTOSIS SLIGHT; POLYCHROMASIA SLIGHT; STOMATOCYTES 2+; TARGET CELLS SLIGHT
--- NOTE | 2019-04-13 07:29 | PDOC PROGRESS REPORT ---
Subjective Progress Note for:: 04/13/19 Subjective:: feels ok no pain no fever passing stool Reason For Visit: ABDOMINAL ABSCESS, PERFORATED VISCUS Physical Exam Vital Signs: Temp Pulse Resp BP Pulse Ox 99.0 F 94 17 148/86 H 93 04/13/19 04:14 04/13/19 04:14 04/13/19 04:14 04/13/19 04:14 04/13/19 04:14 Intake & Output 04/12/19 04/13/19 04/14/19 06:59 06:59 06:59 Intake Total 2264 2963 Output Total 80 190 Balance 2184 2773 Weight 96.2 kg 96.5 kg General appearance: PRESENT: no acute distress Head exam: PRESENT: normocephalic Eye exam: PRESENT: EOMI Ear exam: PRESENT: normal external ear exam Mouth exam: PRESENT: moist Teeth exam: PRESENT: poor dentation Neck exam: PRESENT: full ROM Respiratory exam: PRESENT: clear to auscultation jack Cardiovascular exam: PRESENT: RRR Pulses: PRESENT: normal radial pulses, normal femoral pulses GI/Abdominal exam: PRESENT: soft - still with biliary drainage. sl decreased Extremities exam: PRESENT: full ROM Musculoskeletal exam: PRESENT: full ROM Neurological exam: PRESENT: alert, awake, oriented to person, oriented to place Psychiatric exam: PRESENT: appropriate affect Skin exam: PRESENT: dry Results Laboratory Results: 04/13/19 05:58 04/13/19 05:58 04/12/19 04/12/19 04/13/19 07:34 07:34 05:58 WBC 23.5 H 21.6 H RBC 3.70 L 3.69 L Hgb 10.4 L 10.7 L Hct 32.7 L 32.5 L MCV 88 88 MCH 28.1 29.0 MCHC 31.9 L 33.0 RDW 16.0 H 15.4 H Plt Count 1179 H* 1115 H* Seg Neutrophils % Not Reportable Not Reportable Lymphocytes % Not Reportable Not Reportable Monocytes % Not Reportable Not Reportable Eosinophils % Not Reportable Not Reportable Basophils % Not Reportable Not Reportable Absolute Neutrophils Not Reportable Not Reportable Absolute Lymphocytes Not Reportable Not Reportable Absolute Monocytes Not Reportable Not Reportable Absolute Eosinophils Not Reportable Not Reportable Absolute Basophils Not Reportable Not Reportable Sodium 141.2 Potassium 4.5 Chloride 102 Carbon Dioxide 29 Anion Gap 10 BUN < 2 L Creatinine 0.42 L Est GFR ( Amer) > 60 Est GFR (Non-Af Amer) > 60 Glucose 71 L Calcium 8.9 04/13/19 05:58 WBC RBC Hgb Hct MCV MCH MCHC RDW Plt Count Seg Neutrophils % Lymphocytes % Monocytes % Eosinophils % Basophils % Absolute Neutrophils Absolute Lymphocytes Absolute Monocytes Absolute Eosinophils Absolute Basophils Sodium 139.3 Potassium 4.2 Chloride 99 Carbon Dioxide 32 H Anion Gap 8 BUN < 2 L Creatinine 0.40 L Est GFR ( Amer) > 60 Est GFR (Non-Af Amer) > 60 Glucose 76 Calcium 8.7 Impressions: Chest X-Ray 03/25/19 18:26 IMPRESSION: No pneumothorax. Patchy airspace opacities are present throughout the right lung base as well as left medial lung base. No significant pleural effusion.Left hilar fullness.Endotracheal tube tip overlies the lower trachea approximately 4.6 cm above the level of the aliyah. Nasogastric catheter tube is present with tip overlying the body of the stomach. Right IJ central venous catheter is present with tip overlying the SVC below the aliyah level. Abdomen/Pelvis CT 04/09/19 00:00 IMPRESSION: No CT evidence of extravasation of oral contrast from the stomach or small bowel. Thin rim of fluid with few air bubbles between the anterior abdominal wall and small bowel loops in the mid epigastrium. This likely communicates with the superior Kobe-Pugh drain. Abdomen X-Ray 04/09/19 03:47 IMPRESSION: No acute findings. Assessment & Plan - Diagnosis (1) Intra-abdominal abscess post-procedure Is this a current diagnosis for this admission?: Yes - Plan Summary Plan Summary: still with some biliary drainage wbc trending down platletes decreasing passing stool will obtain ct today.
[2019-04-13] MEDS: METHADONE HCL 10 MG TABLET PO SCH ×2 (10:09→21:15)
[2019-04-13] MEDS: ASPIRIN 325 MG TABLET PO SCH (10:10)
[2019-04-13] MEDS: FAMOTIDINE INJ/PF 20 MG/2 ML SDV IV SCH ×2 (10:10→21:15)
[2019-04-13] MEDS: ENOXAPARIN SODIUM INJ 30 MG/0.3 ML DISP.SYRIN SUBCUT SCH (10:11)
[2019-04-13] MEDS: PREDNISONE 10 MG TABLET PO SCH (10:11)
[2019-04-13] MEDS: POTASSIUM CHLORIDE 10 MEQ CAPSULE.ER PO SCH ×2 (10:11→21:15)
[2019-04-13] MEDS: ENALAPRIL MALEATE 10 MG TABLET PO SCH ×2 (10:12→21:24)
[2019-04-13 10:22] LABS: APPEARANCE,URINE CLEAR; BILIRUBIN,URINE NEGATIVE (NEGATIVE); COLOR,URINE STRAW; GLUCOSE, URINE NEGATIVE (NEGATIVE); KETONES,URINE NEGATIVE (NEGATIVE); LEUKOCYTE ESTERASE,URINE TRACE (NEGATIVE); NITRITE,URINE NEGATIVE (NEGATIVE); PROTEIN,URINE NEGATIVE (NEGATIVE); URINE SPECIFIC GRAVITY 1.005; UROBILINOGEN,URINE NEGATIVE mg/dL (<2.0)
--- NOTE | 2019-04-13 13:39 | RADIOLOGY REPORT (SQ) ---
EXAM DESCRIPTION: CT ABD/PELVIS ORAL ONLY COMPLETED DATE/TIME: 04/13/2019 1:14 pm REASON FOR STUDY: r/o abscess.. please use oral gastrografin COMPARISON: 04/09/2019. TECHNIQUE: CT scan of the abdomen and pelvis performed with oral contrast and no intravenous contras t. Images reviewed with lung, soft tissue, and bone windows. Reconstructed coronal and sagittal MPR i mages reviewed. All images stored on PACS. All CT scanners at this facility use dose modulation, iterative reconstruction, and/or weight based d osing when appropriate to reduce radiation dose to as low as reasonably achievable (ALARA). [facility]: Dose Right [facility]: CareDose [facility]: Dose Right [facility]: Teradose 4D [facility]: [employer] RADIATION DOSE: CT Rad equipment meets quality standard of care and radiation dose reduction techniq ues were employed. CTDIvol: 17.7 mGy. DLP: 953 mGy-cm.mGy. LIMITATIONS: None. FINDINGS: LOWER CHEST: Scattered atelectasis. NON-CONTRASTED LIVER, SPLEEN, ADRENALS: Evaluation limited by lack of IV contrast. Previous splenect karolyn. No identified significant masses. PANCREAS: No masses. No peripancreatic inflammatory changes. GALLBLADDER: Surgically absent. RIGHT KIDNEY AND URETER: No solid masses. No significant calcification. No hydronephrosis or hydroure ter. LEFT KIDNEY AND URETER: No solid masses. No significant calcification. No hydronephrosis or hydrouret er. AORTA AND RETROPERITONEUM: No aneurysm. No retroperitoneal masses or adenopathy. BOWEL AND PERITONEAL CAVITY: Contrast is present in the bowel. No evidence of bowel contrast extrava sation. Surgical drains are present. The previously seen fluid collection in the anterior abdomen b etween the abdominal wall and the bowel has decreased significantly in size since the prior study. APPENDIX: Not visualized. PELVIS: No abnormal pelvic masses. Bladder unremarkable. ABDOMINAL WALL: Surgical changes with overlying skin emi. There is a collection of gas in the s ubcutaneous fatty tissues in the upper abdomen just to the right of midline with no unusual fluid col lection. BONES: No significant findings. OTHER: No other significant finding. IMPRESSION: 1. SURGICAL CHANGES DESCRIBED. THE PREVIOUSLY SEEN FLUID COLLECTION LOCATED BETWEEN THE BOWEL AND ABDOMINAL WALL HAS DECREASED IN SIZE SINCE THE PRIOR STUDY. NO EVIDENCE OF BOWEL CONTRAST EXTRAVASA TION. 2. COLLECTION OF GAS IN THE SUBCUTANEOUS FATTY TISSUES IN THE UPPER ABDOMEN LOCATED AT THE LEVEL OF T HE SURGICAL INCISION, PRESUMABLY POSTOPERATIVE IN NATURE. 3. NO OTHER SIGNIFICANT FINDINGS. TECHNICAL DOCUMENTATION: JOB ID: [id number] Quality ID # [id number]: Final reports with documentation of one or more dose reduction techniques (e.g., Au tomated exposure control, adjustment of the mA and/or kV according to patient size, use of iterative reconstruction technique) 2010 [employer]- All Rights Reserved Reading location - IP/workstation name: [email or web address]
--- NOTE | 2019-04-13 13:59 | PDOC PROGRESS REPORT ---
Subjective Progress Note for:: 04/13/19 Subjective:: Patient is seen resting in bed comfortably. She did not have any nausea vomiting or fever. She is able to move her bowel. Reason For Visit: ABDOMINAL ABSCESS, PERFORATED VISCUS Physical Exam Vital Signs: Temp Pulse Resp BP Pulse Ox 98.3 F 91 20 155/99 H 93 04/13/19 11:35 04/13/19 11:35 04/13/19 11:35 04/13/19 11:35 04/13/19 11:35 Intake & Output 04/12/19 04/13/19 04/14/19 06:59 06:59 06:59 Intake Total 2264 2963 800 Output Total 80 190 740 Balance 2184 2773 60 Weight 96.2 kg 96.5 kg General appearance: PRESENT: no acute distress Neck exam: ABSENT: carotid bruit, JVD, lymphadenopathy, thyromegaly Respiratory exam: PRESENT: clear to auscultation jack. ABSENT: rales, rhonchi, wheezes Pulses: PRESENT: normal dorsalis pedis pul Neurological exam: PRESENT: alert, awake, oriented to time, oriented to situation Results Laboratory Results: 04/13/19 05:58 04/13/19 05:58 04/13/19 04/13/19 04/13/19 05:58 05:58 10:00 WBC 21.6 H RBC 3.69 L Hgb 10.7 L Hct 32.5 L MCV 88 MCH 29.0 MCHC 33.0 RDW 15.4 H Plt Count 1115 H* Seg Neutrophils % Not Reportable Lymphocytes % Not Reportable Monocytes % Not Reportable Eosinophils % Not Reportable Basophils % Not Reportable Absolute Neutrophils Not Reportable Absolute Lymphocytes Not Reportable Absolute Monocytes Not Reportable Absolute Eosinophils Not Reportable Absolute Basophils Not Reportable Sodium 139.3 Potassium 4.2 Chloride 99 Carbon Dioxide 32 H Anion Gap 8 BUN < 2 L Creatinine 0.40 L Est GFR ( Amer) > 60 Est GFR (Non-Af Amer) > 60 Glucose 76 Calcium 8.7 Urine Color STRAW Urine Appearance CLEAR Urine pH 8.0 Ur Specific Valent[place] 1.005 Urine Protein NEGATIVE Urine Glucose (UA) NEGATIVE Urine Ketones NEGATIVE Urine Blood NEGATIVE Urine Nitrite NEGATIVE Ur Leukocyte Esterase TRACE H Urine WBC (Auto) 1 Urine RBC (Auto) 1 Impressions: Chest X-Ray 03/25/19 18:26 IMPRESSION: No pneumothorax. Patchy airspace opacities are present throughout the right lung base as well as left medial lung base. No significant pleural effusion.Left hilar fullness.Endotracheal tube tip overlies the lower trachea approximately 4.6 cm above the level of the aliyah. Nasogastric catheter tube is present with tip overlying the body of the stomach. Right IJ central venous catheter is present with tip overlying the SVC below the aliyah level. Abdomen X-Ray 04/09/19 03:47 IMPRESSION: No acute findings. Abdomen/Pelvis CT 04/13/19 00:00 IMPRESSION: 1. SURGICAL CHANGES DESCRIBED. THE PREVIOUSLY SEEN FLUID COLLECTION LOCATED BETWEEN THE BOWEL AND ABDOMINAL WALL HAS DECREASED IN SIZE SINCE THE PRIOR STUDY. NO EVIDENCE OF BOWEL CONTRAST EXTRAVASATION. 2. COLLECTION OF GAS IN THE SUBCUTANEOUS FATTY TISSUES IN THE UPPER ABDOMEN LOCATED AT THE LEVEL OF THE SURGICAL INCISION, PRESUMABLY POSTOPERATIVE IN NATURE. 3. NO OTHER SIGNIFICANT FINDINGS. Assessment and Plan - Diagnosis (1) Sepsis Is this a current diagnosis for this admission?: Yes Plan: Evidence of by leukocytosis and tachycardia and wound culture positive for multiple organisms. Patient has been on Zosyn. (2) Peritonitis and intra-abdominal abscess Is this a current diagnosis for this admission?: Yes Plan: Patient is status post extended right hemicolectomy and ileostomy. She has also abdominal lotion with use of normal saline. (3) Perforation of the transverse colon Is this a current diagnosis for this admission?: Yes Plan: Status post colectomy and ileostomy. (4) Steroid dependent Is this a current diagnosis for this admission?: Yes Plan: Patient has been on Solu-Cortef. (5) Rheumatoid arthritis Is this a current diagnosis for this admission?: Yes Plan: Continue steroid (6) Hypertension Qualifiers: Hypertension type: essential hypertension Qualified Code(s): I10 - Essential (primary) hypertension Is this a current diagnosis for this admission?: Yes Plan: Continue current regimen
[2019-04-13] MEDS: LORAZEPAM INJ 2 MG/1 ML VIAL IV PRN (21:24)
[2019-04-14] MEDS: METRONIDAZOLE 500 MG/NS RTU 500 MG/100 ML RTUPB IV SCH ×4 (02:31→21:42)
[2019-04-14] MEDS: KETOROLAC TROMETHAMINE INJ/PF 30 MG/1 ML SDV IV PRN ×2 (02:31→12:52)
[2019-04-14] MEDS: METOCLOPRAMIDE HCL INJ/PF 10 MG/2 ML SDV IV SCH ×5 (02:31→23:55)
[2019-04-14] MEDS: PIPERACILLIN SODIUM/TAZOBACTAM 3.375 GM in NORMAL SALINE 100 ML IV SCH ×5 (02:31→23:55)
[2019-04-14] MEDS: HYDROMORPHONE HCL INJ/PF 2 MG/ML AMPULE IV PRN ×2 (06:12→17:18)
[2019-04-14] MEDS: OCTREOTIDE ACETATE INJ/PF 100 MCG/1 ML SDV IV SCH ×3 (06:12→21:43)
--- NOTE | 2019-04-14 08:52 | PDOC PROGRESS REPORT ---
Subjective Progress Note for:: 04/14/19 Subjective:: feels ok today daniel clears having bm's ct done yesterday, no evidence of contrast leak Reason For Visit: ABDOMINAL ABSCESS, PERFORATED VISCUS Physical Exam Vital Signs: Temp Pulse Resp BP Pulse Ox 98.7 F 86 20 151/90 H 96 04/14/19 07:39 04/14/19 07:39 04/14/19 07:39 04/14/19 07:39 04/14/19 07:39 Intake & Output 04/13/19 04/14/19 04/15/19 06:59 06:59 06:59 Intake Total 2963 2340 Output Total 190 830 Balance 2773 1510 Weight 96.5 kg 96.4 kg General appearance: PRESENT: no acute distress Eye exam: PRESENT: EOMI Ear exam: PRESENT: normal external ear exam Mouth exam: PRESENT: moist Neck exam: PRESENT: full ROM Respiratory exam: PRESENT: clear to auscultation jack Cardiovascular exam: PRESENT: RRR Pulses: PRESENT: normal radial pulses, normal femoral pulses GI/Abdominal exam: PRESENT: soft, other - bilious drainage from #1 asad Rectal exam: PRESENT: deferred Extremities exam: PRESENT: full ROM Musculoskeletal exam: PRESENT: full ROM Neurological exam: PRESENT: alert, awake, oriented to person, oriented to place Skin exam: PRESENT: dry Results Laboratory Results: 04/13/19 05:58 04/13/19 05:58 04/13/19 04/13/19 10:00 16:00 Urine Color STRAW Urine Appearance CLEAR Urine pH 8.0 Ur Specific [place] 1.005 Urine Protein NEGATIVE Urine Glucose (UA) NEGATIVE Urine Ketones NEGATIVE Urine Blood NEGATIVE Urine Nitrite NEGATIVE Ur Leukocyte Esterase TRACE H Urine WBC (Auto) 1 Urine RBC (Auto) 1 Stool Occult Blood NEGATIVE Impressions: Chest X-Ray 03/25/19 18:26 IMPRESSION: No pneumothorax. Patchy airspace opacities are present throughout the right lung base as well as left medial lung base. No significant pleural effusion.Left hilar fullness.Endotracheal tube tip overlies the lower trachea approximately 4.6 cm above the level of the aliyah. Nasogastric catheter tube is present with tip overlying the body of the stomach. Right IJ central venous catheter is present with tip overlying the SVC below the aliyah level. Abdomen X-Ray 04/09/19 03:47 IMPRESSION: No acute findings. Abdomen/Pelvis CT 04/13/19 00:00 IMPRESSION: 1. SURGICAL CHANGES DESCRIBED. THE PREVIOUSLY SEEN FLUID COLLECTION LOCATED BETWEEN THE BOWEL AND ABDOMINAL WALL HAS DECREASED IN SIZE SINCE THE PRIOR STUDY. NO EVIDENCE OF BOWEL CONTRAST EXTRAVASATION. 2. COLLECTION OF GAS IN THE SUBCUTANEOUS FATTY TISSUES IN THE UPPER ABDOMEN LOCATED AT THE LEVEL OF THE SURGICAL INCISION, PRESUMABLY POSTOPERATIVE IN NATURE. 3. NO OTHER SIGNIFICANT FINDINGS. Assessment & Plan - Diagnosis (1) Intra-abdominal abscess post-procedure Is this a current diagnosis for this admission?: Yes - Plan Summary Plan Summary: pt conts to improve ct again yesterday does show decreasing fluid collection with air ,well captured by asad drain pt passing greenish stools after ct scan I suspect a captured small bowel leak,/ fistula will cont on sips of clears cont sandostatin
[2019-04-14 08:57] LABS: HEMATOCRIT 30.5 % (36.0-47.0); HEMOGLOBIN 9.9 g/dL (12.0-15.5); MEAN CORPUSCULAR HGB CONC 32.5 g/dL (32.0-36.0); MEAN CORPUSCULAR VOLUME 89 fl (80-97); PLATELET COUNT 951 10^3/uL (150-450); RED BLOOD COUNT 3.43 10^6/uL (3.72-5.28); RED CELL DISTRIBUTION WIDTH 15.6 % (11.5-14.0); WHITE BLOOD COUNT 23.6 10^3/uL (4.0-10.5)
[2019-04-14 09:12] LABS: ANION GAP 7 (5-19); CALCIUM 8.2 mg/dL (8.4-10.2); CARBON DIOXIDE 32 mmol/L (22-30); CHLORIDE 100 mmol/L (98-107); GLUCOSE 109 mg/dL (75-110); POTASSIUM 3.9 mmol/L (3.6-5.0); SODIUM 138.7 mmol/L (137-145)
[2019-04-14 09:16] LABS: ABSOLUTE LYMPHOCYTES# (MANUAL) 5.4 10^3/uL (0.5-4.7); ABSOLUTE MONOCYTES # (MANUAL) 2.8 10^3/uL (0.1-1.4); ABSOLUTE NEUTROPHILS# (MANUAL) 14.2 10^3/uL (1.7-8.2); BASOPHILS % (MANUAL) 1 % (0-2); EOSINOPHILS % (MANUAL) 4 % (0-6); LYMPHOCYTES % (MANUAL) 19 % (13-45); MONOCYTES % (MANUAL) 12 % (3-13); SEGMENTED NEUTROPHILS % (MAN) 60 % (42-78); TOTAL CELLS COUNTED 100
[2019-04-14 09:17] LABS: ANISOCYTOSIS SLIGHT; BURR CELLS SLIGHT; POIKILOCYTOSIS SLIGHT; POLYCHROMASIA 1+; SMUDGE CELLS PRESENT; TEAR DROP CELLS SLIGHT; TOXIC GRANULATION 1+
[2019-04-14 09:18] LABS: PLATELET COMMENT INCREASED; PLATELET LARGE PRESENT
[2019-04-14] MEDS: POTASSIUM CHLORIDE 10 MEQ CAPSULE.ER PO SCH ×2 (09:21→21:42)
[2019-04-14] MEDS: ENOXAPARIN SODIUM INJ 30 MG/0.3 ML DISP.SYRIN SUBCUT SCH (09:21)
[2019-04-14] MEDS: PREDNISONE 10 MG TABLET PO SCH (09:21)
[2019-04-14] MEDS: FAMOTIDINE INJ/PF 20 MG/2 ML SDV IV SCH ×2 (09:21→21:42)
[2019-04-14] MEDS: ASPIRIN 325 MG TABLET PO SCH (09:21)
[2019-04-14] MEDS: ENALAPRIL MALEATE 10 MG TABLET PO SCH ×2 (09:22→21:43)
[2019-04-14] MEDS: METHADONE HCL 10 MG TABLET PO SCH ×2 (09:22→21:42)
[2019-04-14 09:23] LABS: BLOOD UREA NITROGEN < 2 mg/dL (7-20)
[2019-04-14] MEDS: RINGERS SOLUTION,LACTATED 1,000 ML IV PRN ×2 (09:31→22:04)
[2019-04-14] MEDS: PROMETHAZINE HCL INJ 25 MG/1 ML VIAL IV PRN (15:24)
--- NOTE | 2019-04-14 16:20 | Progress Note ---
Provider Note Provider Note: ID Telephone Consultation Note Asked to review patient's chart by Pharmacy. Pt not seen or examined. 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 She has been hospitalized since 03/25 with perforated bowel. She had feculent peritonitis. She required an extended R hemicolectomy, ileocolostomy, washout and removal of abdominal mesh due to fecal contamination. Two RODO drains were placed. Post- operatively there was some question of bowel leak, but most recent CT scan showed no contrast extravasation and decrease in size in fluid collection between anterior abdominal wall and bowel in the mid-epigastrium that appeared to communicate with the superior RODO drain. Recommendations Pt has been receiving both Zosyn and Flagyl. Suggest changing Zosyn to Rocephin 2 grams daily and continuing Flagyl. Pt was from the community, did not have Pseudomonas - does not need Zosyn per se. The enterococcal activity of Zosyn is not necessary in situations of mixed infection coupled with source control. Rocephin will provide similar activity against Gram negative enterics and streptococci, and Flagyl is the most reliable anaerobic agent. Duration of therapy depends upon whether or not source control has been achieved. Harish Guevara MD [facility] Infectious Diseases pager [phone]
--- NOTE | 2019-04-14 16:48 | PDOC PROGRESS REPORT ---
Subjective Progress Note for:: 04/14/19 Subjective:: No adverse events overnight. No new complaints. Minimal abdominal pain. Has been tolerating her diet. Is anticipating advancement of her diet. Reason For Visit: ABDOMINAL ABSCESS, PERFORATED VISCUS Physical Exam Vital Signs: Temp Pulse Resp BP Pulse Ox 98.6 F 66 16 141/92 H 93 04/14/19 15:29 04/14/19 15:29 04/14/19 15:29 04/14/19 15:29 04/14/19 15:29 Intake & Output 04/13/19 04/14/19 04/15/19 06:59 06:59 06:59 Intake Total 3963 2340 880 Output Total 190 830 Balance 3773 1510 880 Weight 96.5 kg 96.4 kg General appearance: PRESENT: no acute distress, cooperative, disheveled, morbidly obese Teeth exam: PRESENT: poor dentation Respiratory exam: PRESENT: clear to auscultation jack, symmetrical, unlabored. ABSENT: accessory muscle use, prolonged expiratory phas, rales, rhonchi, tachypnea, wheezes Cardiovascular exam: PRESENT: RRR, +S1, +S2 Pulses: PRESENT: normal carotid pulses Vascular exam: PRESENT: normal capillary refill GI/Abdominal exam: PRESENT: normal bowel sounds, soft, tenderness - Appropriate, other - Bilious drainage from RODO drain. ABSENT: distended, guarding, rebound Extremities exam: ABSENT: clubbing, pedal edema Musculoskeletal exam: PRESENT: normal inspection. ABSENT: deformity Neurological exam: PRESENT: alert, awake, oriented to person, oriented to place, oriented to time, oriented to situation Psychiatric exam: PRESENT: appropriate affect, normal mood Skin exam: PRESENT: dry, warm Results Laboratory Results: 04/14/19 08:19 04/14/19 08:19 04/14/19 04/14/19 08:19 08:19 WBC 23.6 H RBC 3.43 L Hgb 9.9 L Hct 30.5 L MCV 89 MCH 29.0 MCHC 32.5 RDW 15.6 H Plt Count 951 H Seg Neutrophils % Not Reportable Lymphocytes % Not Reportable Monocytes % Not Reportable Eosinophils % Not Reportable Basophils % Not Reportable Absolute Neutrophils Not Reportable Absolute Lymphocytes Not Reportable Absolute Monocytes Not Reportable Absolute Eosinophils Not Reportable Absolute Basophils Not Reportable Sodium 138.7 Potassium 3.9 Chloride 100 Carbon Dioxide 32 H Anion Gap 7 BUN < 2 L Creatinine 0.44 L Est GFR ( Amer) > 60 Est GFR (Non-Af Amer) > 60 Glucose 109 Calcium 8.2 L Impressions: Chest X-Ray 03/25/19 18:26 IMPRESSION: No pneumothorax. Patchy airspace opacities are present throughout the right lung base as well as left medial lung base. No significant pleural effusion.Left hilar fullness.Endotracheal tube tip overlies the lower trachea approximately 4.6 cm above the level of the aliyah. Nasogastric catheter tube is present with tip overlying the body of the stomach. Right IJ central venous catheter is present with tip overlying the SVC below the aliyah level. Abdomen X-Ray 04/09/19 03:47 IMPRESSION: No acute findings. Abdomen/Pelvis CT 04/13/19 00:00 IMPRESSION: 1. SURGICAL CHANGES DESCRIBED. THE PREVIOUSLY SEEN FLUID COLLECTION LOCATED BETWEEN THE BOWEL AND ABDOMINAL WALL HAS DECREASED IN SIZE SINCE THE PRIOR STUDY. NO EVIDENCE OF BOWEL CONTRAST EXTRAVASATION. 2. COLLECTION OF GAS IN THE SUBCUTANEOUS FATTY TISSUES IN THE UPPER ABDOMEN LOCATED AT THE LEVEL OF THE SURGICAL INCISION, PRESUMABLY POSTOPERATIVE IN NATURE. 3. NO OTHER SIGNIFICANT FINDINGS. Assessment and Plan - Diagnosis (1) Leukocytosis Qualifiers: Leukocytosis type: leukemoid reaction Qualified Code(s): D72.823 - Leukemoid reaction Is this a current diagnosis for this admission?: Yes Plan: White count has settled into what is likely a normal range for this lady. She will follow-up with oncology as an outpatient for repeat testing of her white count in a few months to see if it is leveled off. (2) Obesity (BMI 30-39.9) Is this a current diagnosis for this admission?: Yes Plan: Encouraged lifestyle modification (3) Perforation of the transverse colon Is this a current diagnosis for this admission?: Yes Plan: Management per surgery. She continues on antibiotics per surgery. Infectious disease recommendations were noted. (4) Thrombocytosis Is this a current diagnosis for this admission?: Yes Plan: Likely an acute phase response. Oncology believes that her counts will settle down into the 600-700 range. Currently down into the 900s from the 1100s the last few days. - Time Time Spent with patient: 15-24 minutes
[2019-04-14] MEDS: LORAZEPAM INJ 2 MG/1 ML VIAL IV PRN (21:57)
[2019-04-15] MEDS: METRONIDAZOLE 500 MG/NS RTU 500 MG/100 ML RTUPB IV SCH ×4 (05:33→20:07)
[2019-04-15] MEDS: PIPERACILLIN SODIUM/TAZOBACTAM 3.375 GM in NORMAL SALINE 100 ML IV SCH ×4 (05:33→23:39)
[2019-04-15] MEDS: OCTREOTIDE ACETATE INJ/PF 100 MCG/1 ML SDV IV SCH ×3 (05:34→22:12)
[2019-04-15] MEDS: METOCLOPRAMIDE HCL INJ/PF 10 MG/2 ML SDV IV SCH ×4 (05:34→23:39)
[2019-04-15] MEDS: KETOROLAC TROMETHAMINE INJ/PF 30 MG/1 ML SDV IV PRN (05:39)
[2019-04-15 07:00] LABS: HEMATOCRIT 31.7 % (36.0-47.0); HEMOGLOBIN 10.3 g/dL (12.0-15.5); MEAN CORPUSCULAR HEMOGLOBIN 29.1 pg (27.0-33.4); MEAN CORPUSCULAR HGB CONC 32.7 g/dL (32.0-36.0); MEAN CORPUSCULAR VOLUME 89 fl (80-97); RED BLOOD COUNT 3.55 10^6/uL (3.72-5.28); RED CELL DISTRIBUTION WIDTH 15.6 % (11.5-14.0); WHITE BLOOD COUNT 19.6 10^3/uL (4.0-10.5)
[2019-04-15 07:25] LABS: PLATELET COUNT 1000 10^3/uL (150-450)
--- NOTE | 2019-04-15 07:31 | PDOC PROGRESS REPORT ---
Subjective Progress Note for:: 04/15/19 Subjective:: feels ok was up ambulating had bm x2 y[place] Reason For Visit: ABDOMINAL ABSCESS, PERFORATED VISCUS Physical Exam Vital Signs: Temp Pulse Resp BP Pulse Ox 98.7 F 69 16 158/90 H 90 L 04/14/19 23:25 04/15/19 02:00 04/14/19 23:25 04/14/19 23:25 04/14/19 23:25 Intake & Output 04/14/19 04/15/19 04/16/19 06:59 06:59 06:59 Intake Total 2340 4500 Output Total 830 70 Balance 1510 4430 Weight 96.4 kg 96 kg General appearance: PRESENT: no acute distress Eye exam: PRESENT: EOMI Ear exam: PRESENT: normal external ear exam Mouth exam: PRESENT: moist Neck exam: PRESENT: full ROM Respiratory exam: PRESENT: clear to auscultation jack Cardiovascular exam: PRESENT: RRR Pulses: PRESENT: normal radial pulses, normal femoral pulses Vascular exam: PRESENT: normal capillary refill GI/Abdominal exam: PRESENT: soft, other - still with some bilous drainage via asad Rectal exam: PRESENT: deferred Gentrourinary exam: PRESENT: other Extremities exam: PRESENT: full ROM Musculoskeletal exam: PRESENT: full ROM Neurological exam: PRESENT: alert, awake, oriented to person Psychiatric exam: PRESENT: appropriate affect Skin exam: PRESENT: dry Results Laboratory Results: 04/14/19 08:19 04/14/19 04/14/19 08:19 08:19 WBC 23.6 H RBC 3.43 L Hgb 9.9 L Hct 30.5 L MCV 89 MCH 29.0 MCHC 32.5 RDW 15.6 H Plt Count 951 H Seg Neutrophils % Not Reportable Lymphocytes % Not Reportable Monocytes % Not Reportable Eosinophils % Not Reportable Basophils % Not Reportable Absolute Neutrophils Not Reportable Absolute Lymphocytes Not Reportable Absolute Monocytes Not Reportable Absolute Eosinophils Not Reportable Absolute Basophils Not Reportable Sodium 138.7 Potassium 3.9 Chloride 100 Carbon Dioxide 32 H Anion Gap 7 BUN < 2 L Creatinine 0.44 L Est GFR ( Amer) > 60 Est GFR (Non-Af Amer) > 60 Glucose 109 Calcium 8.2 L Impressions: Chest X-Ray 03/25/19 18:26 IMPRESSION: No pneumothorax. Patchy airspace opacities are present throughout the right lung base as well as left medial lung base. No significant pleural effusion.Left hilar fullness.Endotracheal tube tip overlies the lower trachea approximately 4.6 cm above the level of the aliyah. Nasogastric catheter tube is present with tip overlying the body of the stomach. Right IJ central venous catheter is present with tip overlying the SVC below the aliyah level. Abdomen X-Ray 04/09/19 03:47 IMPRESSION: No acute findings. Abdomen/Pelvis CT 04/13/19 00:00 IMPRESSION: 1. SURGICAL CHANGES DESCRIBED. THE PREVIOUSLY SEEN FLUID COLLECTION LOCATED BETWEEN THE BOWEL AND ABDOMINAL WALL HAS DECREASED IN SIZE SINCE THE PRIOR STUDY. NO EVIDENCE OF BOWEL CONTRAST EXTRAVASATION. 2. COLLECTION OF GAS IN THE SUBCUTANEOUS FATTY TISSUES IN THE UPPER ABDOMEN LOCATED AT THE LEVEL OF THE SURGICAL INCISION, PRESUMABLY POSTOPERATIVE IN NATURE. 3. NO OTHER SIGNIFICANT FINDINGS. 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 if no increased op via asad or change in character will probably work towards discharge and with drain in place.
[2019-04-15] MEDS: FAMOTIDINE INJ/PF 20 MG/2 ML SDV IV SCH ×2 (09:08→22:12)
[2019-04-15] MEDS: POTASSIUM CHLORIDE 10 MEQ CAPSULE.ER PO SCH ×2 (09:08→22:12)
[2019-04-15] MEDS: ASPIRIN 325 MG TABLET PO SCH (09:08)
[2019-04-15] MEDS: METHADONE HCL 10 MG TABLET PO SCH ×2 (09:08→22:11)
[2019-04-15] MEDS: PREDNISONE 10 MG TABLET PO SCH (09:08)
[2019-04-15] MEDS: ENOXAPARIN SODIUM INJ 30 MG/0.3 ML DISP.SYRIN SUBCUT SCH (09:09)
[2019-04-15] MEDS: ENALAPRIL MALEATE 10 MG TABLET PO SCH ×2 (09:11→22:13)
[2019-04-15 10:26] LABS: ANION GAP 10 (5-19); CALCIUM 8.9 mg/dL (8.4-10.2); CARBON DIOXIDE 28 mmol/L (22-30); CHLORIDE 106 mmol/L (98-107); GLUCOSE 166 mg/dL (75-110); SODIUM 143.6 mmol/L (137-145)
[2019-04-15 10:27] LABS: BLOOD UREA NITROGEN < 2 mg/dL (7-20)
[2019-04-15 10:43] LABS: ABSOLUTE BASOPHILS # (AUTO) 0.3 10^3/uL (0.0-0.2); ABSOLUTE EOSINOPHILS # (AUTO) 0.4 10^3/uL (0.0-0.6); ABSOLUTE LYMPHOCYTES (AUTO) 6.3 10^3/uL (0.5-4.7); ABSOLUTE MONOCYTES (AUTO) 2.1 10^3/uL (0.1-1.4); ABSOLUTE NEUT (AUTO) 10.4 10^3/uL (1.7-8.2); BASOPHILS % (AUTO) 1.7 % (0-2); EOSINOPHILS % (AUTO) 2.2 % (0-6); HEMOGLOBIN 10.7 g/dL (12.0-15.5); LYMPHOCYTES % (AUTO) 32.4 % (13-45); MEAN CORPUSCULAR HEMOGLOBIN 28.9 pg (27.0-33.4); MEAN CORPUSCULAR HGB CONC 32.5 g/dL (32.0-36.0); MEAN CORPUSCULAR VOLUME 89 fl (80-97); MONOCYTES % (AUTO) 10.7 % (3-13); PLATELET COUNT 983 10^3/uL (150-450); RED BLOOD COUNT 3.71 10^6/uL (3.72-5.28); RED CELL DISTRIBUTION WIDTH 15.7 % (11.5-14.0); TOTAL CELLS COUNTED % (AUTO) 100 %; WHITE BLOOD COUNT 19.6 10^3/uL (4.0-10.5)
[2019-04-15] MEDS: PROMETHAZINE HCL INJ 25 MG/1 ML VIAL IV PRN (14:06)
[2019-04-15] MEDS: HYDROMORPHONE HCL INJ/PF 2 MG/ML AMPULE IV PRN ×3 (14:07→23:39)
[2019-04-15 14:12] LABS: APPEARANCE,URINE CLEAR; BILIRUBIN,URINE NEGATIVE (NEGATIVE); COLOR,URINE STRAW; GLUCOSE, URINE NEGATIVE (NEGATIVE); KETONES,URINE NEGATIVE (NEGATIVE); LEUKOCYTE ESTERASE,URINE TRACE (NEGATIVE); NITRITE,URINE NEGATIVE (NEGATIVE); PROTEIN,URINE NEGATIVE (NEGATIVE); URINE SPECIFIC GRAVITY 1.005; UROBILINOGEN,URINE NEGATIVE mg/dL (<2.0)
--- NOTE | 2019-04-15 18:19 | PDOC PROGRESS REPORT ---
Subjective Progress Note for:: 04/15/19 Subjective:: No adverse events overnight. No new complaints. Abdominal pain has not worsened with eating. She says overall she feels pretty good. No fevers. Her diet was advanced to full liquids yesterday and she seems to have tolerated it well thus far. She is feeling very encouraged overall about her prognosis. Reason For Visit: ABDOMINAL ABSCESS, PERFORATED VISCUS Physical Exam Vital Signs: Temp Pulse Resp BP Pulse Ox 98.2 F 73 16 134/81 H 97 04/15/19 15:35 04/15/19 15:35 04/15/19 15:35 04/15/19 15:35 04/15/19 15:35 Intake & Output 04/14/19 04/15/19 04/16/19 06:59 06:59 06:59 Intake Total 2340 4500 1000 Output Total 830 70 40 Balance 1510 4430 960 Weight 96.4 kg 96 kg General appearance: PRESENT: no acute distress, cooperative, disheveled, morbidly obese Teeth exam: PRESENT: poor dentation Respiratory exam: PRESENT: clear to auscultation jack, symmetrical, unlabored. ABSENT: accessory muscle use, prolonged expiratory phas, rales, rhonchi, tachypn ea, wheezes Cardiovascular exam: PRESENT: RRR, +S1, +S2 Pulses: PRESENT: normal carotid pulses Vascular exam: PRESENT: normal capillary refill GI/Abdominal exam: PRESENT: normal bowel sounds, soft, tenderness - Appropriate, other - Bilious drainage from 1 RODO drain, the other drain is empty. Surgical incision is clean and nonerythematous. ABSENT: distended, guarding, rebound Extremities exam: ABSENT: clubbing, pedal edema Musculoskeletal exam: PRESENT: normal inspection. ABSENT: deformity Neurological exam: PRESENT: alert, awake, oriented to person, oriented to place, oriented to time, oriented to situation Psychiatric exam: PRESENT: appropriate affect, normal mood Skin exam: PRESENT: dry, warm Results Laboratory Results: 04/15/19 10:30 04/15/19 08:57 04/15/19 04/15/19 04/15/19 06:21 08:57 08:57 WBC 19.6 H Cancelled RBC 3.55 L Cancelled Hgb 10.3 L Cancelled Hct 31.7 L Cancelled MCV 89 Cancelled MCH 29.1 Cancelled MCHC 32.7 Cancelled RDW 15.6 H Cancelled Plt Count 1000 H* Cancelled Seg Neutrophils % Cancelled Lymphocytes % Cancelled Monocytes % Cancelled Eosinophils % Cancelled Basophils % Cancelled Absolute Neutrophils Cancelled Absolute Lymphocytes Cancelled Absolute Monocytes Cancelled Absolute Eosinophils Cancelled Absolute Basophils Cancelled Sodium 143.6 Potassium 4.0 Chloride 106 Carbon Dioxide 28 Anion Gap 10 BUN < 2 L Creatinine 0.45 L Est GFR ( Amer) > 60 Est GFR (Non-Af Amer) > 60 Glucose 166 H Calcium 8.9 Urine Color Urine Appearance Urine pH Ur Specific [place] Urine Protein Urine Glucose (UA) Urine Ketones Urine Blood Urine Nitrite Ur Leukocyte Esterase Urine WBC (Auto) Urine RBC (Auto) Stool Occult Blood 04/15/19 04/15/19 04/15/19 10:30 13:00 13:00 WBC 19.6 H RBC 3.71 L Hgb 10.7 L Hct 33.0 L MCV 89 MCH 28.9 MCHC 32.5 RDW 15.7 H Plt Count 983 H Seg Neutrophils % 53.0 Lymphocytes % 32.4 Monocytes % 10.7 Eosinophils % 2.2 Basophils % 1.7 Absolute Neutrophils 10.4 H Absolute Lymphocytes 6.3 H Absolute Monocytes 2.1 H Absolute Eosinophils 0.4 Absolute Basophils 0.3 H Sodium Potassium Chloride Carbon Dioxide Anion Gap BUN Creatinine Est GFR ( Amer) Est GFR (Non-Af Amer) Glucose Calcium Urine Color STRAW Urine Appearance CLEAR Urine pH 7.0 Ur Specific [place] 1.005 Urine Protein NEGATIVE Urine Glucose (UA) NEGATIVE Urine Ketones NEGATIVE Urine Blood NEGATIVE Urine Nitrite NEGATIVE Ur Leukocyte Esterase TRACE H Urine WBC (Auto) 0 Urine RBC (Auto) 0 Stool Occult Blood NEGATIVE Impressions: Chest X-Ray 03/25/19 18:26 IMPRESSION: No pneumothorax. Patchy airspace opacities are present throughout the right lung base as well as left medial lung base. No significant pleural effusion.Left hilar fullness.Endotracheal tube tip overlies the lower trachea approximately 4.6 cm above the level of the aliyah. Nasogastric catheter tube is present with tip overlying the body of the stomach. Right IJ central venous catheter is present with tip overlying the SVC below the aliyah level. Abdomen X-Ray 04/09/19 03:47 IMPRESSION: No acute findings. Abdomen/Pelvis CT 04/13/19 00:00 IMPRESSION: 1. SURGICAL CHANGES DESCRIBED. THE PREVIOUSLY SEEN FLUID COLLECTION LOCATED BETWEEN THE BOWEL AND ABDOMINAL WALL HAS DECREASED IN SIZE SINCE THE PRIOR STUDY. NO EVIDENCE OF BOWEL CONTRAST EXTRAVASATION. 2. COLLECTION OF GAS IN THE SUBCUTANEOUS FATTY TISSUES IN THE UPPER ABDOMEN LOCATED AT THE LEVEL OF THE SURGICAL INCISION, PRESUMABLY POSTOPERATIVE IN NATURE. 3. NO OTHER SIGNIFICANT FINDINGS. Assessment and Plan - Diagnosis (1) Leukocytosis Qualifiers: Leukocytosis type: leukemoid reaction Qualified Code(s): D72.823 - Leukemoid reaction Is this a current diagnosis for this admission?: Yes Plan: White blood cell count has not changed very much, but is now below 20,000. This is likely to be her typical range according to hematology. (2) Obesity (BMI 30-39.9) Is this a current diagnosis for this admission?: Yes Plan: Encouraged lifestyle modification (3) Perforation of the transverse colon Is this a current diagnosis for this admission?: Yes Plan: Management per surgery. She continues on antibiotics per surgery. Infectious disease recommendations were noted. Tolerating slow advancement of her diet well. (4) Thrombocytosis Is this a current diagnosis for this admission?: Yes Plan: Platelets seem to have stabilized just below 1 million. Hematology anticipates that platelets will stabilize in the 600-700,000 range - Time Time Spent with patient: 15-24 minutes
[2019-04-15] MEDS: RINGERS SOLUTION,LACTATED 1,000 ML IV PRN (22:16)
[2019-04-15] MEDS: LORAZEPAM INJ 2 MG/1 ML VIAL IV PRN (22:19)
[2019-04-16] MEDS: HYDROMORPHONE HCL INJ/PF 2 MG/ML AMPULE IV PRN ×3 (05:24→18:39)
[2019-04-16] MEDS: OCTREOTIDE ACETATE INJ/PF 100 MCG/1 ML SDV IV SCH ×3 (05:25→21:59)
[2019-04-16] MEDS: METOCLOPRAMIDE HCL INJ/PF 10 MG/2 ML SDV IV SCH ×3 (05:25→17:36)
[2019-04-16] MEDS: METRONIDAZOLE 500 MG/NS RTU 500 MG/100 ML RTUPB IV SCH (05:25)
[2019-04-16] MEDS: PIPERACILLIN SODIUM/TAZOBACTAM 3.375 GM in NORMAL SALINE 100 ML IV SCH (05:26)
--- NOTE | 2019-04-16 07:56 | PDOC PROGRESS REPORT ---
Subjective Progress Note for:: 04/16/19 Subjective:: feels ok started draining mucopuruent fluid from ruq wound Reason For Visit: ABDOMINAL ABSCESS, PERFORATED VISCUS Physical Exam Vital Signs: Temp Pulse Resp BP Pulse Ox 98.6 F 77 16 133/85 H 98 04/15/19 23:54 04/16/19 02:00 04/15/19 23:54 04/15/19 23:54 04/15/19 23:54 Intake & Output 04/15/19 04/16/19 04/17/19 06:59 06:59 06:59 Intake Total 4500 2978 Output Total 70 40 Balance 4430 2938 Weight 96 kg 95.9 kg General appearance: PRESENT: no acute distress Head exam: PRESENT: normocephalic Eye exam: PRESENT: EOMI Ear exam: PRESENT: normal external ear exam Mouth exam: PRESENT: moist Neck exam: PRESENT: full ROM Respiratory exam: PRESENT: clear to auscultation jack Cardiovascular exam: PRESENT: RRR Pulses: PRESENT: normal radial pulses, normal femoral pulses GI/Abdominal exam: PRESENT: other - asad drain in llq still draining, but much less sinc yesterday now iwth some mucopurulent ?stool from ruq wound, no cellulilits Rectal exam: PRESENT: deferred Extremities exam: PRESENT: full ROM Musculoskeletal exam: PRESENT: full ROM Neurological exam: PRESENT: alert, awake, oriented to person, oriented to place Psychiatric exam: PRESENT: appropriate affect Skin exam: PRESENT: dry Results Laboratory Results: 04/15/19 10:30 04/15/19 08:57 04/15/19 04/15/19 04/15/19 08:57 08:57 10:30 WBC Cancelled 19.6 H RBC Cancelled 3.71 L Hgb Cancelled 10.7 L Hct Cancelled 33.0 L MCV Cancelled 89 MCH Cancelled 28.9 MCHC Cancelled 32.5 RDW Cancelled 15.7 H Plt Count Cancelled 983 H Seg Neutrophils % Cancelled 53.0 Lymphocytes % Cancelled 32.4 Monocytes % Cancelled 10.7 Eosinophils % Cancelled 2.2 Basophils % Cancelled 1.7 Absolute Neutrophils Cancelled 10.4 H Absolute Lymphocytes Cancelled 6.3 H Absolute Monocytes Cancelled 2.1 H Absolute Eosinophils Cancelled 0.4 Absolute Basophils Cancelled 0.3 H Sodium 143.6 Potassium 4.0 Chloride 106 Carbon Dioxide 28 Anion Gap 10 BUN < 2 L Creatinine 0.45 L Est GFR ( Amer) > 60 Est GFR (Non-Af Amer) > 60 Glucose 166 H Calcium 8.9 Urine Color Urine Appearance Urine pH Ur Specific [place] Urine Protein Urine Glucose (UA) Urine Ketones Urine Blood Urine Nitrite Ur Leukocyte Esterase Urine WBC (Auto) Urine RBC (Auto) Stool Occult Blood 04/15/19 04/15/19 13:00 13:00 WBC RBC Hgb Hct MCV MCH MCHC RDW Plt Count Seg Neutrophils % Lymphocytes % Monocytes % Eosinophils % Basophils % Absolute Neutrophils Absolute Lymphocytes Absolute Monocytes Absolute Eosinophils Absolute Basophils Sodium Potassium Chloride Carbon Dioxide Anion Gap BUN Creatinine Est GFR ( Amer) Est GFR (Non-Af Amer) Glucose Calcium Urine Color STRAW Urine Appearance CLEAR Urine pH 7.0 Ur Specific [place] 1.005 Urine Protein NEGATIVE Urine Glucose (UA) NEGATIVE Urine Ketones NEGATIVE Urine Blood NEGATIVE Urine Nitrite NEGATIVE Ur Leukocyte Esterase TRACE H Urine WBC (Auto) 0 Urine RBC (Auto) 0 Stool Occult Blood NEGATIVE Impressions: Chest X-Ray 03/25/19 18:26 IMPRESSION: No pneumothorax. Patchy airspace opacities are present throughout the right lung base as well as left medial lung base. No significant pleural effusion.Left hilar fullness.Endotracheal tube tip overlies the lower trachea approximately 4.6 cm above the level of the aliyah. Nasogastric catheter tube is present with tip overlying the body of the stomach. Right IJ central venous catheter is present with tip overlying the SVC below the aliyah level. Abdomen X-Ray 04/09/19 03:47 IMPRESSION: No acute findings. Abdomen/Pelvis CT 04/13/19 00:00 IMPRESSION: 1. SURGICAL CHANGES DESCRIBED. THE PREVIOUSLY SEEN FLUID COLLECTION LOCATED BETWEEN THE BOWEL AND ABDOMINAL WALL HAS DECREASED IN SIZE SINCE THE PRIOR STUDY. NO EVIDENCE OF BOWEL CONTRAST EXTRAVASATION. 2. COLLECTION OF GAS IN THE SUBCUTANEOUS FATTY TISSUES IN THE UPPER ABDOMEN LOCATED AT THE LEVEL OF THE SURGICAL INCISION, PRESUMABLY POSTOPERATIVE IN NATURE. 3. NO OTHER SIGNIFICANT FINDINGS. 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
[2019-04-16] MEDS: POTASSIUM CHLORIDE 10 MEQ CAPSULE.ER PO SCH ×2 (09:12→21:58)
[2019-04-16] MEDS: METHADONE HCL 10 MG TABLET PO SCH ×2 (09:12→21:58)
[2019-04-16] MEDS: FAMOTIDINE INJ/PF 20 MG/2 ML SDV IV SCH ×2 (09:12→21:59)
[2019-04-16] MEDS: ASPIRIN 325 MG TABLET PO SCH (09:12)
[2019-04-16] MEDS: PREDNISONE 10 MG TABLET PO SCH (09:12)
[2019-04-16] MEDS: ENALAPRIL MALEATE 10 MG TABLET PO SCH ×2 (09:13→21:59)
[2019-04-16] MEDS: ENOXAPARIN SODIUM INJ 30 MG/0.3 ML DISP.SYRIN SUBCUT SCH (09:13)
[2019-04-16] MEDS: AMINO ACIDS 4.25 %/DEXTROSE 5% 1,000 ML IV PRN (09:14)
[2019-04-16 09:43] LABS: HEMATOCRIT 34.3 % (36.0-47.0); HEMOGLOBIN 11.1 g/dL (12.0-15.5); MEAN CORPUSCULAR HEMOGLOBIN 28.8 pg (27.0-33.4); MEAN CORPUSCULAR HGB CONC 32.4 g/dL (32.0-36.0); MEAN CORPUSCULAR VOLUME 89 fl (80-97); PLATELET COUNT 986 10^3/uL (150-450); RED BLOOD COUNT 3.86 10^6/uL (3.72-5.28); RED CELL DISTRIBUTION WIDTH 15.9 % (11.5-14.0); WHITE BLOOD COUNT 24.8 10^3/uL (4.0-10.5)
[2019-04-16 10:04] LABS: ANION GAP 13 (5-19); CALCIUM 8.8 mg/dL (8.4-10.2); CARBON DIOXIDE 26 mmol/L (22-30); CHLORIDE 100 mmol/L (98-107); GLUCOSE 117 mg/dL (75-110); POTASSIUM 4.4 mmol/L (3.6-5.0)
[2019-04-16 10:06] LABS: BLOOD UREA NITROGEN < 2 mg/dL (7-20)
[2019-04-16 10:13] LABS: ABSOLUTE NEUTROPHILS# (MANUAL) 15.9 10^3/uL (1.7-8.2); BASOPHILS % (MANUAL) 0 % (0-2); EOSINOPHILS % (MANUAL) 0 % (0-6); LYMPHOCYTES % (MANUAL) 24 % (13-45); MONOCYTES % (MANUAL) 12 % (3-13); SEGMENTED NEUTROPHILS % (MAN) 64 % (42-78); TOTAL CELLS COUNTED 100
[2019-04-16 10:15] LABS: PLATELET COMMENT INCREASED; PLATELET LARGE PRESENT; POLYCHROMASIA SLIGHT; TOXIC GRANULATION SLIGHT
--- NOTE | 2019-04-16 17:41 | PDOC PROGRESS REPORT ---
Subjective Progress Note for:: 04/16/19 Subjective:: No adverse events overnight. Vital signs been stable. She remains in good spirits. She said that she noticed increased drainage from her upper RODO tube, Dr. Burch felt that it could have been possibly some pus. She has been taken off of her diet and started on TPN. Reason For Visit: ABDOMINAL ABSCESS, PERFORATED VISCUS Physical Exam Vital Signs: Temp Pulse Resp BP Pulse Ox 98.1 F 75 14 128/85 H 96 04/16/19 12:00 04/16/19 14:00 04/16/19 12:00 04/16/19 12:00 04/16/19 12:00 Intake & Output 04/15/19 04/16/19 04/17/19 06:59 06:59 06:59 Intake Total 4500 3078 1000 Output Total 70 40 Balance 4430 3038 1000 Weight 96 kg 95.9 kg General appearance: PRESENT: no acute distress, cooperative, disheveled, morbidly obese Teeth exam: PRESENT: poor dentation Respiratory exam: PRESENT: clear to auscultation jack, symmetrical, unlabored. ABSENT: accessory muscle use, prolonged expiratory phas, rales, rhonchi, tachypnea, wheezes Cardiovascular exam: PRESENT: RRR, +S1, +S2 Pulses: PRESENT: normal carotid pulses Vascular exam: PRESENT: normal capillary refill GI/Abdominal exam: PRESENT: normal bowel sounds, soft, tenderness - Appropriate, other - Bilious drainage from 1 RODO drain, the other drain is empty. Surgical incision is clean and nonerythematous. ABSENT: distended, guarding, rebound Extremities exam: ABSENT: clubbing, pedal edema Musculoskeletal exam: PRESENT: normal inspection. ABSENT: deformity Neurological exam: PRESENT: alert, awake, oriented to person, oriented to place, oriented to time, oriented to situation Psychiatric exam: PRESENT: appropriate affect, normal mood Skin exam: PRESENT: dry, warm Results Laboratory Results: 04/16/19 07:58 04/16/19 07:58 04/16/19 04/16/19 07:58 07:58 WBC 24.8 H RBC 3.86 Hgb 11.1 L Hct 34.3 L MCV 89 MCH 28.8 MCHC 32.4 RDW 15.9 H Plt Count 986 H Seg Neutrophils % Not Reportable Lymphocytes % Not Reportable Monocytes % Not Reportable Eosinophils % Not Reportable Basophils % Not Reportable Absolute Neutrophils Not Reportable Absolute Lymphocytes Not Reportable Absolute Monocytes Not Reportable Absolute Eosinophils Not Reportable Absolute Basophils Not Reportable Sodium 139.0 Potassium 4.4 Chloride 100 Carbon Dioxide 26 Anion Gap 13 BUN < 2 L Creatinine 0.40 L Est GFR ( Amer) > 60 Est GFR (Non-Af Amer) > 60 Glucose 117 H Calcium 8.8 Impressions: Chest X-Ray 03/25/19 18:26 IMPRESSION: No pneumothorax. Patchy airspace opacities are present throughout the right lung base as well as left medial lung base. No significant pleural effusion.Left hilar fullness.Endotracheal tube tip overlies the lower trachea approximately 4.6 cm above the level of the aliyah. Nasogastric catheter tube is present with tip overlying the body of the stomach. Right IJ central venous catheter is present with tip overlying the SVC below the aliyah level. Abdomen X-Ray 04/09/19 03:47 IMPRESSION: No acute findings. Abdomen/Pelvis CT 04/13/19 00:00 IMPRESSION: 1. SURGICAL CHANGES DESCRIBED. THE PREVIOUSLY SEEN FLUID COLLECTION LOCATED BETWEEN THE BOWEL AND ABDOMINAL WALL HAS DECREASED IN SIZE SINCE THE PRIOR STUDY. NO EVIDENCE OF BOWEL CONTRAST EXTRAVASATION. 2. COLLECTION OF GAS IN THE SUBCUTANEOUS FATTY TISSUES IN THE UPPER ABDOMEN LOCATED AT THE LEVEL OF THE SURGICAL INCISION, PRESUMABLY POSTOPERATIVE IN NATURE. 3. NO OTHER SIGNIFICANT FINDINGS. Assessment and Plan - Diagnosis (1) Leukocytosis Qualifiers: Leukocytosis type: leukemoid reaction Qualified Code(s): D72.823 - Leukemoid reaction Is this a current diagnosis for this admission?: Yes Plan: Back up today, still within her typical range but with her fistula possibly infectious. She is been afebrile her vital signs been stable. (2) Obesity (BMI 30-39.9) Is this a current diagnosis for this admission?: Yes Plan: Encouraged lifestyle modification (3) Perforation of the transverse colon Is this a current diagnosis for this admission?: Yes Plan: Management per surgery. She continues on antibiotics per surgery. Infectious disease recommendations were noted. Taken off of her diet, started on TPN, co ntinuing antibiotics. Plan for repeat imaging in a couple of days. (4) Thrombocytosis Is this a current diagnosis for this admission?: Yes Plan: Platelets seem to have stabilized just below 1 million. Hematology anticipates that platelets will stabilize in the 600-700,000 range - Time Time Spent with patient: 15-24 minutes
[2019-04-16] MEDS ORDERED: FAT EMULSIONS 250 ML IV SCH (18:00)
[2019-04-16] MEDS: LORAZEPAM INJ 2 MG/1 ML VIAL IV PRN (21:58)
[2019-04-17] MEDS: HYDROMORPHONE HCL INJ/PF 2 MG/ML AMPULE IV PRN ×5 (01:16→19:42)
[2019-04-17] MEDS: METOCLOPRAMIDE HCL INJ/PF 10 MG/2 ML SDV IV SCH ×5 (01:16→23:46)
[2019-04-17] MEDS: OCTREOTIDE ACETATE INJ/PF 100 MCG/1 ML SDV IV SCH ×3 (05:58→21:46)
[2019-04-17] MEDS: AMINO ACIDS 4.25 %/DEXTROSE 5% 1,000 ML IV PRN (06:33)
[2019-04-17 06:54] LABS: HEMATOCRIT 33.2 % (36.0-47.0); HEMOGLOBIN 10.8 g/dL (12.0-15.5); MEAN CORPUSCULAR HEMOGLOBIN 28.9 pg (27.0-33.4); MEAN CORPUSCULAR HGB CONC 32.6 g/dL (32.0-36.0); MEAN CORPUSCULAR VOLUME 89 fl (80-97); PLATELET COUNT 947 10^3/uL (150-450); RED BLOOD COUNT 3.74 10^6/uL (3.72-5.28); RED CELL DISTRIBUTION WIDTH 15.8 % (11.5-14.0); WHITE BLOOD COUNT 23.1 10^3/uL (4.0-10.5)
--- NOTE | 2019-04-17 08:03 | PDOC PROGRESS REPORT ---
Subjective Progress Note for:: 04/17/19 Reason For Visit: ABDOMINAL ABSCESS, PERFORATED VISCUS Physical Exam Vital Signs: Temp Pulse Resp BP Pulse Ox 98.2 F 88 17 116/73 95 04/17/19 04:04 04/17/19 04:04 04/16/19 19:54 04/17/19 04:04 04/17/19 04:04 Intake & Output 04/16/19 04/17/19 04/18/19 06:59 06:59 06:59 Intake Total 3078 3146 Output Total 40 425 Balance 3038 2721 Weight 95.9 kg 91.3 kg General appearance: PRESENT: no acute distress Head exam: PRESENT: normocephalic Eye exam: PRESENT: EOMI Mouth exam: PRESENT: moist Neck exam: PRESENT: full ROM Respiratory exam: PRESENT: clear to auscultation jack Cardiovascular exam: PRESENT: RRR Pulses: PRESENT: normal femoral pulses GI/Abdominal exam: PRESENT: soft, other - decreased drainage via asad some drainge via the ruq wound no cellulilitis Extremities exam: PRESENT: full ROM Musculoskeletal exam: PRESENT: full ROM Neurological exam: PRESENT: alert, awake, oriented to person Results Laboratory Results: 04/17/19 06:43 04/16/19 07:58 04/16/19 04/16/19 04/17/19 07:58 07:58 06:43 WBC 24.8 H 23.1 H RBC 3.86 3.74 Hgb 11.1 L 10.8 L Hct 34.3 L 33.2 L MCV 89 89 MCH 28.8 28.9 MCHC 32.4 32.6 RDW 15.9 H 15.8 H Plt Count 986 H 947 H Seg Neutrophils % Not Reportable Lymphocytes % Not Reportable Monocytes % Not Reportable Eosinophils % Not Reportable Basophils % Not Reportable Absolute Neutrophils Not Reportable Absolute Lymphocytes Not Reportable Absolute Monocytes Not Reportable Absolute Eosinophils Not Reportable Absolute Basophils Not Reportable Sodium 139.0 Potassium 4.4 Chloride 100 Carbon Dioxide 26 Anion Gap 13 BUN < 2 L Creatinine 0.40 L Est GFR ( Amer) > 60 Est GFR (Non-Af Amer) > 60 Glucose 117 H Calcium 8.8 Impressions: Chest X-Ray 03/25/19 18:26 IMPRESSION: No pneumothorax. Patchy airspace opacities are present throughout the right lung base as well as left medial lung base. No significant pleural effusion.Left hilar fullness.Endotracheal tube tip overlies the lower trachea approximately 4.6 cm above the level of the aliyah. Nasogastric catheter tube is present with tip overlying the body of the stomach. Right IJ central venous catheter is present with tip overlying the SVC below the aliyah level. Abdomen X-Ray 04/09/19 03:47 IMPRESSION: No acute findings. Abdomen/Pelvis CT 04/13/19 00:00 IMPRESSION: 1. SURGICAL CHANGES DESCRIBED. THE PREVIOUSLY SEEN FLUID COLLECTION LOCATED BETWEEN THE BOWEL AND ABDOMINAL WALL HAS DECREASED IN SIZE SINCE THE PRIOR STUDY. NO EVIDENCE OF BOWEL CONTRAST EXTRAVASATION. 2. COLLECTION OF GAS IN THE SUBCUTANEOUS FATTY TISSUES IN THE UPPER ABDOMEN LOCATED AT THE LEVEL OF THE SURGICAL INCISION, PRESUMABLY POSTOPERATIVE IN NATURE. 3. NO OTHER SIGNIFICANT FINDINGS. 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
[2019-04-17] MEDS: ASPIRIN 325 MG TABLET PO SCH (09:36)
[2019-04-17] MEDS: ENOXAPARIN SODIUM INJ 30 MG/0.3 ML DISP.SYRIN SUBCUT SCH (09:36)
[2019-04-17] MEDS: PREDNISONE 10 MG TABLET PO SCH (09:36)
[2019-04-17] MEDS: METHADONE HCL 10 MG TABLET PO SCH ×2 (09:37→21:47)
[2019-04-17] MEDS: POTASSIUM CHLORIDE 10 MEQ CAPSULE.ER PO SCH ×2 (09:37→21:47)
[2019-04-17] MEDS: FAMOTIDINE INJ/PF 20 MG/2 ML SDV IV SCH (09:39)
--- NOTE | 2019-04-17 10:52 | RADIOLOGY REPORT (SQ) ---
EXAM DESCRIPTION: PICC INSERTION; FLUORO/CV PLACEMENT; U/S GUIDE FOR VASCULAR ACCESS COMPLETED DATE/TIME: 04/17/2019 10:40 am REASON FOR STUDY: tpn; TPN COMPARISON: None. FLUOROSCOPY TIME: 20 seconds 1 ultrasound and 1 digital fluoroscopic images saved to PACS. TECHNIQUE: Fluoroscopic and ultrasound guided PICC placement. LIMITATIONS: None. PROCEDURE: After written consent and assessment were obtained, the patient was brought into the fluo roscopy room and placed supine on the table. Ultrasound evaluation of potential access sites were per formed. After successfully identifying a patent left brachial vein, the left arm was prepped and drap ed in a sterile fashion along with the ultrasound probe. The entry site was anesthetized with 1% lido kelli. A 21 gauge 7 cm needle was advanced through the skin and into the basilic vein under live ultr asound guidance. An ultrasound image was saved to PACS confirming access site. A .018 guide wire wa s then inserted through the needle and into the venous system. The needle was then removed and an 11 blade scalpel was used to make a 1cm skin incision. A 5 fr peel-away sheath was advanced over the wi re and into the venous system. A measurement was then made using the existing wire and live fluorosco pic guidance. The wire was then removed and trimmed. The PICC was advanced through the peel-away beard th and into the venous system. The peel-away sheath was removed and the catheter was adhered to the p atients arm with a stat lock. The catheter was then aspirated and flushed and a sterile bandage was p laced over the access site. A fluoroscopic spot image was saved to PACS confirming the catheter tip within the superior vena cava. IMPRESSION: SUCCESSFUL PLACEMENT OF A 5 FR DUAL LUMEN 39 CM PICC IN THE LEFT BASILIC VEIN. COMMENT: Patient medication list reviewed: Yes- Quality ID# [id number]:Eligible professional attests to doc umenting in the medical record they obtained, updated, or reviewed the patient's current medications. . Quality ID 145: Final reports for procedures using fluoroscopy that document radiation exposure adalberto shay, or exposure time and number of fluorographic images (if radiation exposure indices are not avail able) Quality ID #76: The patient was prepped and draped using maximum sterile barrier technique including cap, mask, sterile gown, sterile gloves, a large sterile sheet, hand hygiene, and 2% Chlorhexidine fo r cutaneous antisepsis. When ultrasound is used, sterile ultrasound techniques are followed requiring sterile gel and sterile probes. TECHNICAL DOCUMENTATION: JOB ID: [id number] [employer]- All Rights Reserved rev-04/18 Reading location - IP/workstation name: [email or web address]
[2019-04-17] MEDS: ENALAPRIL MALEATE 10 MG TABLET PO SCH ×2 (11:01→21:47)
[2019-04-17] MEDS ORDERED: NORMAL SALINE 10 ML SDV (AFTER EACH USE) IV PRN (11:30)
[2019-04-17] MEDS ORDERED: GLUCAGON,HUMAN RECOMB 1 MG INJ IM PRN (13:18)
[2019-04-17] MEDS ORDERED: DEXTROSE 40% GEL 15 GM TUBE PO PRN ×2 (13:18)
[2019-04-17] MEDS ORDERED: DEXTROSE 50%-WATER 25 GM/50 ML DISP.SYRIN IV PRN (13:18)
[2019-04-17] MEDS ORDERED: DEXTROSE 10%-WATER 1,000 ML IV PRN (14:30)
[2019-04-17] MEDS ORDERED: INSULIN REG, HUMAN 100 UNIT/ML 3 ML VIAL (PYX) SUBCUT PRN (14:30)
--- NOTE | 2019-04-17 16:45 | PDOC PROGRESS REPORT ---
Subjective Progress Note for:: 04/17/19 Subjective:: No adverse events overnight. Vital signs been stable. She remains in good spirits. She says the drainage from her upper RODO tube is decreased overnight. She says she feels like she has an appropriate amount of abdominal pain. No fevers. She is been allowed to have full liquids today. She remains on TPN. She had a PICC line yesterday. Reason For Visit: ABDOMINAL ABSCESS, PERFORATED VISCUS Physical Exam Vital Signs: Temp Pulse Resp BP Pulse Ox 98.4 F 79 16 129/83 H 97 04/17/19 12:12 04/17/19 14:00 04/17/19 12:12 04/17/19 12:12 04/17/19 12:12 Intake & Output 04/16/19 04/17/19 04/18/19 06:59 06:59 06:59 Intake Total 3078 3146 339 Output Total 40 425 Balance 3038 2721 339 Weight 95.9 kg 91.3 kg General appearance: PRESENT: no acute distress, cooperative, disheveled, morbidly obese Teeth exam: PRESENT: poor dentation Respiratory exam: PRESENT: clear to auscultation jack, symmetrical, unlabored. ABSENT: accessory muscle use, prolonged expiratory phas, rales, rhonchi, tachypnea, wheezes Cardiovascular exam: PRESENT: RRR, +S1, +S2 Pulses: PRESENT: normal carotid pulses Vascular exam: PRESENT: normal capillary refill GI/Abdominal exam: PRESENT: normal bowel sounds, soft, tenderness - Appropriate, other - Bilious drainage from RODO drain. ABSENT: distended, guarding, rebound Extremities exam: ABSENT: clubbing, pedal edema Musculoskeletal exam: PRESENT: normal inspection. ABSENT: deformity Neurological exam: PRESENT: alert, awake, oriented to person, oriented to place, oriented to time, oriented to situation Psychiatric exam: PRESENT: appropriate affect, normal mood Skin exam: PRESENT: dry, warm Results Laboratory Results: 04/17/19 06:43 04/16/19 07:58 04/17/19 06:43 WBC 23.1 H RBC 3.74 Hgb 10.8 L Hct 33.2 L MCV 89 MCH 28.9 MCHC 32.6 RDW 15.8 H Plt Count 947 H Impressions: Chest X-Ray 03/25/19 18:26 IMPRESSION: No pneumothorax. Patchy airspace opacities are present throughout the right lung base as well as left medial lung base. No significant pleural effusion.Left hilar fullness.Endotracheal tube tip overlies the lower trachea approximately 4.6 cm above the level of the aliyah. Nasogastric catheter tube is present with tip overlying the body of the stomach. Right IJ central venous catheter is present with tip overlying the SVC below the aliyah level. Abdomen X-Ray 04/09/19 03:47 IMPRESSION: No acute findings. Abdomen/Pelvis CT 04/13/19 00:00 IMPRESSION: 1. SURGICAL CHANGES DESCRIBED. THE PREVIOUSLY SEEN FLUID COLLECTION LOCATED BETWEEN THE BOWEL AND ABDOMINAL WALL HAS DECREASED IN SIZE SINCE THE PRIOR STUDY. NO EVIDENCE OF BOWEL CONTRAST EXTRAVASATION. 2. COLLECTION OF GAS IN THE SUBCUTANEOUS FATTY TISSUES IN THE UPPER ABDOMEN LOCATED AT THE LEVEL OF THE SURGICAL INCISION, PRESUMABLY POSTOPERATIVE IN NATURE. 3. NO OTHER SIGNIFICANT FINDINGS. Guidance Fluoroscopy 04/17/19 00:00 IMPRESSION: SUCCESSFUL PLACEMENT OF A 5 FR DUAL LUMEN 39 CM PICC IN THE LEFT BASILIC VEIN. Interventional Vascular Procedure 04/17/19 00:00 IMPRESSION: SUCCESSFUL PLACEMENT OF A 5 FR DUAL LUMEN 39 CM PICC IN THE LEFT BASILIC VEIN. PICC Line Insertion 04/17/19 00:00 IMPRESSION: SUCCESSFUL PLACEMENT OF A 5 FR DUAL LUMEN 39 CM PICC IN THE LEFT BASILIC VEIN. Assessment and Plan - Diagnosis (1) Leukocytosis Qualifiers: Leukocytosis type: leukemoid reaction Qualified Code(s): D72.823 - Leukemoid reaction Is this a current diagnosis for this admission?: Yes Plan: White blood count is the same as it was a few days ago. She appears clinically stable. Oncology says they think her white count will stabilize between 15 and 20,000. (2) Obesity (BMI 30-39.9) Is this a current diagnosis for this admission?: Yes Plan: Encouraged lifestyle modification (3) Perforation of the transverse colon Is this a current diagnosis for this admission?: Yes Plan: Management per surgery. She continues on antibiotics per surgery. Infectious disease recommendations were noted. Was allowed to have full liquids today, started on TPN, continuing antibiotics. Plan for repeat imaging tomorrow. (4) Thrombocytosis Is this a current diagnosis for this admission?: Yes Plan: Platelets are stable in the mid 900s, oncology believes that she will stabilize in the 600s to 700s. - Time Time Spent with patient: 15-24 minutes
[2019-04-17] MEDS: INSULIN REG, HUMAN 100 UNIT/ML 3 ML VIAL (PYX) SUBCUT SCH ×2 (17:30→23:29)
[2019-04-17 17:51] LABS: INTERNATIONAL RATION (INR) 1.03; PROTHROMBIN TIME 14.1 SEC (11.4-15.4)
[2019-04-17 17:55] LABS: ALANINE AMINOTRANSFERASE 24 U/L (9-52); ALBUMIN 2.7 g/dL (3.5-5.0); ALKALINE PHOSPHATASE 111 U/L (38-126); ANION GAP 9 (5-19); ASPARTATE AMINO TRANSFERASE 20 U/L (14-36); BILIRUBIN,DIRECT 0.1 mg/dL (0.0-0.4); BILIRUBIN,TOTAL 0.1 mg/dL (0.2-1.3); BLOOD UREA NITROGEN 4 mg/dL (7-20); CALCIUM 9.1 mg/dL (8.4-10.2); CARBON DIOXIDE 29 mmol/L (22-30); CHLORIDE 102 mmol/L (98-107); GLUCOSE 110 mg/dL (75-110); PHOSPHORUS 4.2 mg/dL (2.5-4.5); POTASSIUM 4.9 mmol/L (3.6-5.0); SODIUM 139.8 mmol/L (137-145); TOTAL PROTEIN 6.1 g/dL (6.3-8.2); TRIGLYCERIDES 197 mg/dL (<150)
[2019-04-17] MEDS: AMINO ACIDS 5 %/DEXTROSE 20 % 1,000 ML IV PRN (17:56)
[2019-04-17 18:02] LABS: PREALBUMIN 10.9 mg/dL (17.6-36.0)
[2019-04-17] MEDS: NORMAL SALINE 10 ML SDV (SCHEDULED) IV SCH (21:47)
[2019-04-17] MEDS: LORAZEPAM INJ 2 MG/1 ML VIAL IV PRN (22:24)
[2019-04-18] MEDS: HYDROMORPHONE HCL INJ/PF 2 MG/ML AMPULE IV PRN ×5 (01:58→19:37)
[2019-04-18] MEDS: OCTREOTIDE ACETATE INJ/PF 100 MCG/1 ML SDV IV SCH (05:03)
[2019-04-18] MEDS: METOCLOPRAMIDE HCL INJ/PF 10 MG/2 ML SDV IV SCH ×4 (05:03→23:41)
[2019-04-18] MEDS: INSULIN REG, HUMAN 100 UNIT/ML 3 ML VIAL (PYX) SUBCUT SCH ×4 (06:03→23:49)
[2019-04-18 06:31] LABS: ALANINE AMINOTRANSFERASE 14 U/L (9-52); ALBUMIN 2.5 g/dL (3.5-5.0); ALKALINE PHOSPHATASE 97 U/L (38-126); ANION GAP 9 (5-19); ASPARTATE AMINO TRANSFERASE 16 U/L (14-36); BILIRUBIN,DIRECT 0.2 mg/dL (0.0-0.4); BILIRUBIN,TOTAL 0.2 mg/dL (0.2-1.3); BLOOD UREA NITROGEN 5 mg/dL (7-20); CALCIUM 8.7 mg/dL (8.4-10.2); CARBON DIOXIDE 28 mmol/L (22-30); CHLORIDE 104 mmol/L (98-107); GLUCOSE 105 mg/dL (75-110); PHOSPHORUS 3.9 mg/dL (2.5-4.5); POTASSIUM 4.5 mmol/L (3.6-5.0); SODIUM 140.9 mmol/L (137-145); TOTAL PROTEIN 5.4 g/dL (6.3-8.2)
[2019-04-18 06:38] LABS: PREALBUMIN 9.9 mg/dL (17.6-36.0)
[2019-04-18] MEDS: POTASSIUM CHLORIDE 10 MEQ CAPSULE.ER PO SCH ×2 (09:38→21:39)
[2019-04-18] MEDS: METHADONE HCL 10 MG TABLET PO SCH ×2 (09:38→21:38)
[2019-04-18] MEDS: ASPIRIN 325 MG TABLET PO SCH (09:39)
[2019-04-18] MEDS: PREDNISONE 10 MG TABLET PO SCH (09:39)
[2019-04-18] MEDS: ENOXAPARIN SODIUM INJ 30 MG/0.3 ML DISP.SYRIN SUBCUT SCH (09:39)
[2019-04-18] MEDS: ENALAPRIL MALEATE 10 MG TABLET PO SCH ×2 (09:40→21:37)
[2019-04-18] MEDS: NORMAL SALINE 10 ML SDV (SCHEDULED) IV SCH ×2 (09:40→21:39)
--- NOTE | 2019-04-18 09:43 | PDOC PROGRESS REPORT ---
Subjective Progress Note for:: 04/18/19 Subjective:: feels well Reason For Visit: ABDOMINAL ABSCESS, PERFORATED VISCUS Physical Exam Vital Signs: Temp Pulse Resp BP Pulse Ox 98.6 F 88 15 118/72 97 04/18/19 04:00 04/18/19 07:00 04/18/19 04:00 04/18/19 04:00 04/18/19 04:00 Intake & Output 04/17/19 04/18/19 04/19/19 06:59 06:59 06:59 Intake Total 3146 3389 Output Total 425 22 10 Balance 2721 3367 -10 Weight 91.3 kg 88.1 kg General appearance: PRESENT: no acute distress Head exam: PRESENT: normocephalic Ear exam: PRESENT: normal external ear exam Mouth exam: PRESENT: moist Teeth exam: PRESENT: poor dentation Neck exam: PRESENT: full ROM Respiratory exam: PRESENT: clear to auscultation jack Cardiovascular exam: PRESENT: RRR Pulses: PRESENT: normal radial pulses, normal femoral pulses GI/Abdominal exam: PRESENT: soft - non tender some drainage from ruq wound, still with bilous drainage from asad on left decreasing pt passing stools. Rectal exam: PRESENT: deferred Musculoskeletal exam: PRESENT: full ROM Neurological exam: PRESENT: alert, awake, oriented to person, oriented to place Psychiatric exam: PRESENT: appropriate affect Skin exam: PRESENT: dry Results Laboratory Results: 04/17/19 06:43 04/18/19 05:13 04/17/19 04/18/19 15:34 05:13 Sodium 139.8 140.9 Potassium 4.9 4.5 Chloride 102 104 Carbon Dioxide 29 28 Anion Gap 9 9 BUN 4 L 5 L Creatinine 0.41 L 0.40 L Est GFR ( Amer) > 60 > 60 Est GFR (Non-Af Amer) > 60 > 60 Glucose 110 105 Calcium 9.1 8.7 Phosphorus 4.2 3.9 Magnesium 1.7 Total Bilirubin 0.1 L 0.2 AST 20 16 ALT 24 14 Alkaline Phosphatase 111 97 Total Protein 6.1 L 5.4 L Albumin 2.7 L 2.5 L Prealbumin 10.9 L 9.9 L Triglycerides 197 H Impressions: Chest X-Ray 03/25/19 18:26 IMPRESSION: No pneumothorax. Patchy airspace opacities are present throughout the right lung base as well as left medial lung base. No significant pleural effusion.Left hilar fullness.Endotracheal tube tip overlies the lower trachea approximately 4.6 cm above the level of the aliyah. Nasogastric catheter tube i s present with tip overlying the body of the stomach. Right IJ central venous catheter is present with tip overlying the SVC below the aliyah level. Abdomen X-Ray 04/09/19 03:47 IMPRESSION: No acute findings. Abdomen/Pelvis CT 04/13/19 00:00 IMPRESSION: 1. SURGICAL CHANGES DESCRIBED. THE PREVIOUSLY SEEN FLUID COLLECTION LOCATED BETWEEN THE BOWEL AND ABDOMINAL WALL HAS DECREASED IN SIZE SINCE THE PRIOR STUDY. NO EVIDENCE OF BOWEL CONTRAST EXTRAVASATION. 2. COLLECTION OF GAS IN THE SUBCUTANEOUS FATTY TISSUES IN THE UPPER ABDOMEN LOCATED AT THE LEVEL OF THE SURGICAL INCISION, PRESUMABLY POSTOPERATIVE IN NATURE. 3. NO OTHER SIGNIFICANT FINDINGS. Guidance Fluoroscopy 04/17/19 00:00 IMPRESSION: SUCCESSFUL PLACEMENT OF A 5 FR DUAL LUMEN 39 CM PICC IN THE LEFT BASILIC VEIN. Interventional Vascular Procedure 04/17/19 00:00 IMPRESSION: SUCCESSFUL PLACEMENT OF A 5 FR DUAL LUMEN 39 CM PICC IN THE LEFT BASILIC VEIN. PICC Line Insertion 04/17/19 00:00 IMPRESSION: SUCCESSFUL PLACEMENT OF A 5 FR DUAL LUMEN 39 CM PICC IN THE LEFT BASILIC VEIN. Assessment & Plan - Diagnosis (1) Intra-abdominal abscess post-procedure Is this a current diagnosis for this admission?: Yes - Plan Summary Plan Summary: pt stable, no signs of intraabdominal sepsis draining via ruq incision and asad, prob fistula restarted tpn yesterday' daniel some full liquids without increased op via drains will cont current rx 'dc octreotide will get small bowel series on saturday.
[2019-04-18] MEDS: AMINO ACIDS 5 %/DEXTROSE 20 % 1,000 ML IV PRN (17:37)
[2019-04-18] MEDS: PROMETHAZINE HCL INJ 25 MG/1 ML VIAL IV PRN (17:49)
--- NOTE | 2019-04-18 17:52 | PDOC PROGRESS REPORT ---
Subjective Progress Note for:: 04/18/19 Subjective:: No adverse events overnight. She still on TPN but she is also getting full liquids. Her abdominal discomfort has not worsened. Output from her RODO drain is about the same. No fevers. Reason For Visit: ABDOMINAL ABSCESS, PERFORATED VISCUS Physical Exam Vital Signs: Temp Pulse Resp BP Pulse Ox 98.2 F 73 14 108/66 97 04/18/19 16:22 04/18/19 16:22 04/18/19 16:22 04/18/19 16:22 04/18/19 16:22 Intake & Output 04/17/19 04/18/19 04/19/19 06:59 06:59 06:59 Intake Total 3146 3389 1000 Output Total 425 22 10 Balance 2721 3367 990 Weight 91.3 kg 88.1 kg General appearance: PRESENT: no acute distress, cooperative, disheveled, morbidly obese Teeth exam: PRESENT: poor dentation Respiratory exam: PRESENT: clear to auscultation jack, symmetrical, unlabored. A BSENT: accessory muscle use, prolonged expiratory phas, rales, rhonchi, tachypnea, wheezes Cardiovascular exam: PRESENT: RRR, +S1, +S2 Pulses: PRESENT: normal carotid pulses Vascular exam: PRESENT: normal capillary refill GI/Abdominal exam: PRESENT: normal bowel sounds, soft, tenderness - Appropriate, other - Bilious drainage from RODO drain. ABSENT: distended, guarding, rebound Extremities exam: ABSENT: clubbing, pedal edema Musculoskeletal exam: PRESENT: normal inspection. ABSENT: deformity Neurological exam: PRESENT: alert, awake, oriented to person, oriented to place, oriented to time, oriented to situation Psychiatric exam: PRESENT: appropriate affect, normal mood Skin exam: PRESENT: dry, warm Results Laboratory Results: 04/17/19 06:43 04/18/19 05:13 04/17/19 04/18/19 15:34 05:13 Sodium 139.8 140.9 Potassium 4.9 4.5 Chloride 102 104 Carbon Dioxide 29 28 Anion Gap 9 9 BUN 4 L 5 L Creatinine 0.41 L 0.40 L Est GFR ( Amer) > 60 > 60 Est GFR (Non-Af Amer) > 60 > 60 Glucose 110 105 Calcium 9.1 8.7 Phosphorus 4.2 3.9 Magnesium 1.7 Total Bilirubin 0.1 L 0.2 AST 20 16 ALT 24 14 Alkaline Phosphatase 111 97 Total Protein 6.1 L 5.4 L Albumin 2.7 L 2.5 L Prealbumin 10.9 L 9.9 L Triglycerides 197 H Impressions: Chest X-Ray 03/25/19 18:26 IMPRESSION: No pneumothorax. Patchy airspace opacities are present throughout the right lung base as well as left medial lung base. No significant pleural effusion.Left hilar fullness.Endotracheal tube tip overlies the lower trachea approximately 4.6 cm above the level of the laiyah. Nasogastric catheter tube is present with tip overlying the body of the stomach. Right IJ central venous catheter is present with tip overlying the SVC below the aliyah level. Abdomen X-Ray 04/09/19 03:47 IMPRESSION: No acute findings. Abdomen/Pelvis CT 04/13/19 00:00 IMPRESSION: 1. SURGICAL CHANGES DESCRIBED. THE PREVIOUSLY SEEN FLUID COLLECTION LOCATED BETWEEN THE BOWEL AND ABDOMINAL WALL HAS DECREASED IN SIZE SINCE THE PRIOR STUDY. NO EVIDENCE OF BOWEL CONTRAST EXTRAVASATION. 2. COLLECTION OF GAS IN THE SUBCUTANEOUS FATTY TISSUES IN THE UPPER ABDOMEN LOCATED AT THE LEVEL OF THE SURGICAL INCISION, PRESUMABLY POSTOPERATIVE IN NATURE. 3. NO OTHER SIGNIFICANT FINDINGS. Guidance Fluoroscopy 04/17/19 00:00 IMPRESSION: SUCCESSFUL PLACEMENT OF A 5 FR DUAL LUMEN 39 CM PICC IN THE LEFT BASILIC VEIN. Interventional Vascular Procedure 04/17/19 00:00 IMPRESSION: SUCCESSFUL PLACEMENT OF A 5 FR DUAL LUMEN 39 CM PICC IN THE LEFT BASILIC VEIN. PICC Line Insertion 04/17/19 00:00 IMPRESSION: SUCCESSFUL PLACEMENT OF A 5 FR DUAL LUMEN 39 CM PICC IN THE LEFT BASILIC VEIN. Assessment and Plan - Diagnosis (1) Leukocytosis Qualifiers: Leukocytosis type: leukemoid reaction Qualified Code(s): D72.823 - Leukemoid reaction Is this a current diagnosis for this admission?: Yes Plan: White blood count is the same as it was a few days ago. She appears clinically stable. Oncology says they think her white count will stabilize between 15 and 20,000. (2) Obesity (BMI 30-39.9) Is this a current diagnosis for this admission?: Yes Plan: Encouraged lifestyle modification (3) Perforation of the transverse colon Is this a current diagnosis for this admission?: Yes Plan: Management per surgery. She continues on antibiotics per surgery. Infectious disease recommendations were noted. Continuing TPN, being allowed full liquids, drainage output being monitored. Dr. Burch is planning on doing some repeat imaging on Saturday. (4) Thrombocytosis Is this a current diagnosis for this admission?: Yes Plan: Platelets are stable in the mid 900s, oncology believes that she will stabilize in the 600s to 700s. - Time Time Spent with patient: 15-24 minutes
[2019-04-18] MEDS: LORAZEPAM INJ 2 MG/1 ML VIAL IV PRN (22:36)
[2019-04-19] MEDS: HYDROMORPHONE HCL INJ/PF 2 MG/ML AMPULE IV PRN ×5 (01:57→18:12)
[2019-04-19] MEDS: INSULIN REG, HUMAN 100 UNIT/ML 3 ML VIAL (PYX) SUBCUT SCH ×4 (05:53→23:54)
[2019-04-19] MEDS: METOCLOPRAMIDE HCL INJ/PF 10 MG/2 ML SDV IV SCH ×4 (05:54→23:27)
[2019-04-19 05:57] LABS: ALANINE AMINOTRANSFERASE 11 U/L (9-52); ALBUMIN 2.6 g/dL (3.5-5.0); ALKALINE PHOSPHATASE 97 U/L (38-126); ANION GAP 7 (5-19); ASPARTATE AMINO TRANSFERASE 15 U/L (14-36); BILIRUBIN,DIRECT 0.2 mg/dL (0.0-0.4); BILIRUBIN,TOTAL 0.2 mg/dL (0.2-1.3); BLOOD UREA NITROGEN 6 mg/dL (7-20); CALCIUM 8.9 mg/dL (8.4-10.2); CARBON DIOXIDE 29 mmol/L (22-30); CHLORIDE 105 mmol/L (98-107); GLUCOSE 95 mg/dL (75-110); PHOSPHORUS 4.1 mg/dL (2.5-4.5); POTASSIUM 4.4 mmol/L (3.6-5.0); SODIUM 140.9 mmol/L (137-145); TOTAL PROTEIN 5.8 g/dL (6.3-8.2)
[2019-04-19 06:09] LABS: PREALBUMIN 11.5 mg/dL (17.6-36.0)
[2019-04-19] MEDS: ENALAPRIL MALEATE 10 MG TABLET PO SCH ×2 (09:22→22:19)
[2019-04-19] MEDS: POTASSIUM CHLORIDE 10 MEQ CAPSULE.ER PO SCH ×3 (09:22→22:18)
[2019-04-19] MEDS: PREDNISONE 10 MG TABLET PO SCH (09:23)
[2019-04-19] MEDS: ENOXAPARIN SODIUM INJ 30 MG/0.3 ML DISP.SYRIN SUBCUT SCH (09:23)
[2019-04-19] MEDS: METHADONE HCL 10 MG TABLET PO SCH ×2 (09:23→22:18)
[2019-04-19] MEDS: ASPIRIN 325 MG TABLET PO SCH (09:23)
--- NOTE | 2019-04-19 09:23 | PDOC PROGRESS REPORT ---
Subjective Progress Note for:: 04/19/19 Reason For Visit: ABDOMINAL ABSCESS, PERFORATED VISCUS Physical Exam Vital Signs: Temp Pulse Resp BP Pulse Ox 98.8 F 93 17 113/67 96 04/18/19 23:17 04/19/19 07:00 04/18/19 23:17 04/18/19 23:17 04/18/19 23:17 Intake & Output 04/18/19 04/19/19 04/20/19 06:59 06:59 06:59 Intake Total 3389 4 Output Total 42 10 Balance 3347 2033 Weight 88.1 kg 88.4 kg General appearance: PRESENT: no acute distress Head exam: PRESENT: normocephalic Eye exam: PRESENT: EOMI Mouth exam: PRESENT: moist Teeth exam: PRESENT: poor dentation Neck exam: PRESENT: full ROM Respiratory exam: PRESENT: clear to auscultation jack Cardiovascular exam: PRESENT: RRR Pulses: PRESENT: normal radial pulses, normal femoral pulses GI/Abdominal exam: PRESENT: soft, other - wound with some drainage, no cellulitis or tenderness asad with bilous op Extremities exam: PRESENT: full ROM Musculoskeletal exam: PRESENT: full ROM Neurological exam: PRESENT: alert, awake, oriented to person Skin exam: PRESENT: dry Results Laboratory Results: 04/17/19 06:43 04/19/19 05:20 04/19/19 05:20 Sodium 140.9 Potassium 4.4 Chloride 105 Carbon Dioxide 29 Anion Gap 7 BUN 6 L Creatinine 0.41 L Est GFR ( Amer) > 60 Est GFR (Non-Af Amer) > 60 Glucose 95 Calcium 8.9 Phosphorus 4.1 Total Bilirubin 0.2 AST 15 ALT 11 Alkaline Phosphatase 97 Total Protein 5.8 L Albumin 2.6 L Prealbumin 11.5 L Impressions: Chest X-Ray 03/25/19 18:26 IMPRESSION: No pneumothorax. Patchy airspace opacities are present throughout the right lung base as well as left medial lung base. No significant pleural effusion.Left hilar fullness.Endotracheal tube tip overlies the lower trachea approximately 4.6 cm above the level of the aliyah. Nasogastric catheter tube is present with tip overlying the body of the stomach. Right IJ central venous catheter is present with tip overlying the SVC below the aliyah level. Abdomen X-Ray 04/09/19 03:47 IMPRESSION: No acute findings. Abdomen/Pelvis CT 04/13/19 00:00 IMPRESSION: 1. SURGICAL CHANGES DESCRIBED. THE PREVIOUSLY SEEN FLUID COLLECTION LOCATED BETWEEN THE BOWEL AND ABDOMINAL WALL HAS DECREASED IN SIZE SINCE THE PRIOR STUDY. NO EVIDENCE OF BOWEL CONTRAST EXTRAVASATION. 2. COLLECTION OF GAS IN THE SUBCUTANEOUS FATTY TISSUES IN THE UPPER ABDOMEN LOCATED AT THE LEVEL OF THE SURGICAL INCISION, PRESUMABLY POSTOPERATIVE IN NATURE. 3. NO OTHER SIGNIFICANT FINDINGS. Guidance Fluoroscopy 04/17/19 00:00 IMPRESSION: SUCCESSFUL PLACEMENT OF A 5 FR DUAL LUMEN 39 CM PICC IN THE LEFT BASILIC VEIN. Interventional Vascular Procedure 04/17/19 00:00 IMPRESSION: SUCCESSFUL PLACEMENT OF A 5 FR DUAL LUMEN 39 CM PICC IN THE LEFT BASILIC VEIN. PICC Line Insertion 04/17/19 00:00 IMPRESSION: SUCCESSFUL PLACEMENT OF A 5 FR DUAL LUMEN 39 CM PICC IN THE LEFT BASILIC VEIN. Assessment & Plan - Diagnosis (1) Intra-abdominal abscess post-procedure Is this a current diagnosis for this admission?: Yes - Plan Summary Plan Summary: doing well was up ambulating outside today sitll with some drainage from wound, however no tenderness or cellulitis will plan on small bowel series in am to identify source of leak.
[2019-04-19] MEDS: NORMAL SALINE 10 ML SDV (SCHEDULED) IV SCH ×2 (09:24→22:18)
--- NOTE | 2019-04-19 17:26 | PDOC PROGRESS REPORT ---
Subjective Progress Note for:: 04/19/19 Subjective:: No adverse events overnight. She still on TPN but she is also getting full liquids. Her abdominal discomfort has not worsened. Output from her RODO drain is about the same. No fevers. Scant drainage from her incision. Reason For Visit: ABDOMINAL ABSCESS, PERFORATED VISCUS Physical Exam Vital Signs: Temp Pulse Resp BP Pulse Ox 98.3 F 80 16 111/55 L 97 04/19/19 12:00 04/19/19 14:00 04/19/19 12:00 04/19/19 12:00 04/19/19 12:00 Intake & Output 04/18/19 04/19/19 04/20/19 06:59 06:59 06:59 Intake Total 3389 2044 Output Total 42 10 Balance 3347 4 Weight 88.1 kg 88.4 kg General appearance: PRESENT: no acute distress, cooperative, disheveled, morbidly obese Teeth exam: PRESENT: poor dentation Respiratory exam: PRESENT: clear to auscultation jack, symmetrical, unlabored. ABSENT: accessory muscle use, prolonged expiratory phas, rales, rhonchi, ta chypnea, wheezes Cardiovascular exam: PRESENT: RRR, +S1, +S2 Pulses: PRESENT: normal carotid pulses Vascular exam: PRESENT: normal capillary refill GI/Abdominal exam: PRESENT: normal bowel sounds, soft, tenderness - Appropriate, other - Bilious drainage from RODO drain. ABSENT: distended, guarding, rebound Extremities exam: ABSENT: clubbing, pedal edema Musculoskeletal exam: PRESENT: normal inspection. ABSENT: deformity Neurological exam: PRESENT: alert, awake, oriented to person, oriented to place, oriented to time, oriented to situation Psychiatric exam: PRESENT: appropriate affect, normal mood Skin exam: PRESENT: dry, warm Results Laboratory Results: 04/17/19 06:43 04/19/19 05:20 04/19/19 05:20 Sodium 140.9 Potassium 4.4 Chloride 105 Carbon Dioxide 29 Anion Gap 7 BUN 6 L Creatinine 0.41 L Est GFR ( Amer) > 60 Est GFR (Non-Af Amer) > 60 Glucose 95 Calcium 8.9 Phosphorus 4.1 Total Bilirubin 0.2 AST 15 ALT 11 Alkaline Phosphatase 97 Total Protein 5.8 L Albumin 2.6 L Prealbumin 11.5 L Impressions: Chest X-Ray 03/25/19 18:26 IMPRESSION: No pneumothorax. Patchy airspace opacities are present throughout the right lung base as well as left medial lung base. No significant pleural effusion.Left hilar fullness.Endotracheal tube tip overlies the lower trachea approximately 4.6 cm above the level of the aliyah. Nasogastric catheter tube is present with tip overlying the body of the stomach. Right IJ central venous catheter is present with tip overlying the SVC below the aliyah level. Abdomen X-Ray 04/09/19 03:47 IMPRESSION: No acute findings. Abdomen/Pelvis CT 04/13/19 00:00 IMPRESSION: 1. SURGICAL CHANGES DESCRIBED. THE PREVIOUSLY SEEN FLUID COLLECTION LOCATED BETWEEN THE BOWEL AND ABDOMINAL WALL HAS DECREASED IN SIZE SINCE THE PRIOR STUDY. NO EVIDENCE OF BOWEL CONTRAST EXTRAVASATION. 2. COLLECTION OF GAS IN THE SUBCUTANEOUS FATTY TISSUES IN THE UPPER ABDOMEN LOCATED AT THE LEVEL OF THE SURGICAL INCISION, PRESUMABLY POSTOPERATIVE IN NATURE. 3. NO OTHER SIGNIFICANT FINDINGS. Guidance Fluoroscopy 04/17/19 00:00 IMPRESSION: SUCCESSFUL PLACEMENT OF A 5 FR DUAL LUMEN 39 CM PICC IN THE LEFT BASILIC VEIN. Interventional Vascular Procedure 04/17/19 00:00 IMPRESSION: SUCCESSFUL PLACEMENT OF A 5 FR DUAL LUMEN 39 CM PICC IN THE LEFT BASILIC VEIN. PICC Line Insertion 04/17/19 00:00 IMPRESSION: SUCCESSFUL PLACEMENT OF A 5 FR DUAL LUMEN 39 CM PICC IN THE LEFT BASILIC VEIN. Assessment and Plan - Diagnosis (1) Leukocytosis Qualifiers: Leukocytosis type: leukemoid reaction Qualified Code(s): D72.823 - Leukemoid reaction Is this a current diagnosis for this admission?: Yes Plan: White blood count is in the same range it has been in for several days. She appears clinically stable. Oncology says they think her white count will stabilize between 15 and 20,000. (2) Obesity (BMI 30-39.9) Is this a current diagnosis for this admission?: Yes Plan: Encouraged lifestyle modification (3) Perforation of the transverse colon Is this a current diagnosis for this admission?: Yes Plan: Management per surgery. She continues on antibiotics per surgery. Infectious disease recommendations were noted. Continuing TPN, being allowed full liquids, drainage output being monitored. Dr. Burch is planning on doing some repeat imaging on Saturday. (4) Thrombocytosis Is this a current diagnosis for this admission?: Yes Plan: Platelets are stable in the mid 900s, oncology believes that she will stabilize in the 600s to 700s. - Time Time Spent with patient: 15-24 minutes
[2019-04-19] MEDS: AMINO ACIDS 5 %/DEXTROSE 20 % 1,000 ML IV PRN (18:07)
[2019-04-19] MEDS: PROMETHAZINE HCL INJ 25 MG/1 ML VIAL IV PRN (18:27)
[2019-04-19] MEDS: LORAZEPAM INJ 2 MG/1 ML VIAL IV PRN (23:19)
[2019-04-20] MEDS: HYDROMORPHONE HCL INJ/PF 2 MG/ML AMPULE IV PRN ×6 (01:39→22:33)
[2019-04-20] MEDS: METOCLOPRAMIDE HCL INJ/PF 10 MG/2 ML SDV IV SCH ×3 (06:15→18:19)
[2019-04-20] MEDS: INSULIN REG, HUMAN 100 UNIT/ML 3 ML VIAL (PYX) SUBCUT SCH ×3 (06:29→18:15)
[2019-04-20 06:59] LABS: HEMATOCRIT 33.3 % (36.0-47.0); HEMOGLOBIN 10.6 g/dL (12.0-15.5); MEAN CORPUSCULAR HEMOGLOBIN 28.3 pg (27.0-33.4); MEAN CORPUSCULAR HGB CONC 31.7 g/dL (32.0-36.0); MEAN CORPUSCULAR VOLUME 89 fl (80-97); PLATELET COUNT 925 10^3/uL (150-450); RED BLOOD COUNT 3.73 10^6/uL (3.72-5.28); WHITE BLOOD COUNT 21.5 10^3/uL (4.0-10.5)
[2019-04-20 07:25] LABS: PREALBUMIN 13.7 mg/dL (17.6-36.0)
[2019-04-20 07:35] LABS: ABSOLUTE LYMPHOCYTES# (MANUAL) 8.8 10^3/uL (0.5-4.7); ABSOLUTE MONOCYTES # (MANUAL) 2.6 10^3/uL (0.1-1.4); ABSOLUTE NEUTROPHILS# (MANUAL) 9.9 10^3/uL (1.7-8.2); ANISOCYTOSIS 1+; BASOPHILS % (MANUAL) 0 % (0-2); EOSINOPHILS % (MANUAL) 1 % (0-6); HYPOCHROMASIA 1+; LYMPHOCYTES % (MANUAL) 41 % (13-45); MONOCYTES % (MANUAL) 12 % (3-13); PLATELET COMMENT INCREASED; POIKILOCYTOSIS 1+; SEGMENTED NEUTROPHILS % (MAN) 46 % (42-78); STOMATOCYTES 1+; TARGET CELLS SLIGHT; TOTAL CELLS COUNTED 100
[2019-04-20] MEDS: PROMETHAZINE HCL INJ 25 MG/1 ML VIAL IV PRN (08:10)
--- NOTE | 2019-04-20 08:23 | PDOC PROGRESS REPORT ---
Subjective Progress Note for:: 04/20/19 Subjective:: doing ok does not feel as well this am Reason For Visit: ABDOMINAL ABSCESS, PERFORATED VISCUS Physical Exam Vital Signs: Temp Pulse Resp BP Pulse Ox 98.9 F 84 17 108/62 99 04/19/19 23:46 04/20/19 02:00 04/19/19 23:46 04/19/19 23:46 04/19/19 23:46 Intake & Output 04/19/19 04/20/19 04/21/19 06:59 06:59 06:59 Intake Total 2043 1953 Output Total 10 Balance 2033 1953 Weight 88.4 kg 88.3 kg General appearance: PRESENT: no acute distress Eye exam: PRESENT: EOMI Mouth exam: PRESENT: moist Teeth exam: PRESENT: poor dentation Neck exam: PRESENT: full ROM Cardiovascular exam: PRESENT: RRR Pulses: PRESENT: normal radial pulses, normal femoral pulses GI/Abdominal exam: PRESENT: soft, other - still with some drainage from ruq wo und and asad Rectal exam: PRESENT: deferred Extremities exam: PRESENT: full ROM Musculoskeletal exam: PRESENT: full ROM Neurological exam: PRESENT: alert, awake, oriented to person, oriented to place Psychiatric exam: PRESENT: appropriate affect Results Laboratory Results: 04/20/19 06:10 04/20/19 04/20/19 06:10 06:10 WBC 21.5 H RBC 3.73 Hgb 10.6 L Hct 33.3 L MCV 89 MCH 28.3 MCHC 31.7 L RDW 16.0 H Plt Count 925 H Seg Neutrophils % Not Reportable Lymphocytes % Not Reportable Monocytes % Not Reportable Eosinophils % Not Reportable Basophils % Not Reportable Absolute Neutrophils Not Reportable Absolute Lymphocytes Not Reportable Absolute Monocytes Not Reportable Absolute Eosinophils Not Reportable Absolute Basophils Not Reportable Phosphorus 5.0 H Prealbumin 13.7 L Impressions: Chest X-Ray 03/25/19 18:26 IMPRESSION: No pneumothorax. Patchy airspace opacities are present throughout the right lung base as well as left medial lung base. No significant pleural effusion.Left hilar fullness.Endotracheal tube tip overlies the lower trachea approximately 4.6 cm above the level of the aliyah. Nasogastric catheter tube is present with tip overlying the body of the stomach. Right IJ central venous catheter is present with tip overlying the SVC below the aliyah level. Abdomen X-Ray 04/09/19 03:47 IMPRESSION: No acute findings. Abdomen/Pelvis CT 04/13/19 00:00 IMPRESSION: 1. SURGICAL CHANGES DESCRIBED. THE PREVIOUSLY SEEN FLUID COLLECTION LOCATED BETWEEN THE BOWEL AND ABDOMINAL WALL HAS DECREASED IN SIZE SINCE THE PRIOR STUDY. NO EVIDENCE OF BOWEL CONTRAST EXTRAVASATION. 2. COLLECTION OF GAS IN THE SUBCUTANEOUS FATTY TISSUES IN THE UPPER ABDOMEN LOCATED AT THE LEVEL OF THE SURGICAL INCISION, PRESUMABLY POSTOPERATIVE IN NATURE. 3. NO OTHER SIGNIFICANT FINDINGS. Guidance Fluoroscopy 04/17/19 00:00 IMPRESSION: SUCCESSFUL PLACEMENT OF A 5 FR DUAL LUMEN 39 CM PICC IN THE LEFT BASILIC VEIN. Interventional Vascular Procedure 04/17/19 00:00 IMPRESSION: SUCCESSFUL PLACEMENT OF A 5 FR DUAL LUMEN 39 CM PICC IN THE LEFT BASILIC VEIN. PICC Line Insertion 04/17/19 00:00 IMPRESSION: SUCCESSFUL PLACEMENT OF A 5 FR DUAL LUMEN 39 CM PICC IN THE LEFT BASILIC VEIN. Assessment & Plan - Diagnosis (1) Intra-abdominal abscess post-procedure Is this a current diagnosis for this admission?: Yes - Plan Summary Plan Summary: to obtaine small bowel series today
[2019-04-20 08:24] LABS: ALANINE AMINOTRANSFERASE 16 U/L (9-52); ALBUMIN 2.7 g/dL (3.5-5.0); ALKALINE PHOSPHATASE 103 U/L (38-126); ANION GAP 12 (5-19); ASPARTATE AMINO TRANSFERASE 21 U/L (14-36); BILIRUBIN,DIRECT 0.2 mg/dL (0.0-0.4); BILIRUBIN,TOTAL 0.2 mg/dL (0.2-1.3); BLOOD UREA NITROGEN 9 mg/dL (7-20); CALCIUM 9.1 mg/dL (8.4-10.2); CARBON DIOXIDE 26 mmol/L (22-30); CHLORIDE 101 mmol/L (98-107); GLUCOSE 94 mg/dL (75-110); POTASSIUM 4.8 mmol/L (3.6-5.0); SODIUM 138.9 mmol/L (137-145); TOTAL PROTEIN 6.3 g/dL (6.3-8.2)
[2019-04-20 08:25] LABS: INTERNATIONAL RATION (INR) 1.01; PROTHROMBIN TIME 13.8 SEC (11.4-15.4)
[2019-04-20] MEDS: ASPIRIN 325 MG TABLET PO SCH (10:32)
[2019-04-20] MEDS: PREDNISONE 10 MG TABLET PO SCH (10:32)
[2019-04-20] MEDS: POTASSIUM CHLORIDE 10 MEQ CAPSULE.ER PO SCH ×2 (10:32→22:31)
[2019-04-20] MEDS: METHADONE HCL 10 MG TABLET PO SCH (10:33)
[2019-04-20] MEDS: ENALAPRIL MALEATE 10 MG TABLET PO SCH ×2 (10:49→22:34)
[2019-04-20] MEDS: ENOXAPARIN SODIUM INJ 30 MG/0.3 ML DISP.SYRIN SUBCUT SCH (10:50)
[2019-04-20] MEDS: FAT EMULSIONS 250 ML IV SCH (10:51)
[2019-04-20] MEDS: NORMAL SALINE 10 ML SDV (SCHEDULED) IV SCH ×2 (10:55→22:32)
--- NOTE | 2019-04-20 11:01 | RADIOLOGY REPORT (SQ) ---
EXAM DESCRIPTION: CT ABD/PELVIS NO ORAL OR IV COMPLETED DATE/TIME: 04/20/2019 10:31 am REASON FOR STUDY: r/o fistula COMPARISON: 04/13/2019 TECHNIQUE: CT scan of the abdomen and pelvis performed without intravenous contrast. Oral contrast was administered. Images reviewed with lung, soft tissue, and bone windows. Reconstructed coronal an d sagittal MPR images reviewed. All images stored on PACS. All CT scanners at this facility use dose modulation, iterative reconstruction, and/or weight based d osing when appropriate to reduce radiation dose to as low as reasonably achievable (ALARA). [facility]: Dose Right [facility]: CareDose [facility]: Dose Right [facility]: Teradose 4D [facility]: Smart [employer] RADIATION DOSE: CT Rad equipment meets quality standard of care and radiation dose reduction techniq ues were employed. CTDIvol: 16.6 mGy. DLP: 917 mGy-cm.mGy. LIMITATIONS: None. FINDINGS: LOWER CHEST: No significant findings. No nodules or infiltrates. NON-CONTRASTED LIVER, SPLEEN, ADRENALS: Liver and adrenals are normal. The spleen is absent. PANCREAS: No masses. No peripancreatic inflammatory changes. GALLBLADDER: Surgically absent. RIGHT KIDNEY AND URETER: No suspicious masses. Assessment limited by lack of IV contrast. No signif icant calcifications. No hydronephrosis or hydroureter. LEFT KIDNEY AND URETER: No suspicious masses. Assessment limited by lack of IV contrast. No signifi cant calcifications. No hydronephrosis or hydroureter. AORTA AND RETROPERITONEUM: No aneurysm. No retroperitoneal masses or adenopathy. BOWEL AND PERITONEAL CAVITY: Hemicolectomy by history. There is persistent air in the subcutaneous t issues to the right of midline. A small amount of oral contrast is present in the subcutaneous tissu es near the midline beginning on image 34 a through image 37. No abscess is present in the abdomen. There are 2 catheters in the abdomen. 1 appears to represent jejunostomy tube. The other extends l ow in the pelvis and may be associated with peritoneal dialysis or may represent a drain. APPENDIX: Surgically absent. PELVIS, BLADDER, AND ABDOMINAL WALL:No abnormal masses. No free fluid. Bladder normal. BONES: No significant findings. OTHER: No other significant finding. 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 COMMENT: Quality ID # [id number]: Final reports with documentation of one or more dose reduction techniques (e.g., Automated exposure control, adjustment of the mA and/or kV according to patient size, use of iterative reconstruction technique) TECHNICAL DOCUMENTATION: JOB ID: [id number] [employer]- All Rights Reserved Reading location - IP/workstation name: [email or web address]
--- NOTE | 2019-04-20 15:30 | RADIOLOGY REPORT (SQ) ---
EXAM DESCRIPTION: SMALL BOWEL SERIES COMPLETED DATE/TIME: 04/20/2019 10:09 am REASON FOR STUDY: r/o small bowel leak, use gastrografin. COMPARISON: None. FLUOROSCOPY TIME: 44 seconds 5 fluoro images saved to PACS. LIMITATIONS: None. PROCEDURE: Initial improvement rn image of abdomen acquired, followed by administration of oral contrast. Se rial radiographic images acquired. Fluoroscopic images recorded of the terminal ileum and other adalberto cated areas. All images stored on PACS. FINDINGS: WAREHOUSE ORDER PICKER KUB: Non-obstructive bowel pattern. Surgical drains and emi identified. STOMACH: No significant reflux. Normal distention without abnormality. DUODENUM: Normal mucosal pattern with adequate distention. No displacement or obstruction. JEJUNUM: Normal mucosal pattern. No dilatation, segmentation, strictures or masses. ILEUM: Normal mucosal pattern. No dilatation, segmentation, strictures or masses. Surgical changes from resection. TERMINAL ILEUM AND ILEO-CECAL VALVE: Surgical changes from hemicolectomy. PROXIMAL COLON: Not assessed OTHER: No areas of contrast extravasation identified on small bowel follow-through. Contrast seen in the colon on the 15 minutes film. IMPRESSION: SURGICAL CHANGES CONSISTENT WITH HEMICOLECTOMY, WITH NO CONTRAST EXTRAVASATION OR OBSTR UCTION IDENTIFIED ON SMALL BOWEL FOLLOW-THROUGH. COMMENT: None Quality ID [id number]: Final reports for procedures using fluoroscopy that document radiation exposure adalberto shay, or exposure time and number of fluorographic images (if radiation exposure indices are not avail able) TECHNICAL DOCUMENTATION: JOB ID: [id number] [employer]- All Rights Reserved Reading location - IP/workstation name: [email or web address] [id number]
--- NOTE | 2019-04-20 17:12 | PDOC PROGRESS REPORT ---
Subjective Progress Note for:: 04/20/19 Subjective:: No adverse events overnight. Blood sugars been well controlled. Blood pressure stable. She is tolerating liquids. Still has some drainage from her surgical incision. RODO drainage output is about the same. Reason For Visit: ABDOMINAL ABSCESS, PERFORATED VISCUS Physical Exam Vital Signs: Temp Pulse Resp BP Pulse Ox 98.1 F 88 18 119/67 100 04/20/19 11:00 04/20/19 14:00 04/20/19 11:00 04/20/19 11:00 04/20/19 11:00 Intake & Output 04/19/19 04/20/19 04/21/19 06:59 06:59 06:59 Intake Total 2043 1953 250 Output Total 10 80 Balance 2033 1953 170 Weight 88.4 kg 88.3 kg General appearance: PRESENT: no acute distress, cooperative, disheveled, morbidly obese Teeth exam: PRESENT: poor dentation Respiratory exam: PRESENT: clear to auscultation jack, symmetrical, unlabored. ABSENT: accessory muscle use, prolonged expiratory phas, rales, rhonchi, tachypnea, wheezes Cardiovascular exam: PRESENT: RRR, +S1, +S2 Pulses: PRESENT: normal carotid pulses Vascular exam: PRESENT: normal capillary refill GI/Abdominal exam: PRESENT: normal bowel sounds, soft, tenderness - Appropriate, other - Bilious drainage from RODO drain. ABSENT: distended, guarding, rebound Extremities exam: ABSENT: clubbing, pedal edema Musculoskeletal exam: PRESENT: normal inspection. Has some swan-neck deformity with ulnar deviation of her fingers Neurological exam: PRESENT: alert, awake, oriented to person, oriented to place, oriented to time, oriented to situation Psychiatric exam: PRESENT: appropriate affect, normal mood Skin exam: PRESENT: dry, warm Results Laboratory Results: 04/20/19 06:10 04/20/19 06:10 04/20/19 04/20/19 04/20/19 06:10 06:10 06:10 WBC 21.5 H RBC 3.73 Hgb 10.6 L Hct 33.3 L MCV 89 MCH 28.3 MCHC 31.7 L RDW 16.0 H Plt Count 925 H Seg Neutrophils % Not Reportable Lymphocytes % Not Reportable Monocytes % Not Reportable Eosinophils % Not Reportable Basophils % Not Reportable Absolute Neutrophils Not Reportable Absolute Lymphocytes Not Reportable Absolute Monocytes Not Reportable Absolute Eosinophils Not Reportable Absolute Basophils Not Reportable Sodium 138.9 Potassium 4.8 Chloride 101 Carbon Dioxide 26 Anion Gap 12 BUN 9 Creatinine 0.53 Est GFR ( Amer) > 60 Est GFR (Non-Af Amer) > 60 Glucose 94 Calcium 9.1 Phosphorus 5.0 H Magnesium 2.0 Total Bilirubin 0.2 AST 21 ALT 16 Alkaline Phosphatase 103 Total Protein 6.3 Albumin 2.7 L Prealbumin 13.7 L Impressions: Chest X-Ray 03/25/19 18:26 IMPRESSION: No pneumothorax. Patchy airspace opacities are present throughout the right lung base as well as left medial lung base. No significant pleural effusion.Left hilar fullness.Endotracheal tube tip overlies the lower trachea approximately 4.6 cm above the level of the aliyah. Nasogastric catheter tube is present with tip overlying the body of the stomach. Right IJ central venous catheter is present with tip overlying the SVC below the aliyah level. Abdomen X-Ray 04/09/19 03:47 IMPRESSION: No acute findings. Guidance Fluoroscopy 04/17/19 00:00 IMPRESSION: SUCCESSFUL PLACEMENT OF A 5 FR DUAL LUMEN 39 CM PICC IN THE LEFT BASILIC VEIN. Interventional Vascular Procedure 04/17/19 00:00 IMPRESSION: SUCCESSFUL PLACEMENT OF A 5 FR DUAL LUMEN 39 CM PICC IN THE LEFT BASILIC VEIN. PICC Line Insertion 04/17/19 00:00 IMPRESSION: SUCCESSFUL PLACEMENT OF A 5 FR DUAL LUMEN 39 CM PICC IN THE LEFT BASILIC VEIN. 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 Small Bowel X-Ray 04/20/19 00:00 IMPRESSION: SURGICAL CHANGES CONSISTENT WITH HEMICOLECTOMY, WITH NO CONTRAST EXTRAVASATION OR OBSTRUCTION IDENTIFIED ON SMALL BOWEL FOLLOW-THROUGH. Assessment and Plan - Diagnosis (1) Leukocytosis Qualifiers: Leukocytosis type: leukemoid reaction Qualified Code(s): D72.823 - Leukemoid reaction Is this a current diagnosis for this admission?: Yes Plan: White blood count is in the same range it has been in for several days. She appears clinically stable. Oncology says they think her white count will stabilize between 15 and 20,000. (2) Obesity (BMI 30-39.9) Is this a current diagnosis for this admission?: Yes Plan: Encouraged lifestyle modification (3) Perforation of the transverse colon Is this a current diagnosis for this admission?: Yes Plan: Management per surgery. She continues on antibiotics per surgery. Infectious disease recommendations were noted. Continuing TPN, being allowed full liquids, drainage output being monitored. Dr. Burch is planning on doing some repeat imaging today. (4) Thrombocytosis Is this a current diagnosis for this admission?: Yes Plan: Platelets are stable in the mid 900s, oncology believes that she will stabilize in the 600s to 700s. - Time Time Spent with patient: 15-24 minutes
[2019-04-20] MEDS: AMINO ACIDS 5 %/DEXTROSE 20 % 1,000 ML IV PRN (18:19)
[2019-04-20 19:15] LABS: APPEARANCE,URINE CLEAR; BILIRUBIN,URINE NEGATIVE (NEGATIVE); COLOR,URINE YELLOW; GLUCOSE, URINE NEGATIVE (NEGATIVE); KETONES,URINE NEGATIVE (NEGATIVE); LEUKOCYTE ESTERASE,URINE TRACE (NEGATIVE); NITRITE,URINE NEGATIVE (NEGATIVE); PROTEIN,URINE NEGATIVE (NEGATIVE); UROBILINOGEN,URINE NEGATIVE mg/dL (<2.0)
[2019-04-20] MEDS ORDERED: METHADONE HCL 10 MG TABLET PO ONE (22:30)
[2019-04-20] MEDS ORDERED: DIPHENHYDRAMINE HCL 50 MG/ML VIAL IV PRN (23:26)
[2019-04-21] MEDS: INSULIN REG, HUMAN 100 UNIT/ML 3 ML VIAL (PYX) SUBCUT SCH ×4 (00:46→18:14)
[2019-04-21] MEDS: METOCLOPRAMIDE HCL INJ/PF 10 MG/2 ML SDV IV SCH ×4 (00:55→18:06)
[2019-04-21] MEDS: HYDROMORPHONE HCL INJ/PF 2 MG/ML AMPULE IV PRN ×5 (04:06→21:13)
--- NOTE | 2019-04-21 07:23 | PDOC PROGRESS REPORT ---
Subjective Progress Note for:: 04/21/19 Subjective:: feels well Reason For Visit: ABDOMINAL ABSCESS, PERFORATED VISCUS Physical Exam Vital Signs: Temp Pulse Resp BP Pulse Ox 98.1 F 78 16 111/65 97 04/20/19 23:17 04/21/19 02:00 04/20/19 23:17 04/20/19 23:17 04/20/19 23:17 Intake & Output 04/20/19 04/21/19 04/22/19 06:59 06:59 06:59 Intake Total 1953 2059 Output Total 160 Balance 1953 1899 Weight 88.3 kg 71.4 kg General appearance: PRESENT: no acute distress Head exam: PRESENT: normocephalic Eye exam: PRESENT: EOMI Mouth exam: PRESENT: moist Teeth exam: PRESENT: poor dentation Neck exam: PRESENT: full ROM Respiratory exam: PRESENT: clear to auscultation jack Cardiovascular exam: PRESENT: RRR Pulses: PRESENT: normal radial pulses, normal femoral pulses Vascular exam: PRESENT: normal capillary refill GI/Abdominal exam: PRESENT: soft, other Rectal exam: PRESENT: deferred Extremities exam: PRESENT: full ROM Musculoskeletal exam: PRESENT: full ROM Neurological exam: PRESENT: alert, awake, oriented to person, oriented to place Psychiatric exam: PRESENT: appropriate affect Skin exam: PRESENT: dry Results Laboratory Results: 04/20/19 06:10 04/20/19 06:10 04/20/19 04/20/19 04/20/19 06:10 06:10 06:10 WBC 21.5 H RBC 3.73 Hgb 10.6 L Hct 33.3 L MCV 89 MCH 28.3 MCHC 31.7 L RDW 16.0 H Plt Count 925 H Seg Neutrophils % Not Reportable Lymphocytes % Not Reportable Monocytes % Not Reportable Eosinophils % Not Reportable Basophils % Not Reportable Absolute Neutrophils Not Reportable Absolute Lymphocytes Not Reportable Absolute Monocytes Not Reportable Absolute Eosinophils Not Reportable Absolute Basophils Not Reportable Sodium 138.9 Potassium 4.8 Chloride 101 Carbon Dioxide 26 Anion Gap 12 BUN 9 Creatinine 0.53 Est GFR ( Amer) > 60 Est GFR (Non-Af Amer) > 60 Glucose 94 Calcium 9.1 Phosphorus 5.0 H Magnesium 2.0 Total Bilirubin 0.2 AST 21 ALT 16 Alkaline Phosphatase 103 Total Protein 6.3 Albumin 2.7 L Prealbumin 13.7 L Triglycerides Urine Color Urine Appearance Urine pH Ur Specific [place] Urine Protein Urine Glucose (UA) Urine Ketones Urine Blood Urine Nitrite Ur Leukocyte Esterase Urine WBC (Auto) Urine RBC (Auto) 04/20/19 04/20/19 18:37 21:00 WBC RBC Hgb Hct MCV MCH MCHC RDW Plt Count Seg Neutrophils % Lymphocytes % Monocytes % Eosinophils % Basophils % Absolute Neutrophils Absolute Lymphocytes Absolute Monocytes Absolute Eosinophils Absolute Basophils Sodium Potassium Chloride Carbon Dioxide Anion Gap BUN Creatinine Est GFR ( Amer) Est GFR (Non-Af Amer) Glucose Calcium Phosphorus Magnesium Total Bilirubin AST ALT Alkaline Phosphatase Total Protein Albumin Prealbumin Triglycerides 142 Urine Color YELLOW Urine Appearance CLEAR Urine pH 7.0 Ur Specific [place] 1.010 Urine Protein NEGATIVE Urine Glucose (UA) NEGATIVE Urine Ketones NEGATIVE Urine Blood NEGATIVE Urine Nitrite NEGATIVE Ur Leukocyte Esterase TRACE H Urine WBC (Auto) 1 Urine RBC (Auto) 1 Impressions: Chest X-Ray 03/25/19 18:26 IMPRESSION: No pneumothorax. Patchy airspace opacities are present throughout the right lung base as well as left medial lung base. No significant pleural effusion.Left hilar fullness.Endotracheal tube tip overlies the lower trachea approximately 4.6 cm above the level of the aliyah. Nasogastric catheter tube is present with tip overlying the body of the stomach. Right IJ central venous catheter is present with tip overlying the SVC below the aliyah level. Abdomen X-Ray 04/09/19 03:47 IMPRESSION: No acute findings. Guidance Fluoroscopy 04/17/19 00:00 IMPRESSION: SUCCESSFUL PLACEMENT OF A 5 FR DUAL LUMEN 39 CM PICC IN THE LEFT BASILIC VEIN. Interventional Vascular Procedure 04/17/19 00:00 IMPRESSION: SUCCESSFUL PLACEMENT OF A 5 FR DUAL LUMEN 39 CM PICC IN THE LEFT BASILIC VEIN. PICC Line Insertion 04/17/19 00:00 IMPRESSION: SUCCESSFUL PLACEMENT OF A 5 FR DUAL LUMEN 39 CM PICC IN THE LEFT BASILIC VEIN. 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 Small Bowel X-Ray 04/20/19 00:00 IMPRESSION: SURGICAL CHANGES CONSISTENT WITH HEMICOLECTOMY, WITH NO CONTRAST EXTRAVASATION OR OBSTRUCTION IDENTIFIED ON SMALL BOWEL FOLLOW-THROUGH. Assessment & Plan - Diagnosis (1) Intra-abdominal abscess post-procedure Is this a current diagnosis for this admission?: Yes - Plan Summary Plan Summary: small bowel series done yesterday reviewed there is a small controlled fistula , draining in ruq. appears related to small bowel anastomosis no distal obstruction min if any remaining intraabdominal fluid collection pt conts to remain stable, passing stool \and daniel full liquids. plan-will cont full liquids for now spoke with pt about going home on full liquids to be followed as outpatient she is amenable to this will move towards discharge matt this wk she will start on more full liquids and see if she can tolerate more po.
[2019-04-21] MEDS: ASPIRIN 325 MG TABLET PO SCH (09:59)
[2019-04-21] MEDS: POTASSIUM CHLORIDE 10 MEQ CAPSULE.ER PO SCH ×2 (10:00→21:09)
[2019-04-21] MEDS: METHADONE HCL 10 MG TABLET PO SCH ×2 (10:01→21:11)
[2019-04-21] MEDS: PREDNISONE 10 MG TABLET PO SCH (10:01)
[2019-04-21] MEDS: ENOXAPARIN SODIUM INJ 30 MG/0.3 ML DISP.SYRIN SUBCUT SCH (10:10)
[2019-04-21] MEDS: ENALAPRIL MALEATE 10 MG TABLET PO SCH ×2 (10:11→21:12)
[2019-04-21] MEDS: NORMAL SALINE 10 ML SDV (SCHEDULED) IV SCH ×2 (10:11→21:12)
[2019-04-21] MEDS: AMINO ACIDS 5 %/DEXTROSE 20 % 1,000 ML IV PRN (14:56)
--- NOTE | 2019-04-21 18:24 | PDOC PROGRESS REPORT ---
Subjective Progress Note for:: 04/21/19 Subjective:: This is a 43 year old female with past medical history of rheumatoid arthritis on chronic steroid and essential hypertension who initially presented with vomiting and was found to colonic perforation. Hospitalist service was consulted for co-management. She underwent exlap and washout by surgery on admission. She was subsequently and successfully extubated. She has been doing well and continue to improve. She is tolerating a full liquid diet well. She is also on TPN. No acute event overnight. Her blood sugars, blood pressures are at goal. No electrolyte abnormalities. She does ask for ambien at night as she says she is not able to get sleep here. She says she was given benadryl last night which she says ironically made her more anxious and awake last night. Reason For Visit: ABDOMINAL ABSCESS, PERFORATED VISCUS Physical Exam Vital Signs: Temp Pulse Resp BP Pulse Ox 98.1 F 75 18 122/76 99 04/21/19 16:00 04/21/19 16:00 04/21/19 16:00 04/21/19 16:00 04/21/19 16:00 Intake & Output 04/20/19 04/21/19 04/22/19 06:59 06:59 06:59 Intake Total 1953 2059 1000 Output Total 160 Balance 1953 1899 1000 Weight 194 lb 10.691 oz 157 lb 6.561 oz General appearance: PRESENT: no acute distress, well-developed, well-nourished Head exam: PRESENT: atraumatic, normocephalic Eye exam: PRESENT: conjunctiva pink, EOMI, PERRLA. ABSENT: scleral icterus Ear exam: PRESENT: normal external ear exam Mouth exam: PRESENT: moist, tongue midline Neck exam: ABSENT: carotid bruit, JVD, lymphadenopathy, thyromegaly Respiratory exam: PRESENT: clear to auscultation jack. ABSENT: rales, rhonchi, wheezes Cardiovascular exam: PRESENT: RRR. ABSENT: diastolic murmur, rubs, systolic murmur Pulses: PRESENT: normal dorsalis pedis pul GI/Abdominal exam: PRESENT: normal bowel sounds, soft. ABSENT: guarding, mass, organolmegaly, rebound, tenderness Rectal exam: PRESENT: deferred Neurological exam: PRESENT: alert, awake, oriented to person, oriented to place, oriented to time, oriented to situation, CN II-XII grossly intact. ABSENT: motor sensory deficit Results Laboratory Results: 04/20/19 06:10 04/20/19 06:10 04/20/19 04/20/19 18:37 21:00 Triglycerides 142 Urine Color YELLOW Urine Appearance CLEAR Urine pH 7.0 Ur Specific [place] 1.010 Urine Protein NEGATIVE Urine Glucose (UA) NEGATIVE Urine Ketones NEGATIVE Urine Blood NEGATIVE Urine Nitrite NEGATIVE Ur Leukocyte Esterase TRACE H Urine WBC (Auto) 1 Urine RBC (Auto) 1 Impressions: Chest X-Ray 03/25/19 18:26 IMPRESSION: No pneumothorax. Patchy airspace opacities are present throughout the right lung base as well as left medial lung base. No significant pleural effusion.Left hilar fullness.Endotracheal tube tip overlies the lower trachea approximately 4.6 cm above the level of the aliyah. Nasogastric catheter tube is present with tip overlying the body of the stomach. Right IJ central venous catheter is present with tip overlying the SVC below the aliyah level. Abdomen X-Ray 04/09/19 03:47 IMPRESSION: No acute findings. Guidance Fluoroscopy 04/17/19 00:00 IMPRESSION: SUCCESSFUL PLACEMENT OF A 5 FR DUAL LUMEN 39 CM PICC IN THE LEFT BASILIC VEIN. Interventional Vascular Procedure 04/17/19 00:00 IMPRESSION: SUCCESSFUL PLACEMENT OF A 5 FR DUAL LUMEN 39 CM PICC IN THE LEFT BASILIC VEIN. PICC Line Insertion 04/17/19 00:00 IMPRESSION: SUCCESSFUL PLACEMENT OF A 5 FR DUAL LUMEN 39 CM PICC IN THE LEFT BASILIC VEIN. 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 Small Bowel X-Ray 04/20/19 00:00 IMPRESSION: SURGICAL CHANGES CONSISTENT WITH HEMICOLECTOMY, WITH NO CONTRAST EXTRAVASATION OR OBSTRUCTION IDENTIFIED ON SMALL BOWEL FOLLOW-THROUGH. Assessment and Plan - Diagnosis (1) Hypertension Qualifiers: Hypertension type: essential hypertension Qualified Code(s): I10 - Essential (primary) hypertension Is this a current diagnosis for this admission?: Yes Plan: Controlled with enalapril. (2) Perforation of the transverse colon Is this a current diagnosis for this admission?: Yes Plan: S/P exlap and repair of perforation. Management per primary service. (3) Rheumatoid arthritis Qualifiers: Rheumatoid arthritis location: hand Laterality: bilateral Is this a current diagnosis for this admission?: Yes Plan: Stable. On prednisone. - Time Time Spent with patient: 15-24 minutes
[2019-04-21] MEDS: ZOLPIDEM TARTRATE 5 MG TABLET PO PRN (21:13)
[2019-04-22] MEDS: INSULIN REG, HUMAN 100 UNIT/ML 3 ML VIAL (PYX) SUBCUT SCH ×4 (00:35→17:46)
[2019-04-22] MEDS: METOCLOPRAMIDE HCL INJ/PF 10 MG/2 ML SDV IV SCH ×4 (00:36→17:46)
[2019-04-22] MEDS: HYDROMORPHONE HCL INJ/PF 2 MG/ML AMPULE IV PRN ×5 (03:49→21:46)
[2019-04-22] MEDS: AMINO ACIDS 5 %/DEXTROSE 20 % 1,000 ML IV PRN ×2 (06:15→23:23)
[2019-04-22 06:29] LABS: HEMATOCRIT 31.7 % (36.0-47.0); HEMOGLOBIN 10.1 g/dL (12.0-15.5); MEAN CORPUSCULAR HEMOGLOBIN 28.6 pg (27.0-33.4); MEAN CORPUSCULAR VOLUME 89 fl (80-97); RED BLOOD COUNT 3.55 10^6/uL (3.72-5.28); WHITE BLOOD COUNT 20.8 10^3/uL (4.0-10.5)
[2019-04-22 06:59] LABS: PLATELET COUNT 952 10^3/uL (150-450)
[2019-04-22 07:02] LABS: ANION GAP 10 (5-19); BLOOD UREA NITROGEN 11 mg/dL (7-20); CARBON DIOXIDE 28 mmol/L (22-30); CHLORIDE 100 mmol/L (98-107); GLUCOSE 89 mg/dL (75-110); POTASSIUM 4.7 mmol/L (3.6-5.0); SODIUM 137.8 mmol/L (137-145)
--- NOTE | 2019-04-22 07:30 | PDOC PROGRESS REPORT ---
Subjective Progress Note for:: 04/22/19 Subjective:: feels ok wants to eat Reason For Visit: ABDOMINAL ABSCESS, PERFORATED VISCUS Physical Exam Vital Signs: Temp Pulse Resp BP Pulse Ox 97.8 F 80 16 115/63 88 L 04/22/19 00:29 04/22/19 02:00 04/22/19 00:29 04/22/19 00:29 04/22/19 00:29 Intake & Output 04/21/19 04/22/19 04/23/19 06:59 06:59 06:59 Intake Total 2060 3826 Output Total 160 20 Balance 1900 3806 Weight 71.4 kg 71.6 kg General appearance: PRESENT: no acute distress Head exam: PRESENT: normocephalic Eye exam: PRESENT: EOMI Ear exam: PRESENT: normal external ear exam Mouth exam: PRESENT: moist Teeth exam: PRESENT: poor dentation Neck exam: PRESENT: full ROM Respiratory exam: PRESENT: clear to auscultation jack Cardiovascular exam: PRESENT: RRR Pulses: PRESENT: normal radial pulses, normal femoral pulses Vascular exam: PRESENT: normal capillary refill GI/Abdominal exam: PRESENT: soft - min ruq drainage and decreased asad drainage. Rectal exam: PRESENT: deferred Extremities exam: PRESENT: full ROM Musculoskeletal exam: PRESENT: full ROM Neurological exam: PRESENT: alert, awake, oriented to person, oriented to place Psychiatric exam: PRESENT: appropriate affect Skin exam: PRESENT: dry Results Laboratory Results: 04/22/19 05:00 04/22/19 05:00 04/22/19 04/22/19 05:00 05:00 WBC 20.8 H RBC 3.55 L Hgb 10.1 L Hct 31.7 L MCV 89 MCH 28.6 MCHC 32.0 RDW 16.0 H Plt Count 952 H Sodium 137.8 Potassium 4.7 Chloride 100 Carbon Dioxide 28 Anion Gap 10 BUN 11 Creatinine 0.43 L Est GFR ( Amer) > 60 Est GFR (Non-Af Amer) > 60 Glucose 89 Calcium 9.0 Impressions: Chest X-Ray 03/25/19 18:26 IMPRESSION: No pneumothorax. Patchy airspace opacities are present throughout the right lung base as well as left medial lung base. No significant pleural effusion.Left hilar fullness.Endotracheal tube tip overlies the lower trachea approximately 4.6 cm above the level of the aliyah. Nasogastric catheter tube is present with tip overlying the body of the stomach. Right IJ central venous catheter is present with tip overlying the SVC below the aliyah level. Abdomen X-Ray 04/09/19 03:47 IMPRESSION: No acute findings. Guidance Fluoroscopy 04/17/19 00:00 IMPRESSION: SUCCESSFUL PLACEMENT OF A 5 FR DUAL LUMEN 39 CM PICC IN THE LEFT BASILIC VEIN. Interventional Vascular Procedure 04/17/19 00:00 IMPRESSION: SUCCESSFUL PLACEMENT OF A 5 FR DUAL LUMEN 39 CM PICC IN THE LEFT BASILIC VEIN. PICC Line Insertion 04/17/19 00:00 IMPRESSION: SUCCESSFUL PLACEMENT OF A 5 FR DUAL LUMEN 39 CM PICC IN THE LEFT BASILIC VEIN. 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 Small Bowel X-Ray 04/20/19 00:00 IMPRESSION: SURGICAL CHANGES CONSISTENT WITH HEMICOLECTOMY, WITH NO CONTRAST EXTRAVASATION OR OBSTRUCTION IDENTIFIED ON SMALL BOWEL FOLLOW-THROUGH. Assessment & Plan - Diagnosis (1) Intra-abdominal abscess post-procedure Is this a current diagnosis for this admission?: Yes - Plan Summary Plan Summary: fistula drainaged decreased pt having bm's with decreased op via fistula last ct and small bowel series documented a small fistula draining from ruq, no obstruction wants to try soft foods(brat diet) there is no evidence of intraabdominal fluid or abscess and fistula seems well controlled will start brat diet today and observe op if she tolerates it, could start considering dc home later this week or weekend.
[2019-04-22] MEDS: ACETAMINOPHEN 325 MG TABLET PO PRN ×2 (08:58→15:52)
[2019-04-22] MEDS: METHADONE HCL 10 MG TABLET PO SCH ×2 (09:00→21:50)
[2019-04-22] MEDS: ASPIRIN 325 MG TABLET PO SCH (09:01)
[2019-04-22] MEDS: PREDNISONE 10 MG TABLET PO SCH (09:01)
[2019-04-22] MEDS: POTASSIUM CHLORIDE 10 MEQ CAPSULE.ER PO SCH ×2 (09:01→21:50)
[2019-04-22] MEDS: ENOXAPARIN SODIUM INJ 30 MG/0.3 ML DISP.SYRIN SUBCUT SCH (09:06)
[2019-04-22] MEDS: NORMAL SALINE 10 ML SDV (SCHEDULED) IV SCH ×2 (09:08→22:05)
[2019-04-22] MEDS: ENALAPRIL MALEATE 10 MG TABLET PO SCH ×2 (09:08→21:49)
[2019-04-22 09:25] LABS: APPEARANCE,URINE CLEAR; BILIRUBIN,URINE NEGATIVE (NEGATIVE); COLOR,URINE YELLOW; GLUCOSE, URINE NEGATIVE (NEGATIVE); KETONES,URINE NEGATIVE (NEGATIVE); LEUKOCYTE ESTERASE,URINE TRACE (NEGATIVE); NITRITE,URINE NEGATIVE (NEGATIVE); PROTEIN,URINE NEGATIVE (NEGATIVE); URINE SPECIFIC GRAVITY 1.008; UROBILINOGEN,URINE NEGATIVE mg/dL (<2.0)
--- NOTE | 2019-04-22 16:59 | PDOC PROGRESS REPORT ---
Subjective Progress Note for:: 04/22/19 Subjective:: This is a 43 year old female with past medical history of rheumatoid arthritis on chronic steroid and essential hypertension who initially presented with vomiting and was found to colonic perforation. Hospitalist service was consulted for co-management. She underwent exlap and washout by surgery on admission. She was subsequently and successfully extubated. 04/21: She has been doing well and continue to improve. She is tolerating a full liquid diet well. She is also on TPN. No acute event overnight. Her blood sugars, blood pressures are at goal. No electrolyte abnormalities. She does ask for ambien at night as she says she is not able to get sleep here. She says she was given benadryl last night which she says ironically made her more anxious and awake last night. 04/22: No acute event overnight. She continues to do well. She is tolerating diet well diet. Diet has been advanced to ESME. Blood sugars and blood pressures remain controlled. He said she slept well with Ambien last night. If there is no acute issue in the next 24 hrs, medical service will be signing off tomorrow. Reason For Visit: ABDOMINAL ABSCESS, PERFORATED VISCUS Physical Exam Vital Signs: Temp Pulse Resp BP Pulse Ox 98.0 F 88 18 105/57 L 98 04/22/19 10:53 04/22/19 10:53 04/22/19 10:53 04/22/19 10:53 04/22/19 10:53 Intake & Output 04/21/19 04/22/19 04/23/19 06:59 06:59 06:59 Intake Total 2060 3826 675 Output Total 160 20 Balance 1900 3806 675 Weight 157 lb 6.561 oz 157 lb 13.616 oz General appearance: PRESENT: no acute distress, well-developed, well-nourished Head exam: PRESENT: atraumatic, normocephalic Eye exam: PRESENT: conjunctiva pink, EOMI, PERRLA. ABSENT: scleral icterus Ear exam: PRESENT: normal external ear exam Mouth exam: PRESENT: moist, tongue midline Neck exam: ABSENT: carotid bruit, JVD, lymphadenopathy, thyromegaly Respiratory exam: PRESENT: clear to auscultation jack. ABSENT: rales, rhonchi, wheezes Cardiovascular exam: PRESENT: RRR. ABSENT: diastolic murmur, rubs, systolic murmur Pulses: PRESENT: normal dorsalis pedis pul GI/Abdominal exam: PRESENT: normal bowel sounds, soft. ABSENT: distended, guarding, mass, organolmegaly, rebound, tenderness Rectal exam: PRESENT: deferred Neurological exam: PRESENT: alert, awake, oriented to person, oriented to place, oriented to time, oriented to situation, CN II-XII grossly intact. ABSENT: motor sensory deficit Results Laboratory Results: 04/22/19 05:00 04/22/19 05:00 04/22/19 04/22/19 04/22/19 05:00 05:00 09:02 WBC 20.8 H RBC 3.55 L Hgb 10.1 L Hct 31.7 L MCV 89 MCH 28.6 MCHC 32.0 RDW 16.0 H Plt Count 952 H Sodium 137.8 Potassium 4.7 Chloride 100 Carbon Dioxide 28 Anion Gap 10 BUN 11 Creatinine 0.43 L Est GFR ( Amer) > 60 Est GFR (Non-Af Amer) > 60 Glucose 89 Calcium 9.0 Urine Color YELLOW Urine Appearance CLEAR Urine pH 7.0 Ur Specific [place] 1.008 Urine Protein NEGATIVE Urine Glucose (UA) NEGATIVE Urine Ketones NEGATIVE Urine Blood NEGATIVE Urine Nitrite NEGATIVE Ur Leukocyte Esterase TRACE H Urine WBC (Auto) 2 Urine RBC (Auto) 1 Impressions: Chest X-Ray 03/25/19 18:26 IMPRESSION: No pneumothorax. Patchy airspace opacities are present throughout the right lung base as well as left medial lung base. No significant pleural effusion.Left hilar fullness.Endotracheal tube tip overlies the lower trachea approximately 4.6 cm above the level of the aliyah. Nasogastric catheter tube is present with tip overlying the body of the stomach. Right IJ central venous catheter is present with tip overlying the SVC below the aliyah level. Abdomen X-Ray 04/09/19 03:47 IMPRESSION: No acute findings. Guidance Fluoroscopy 04/17/19 00:00 IMPRESSION: SUCCESSFUL PLACEMENT OF A 5 FR DUAL LUMEN 39 CM PICC IN THE LEFT BA SILIC VEIN. Interventional Vascular Procedure 04/17/19 00:00 IMPRESSION: SUCCESSFUL PLACEMENT OF A 5 FR DUAL LUMEN 39 CM PICC IN THE LEFT BASILIC VEIN. PICC Line Insertion 04/17/19 00:00 IMPRESSION: SUCCESSFUL PLACEMENT OF A 5 FR DUAL LUMEN 39 CM PICC IN THE LEFT BASILIC VEIN. 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 Small Bowel X-Ray 04/20/19 00:00 IMPRESSION: SURGICAL CHANGES CONSISTENT WITH HEMICOLECTOMY, WITH NO CONTRAST EXTRAVASATION OR OBSTRUCTION IDENTIFIED ON SMALL BOWEL FOLLOW-THROUGH. Assessment and Plan - Diagnosis (1) Hypertension Qualifiers: Hypertension type: essential hypertension Qualified Code(s): I10 - Essential (primary) hypertension Is this a current diagnosis for this admission?: Yes Plan: Controlled with enalapril. (2) Perforation of the transverse colon Is this a current diagnosis for this admission?: Yes Plan: S/P exlap and repair of perforation. Management per primary service. (3) Rheumatoid arthritis Qualifiers: Rheumatoid arthritis location: hand Laterality: bilateral Is this a current diagnosis for this admission?: Yes Plan: Stable. On prednisone. - Time Time Spent with patient: 15-24 minutes
[2019-04-22] MEDS: ZOLPIDEM TARTRATE 5 MG TABLET PO PRN (22:01)
[2019-04-23] MEDS: METOCLOPRAMIDE HCL INJ/PF 10 MG/2 ML SDV IV SCH ×4 (00:24→18:07)
[2019-04-23] MEDS: INSULIN REG, HUMAN 100 UNIT/ML 3 ML VIAL (PYX) SUBCUT SCH ×4 (00:25→18:07)
[2019-04-23] MEDS: HYDROMORPHONE HCL INJ/PF 2 MG/ML AMPULE IV PRN ×5 (04:12→22:26)
[2019-04-23 06:14] LABS: ALANINE AMINOTRANSFERASE 15 U/L (9-52); ALBUMIN 2.9 g/dL (3.5-5.0); ALKALINE PHOSPHATASE 118 U/L (38-126); ANION GAP 9 (5-19); ASPARTATE AMINO TRANSFERASE 19 U/L (14-36); BILIRUBIN,DIRECT 0.1 mg/dL (0.0-0.4); BILIRUBIN,TOTAL 0.1 mg/dL (0.2-1.3); BLOOD UREA NITROGEN 15 mg/dL (7-20); CALCIUM 9.1 mg/dL (8.4-10.2); CARBON DIOXIDE 26 mmol/L (22-30); CHLORIDE 102 mmol/L (98-107); GLUCOSE 86 mg/dL (75-110); PHOSPHORUS 4.5 mg/dL (2.5-4.5); POTASSIUM 5.2 mmol/L (3.6-5.0); SODIUM 137.3 mmol/L (137-145); TOTAL PROTEIN 6.2 g/dL (6.3-8.2)
[2019-04-23 06:21] LABS: PREALBUMIN 15.4 mg/dL (17.6-36.0)
[2019-04-23] MEDS ORDERED: BISACODYL 10 MG SUPP.RECT PR ONE (09:00)
[2019-04-23] MEDS: METHADONE HCL 10 MG TABLET PO SCH ×2 (09:48→21:21)
--- NOTE | 2019-04-23 09:50 | PDOC PROGRESS REPORT ---
Subjective Progress Note for:: 04/23/19 Subjective:: feels well ambulating outside eating soft foods no complaints min drainage from asad or fistula Reason For Visit: ABDOMINAL ABSCESS, PERFORATED VISCUS Physical Exam Vital Signs: Temp Pulse Resp BP Pulse Ox 98.1 F 92 18 124/59 L 100 04/23/19 07:45 04/23/19 07:45 04/23/19 07:45 04/23/19 07:45 04/23/19 07:45 Intake & Output 04/22/19 04/23/19 04/24/19 06:59 06:59 06:59 Intake Total 3826 4755 Output Total 20 20 Balance 3806 4735 Weight 71.6 kg 79.2 kg General appearance: PRESENT: no acute distress Eye exam: PRESENT: EOMI Ear exam: PRESENT: normal external ear exam Mouth exam: PRESENT: moist Neck exam: PRESENT: full ROM Respiratory exam: PRESENT: clear to auscultation jack Cardiovascular exam: PRESENT: RRR Pulses: PRESENT: normal radial pulses, normal femoral pulses GI/Abdominal exam: PRESENT: soft Rectal exam: PRESENT: deferred Extremities exam: PRESENT: full ROM Musculoskeletal exam: PRESENT: full ROM Neurological exam: PRESENT: alert, awake, oriented to person, oriented to place Psychiatric exam: PRESENT: appropriate affect Skin exam: PRESENT: dry Results Laboratory Results: 04/22/19 05:00 04/23/19 05:00 04/22/19 04/23/19 23:46 05:00 Sodium 137.3 Potassium 5.2 H Chloride 102 Carbon Dioxide 26 Anion Gap 9 BUN 15 Creatinine 0.50 L Est GFR ( Amer) > 60 Est GFR (Non-Af Amer) > 60 Glucose 86 Calcium 9.1 Phosphorus 4.5 Total Bilirubin 0.1 L AST 19 ALT 15 Alkaline Phosphatase 118 Total Protein 6.2 L Albumin 2.9 L Prealbumin 15.4 L Stool Occult Blood NEGATIVE Impressions: Chest X-Ray 03/25/19 18:26 IMPRESSION: No pneumothorax. Patchy airspace opacities are present throughout the right lung base as well as left medial lung base. No significant pleural effusion.Left hilar fullness.Endotracheal tube tip overlies the lower trachea approximately 4.6 cm above the level of the aliyah. Nasogastric catheter tube is present with tip overlying the body of the stomach. Right IJ central venous catheter is present with tip overlying the SVC below the aliyah level. Abdomen X-Ray 04/09/19 03:47 IMPRESSION: No acute findings. Guidance Fluoroscopy 04/17/19 00:00 IMPRESSION: SUCCESSFUL PLACEMENT OF A 5 FR DUAL LUMEN 39 CM PICC IN THE LEFT BASILIC VEIN. Interventional Vascular Procedure 04/17/19 00:00 IMPRESSION: SUCCESSFUL PLACEMENT OF A 5 FR DUAL LUMEN 39 CM PICC IN THE LEFT BASILIC VEIN. PICC Line Insertion 04/17/19 00:00 IMPRESSION: SUCCESSFUL PLACEMENT OF A 5 FR DUAL LUMEN 39 CM PICC IN THE LEFT BASILIC VEIN. 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 Small Bowel X-Ray 04/20/19 00:00 IMPRESSION: SURGICAL CHANGES CONSISTENT WITH HEMICOLECTOMY, WITH NO CONTRAST EXTRAVASATION OR OBSTRUCTION IDENTIFIED ON SMALL BOWEL FOLLOW-THROUGH. Assessment & Plan - Diagnosis (1) Intra-abdominal abscess post-procedure Is this a current diagnosis for this admission?: Yes - Plan Summary Plan Summary: will cont diet if she tolerates and cont to have nl bm's without drainge will prob dc home this weekend.
[2019-04-23] MEDS: ASPIRIN 325 MG TABLET PO SCH (09:54)
[2019-04-23] MEDS: PREDNISONE 10 MG TABLET PO SCH (09:56)
[2019-04-23] MEDS: NORMAL SALINE 10 ML SDV (SCHEDULED) IV SCH ×2 (09:58→21:23)
[2019-04-23] MEDS: ENALAPRIL MALEATE 10 MG TABLET PO SCH (09:58)
[2019-04-23] MEDS: ENOXAPARIN SODIUM INJ 30 MG/0.3 ML DISP.SYRIN SUBCUT SCH (09:59)
[2019-04-23] MEDS: FAT EMULSIONS 250 ML IV SCH (10:02)
[2019-04-23] MEDS: AMINO ACIDS 5 %/DEXTROSE 20 % 1,000 ML IV PRN (16:44)
[2019-04-23] MEDS: LORAZEPAM INJ 2 MG/1 ML VIAL IV PRN (21:22)
--- NOTE | 2019-04-23 21:22 | PDOC PROGRESS REPORT ---
Subjective Progress Note for:: 04/23/19 Subjective:: This is a 43 year old female with past medical history of rheumatoid arthritis on chronic steroid and essential hypertension who initially presented with vomiting and was found to colonic perforation. Hospitalist service was consulted for co-management. She underwent exlap and washout by surgery on admission. She was subsequently and successfully extubated. 04/21: She has been doing well and continue to improve. She is tolerating a full liquid diet well. She is also on TPN. No acute event overnight. Her blood sugars, blood pressures are at goal. No electrolyte abnormalities. She does ask for ambien at night as she says she is not able to get sleep here. She says she was given benadryl last night which she says ironically made her more anxious and awake last night. 04/22: No acute event overnight. She continues to do well. She is tolerating diet well diet. Diet has been advanced to ESME. Blood sugars and blood pressures remain controlled. He said she slept well with Ambien last night. If there is no acute issue in the next 24 hrs, medical service will be signing off tomorrow. 04/23: No acute issues. She continues to do well. Potassium elevated at 5.2. Discontinue scheduled PO Potassium. Switch back enalapril to home medication- lisinopril. Reason For Visit: ABDOMINAL ABSCESS, PERFORATED VISCUS Physical Exam Vital Signs: Temp Pulse Resp BP Pulse Ox 98.4 F 91 16 129/64 H 97 04/23/19 19:53 04/23/19 19:53 04/23/19 11:23 04/23/19 19:53 04/23/19 19:53 Intake & Output 04/22/19 04/23/19 04/24/19 06:59 06:59 06:59 Intake Total 9457 6439 2341 Output Total 20 20 20 Balance 3806 3425 2321 Weight 157 lb 13.616 oz 174 lb 9.698 oz General appearance: PRESENT: no acute distress, well-developed, well-nourished Head exam: PRESENT: atraumatic, normocephalic Eye exam: PRESENT: conjunctiva pink, EOMI, PERRLA. ABSENT: scleral icterus Ear exam: PRESENT: normal external ear exam Mouth exam: PRESENT: moist, tongue midline Neck exam: ABSENT: carotid bruit, JVD, lymphadenopathy, thyromegaly Respiratory exam: PRESENT: clear to auscultation jack. ABSENT: rales, rhonchi, wheezes Cardiovascular exam: PRESENT: RRR. ABSENT: diastolic murmur, rubs, systolic murmur Pulses: PRESENT: normal dorsalis pedis pul GI/Abdominal exam: PRESENT: normal bowel sounds, soft. ABSENT: distended, guarding, mass, organolmegaly, rebound, tenderness Rectal exam: PRESENT: deferred Neurological exam: PRESENT: alert, awake, oriented to person, oriented to place, oriented to time, oriented to situation, CN II-XII grossly intact. ABSENT: motor sensory deficit Results Laboratory Results: 04/22/19 05:00 04/23/19 05:00 04/22/19 04/23/19 23:46 05:00 Sodium 137.3 Potassium 5.2 H Chloride 102 Carbon Dioxide 26 Anion Gap 9 BUN 15 Creatinine 0.50 L Est GFR ( Amer) > 60 Est GFR (Non-Af Amer) > 60 Glucose 86 Calcium 9.1 Phosphorus 4.5 Total Bilirubin 0.1 L AST 19 ALT 15 Alkaline Phosphatase 118 Total Protein 6.2 L Albumin 2.9 L Prealbumin 15.4 L Stool Occult Blood NEGATIVE Impressions: Chest X-Ray 03/25/19 18:26 IMPRESSION: No pneumothorax. Patchy airspace opacities are present throughout the right lung base as well as left medial lung base. No significant pleural effusion.Left hilar fullness.Endotracheal tube tip overlies the lower trachea approximately 4.6 cm above the level of the aliyah. Nasogastric catheter tube is present with tip overlying the body of the stomach. Right IJ central venous catheter is present with tip overlying the SVC below the aliyah level. Abdomen X-Ray 04/09/19 03:47 IMPRESSION: No acute findings. Guidance Fluoroscopy 04/17/19 00:00 IMPRESSION: SUCCESSFUL PLACEMENT OF A 5 FR DUAL LUMEN 39 CM PICC IN THE LEFT BASILIC VEIN. Interventional Vascular Procedure 04/17/19 00:00 IMPRESSION: SUCCESSFUL PLACEMENT OF A 5 FR DUAL LUMEN 39 CM PICC IN THE LEFT BASILIC VEIN. PICC Line Insertion 04/17/19 00:00 IMPRESSION: SUCCESSFUL PLACEMENT OF A 5 FR DUAL LUMEN 39 CM PICC IN THE LEFT BASILIC VEIN. 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 Small Bowel X-Ray 04/20/19 00:00 IMPRESSION: SURGICAL CHANGES CONSISTENT WITH HEMICOLECTOMY, WITH NO CONTRAST EXTRAVASATION OR OBSTRUCTION IDENTIFIED ON SMALL BOWEL FOLLOW-THROUGH. Assessment and Plan - Diagnosis (1) Hypertension Qualifiers: Hypertension type: essential hypertension Qualified Code(s): I10 - Essential (primary) hypertension Is this a current diagnosis for this admission?: Yes Plan: Switch enalapril to home medication-lisinopril. (2) Perforation of the transverse colon Is this a current diagnosis for this admission?: Yes Plan: S/P exlap and repair of perforation. Management per primary service. (3) Rheumatoid arthritis Qualifiers: Rheumatoid arthritis location: hand Laterality: bilateral Is this a current diagnosis for this admission?: Yes Plan: Stable. On prednisone.
[2019-04-23] MEDS: ZOLPIDEM TARTRATE 5 MG TABLET PO PRN (21:23)
[2019-04-23] MEDS: LISINOPRIL 10 MG TABLET PO SCH (22:30)
[2019-04-24] MEDS: HYDROMORPHONE HCL INJ/PF 2 MG/ML AMPULE IV PRN ×5 (03:39→23:34)
[2019-04-24] MEDS: METOCLOPRAMIDE HCL INJ/PF 10 MG/2 ML SDV IV SCH ×5 (03:39→23:35)
[2019-04-24] MEDS: INSULIN REG, HUMAN 100 UNIT/ML 3 ML VIAL (PYX) SUBCUT SCH ×5 (03:39→23:37)
[2019-04-24 07:20] LABS: HEMATOCRIT 31.5 % (36.0-47.0); MEAN CORPUSCULAR HEMOGLOBIN 28.2 pg (27.0-33.4); MEAN CORPUSCULAR HGB CONC 31.6 g/dL (32.0-36.0); MEAN CORPUSCULAR VOLUME 89 fl (80-97); PLATELET COUNT 956 10^3/uL (150-450); RED BLOOD COUNT 3.54 10^6/uL (3.72-5.28); RED CELL DISTRIBUTION WIDTH 15.6 % (11.5-14.0); WHITE BLOOD COUNT 22.5 10^3/uL (4.0-10.5)
--- NOTE | 2019-04-24 08:59 | PDOC PROGRESS REPORT ---
Subjective Progress Note for:: 04/24/19 Subjective:: feels well daniel soft diet passing stool. min asad output min drainage from ruq wound Reason For Visit: ABDOMINAL ABSCESS, PERFORATED VISCUS Physical Exam Vital Signs: Temp Pulse Resp BP Pulse Ox 98.1 F 88 16 104/55 L 98 04/24/19 03:20 04/24/19 07:00 04/23/19 23:37 04/24/19 03:20 04/24/19 03:20 Intake & Output 04/23/19 04/24/19 04/25/19 06:59 06:59 06:59 Intake Total 4755 2759 Output Total 20 20 Balance 4735 2739 Weight 79.2 kg 78.8 kg General appearance: PRESENT: no acute distress Head exam: PRESENT: normocephalic Eye exam: PRESENT: EOMI Mouth exam: PRESENT: moist Neck exam: PRESENT: full ROM Respiratory exam: PRESENT: clear to auscultation jack Cardiovascular exam: PRESENT: RRR Pulses: PRESENT: normal radial pulses, normal femoral pulses GI/Abdominal exam: PRESENT: soft, other - no abd pain min drainage from ruq wound asad with min op Rectal exam: PRESENT: deferred Extremities exam: PRESENT: full ROM Neurological exam: PRESENT: alert, awake, oriented to person, oriented to place Psychiatric exam: PRESENT: appropriate affect Skin exam: PRESENT: dry - pt cont to do well having bm's and min op via drain or wound daniel reg diet suspect fistula has closed will dc tpn cont observation may repeat ct one more time prior to discharge this weekend. Results Laboratory Results: 04/24/19 05:45 04/23/19 05:00 04/24/19 05:45 WBC 22.5 H RBC 3.54 L Hgb 10.0 L Hct 31.5 L MCV 89 MCH 28.2 MCHC 31.6 L RDW 15.6 H Plt Count 956 H Impressions: Chest X-Ray 03/25/19 18:26 IMPRESSION: No pneumothorax. Patchy airspace opacities are present throughout the right lung base as well as left medial lung base. No significant pleural effusion.Left hilar fullness.Endotracheal tube tip overlies the lower trachea approximately 4.6 cm above the level of the aliyah. Nasogastric catheter tube is present with tip overlying the body of the stomach. Right IJ central venous catheter is present with tip overlying the SVC below the aliyah level. Abdomen X-Ray 04/09/19 03:47 IMPRESSION: No acute findings. Guidance Fluoroscopy 04/17/19 00:00 IMPRESSION: SUCCESSFUL PLACEMENT OF A 5 FR DUAL LUMEN 39 CM PICC IN THE LEFT BASILIC VEIN. Interventional Vascular Procedure 04/17/19 00:00 IMPRESSION: SUCCESSFUL PLACEMENT OF A 5 FR DUAL LUMEN 39 CM PICC IN THE LEFT BASILIC VEIN. PICC Line Insertion 04/17/19 00:00 IMPRESSION: SUCCESSFUL PLACEMENT OF A 5 FR DUAL LUMEN 39 CM PICC IN THE LEFT BASILIC VEIN. 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 Small Bowel X-Ray 04/20/19 00:00 IMPRESSION: SURGICAL CHANGES CONSISTENT WITH HEMICOLECTOMY, WITH NO CONTRAST EXTRAVASATION OR OBSTRUCTION IDENTIFIED ON SMALL BOWEL FOLLOW-THROUGH. Assessment & Plan - Diagnosis (1) Intra-abdominal abscess post-procedure Is this a current diagnosis for this admission?: Yes
[2019-04-24] MEDS: METHADONE HCL 10 MG TABLET PO SCH ×2 (09:10→21:00)
[2019-04-24] MEDS: ASPIRIN 325 MG TABLET PO SCH (09:12)
[2019-04-24] MEDS: LISINOPRIL 10 MG TABLET PO SCH ×2 (09:13→21:00)
[2019-04-24] MEDS: PREDNISONE 10 MG TABLET PO SCH (09:14)
[2019-04-24] MEDS: ENOXAPARIN SODIUM INJ 30 MG/0.3 ML DISP.SYRIN SUBCUT SCH (09:14)
[2019-04-24 10:05] LABS: APPEARANCE,URINE SLIGHTLY-CLOUDY; BILIRUBIN,URINE NEGATIVE (NEGATIVE); COLOR,URINE YELLOW; GLUCOSE, URINE NEGATIVE (NEGATIVE); KETONES,URINE NEGATIVE (NEGATIVE); LEUKOCYTE ESTERASE,URINE SMALL (NEGATIVE); NITRITE,URINE NEGATIVE (NEGATIVE); PROTEIN,URINE NEGATIVE (NEGATIVE); URINE SPECIFIC GRAVITY 1.009; UROBILINOGEN,URINE NEGATIVE mg/dL (<2.0)
[2019-04-24] MEDS: AMINO ACIDS 5 %/DEXTROSE 20 % 1,000 ML IV PRN (10:43)
[2019-04-24] MEDS: NORMAL SALINE 10 ML SDV (SCHEDULED) IV SCH ×2 (10:44→21:01)
--- NOTE | 2019-04-24 17:04 | PDOC PROGRESS REPORT ---
Subjective Progress Note for:: 04/24/19 Subjective:: This is a 43 year old female with past medical history of rheumatoid arthritis on chronic steroid and essential hypertension who initially presented with vomiting and was found to colonic perforation. Hospitalist service was consulted for co-management. She underwent exlap and washout by surgery on admission. She was subsequently and successfully extubated. 04/21: She has been doing well and continue to improve. She is tolerating a full liquid diet well. She is also on TPN. No acute event overnight. Her blood sugars, blood pressures are at goal. No electrolyte abnormalities. She does ask for ambien at night as she says she is not able to get sleep here. She says she was given benadryl last night which she says ironically made her more anxious and awake last night. 04/22: No acute event overnight. She continues to do well. She is tolerating diet well diet. Diet has been advanced to ESME. Blood sugars and blood pressures remain controlled. He said she slept well with Ambien last night. If there is no acute issue in the next 24 hrs, medical service will be signing off tomorrow. 04/23: She continues to do well. Potassium elevated at 5.2. Discontinue scheduled PO Potassium (ordered due to previous hypokalemic episodes). Switch back enalapril to home medication-lisinopril. 04/24: No acute issues. Hospitalist service will be signing off and will be happy to help with medication recs when she will be discharged by primary service. Reason For Visit: ABDOMINAL ABSCESS, PERFORATED VISCUS Physical Exam Vital Signs: Temp Pulse Resp BP Pulse Ox 98.2 F 90 18 111/60 98 04/24/19 15:34 04/24/19 15:34 04/24/19 15:34 04/24/19 15:34 04/24/19 15:34 Intake & Output 04/23/19 04/24/19 04/25/19 06:59 06:59 06:59 Intake Total 0851 0319 Output Total 20 20 Balance 4735 2739 Weight 174 lb 9.698 oz 173 lb 11.588 oz General appearance: PRESENT: no acute distress, well-developed, well-nourished Head exam: PRESENT: atraumatic, normocephalic Eye exam: PRESENT: conjunctiva pink, EOMI, PERRLA. ABSENT: scleral icterus Ear exam: PRESENT: normal external ear exam Mouth exam: PRESENT: moist, tongue midline Neck exam: ABSENT: carotid bruit, JVD, lymphadenopathy, thyromegaly Respiratory exam: PRESENT: clear to auscultation jack. ABSENT: rales, rhonchi, wheezes Cardiovascular exam: PRESENT: RRR. ABSENT: diastolic murmur, rubs, systolic murmur Pulses: PRESENT: normal dorsalis pedis pul GI/Abdominal exam: PRESENT: normal bowel sounds, soft. ABSENT: distended, guarding, mass, organolmegaly, rebound, tenderness Rectal exam: PRESENT: deferred Neurological exam: PRESENT: alert, awake, oriented to person, oriented to place, oriented to time, oriented to situation, CN II-XII grossly intact. ABSENT: motor sensory deficit Results Laboratory Results: 04/24/19 05:45 04/23/19 05:00 04/24/19 04/24/19 05:45 09:45 WBC 22.5 H RBC 3.54 L Hgb 10.0 L Hct 31.5 L MCV 89 MCH 28.2 MCHC 31.6 L RDW 15.6 H Plt Count 956 H Urine Color YELLOW Urine Appearance SLIGHTLY-CLOUDY Urine pH 7.0 Ur Specific [place] 1.009 Urine Protein NEGATIVE Urine Glucose (UA) NEGATIVE Urine Ketones NEGATIVE Urine Blood NEGATIVE Urine Nitrite NEGATIVE Ur Leukocyte Esterase SMALL H Urine WBC (Auto) 4 Urine RBC (Auto) 2 Impressions: Chest X-Ray 03/25/19 18:26 IMPRESSION: No pneumothorax. Patchy airspace opacities are present throughout the right lung base as well as left medial lung base. No significant pleural effusion.Left hilar fullness.Endotracheal tube tip overlies the lower trachea approximately 4.6 cm above the level of the aliyah. Nasogastric catheter tube is present with tip overlying the body of the stomach. Right IJ central venous catheter is present with tip overlying the SVC below the aliyah level. Abdomen X-Ray 04/09/19 03:47 IMPRESSION: No acute findings. Guidance Fluoroscopy 04/17/19 00:00 IMPRESSION: SUCCESSFUL PLACEMENT OF A 5 FR DUAL LUMEN 39 CM PICC IN THE LEFT BASILIC VEIN. Interventional Vascular Procedure 04/17/19 00:00 IMPRESSION: SUCCESSFUL PLACEMENT OF A 5 FR DUAL LUMEN 39 CM PICC IN THE LEFT BASILIC VEIN. PICC Line Insertion 04/17/19 00:00 IMPRESSION: SUCCESSFUL PLACEMENT OF A 5 FR DUAL LUMEN 39 CM PICC IN THE LEFT BASILIC VEIN. 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 Small Bowel X-Ray 04/20/19 00:00 IMPRESSION: SURGICAL CHANGES CONSISTENT WITH HEMICOLECTOMY, WITH NO CONTRAST EXTRAVASATION OR OBSTRUCTION IDENTIFIED ON SMALL BOWEL FOLLOW-THROUGH. Assessment and Plan - Diagnosis (1) Hypertension Qualifiers: Hypertension type: essential hypertension Qualified Code(s): I10 - Essential (primary) hypertension Is this a current diagnosis for this admission?: Yes Plan: Switch enalapril to home medication-lisinopril. 04/24: Well-controlled with lisinopril. (2) Perforation of the transverse colon Is this a current diagnosis for this admission?: Yes Plan: S/P exlap and repair of perforation. Management per primary service. (3) Rheumatoid arthritis Qualifiers: Rheumatoid arthritis location: hand Laterality: bilateral Is this a current diagnosis for this admission?: Yes Plan: Stable. On prednisone. - Time Time Spent with patient: 15-24 minutes
[2019-04-24] MEDS: ZOLPIDEM TARTRATE 5 MG TABLET PO PRN (21:02)
[2019-04-25] MEDS: AMINO ACIDS 5 %/DEXTROSE 20 % 1,000 ML IV PRN (03:57)
[2019-04-25] MEDS: HYDROMORPHONE HCL INJ/PF 2 MG/ML AMPULE IV PRN ×3 (03:59→15:22)
[2019-04-25] MEDS: METOCLOPRAMIDE HCL INJ/PF 10 MG/2 ML SDV IV SCH ×3 (05:28→18:35)
--- NOTE | 2019-04-25 06:48 | PDOC PROGRESS REPORT ---
Subjective Progress Note for:: 04/25/19 Subjective:: feels well wants to go home Reason For Visit: ABDOMINAL ABSCESS, PERFORATED VISCUS Physical Exam Vital Signs: Temp Pulse Resp BP Pulse Ox 98.6 F 91 17 119/59 L 94 04/25/19 04:00 04/25/19 04:00 04/25/19 04:00 04/25/19 04:00 04/25/19 04:00 Intake & Output 04/23/19 04/24/19 04/25/19 06:59 06:59 06:59 Intake Total 4755 2750 900 Output Total 20 20 20 Balance 4738 3034 880 Weight 79.2 kg 78.8 kg General appearance: PRESENT: no acute distress Head exam: PRESENT: normocephalic Eye exam: PRESENT: EOMI Ear exam: PRESENT: normal external ear exam Mouth exam: PRESENT: moist Teeth exam: PRESENT: poor dentation Neck exam: PRESENT: full ROM Respiratory exam: PRESENT: clear to auscultation jack Cardiovascular exam: PRESENT: RRR Pulses: PRESENT: normal radial pulses, normal femoral pulses Vascular exam: PRESENT: normal capillary refill GI/Abdominal exam: PRESENT: soft, other - asad with min drainage. Rectal exam: PRESENT: deferred Extremities exam: PRESENT: full ROM Musculoskeletal exam: PRESENT: full ROM Neurological exam: PRESENT: alert, awake, oriented to person, oriented to place Psychiatric exam: PRESENT: appropriate affect Skin exam: PRESENT: dry Results Laboratory Results: 04/24/19 05:45 04/24/19 18:50 04/24/19 04/24/19 04/24/19 05:45 09:45 18:50 WBC 22.5 H RBC 3.54 L Hgb 10.0 L Hct 31.5 L MCV 89 MCH 28.2 MCHC 31.6 L RDW 15.6 H Plt Count 956 H Potassium 5.8 H Urine Color YELLOW Urine Appearance SLIGHTLY-CLOUDY Urine pH 7.0 Ur Specific Saxis 1.009 Urine Protein NEGATIVE Urine Glucose (UA) NEGATIVE Urine Ketones NEGATIVE Urine Blood NEGATIVE Urine Nitrite NEGATIVE Ur Leukocyte Esterase SMALL H Urine WBC (Auto) 4 Urine RBC (Auto) 2 Impressions: Chest X-Ray 03/25/19 18:26 IMPRESSION: No pneumothorax. Patchy airspace opacities are present throughout the right lung base as well as left medial lung base. No significant pleural effusion.Left hilar fullness.Endotracheal tube tip overlies the lower trachea approximately 4.6 cm above the level of the aliyah. Nasogastric catheter tube is present with tip overlying the body of the stomach. Right IJ central venous catheter is present with tip overlying the SVC below the aliyah level. Abdomen X-Ray 04/09/19 03:47 IMPRESSION: No acute findings. Guidance Fluoroscopy 04/17/19 00:00 IMPRESSION: SUCCESSFUL PLACEMENT OF A 5 FR DUAL LUMEN 39 CM PICC IN THE LEFT BASILIC VEIN. Interventional Vascular Procedure 04/17/19 00:00 IMPRESSION: SUCCESSFUL PLACEMENT OF A 5 FR DUAL LUMEN 39 CM PICC IN THE LEFT BASILIC VEIN. PICC Line Insertion 04/17/19 00:00 IMPRESSION: SUCCESSFUL PLACEMENT OF A 5 FR DUAL LUMEN 39 CM PICC IN THE LEFT BASILIC VEIN. 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 Small Bowel X-Ray 04/20/19 00:00 IMPRESSION: SURGICAL CHANGES CONSISTENT WITH HEMICOLECTOMY, WITH NO CONTRAST EXTRAVASATION OR OBSTRUCTION IDENTIFIED ON SMALL BOWEL FOLLOW-THROUGH. Assessment & Plan - Diagnosis (1) Intra-abdominal abscess post-procedure Is this a current diagnosis for this admission?: Yes - Plan Summary Plan Summary: pt markedly improved now daniel soft diet iwth min op via asad and ruq incision passing nl stool wound clean with min drainage wbc at baseline, 22k off abx for more than a week will wean off tpn today prob home in am.
[2019-04-25] MEDS: INSULIN REG, HUMAN 100 UNIT/ML 3 ML VIAL (PYX) SUBCUT SCH ×3 (07:22→18:37)
[2019-04-25] MEDS: METHADONE HCL 10 MG TABLET PO SCH ×2 (09:16→21:31)
[2019-04-25] MEDS: PREDNISONE 10 MG TABLET PO SCH (09:16)
[2019-04-25] MEDS: ASPIRIN 325 MG TABLET PO SCH (09:16)
[2019-04-25] MEDS: NORMAL SALINE 10 ML SDV (SCHEDULED) IV SCH ×2 (09:18→21:32)
[2019-04-25] MEDS: ENOXAPARIN SODIUM INJ 30 MG/0.3 ML DISP.SYRIN SUBCUT SCH (09:18)
[2019-04-25] MEDS: LISINOPRIL 10 MG TABLET PO SCH ×2 (09:19→21:33)
[2019-04-25] MEDS: ZOLPIDEM TARTRATE 5 MG TABLET PO PRN (21:33)
[2019-04-26] MEDS: HYDROMORPHONE HCL INJ/PF 2 MG/ML AMPULE IV PRN ×3 (00:07→14:14)
[2019-04-26] MEDS: METOCLOPRAMIDE HCL INJ/PF 10 MG/2 ML SDV IV SCH ×3 (00:07→12:16)
[2019-04-26] MEDS: INSULIN REG, HUMAN 100 UNIT/ML 3 ML VIAL (PYX) SUBCUT SCH ×3 (00:20→12:15)
[2019-04-26] MEDS: AMINO ACIDS 5 %/DEXTROSE 20 % 1,000 ML IV PRN (05:43)
[2019-04-26] MEDS: LISINOPRIL 10 MG TABLET PO SCH (09:33)
[2019-04-26] MEDS: METHADONE HCL 10 MG TABLET PO SCH (09:33)
[2019-04-26] MEDS: ENOXAPARIN SODIUM INJ 30 MG/0.3 ML DISP.SYRIN SUBCUT SCH (09:34)
[2019-04-26] MEDS: NORMAL SALINE 10 ML SDV (SCHEDULED) IV SCH (09:34)
[2019-04-26] MEDS: PREDNISONE 10 MG TABLET PO SCH (09:34)
[2019-04-26] MEDS: ASPIRIN 325 MG TABLET PO SCH (09:34)
--- NOTE | 2019-04-26 10:36 | PDOC PROGRESS REPORT ---
Subjective Progress Note for:: 04/26/19 Subjective:: feels well, wants to go home Reason For Visit: ABDOMINAL ABSCESS, PERFORATED VISCUS Physical Exam Vital Signs: Temp Pulse Resp BP Pulse Ox 98.2 F 88 15 110/64 97 04/26/19 07:35 04/26/19 07:35 04/26/19 07:35 04/26/19 07:35 04/26/19 07:35 Intake & Output 04/25/19 04/26/19 04/27/19 06:59 06:59 06:59 Intake Total 1136 354 Output Total 20 Balance 1116 354 General appearance: PRESENT: no acute distress Head exam: PRESENT: normocephalic Eye exam: PRESENT: EOMI Ear exam: PRESENT: normal external ear exam Mouth exam: PRESENT: moist Teeth exam: PRESENT: poor dentation Neck exam: PRESENT: full ROM Respiratory exam: PRESENT: clear to auscultation jack Cardiovascular exam: PRESENT: RRR Pulses: PRESENT: normal radial pulses, normal femoral pulses GI/Abdominal exam: PRESENT: soft - abd soft ruq wound is clean, min drainage, asad still has min drainage of enteric fluid, however, only 10-20cc /day pt is having normal bm's daily Rectal exam: PRESENT: deferred Extremities exam: PRESENT: full ROM Musculoskeletal exam: PRESENT: full ROM Neurological exam: PRESENT: alert, awake, oriented to person, oriented to place Psychiatric exam: PRESENT: appropriate affect Skin exam: PRESENT: dry Results Laboratory Results: 04/24/19 05:45 04/24/19 18:50 Impressions: Chest X-Ray 03/25/19 18:26 IMPRESSION: No pneumothorax. Patchy airspace opacities are present throughout the right lung base as well as left medial lung base. No significant pleural effusion.Left hilar fullness.Endotracheal tube tip overlies the lower trachea approximately 4.6 cm above the level of the aliyah. Nasogastric catheter tube is present with tip overlying the body of the stomach. Right IJ central venous catheter is present with tip overlying the SVC below the aliyah level. Abdomen X-Ray 04/09/19 03:47 IMPRESSION: No acute findings. Guidance Fluoroscopy 04/17/19 00:00 IMPRESSION: SUCCESSFUL PLACEMENT OF A 5 FR DUAL LUMEN 39 CM PICC IN THE LEFT BASILIC VEIN. Interventional Vascular Procedure 04/17/19 00:00 IMPRESSION: SUCCESSFUL PLACEMENT OF A 5 FR DUAL LUMEN 39 CM PICC IN THE LEFT BASILIC VEIN. PICC Line Insertion 04/17/19 00:00 IMPRESSION: SUCCESSFUL PLACEMENT OF A 5 FR DUAL LUMEN 39 CM PICC IN THE LEFT BASILIC VEIN. 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 Small Bowel X-Ray 04/20/19 00:00 IMPRESSION: SURGICAL CHANGES CONSISTENT WITH HEMICOLECTOMY, WITH NO CONTRAST EXTRAVASATION OR OBSTRUCTION IDENTIFIED ON SMALL BOWEL FOLLOW-THROUGH. 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 she has been on a soft diet for last week and her tpn has been weened off. she will be discharged home today with close follow up I will see her back in clinic next wk she has been instructed to call with questions, she has the phone number to the surgery clinic and will be able to contact me or another surgeon with any questions or problems she has been instructed in asad care, and encouraged to take abundant po clear fluids and full liquids and not eat large meals. she currently is on methadone and will check with her pain clinic tomorrow. I have given her a small amt of tramadol and she is instructed to use sparingly and not with her methadone.
--- NOTE | 2019-04-26 12:34 | DISCHARGE SUMMARY E ---
Discharge Summary NAME: KIRTI MANN : 1975 AGE: 43Y ADMITTED: 03/25/2019 DISCHARGED: 04/26/2019 ADMISSION DIAGNOSES: ABDOMINAL SEPSIS. DISCHARGE DIAGNOSES: ABDOMINAL SEPSIS WITH PERFORATED COLON. OPERATION: Exploratory laparotomy with removal of intraabdominal mesh and right hemicolectomy with small bowel resection. REASON FOR HOSPITALIZATION/HOSPITAL COURSE: This is a 43-year-old female with significant past medical history of rheumatoid arthritis, chronically immunosuppressed, with history of GERD, who on March 20, 2019 underwent an emergency cholecystectomy for gangrenous cholecystitis. She did well from that procedure and was discharged home in less than a week. She returned to the emergency room on the 25 of March about 5 days after her surgery with increasing abdominal pain, nausea, vomiting, and unable to keep down her medications. She underwent a CT scan in the emergency room which showed a large fluid collection in her right upper quadrant with free fluid and diagnosis of abscess was made. She had ground-glass infiltration of the lower lungs. It was initially thought that we could perform a percutaneous drainage of the abscess or fluid collection on the initial CT scan using interventional radiologic techniques, however, after discussion with the radiologist, it was not accessible and therefore she was taken to surgery. At the time of surgery she underwent a reopening of her right upper quadrant incision and it was noted that she had a previously placed piece of Kugel mesh with a surrounding peripheral plastic ring that had perforated since her cholecystectomy. Initially during the cholecystectomy the mesh was opened in its midline and reclosed after the cholecystectomy, however, she subsequently broke the peripheral ring that was in the Kugel mesh and it perforated her transverse colon. She had stool in her abdominal cavity and this was localized and it was irrigated out and she underwent an extended right hemicolectomy. The mesh was excised. She also required an extensive adhesiolysis in order to perform the transverse colectomy and therefore had a number of enterotomies during the adhesiolysis that needed to be repaired with a short small bowel resection. She tolerated that procedure well, however, postoperatively elevated her white blood count to the 40 to 50 range. She is also diabetic and medicine followed her throughout her hospital course. She was septic after the operation with a white count of 59,000 secondary to the colonic perforation. She was resuscitated and monitored in the ICU. Initial blood cultures x2 showed gram-negative rods in one of the bottles and she was continued on IV Zosyn and Vancomycin. She was also continued on a tapering dose of hydrocortisone. On 03/28 she continued to improve. Her white count came down to the 35 range and she was monitored in the ICU. We were able to get her out of bed then. She was taking only ice chips for the first few days after surgery. She was transferred to the floor out of the ICU after approximately 4 or 5 days in the ICU and she was maintained with NG suction. She was taking some ice chips and was having increased output on her NG tube. After a number of NG clamping trials, we were eventually able to remove her NG tube. She started feeling better, however, on 04/01/19 she vomited green bilious fluid. She felt better and began having return of bowel function with diarrhea bowel movements. I finally removed the NG tube on 04/02 and she was continued on sips. On 04/03/2019 she was continued to improve. She was passing stool and flatus. There was some purulent drainage noted out of her Kobe-Pugh drain. She was tolerating the ice chips and wanted to start eating so she was started on clear liquid diet. A repeat CT scan on 04/04 with oral contrast was obtained which showed no evidence of obstruction or evidence of contrast leak from the bowel lumen. Scattered postinflammatory changes were seen. There was a small amount of free fluid that had [address], one in the pelvis and one next to her anastomosis which did not show any evidence of any leak. 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 On 04/04/2019 she was noted to have some small amount of bilious output from her left-sided Kobe-Pugh drain, the one that was next to her anastomosis. At that point she was made n.p.o. and Sandostatin was started. A repeat CT scan was obtained. A repeat CAT scan again did not show any evidence of leak despite giving her oral contrast. There was no evidence of any significant fluid collection seen on CT scan. She remained n.p.o. We continued on octreotide. She could easily pass stool and flatus and then the following day we started her on clear liquid diet again since there was no evidence of any leak on her CT scan. On 04/06/2019 her white count was back down to her normal range of 21 and she continued to do well on clear liquid diet. She was passing stool. Her RODO had minimal output and we slowly advanced her diet to full liquids. On 04/07/2019 she continued to do better. She was passing more formed stools. She had minimum output from her RODO drains. She was tolerating full liquids and we slowly advanced to a soft diet per her request. We stopped her antibiotics on 04/08 and her labs remained normal and her white count remained normal for her. I obtained another CT scan on 04/09/2019 because of the bilious output from her Kobe-Pugh drain. At this point we did see that there was a small rim of fluid and a few air bubbles in the anterior abdominal wall which was felt by the radiologist to communicate with possibly a fistula near where the Kobe-Pugh drain was. It was well-captured and draining. While there was no significant body fluid collection and in fact her CAT scan looked markedly better than her previous CAT scans. That was followed up with the abdominal x-ray which showed no gross findings and was read as no acute findings. On 04/09/2019 she developed some nausea and vomiting. There was more bilious output from her Kobe-Pugh drain. Her temperature went up to 101. KUB was without acute findings and therefore because of her temperature we restarted her Zosyn and Flagyl. On 04/10 she improved and she defervesced her fever. I re-reviewed her CT scan with the radiologist. Again, there was no evidence of acute extravasation. She was restarted on her antibiotics. She felt better. She was passing formed stools. On the number 1 RODO that was adjacent to the small bowel anastomosis showed a small amount of bilious output. There was no evidence of any peritonitis. We continued IV antibiotics. On 04/10/2019 she also received 2 units of packed red blood cells for a hemoglobin of 7 without any obvious source. It was felt that it was secondary to a chronic disease and multiple blood draws. We continued her Lovenox despite that for her risk of a DVT and plans were made to repeat her CT scan another day to reevaluate for more fluid leak or fluid collection. On 04/13/19 she underwent a repeat CT scan. There was a small collection of gas in the subcutaneous tissues located at the level of the surgical incision, postoperative in nature. There was no other significant findings. The previously seen fluid collection located between the bowel and the abdominal wall had decreased in size since the prior study. There was no evidence of any extravasation. On 04/14/19 she continued to improve, she was passing normal stools that were greenish in color. We continued with Sandostatin. On 04/15/19 she continued to also improve her white count, trended down, she felt well. We restarted her back on a full liquid diet. We felt that she had been taking on minimal p.o. throughout her hospital course and therefore on 04/16 I ordered a PICC line to start her on TPN. She initially refused that but after some discussion she accepted the PICC line and she was started on TPN shortly after that. On 04/17/2019 she was tolerating a full liquid diet and having some BMs, taking only minimal p.o. and was started on TPN. On 04/20 I elected to perform a small series on her to rule out any leak. Impression of the radiologist was there were surgical changes from the hemicolectomy but there was no contrast, extravasation or obstruction identified on the small bowel follow through. However, on a follow-up CT scan the same day, there appeared to be a small fistula adjacent to just to the right of midline in the upper abdominal wall that was well-captured and did not show any evidence of any intraabdominal collection. At that point, it was noted that she did have a small amount of drainage from her right upper quadrant incision and we treated that with only dressing changes. Subsequent to that, her antibiotics were stopped and we continued her on a diet and observation of the right upper quadrant wound. That slowly has decreased to zero output by the time of discharge but she did continue to drain small amounts through her left Kobe-Pugh drain. She was continued on TPN for approximately 10 days prior to her discharge and that was eventually weaned off just prior to her discharge as she was tolerating a soft diet with no increased output from her drain sites and having normal bowel movements. She continued to improve the rest of her hospital course off of antibiotics with maintaining her baseline white blood count in the 18 to 22 range and at this point she is feeling well and wants to be discharged home. We will leave the drain in the left lower quadrant drain in place as it is draining some small amount of bilious material. It seems to be well captured fistula drainage. She is taking a small amount of solid p.o. and full liquid diet. She was on methadone as an outpatient and will resume that after her discharge. She is also on oral prednisone at home which she will resume after discharge. She takes lisinopril 40 mg tablet 1 p.o. b.i.d. at home. She will resume that after discharge. Her prednisone dose is 20 mg p.o. daily she has at home and her methadone dose is 140 mg p.o. daily. DISCHARGE DIAGNOSIS: 1. COLONIC perforation secondary to abdominal wall mesh. 2. Sepsis, secondary to intraabdominal abscess, resolved. PLAN: She will be given a prescription for p.o. tramadol 50 mg 1 mg p.o. q. 6 hours p.r.n. pain until she refills her methadone dose from the methadone clinic that she will follow up with later this week. She will be seen in the surgery clinic next week for follow up. She has been instructed to call with any concerns such as fevers, increasing abdominal pain, increased output from her Kobe-Pugh drain, nausea, vomiting, or diarrhea. DICTATING PHYSICIAN: IZAIAH GARZA M.D. [id number] PHY#: [id number] ID: [id number] JOB#: [id number] ACCT: [id number] cc:IZAIAH GARZA M.D. >
[2019-04-26 14:35] VITALS: BP 118/87
== END 2019-04-26 15:20 | disposition home or self-care (01) | DRG 853 ==
LOC: ER 08:42 → EH 13:25 → ICU 18:13 → 4S 03-27 11:50
PROVIDERS: ADMIT Surgery; ATTEND Surgery
PROC: 0DBE0ZZ Excision of Large Intestine, Open Approach (ICD-10-PCS; 2019-03-25)
PROC: 0D1B0Z4 Bypass Ileum to Cutaneous, Open Approach (ICD-10-PCS; 2019-03-25)
PROC: 0WPF0JZ Removal of Synthetic Substitute from Abdominal Wall, Open Approach (ICD-10-PCS; 2019-03-25)
PROC: 0W9F0ZX Drainage of Abdominal Wall, Open Approach, Diagnostic (ICD-10-PCS; 2019-03-25)
PROC: 02HV33Z Insertion of Infusion Device into Superior Vena Cava, Percutaneous Approach (ICD-10-PCS; 2019-03-25)
PROC: 30233N1 Transfusion of Nonautologous Red Blood Cells into Peripheral Vein, Percutaneous Approach (ICD-10-PCS; 2019-03-25)
PROC: 0DTF0ZZ Resection of Right Large Intestine, Open Approach (ICD-10-PCS; principal; 2019-03-25 14:15)
PROC: 02HV33Z Insertion of Infusion Device into Superior Vena Cava, Percutaneous Approach (ICD-10-PCS; 2019-04-17)
PROC: 3E0436Z Introduction of Nutritional Substance into Central Vein, Percutaneous Approach (ICD-10-PCS; 2019-04-17)
PROC: 5A1945Z Respiratory Ventilation, 24-96 Consecutive Hours (ICD-10-PCS; 2019-04-24)
DX: A41.9 Sepsis, unspecified organism (principal); K65.1 Peritoneal abscess; K21.9 Gastro-esophageal reflux disease without esophagitis; D47.3 Essential (hemorrhagic) thrombocythemia; I10 Essential (primary) hypertension; F17.200 Nicotine dependence, unspecified, uncomplicated; D72.823 Leukemoid reaction; G89.4 Chronic pain syndrome; B96.6 Bacteroides fragilis [B. fragilis] as the cause of diseases classified elsewhere; B96.7 Clostridium perfringens [C. perfringens] as the cause of diseases classified elsewhere; B96.89 Other specified bacterial agents as the cause of diseases classified elsewhere; E87.6 Hypokalemia; E66.9 Obesity, unspecified; Z68.36 Body mass index [BMI] 36.0-36.9, adult; M06.842 Other specified rheumatoid arthritis, left hand; M06.841 Other specified rheumatoid arthritis, right hand; R65.20 Severe sepsis without septic shock; Z90.49 Acquired absence of other specified parts of digestive tract; Z90.710 Acquired absence of both cervix and uterus; Z79.899 Other long term (current) drug therapy; Z79.52 Long term (current) use of systemic steroids; Z88.8 Allergy status to other drugs, medicaments and biological substances
CPT/HCPCS: 00790; 36415; 36430; 36569; 71045; 74019; 74176; 74250; 76937; 77001; 80048; 80053; 81001; 82272; 82803; 82962; 83605; 83690; 83735; 84100; 84132; 84134; 84478; 85025; 85027; 85610; 86850; 86900; 86901; 86920; 87040; 87070; 87075; 87077; 87086; 87186; 87205; 88307; 93005; 93010; 94002; 94003; 94799; 96361; 96365; 96375; 99291; C1751; J0131; J0330; J0360; J0610; J0694; J1170; J1200; J1642; J1650; J1720; J1815; J1885; J2060; J2250; J2270; J2354; J2370; J2405; J2543; J2550; J2704; J2765; J2930; J3010; J3370; J3480; J3490; J7030; J7050; J7060; J7120; J7512; P9016; S0028